=== PATIENT | female | born 1950 | race Caucasian/White ===

== ENCOUNTER → 2016-09-24 | Outpatient (CLI) | payer MEDICARE ==
[~2016-09-24] MED LIST: ASP325TEC PO; ASP81TEC PO; CYCL5TAB11 PO; FURO40TA4 PO; KCL10CCR PO; LTN005OP2 OU; MULT-856 PO; MULT1CAP27 PO; OXYC-109 PO; OXYC-12 PO; PSYL1PAC15 PO; SPIR25TA3 PO; TRAM50TA2 PO
--- NOTE | 2016-09-24 14:15 | Diagnostic Imaging Report ---
Bilateral screening mammogram. The current study was also evaluated with a Computer Aided Detection (CAD) system. INDICATION: Screening. No current complaints stated on the questionnaire. COMPARISON: 09/12/15. FINDINGS: The breasts are composed of scattered fibroglandular densities. There are vascular calcifications seen. Allowing for technique and positional differences, no suspicious change is seen. IMPRESSION: No significant change. ACR BI-RADS Category 2: Benign findings. Result letter will be mailed to the patient. Note: At least 10% of breast cancer is not imaged by mammography. Dictated by: Dictated on workstation # [id number]
== END ==
LOC: RAD 09:36
PROVIDERS: ATTEND Family Medicine
DX: Z12.31 Encounter for screening mammogram for malignant neoplasm of breast (principal)
CPT/HCPCS: 77067

== ENCOUNTER 2017-01-11 10:21 | Emergency (ER) | payer MEDICARE ==
[~2017-01-11] VITALS: Ht 157.5 cm; Wt 108.9 kg
[2017-01-11] MEDS ORDERED: ASPI-586 PO (10:50)
[2017-01-11] MEDS ORDERED: MELO15TA39 (10:50)
[2017-01-11] MEDS ORDERED: LOSA50TA36 (10:50)
[2017-01-11] MEDS ORDERED: TRAM50TA2 (10:50)
--- NOTE | 2017-01-11 10:55 | ED Abdominal Pain ---
General Chief Complaint: Abdominal/GI Problems Stated Complaint: ABD PAIN,NAUSEA Nursing Triage Note: AMBULATED TO ROOM 08 WITHOUT DIFFICULTY. COMPLAINS OF BILAT LOWER ABD PAIN SINCE SATURDAY OFF AND ON WITH NAUSEA. STATES SHE VOMITED TWICE ON SAT. Sepsis Screen: No Definite Risk Source of Information: Patient Exam Limitations: No Limitations History of Present Illness Time Seen By Provider: 10:53 Initial Comments To ER with bilateral lower abdominal pain that has been crampy in nature and intermittent for 4 days. She vomited twice 2 days ago. She denies fevers or chills but states that her bowels have been a bit looser than usual though she would not consider it to be diarrhea. Cramping seems to be a bit better today but is still uncomfortable. She denies any dysuria. She denies any fevers or chills. She does have a history of diverticulitis. Timing/Duration: 4-5 Days, Intermittent Severity/Quality: Cramping Location: Suprapubic Radiation: No Radiation Activities at Onset: None Associated Symptoms: No Fever/Chills, Nausea/Vomiting Allergies and Home Medications Allergies Coded Allergies: codeine (Verified Allergy, Unknown, 05/06/14) hydrocodone (Verified Allergy, Unknown, 05/06/14) Home Medications Aspirin 81 Mg Tablet.dr, 81 MG PO DAILY, (Reported) Ciprofloxacin HCl 500 Mg Tablet, 500 MG PO BID, #14 Prescribed by: JAM RIBERA on 01/11/17 1222 Latanoprost 2.5 Ml Drops, 1 DROP OU HS, (Reported) Losartan Potassium 50 Mg Tablet, #90 (Reported) Meloxicam 15 Mg Tablet, #30 (Reported) Metronidazole 500 Mg Tablet, 500 MG PO TID, #21 Prescribed by: JAM RIBERA on 01/11/17 1222 Multivits W-Fe,Other Min/Lut 1 Each Tablet, 1 TAB PO DAILY, (Reported) Ondansetron 8 Mg Tab.rapdis, 8 MG PO Q6H PRN for NAUSEA/VOMITING-1ST LINE, #14 Prescribed by: JAM RIBERA on 01/11/17 1222 Tramadol HCl 50 Mg Tablet, #40 (Reported) Tramadol HCl 50 Mg Tablet, 50 MG PO Q6H PRN for PAIN-MODERATE TO SEVERE, #20 Prescribed by: JAM RIBERA on 01/11/17 1238 Review of Systems Constitutional: see HPI EENTM: No Symptoms Reported Respiratory: No Symptoms Reported Cardiovascular: No Symptoms Reported Gastrointestinal: See HPI, Abdominal Pain, Denies Blood Streaked Stools, Denies Constipated, Denies Diarrhea, Nausea, Vomiting Genitourinary: No Symptoms Reported Musculoskeletal: no symptoms reported Skin: no symptoms reported Psychiatric/Neurological: No Symptoms Reported Endocrine: No Symptoms Reported Past Aqrpjdw-Jnnhkl-Raycbp Hx Patient Social History Alcohol Use: Denies Use Recreational Drug Use: No Smoking Status: Never a Smoker Recent Foreign Travel: No Contact w/Someone Who Travel: No Recent Infectious Disease Expo: No Immunizations Up To Date Tetanus Booster (TDap): Unknown Surgeries HX Surgeries: Yes (HYSTEROSCOPY, TEETH REMOVAL) Surgeries: Gallbladder, Orthopedic Respiratory Hx Respiratory Disorders: No Cardiovascular Hx Cardiac Disorders: No ( HEART CATH ) Cardiac Disorders: Hypertension Neurological Hx Neurological Disorders: No Reproductive System Hx Reproductive Disorders: No Genitourinary Hx Genitourinary Disorders: No Gastrointestinal Hx Gastrointestinal Disorders: Yes (DIVERTICULITIS) Musculoskeletal Hx Musculoskeletal Disorders: Yes (DJD) Musculoskeletal Disorders: Arthritis Endocrine Hx Endocrine Disorders: No HEENT HX ENT Disorders: Yes (UPPER DENTURES) HEENT Disorders: Glaucoma Cancer Hx Cancer: No Psychosocial Hx Psychiatric Problems: No Integumentary HX Skin/Integumentary Disorder: Yes (RECENT LESIONS FROZE OFF) Skin/Integumentary Disorders: Eczema Blood Transfusions Hx Blood Disorders: No Physical Exam Vital Signs VS - Last 72 Hours, by Label 01/11/17 10:40 Temp 98.1 Pulse 100 Resp 16 B/P (MAP) 176/72 Pulse Ox 93 Capillary Refill : Less Than 3 Seconds General Appearance: WD/WN, no apparent distress HEENT: PERRL/EOMI, normal ENT inspection Neck: non-tender, full range of motion Respiratory: no respiratory distress, no accessory muscle use Cardiovascular: regular rate, rhythm, no murmur Gastrointestinal: normal bowel sounds, soft, tenderness (minimal left lower quadrant tenderness) Extremities: normal range of motion, non-tender Neurologic/Psychiatric: alert, normal mood/affect, oriented x 3 Skin: normal color, warm/dry Exam Comments She denies any current pain or nausea. Progress/Results/Core Measures Results/Orders Lab Results Laboratory Tests Test 01/11/17 10:55 01/11/17 11:05 Range/Units White Blood Count 6.8 4.3-11.0 10^3/uL Red Blood Count 5.21 4.35-5.85 10^6/uL Hemoglobin 14.5 11.5-16.0 G/DL Hematocrit 45 35-52 % Mean Corpuscular Volume 86 80-99 FL Mean Corpuscular Hemoglobin 28 25-34 PG Mean Corpuscular Hemoglobin Concent 32 32-36 G/DL Red Cell Distribution Width 14.2 10.0-14.5 % Platelet Count 258 130-400 10^3/uL Mean Platelet Volume 9.6 7.4-10.4 FL Neutrophils (%) (Auto) 72 42-75 % Lymphocytes (%) (Auto) 17 12-44 % Monocytes (%) (Auto) 10 0-12 % Eosinophils (%) (Auto) 0 0-10 % Basophils (%) (Auto) 0 0-10 % Neutrophils # (Auto) 4.9 1.8-7.8 X 10^3 Lymphocytes # (Auto) 1.2 1.0-4.0 X 10^3 Monocytes # (Auto) 0.7 0.0-1.0 X 10^3 Eosinophils # (Auto) 0.0 0.0-0.3 10^3/uL Basophils # (Auto) 0.0 0.0-0.1 10^3/uL Sodium Level 141 135-145 MMOL/L Potassium Level 3.6 3.6-5.0 MMOL/L Chloride Level 106 98-107 MMOL/L Carbon Dioxide Level 26 21-32 MMOL/L Anion Gap 9 5-14 MMOL/L Blood Urea Nitrogen 13 7-18 MG/DL Creatinine 0.60 0.60-1.30 MG/DL Estimat Glomerular Filtration Rate > 60 BUN/Creatinine Ratio 22 Glucose Level 113 H 70-105 MG/DL Calcium Level 9.4 8.5-10.1 MG/DL Total Bilirubin 0.8 0.1-1.0 MG/DL Aspartate Amino Transf (AST/SGOT) 23 5-34 U/L Alanine Aminotransferase (ALT/SGPT) 23 0-55 U/L Alkaline Phosphatase 92 40-136 U/L Total Protein 7.3 6.4-8.2 GM/DL Albumin 4.0 3.2-4.5 GM/DL Urine Color YELLOW Urine Clarity CLEAR Urine pH 5 5-9 Urine Specific [place] 1.015 L 1.016-1.022 Urine Protein 1+ H NEGATIVE Urine Glucose (UA) NEGATIVE NEGATIVE Urine Ketones 1+ H NEGATIVE Urine Nitrite NEGATIVE NEGATIVE Urine Bilirubin NEGATIVE NEGATIVE Urine Urobilinogen NORMAL NORMAL MG/DL Urine Leukocyte Esterase 3+ H NEGATIVE Urine RBC (Auto) 3+ H NEGATIVE Urine RBC RARE /HPF Urine WBC 5-10 H /HPF Urine Squamous Epithelial Cells 10-25 H /HPF Urine Crystals NONE /LPF Urine Bacteria TRACE /HPF Urine Casts NONE /LPF Urine Mucus NEGATIVE /LPF Urine Culture Indicated YES My Orders Orders - JAM RIBERA APRN Ua Culture If Indicated (01/11/17 10:49) Cbc With Automated Diff (01/11/17 10:49) Comprehensive Metabolic Panel (01/11/17 10:49) Saline Lock/Iv-Start (01/11/17 10:49) Ns Iv 1000 Ml (Sodium Chloride 0.9%) (01/11/17 11:00) Urine Culture (01/11/17 11:05) Ct Abdomen/Pelvis W (01/11/17 11:41) Iohexol Injection (Omnipaque 350 Mg/Ml 1 (01/11/17 12:00) Ns (Ivpb) (Sodium Chloride 0.9% Ivpb Bag (01/11/17 12:00) Ciprofloxacin Tablet (Cipro Tablet) (01/11/17 12:30) Metronidazole Tablet (Flagyl Tablet) (01/11/17 12:30) Medications Given in ED Current Medications Medications Dose Ordered Sig/Hoda Route Start Time Stop Time Status Last Admin Dose Admin Iohexol 100 ml ONCE ONCE IV 01/11/17 12:00 01/11/17 12:01 DC 01/11/17 11:58 100 ML Sodium Chloride 100 ml ONCE ONCE IV 01/11/17 12:00 01/11/17 12:01 DC 01/11/17 11:58 80 ML Vital Signs/I&O Vital Sign - Last 12Hours 01/11/17 10:40 Temp 98.1 Pulse 100 Resp 16 B/P (MAP) 176/72 Pulse Ox 93 Blood Pressure Mean: 106 Diagnostic Imaging Diagonstic Imaging: CT Comments NAME: DEANNA VIDALES [facility] REC#: [id number] PT STATUS: REG ER : 1950 PHYSICIAN: JAM RIBERA APRN ADMIT DATE: 01/11/17/ER Draft Date of Exam:01/11/17 CT ABDOMEN/PELVIS W PROCEDURE: CT abdomen and pelvis with contrast. TECHNIQUE: Multiple contiguous axial images were obtained through the abdomen and pelvis after administration of intravenous contrast. INDICATION: Abdominal pain and nausea. 100 mL of Omnipaque 350 is administered intravenously. FINDINGS: There is minimal left basilar atelectasis. The liver, the spleen, the adrenals, and the pancreas appear unremarkable. Cholecystectomy clips are seen. The biliary tree is slightly dilated, without definite obstructive lesion. This is commonly seen after cholecystectomy. The kidneys have symmetric contrast enhancement and excretion. The renal collecting system has contrast in it even on the arterial phase and this study cannot evaluate for renal stones. There is a 1.4 cm cyst in the anterior aspect of the left kidney. There is thickening and pericolonic inflammation seen around the descending and proximal sigmoid colon with multiple diverticula noted suggestive of diverticulitis. No abscess. No fluid collection or free fluid. The abdominal aorta is normal in caliber. No para-aortic significantly enlarged lymph node is seen. The uterus and adnexa appear grossly unremarkable. The osseous structures demonstrate degenerative changes in the lumbar spine and SI joints more on the right side. IMPRESSION: Mild to moderate diverticulitis changes involving the descending and proximal sigmoid colon. No abscess. The findings were discussed with Mr. Jam Ribera, the ER physician geriatric assistant taking care of the patient at time of dictation. Dictated on workstation # [id number] Dict: 01/11/17 1227 Trans: 01/11/17 1238 [id number] Interpreted by: TARA TAVERAS MD Electronically signed by: Departure Communication Progress Notes I did discuss return precautions with the patient and her family including that she should return for uncontrollable nausea vomiting, fever or worsening pain. Impression Impression: Primary Impression: Diverticulitis large intestine Disposition: 01 HOME, SELF-CARE Condition: Stable Departure-Patient Inst. Decision time for Depature: 12:20 Referrals: ALY BLAND MD (PCP/Family) Primary Care Physician Patient Instructions: Diverticulitis (DC) Add. Discharge Instructions: 1. Return to ER for any concerns such as fevers, worsening pain, nausea that prohibits you from taking your antibiotics 2. Take antibiotics as directed 3. Follow-up with Dr. Bland next week All discharge instructions reviewed with patient and/or family. Voiced understanding. Scripts Tramadol HCl (Ultram) 50 Mg Tablet 50 MG PO Q6H Y for PAIN-MODERATE TO SEVERE, #20 TAB Prov: JAM RIBERA APRN 01/11/17 Ondansetron (Zofran Odt) 8 Mg Tab.rapdis 8 MG PO Q6H Y for NAUSEA/VOMITING-1ST LINE, #14 TAB Prov: JAM RIBERA APRN 01/11/17 Metronidazole (Flagyl) 500 Mg Tablet 500 MG PO TID, #21 TAB Prov: JAM RIBERA APRN 01/11/17 Ciprofloxacin HCl (Cipro) 500 Mg Tablet 500 MG PO BID, #14 TAB Prov: JAM RIBERA APRN 01/11/17 JAM RIBERA APRN Jan 11, 2017 10:55
[2017-01-11] MEDS ORDERED: NS IV 1000 ML 1,000 ML IV SCH (11:00)
[2017-01-11 11:02] LABS: BASOPHILS % (AUTO) 0 % (0-10); EOSINOPHILS % (AUTO) 0 % (0-10); LYMPHOCYTES # (AUTO) 1.2 X 10^3 (1.0-4.0); LYMPHOCYTES % (AUTO) 17 % (12-44); MEAN CORPUSCULAR HEMOGLOBIN 28 PG (25-34); MEAN CORPUSCULAR HGB CONC 32 G/DL (32-36); MEAN CORPUSCULAR VOLUME 86 FL (80-99); MEAN PLATELET VOLUME 9.6 FL (7.4-10.4); MONOCYTES # (AUTO) 0.7 X 10^3 (0.0-1.0); MONOCYTES % (AUTO) 10 % (0-12); NEUTROPHILS # (AUTO) 4.9 X 10^3 (1.8-7.8); NEUTROPHILS % (AUTO) 72 % (42-75); PLATELET COUNT 258 10^3/uL (130-400); RED BLOOD COUNT 5.21 10^6/uL (4.35-5.85); RED CELL DISTRIBUTION WIDTH 14.2 % (10.0-14.5); WHITE BLOOD COUNT 6.8 10^3/uL (4.3-11.0)
[2017-01-11 11:16] LABS: BILIRUBIN,URINE NEGATIVE (NEGATIVE); KETONES,URINE 1+ (NEGATIVE); LEUKOCYTE ESTERASE ,URINE 3+ (NEGATIVE); NITRITE,URINE NEGATIVE (NEGATIVE); PH,URINE 5 (5-9); PROTEIN,URINE 1+ (NEGATIVE); UROBILINOGEN,URINE NORMAL (NORMAL)
[2017-01-11 11:24] LABS: ALANINE AMINOTRANSFERASE 23 U/L (0-55); ANION GAP 9 MMOL/L (5-14); ASPARTATE AMINO TRANSFERASE 23 U/L (5-34); BILIRUBIN,TOTAL 0.8 MG/DL (0.1-1.0); BLOOD UREA NITROGEN 13 MG/DL (7-18); BUN/CREATININE RATIO 22; CALCIUM 9.4 MG/DL (8.5-10.1); CARBON DIOXIDE 26 MMOL/L (21-32); CHLORIDE 106 MMOL/L (98-107); GFR ESTIMATED > 60; GLUCOSE 113 MG/DL (70-105); POTASSIUM 3.6 MMOL/L (3.6-5.0); SODIUM 141 MMOL/L (135-145); TOTAL PROTEIN 7.3 GM/DL (6.4-8.2)
[2017-01-11] MEDS ORDERED: IOHEXOL 350 MG/ML 100 ML (OMNIPAQUE 350) VIAL IV ONE (12:00)
[2017-01-11] MEDS ORDERED: NS 100 ML (IVPB) BAG IV ONE (12:00)
[2017-01-11] MEDS ORDERED: METR500T PO (12:22)
[2017-01-11] MEDS ORDERED: CIPR-225 PO (12:22)
[2017-01-11] MEDS ORDERED: ONDA8TAB9 PO (12:22)
[2017-01-11] MEDS ORDERED: metroNIDAZOLE 500 MG (FLAGYL) TAB PO ONE (12:30)
[2017-01-11] MEDS ORDERED: CIPROFLOXACIN 500 MG (CIPRO) TABLET PO SCH (12:30)
[2017-01-11] MEDS ORDERED: TRAM-42 PO (12:38)
--- NOTE | 2017-01-11 12:39 | Diagnostic Imaging Report ---
PROCEDURE: CT abdomen and pelvis with contrast. TECHNIQUE: Multiple contiguous axial images were obtained through the abdomen and pelvis after administration of intravenous contrast. INDICATION: Abdominal pain and nausea. 100 mL of Omnipaque 350 is administered intravenously. FINDINGS: There is minimal left basilar atelectasis. The liver, the spleen, the adrenals, and the pancreas appear unremarkable. Cholecystectomy clips are seen. The biliary tree is slightly dilated, without definite obstructive lesion. This is commonly seen after cholecystectomy. The kidneys have symmetric contrast enhancement and excretion. The renal collecting system has contrast in it even on the arterial phase and this study cannot evaluate for renal stones. There is a 1.4 cm cyst in the anterior aspect of the left kidney. There is thickening and pericolonic inflammation seen around the descending and proximal sigmoid colon with multiple diverticula noted suggestive of diverticulitis. No abscess. No fluid collection or free fluid. The abdominal aorta is normal in caliber. No para-aortic significantly enlarged lymph node is seen. The uterus and adnexa appear grossly unremarkable. The osseous structures demonstrate degenerative changes in the lumbar spine and SI joints more on the right side. IMPRESSION: Mild to moderate diverticulitis changes involving the descending and proximal sigmoid colon. No abscess. The findings were discussed with Mr. Stevenson Ribera, the ER physician speech language pathology assistant taking care of the patient at time of dictation. Dictated by: Dictated on workstation # [id number]
[2017-01-11 13:07] VITALS: BP 134/63
== END 2017-01-11 13:07 | disposition home or self-care (01) ==
LOC: EDUNIT# 10:21 → ER 10:22
DX: K57.32 Diverticulitis of large intestine without perforation or abscess without bleeding (principal); M19.90 Unspecified osteoarthritis, unspecified site; I10 Essential (primary) hypertension; Z90.49 Acquired absence of other specified parts of digestive tract; Z79.82 Long term (current) use of aspirin
CPT/HCPCS: 36415; 74177; 80053; 81000; 85025; 87088; 87186; 99283

== ENCOUNTER → 2017-06-26 | Outpatient (CLI) | payer MEDICARE ==
[~2017-06-26] MED LIST changes: +ASPI-586 PO; +BARIUM SUSPENSION 2.1% (VANILLA SILQ) 450 ML PO ONE; +CIPR-225 PO; +IOHEXOL 350 MG/ML 100 ML (OMNIPAQUE 350) VIAL IV ONE; +LOSA50TA36; +MELO15TA39; +METR500T PO; +NS 100 ML (IVPB) BAG IV ONE; +ONDA8TAB9 PO; +TRAM-42 PO; +TRAM50TA2
--- NOTE | 2017-06-26 10:49 | Diagnostic Imaging Report ---
PROCEDURE: CT abdomen and pelvis with contrast. TECHNIQUE: Multiple contiguous axial images were obtained through the abdomen and pelvis after administration of intravenous contrast. INDICATION: Pelvic mass. The previous CT at abdomen/pelvis exam of 01/11/2017 noted moderate diverticulitis of the sigmoid and descending colon. There is no diverticular mass or abscess identified. On this exam, there is again evidence of diverticulosis of the sigmoid and descending colon but there is no significant distortion of the pericolonic fat to suggest acute diverticulitis. There is still no pelvic mass or abscess identified. There does appear to be a fair amount of fecal material in the sigmoid colon as it courses close to the anterior abdominal wall. The urinary bladder and uterus are grossly unremarkable. The appendix was visualized and is not abnormally thickened. The liver, spleen, pancreas, adrenals, aorta and inferior vena cava and kidneys show no sign of an acute abnormality. There is a large 1.1 x 1.8 cm nonobstructive calculus in the inferior pole of the right kidney. I suspect that this was present on the prior exam but difficult to identify as a pre-intravenous contrast series was not performed on prior study. The small cyst along the anterior aspect of the left kidney seen previously is again evident and no different. The stomach is not well-distended and consequently difficult to assess. The lung bases are clear. The bone windows show no sign of a fracture or destructive lesion. There is degenerative disc and bony disease throughout the lumbar spine. IMPRESSION: 1. There is diverticulosis of the sigmoid and descending colon but there is no sign of acute diverticulitis. 2. There is no pelvic mass or abscess different. There is a fair amount of fecal material in a portion of the sigmoid colon as it courses near the anterior abdominal wall on the left, however. 3. There is no acute abnormality of the abdomen or pelvis noted, otherwise. 4. There is a large nonobstructive calculus within the inferior pole of the right kidney. Dictated by: Dictated on workstation # [id number]
== END ==
LOC: RAD 09:19
PROVIDERS: ATTEND Obstetrics & Gynecology
DX: K57.30 Diverticulosis of large intestine without perforation or abscess without bleeding (principal); N20.0 Calculus of kidney
CPT/HCPCS: 74177

== ENCOUNTER 2017-11-12 09:44 | Outpatient (RCR) | payer MEDICARE ==
[~2017-11-12 09:44] MED LIST changes: -BARIUM SUSPENSION 2.1% (VANILLA SILQ) 450 ML PO ONE; -IOHEXOL 350 MG/ML 100 ML (OMNIPAQUE 350) VIAL IV ONE; -NS 100 ML (IVPB) BAG IV ONE
== END 2017-11-12 11:35 | disposition home or self-care (01) ==
PROVIDERS: ATTEND Orthopaedic Surgery
DX: S83.412A Sprain of medial collateral ligament of left knee, initial encounter (principal); W00.9XXA Unspecified fall due to ice and snow, initial encounter; Z96.652 Presence of left artificial knee joint; I10 Essential (primary) hypertension

== ENCOUNTER → 2017-12-23 | Outpatient (CLI) | payer MEDICARE ==
--- NOTE | 2017-12-23 15:52 | Diagnostic Imaging Report ---
INDICATION: Routine screening. COMPARISON: 09/24/2016 and 09/12/2015. TECHNIQUE: 2D and 3D bilateral screening mammography was performed with CAD. FINDINGS: Scattered fibroglandular densities are identified bilaterally. Scattered benign-appearing calcifications are noted bilaterally. Intramammary lymph nodes in the outer left breast are stable. No new mass or malignant appearing microcalcifications are seen. The axillae are unremarkable. IMPRESSION: No mammographic features suspicious for malignancy are identified. ACR BI-RADS Category 2: Benign findings. Result letter will be mailed to the patient. Note: At least 10% of breast cancer is not imaged by mammography. Dictated by: Dictated on workstation # [id number]
== END ==
LOC: RAD 08:32
PROVIDERS: ATTEND Family Medicine
DX: Z12.31 Encounter for screening mammogram for malignant neoplasm of breast (principal)
CPT/HCPCS: 77067

== ENCOUNTER 2018-07-24 13:56 | Emergency (ER) | payer MEDICARE ==
[~2018-07-24] VITALS: Ht 157.5 cm; Wt 102.1 kg
[~2018-07-24 13:56] MED LIST changes: -LOSA50TA36; +LOSA50TA63 PO
--- OUTSIDE RECORDS SUMMARY | 2018-07-24 14:02 | XMS REPORT | Continuity of Care Document ---
Author Author [facility] Organization [facility] Address Unknown Phone Unavailable Allergies Active Description Code Type Severity Reaction Onset Reported/Identified Relationship to Patient Clinical Status Yes codeine [id number] Drug Allergy Unknown N/A 05/06/2014 Yes hydrocodone [id number] Drug Allergy Unknown N/A 05/06/2014 Medications There is no data. Problems Date Dx Coded Attending Type Code Diagnosis Diagnosed By 05/16/1131 LATRELL MCCALL Ot M54.5 LOW BACK PAIN 05/16/1134 AMELIA YANG DO Ot I10 ESSENTIAL (PRIMARY) HYPERTENSION 05/16/1134 AMELIA YANG DO Ot S83.412A SPRAIN OF MEDIAL COLLATERAL LIGAMENT OF 05/16/1134 AMELIA YANG DO Ot W00.9XXA UNSPECIFIED FALL DUE TO ICE AND SNOW, IN 05/16/1134 AMELIA YANG DO Ot Z96.652 PRESENCE OF LEFT ARTIFICIAL KNEE JOINT 03/24/2009 Ot 724.2 03/24/2009 Ot V57.1 08/26/2012 Ot 278.00 OBESITY, NOS 08/26/2012 Ot 401.9 HYPERTENSION NOS 08/26/2012 Ot 433.10 CAROTID ARTERY OCCLUSION W O CEREBRAL IN 08/26/2012 Ot 715.90 OSTEOARTHROS NOS-UNSPEC 08/26/2012 Ot 786.09 RESPIRATORY ABNORM NEC 08/26/2012 Ot 794.30 ABN CARDIOVASC STUDY NOS 08/26/2012 Ot V85.41 BODY MASS INDEX 40.0-44.9, ADULT 10/02/2012 Ot 715.36 LOC OSTEOARTH NOS-L/LEG 11/26/2012 AMELIA YANG DO Ot V43.65 KNEE JOINT REPLACEMENT STATUS 11/26/2012 AMELIA YANG DO Ot V54.81 AFTERCARE FOLLOWING JOINT REPLACEMENT 11/26/2012 AMELIA YANG DO Ot V57.1 PHYSICAL THERAPY NEC 03/15/2014 JMA RG APRN Ot 724.2 [place] 06/04/2014 FRANCK HUITRON, ALY R Ot 786.2 06/05/2014 FRANCK HUITRON, ALY R Ot 786.2 06/23/2014 FRANCK HUITRON, ALY R Ot 786.2 07/12/2014 FRANCK HUITRON, ALY R Ot 786.2 09/06/2014 Ot V76.12 09/06/2014 Ot V76.12 09/06/2014 Ot V76.12 09/06/2014 Ot 241.0 09/06/2014 Ot V76.12 09/06/2014 Ot 715.96 09/06/2014 Ot V72.63 09/06/2014 Ot V72.83 09/06/2014 Ot V74.8 09/06/2014 Ot 401.9 09/06/2014 Ot 433.10 09/06/2014 Ot 786.09 09/06/2014 FRANCK HUITRON, ALY R Ot V76.12 09/06/2014 FRANCK HUITRON, ALY R Ot 786.2 11/05/2014 FRANCK HUITRON, ALY R Ot V76.12 09/13/2015 ALY JUÁREZ MD R Ot Z12.31 10/05/2015 ALY JUÁREZ MD R Ot Z12.31 ENCNTR SCREEN MAMMOGRAM FOR MALIGNANT NE 02/08/2016 ALY JUÁREZ MD R Ot M53.3 SACROCOCCYGEAL DISORDERS, NOT ELSEWHERE 02/08/2016 ALY JUÁREZ MD R Ot R82.99 OTHER ABNORMAL FINDINGS IN URINE 02/15/2016 FRANCK HUITRON, ALY R Ot M54.5 LOW BACK PAIN 02/15/2016 LISA JUÁREZ MDYD R Ot M54.5 LOW BACK PAIN 02/20/2016 FRANCK HUITRON, ALY R Ot M54.5 LOW BACK PAIN 03/02/2016 ALY JUÁREZ MD R Ot M53.3 SACROCOCCYGEAL DISORDERS, NOT ELSEWHERE 03/02/2016 ALY JUÁREZ MD R Ot R82.99 OTHER ABNORMAL FINDINGS IN URINE 03/07/2016 ALY JUÁREZ MD R Ot M54.5 LOW BACK PAIN 03/07/2016 ALY JUÁREZ MD R Ot M53.3 SACROCOCCYGEAL DISORDERS, NOT ELSEWHERE 03/07/2016 FRANCK HUITRON, ALY R Ot R82.99 OTHER ABNORMAL FINDINGS IN URINE 03/13/2016 Ot V76.12 OTH SCREEN MAMMO-MALIGN NEOPLASM OF [place] 03/13/2016 Ot 241.0 NONTOX UNINODULAR GOITER 03/13/2016 Ot V76.12 OTH SCREEN MAMMO-MALIGN NEOPLASM OF [place] 03/13/2016 Ot 715.96 OSTEOARTHROS NOS-L/LEG 03/13/2016 Ot V72.63 PRE- PROCEDURAL LABORATORY EXAMINATION 03/13/2016 Ot V72.83 EXAM PRE- OPERATIVE NEC 03/13/2016 Ot V74.8 SCREEN- BACTERIAL DIS NEC 03/13/2016 Ot 401.9 HYPERTENSION NOS 03/13/2016 Ot 433.10 CAROTID ARTERY OCCLUSION W O CEREBRAL IN 03/13/2016 Ot 786.09 RESPIRATORY ABNORM NEC 03/13/2016 ALY JUÁREZ MD Ot V76.12 OTH SCREEN MAMMO-MALIGN NEOPLASM OF [place] 03/13/2016 ALY JUÁREZ MD Ot 786.2 COUGH 03/13/2016 ALY JUÁREZ MD R Ot V76.12 OTH SCREEN MAMMO-MALIGN NEOPLASM OF [place] 03/13/2016 ALY JUÁREZ MD Ot Z12.31 ENCNTR SCREEN MAMMOGRAM FOR MALIGNANT NE 03/13/2016 ALY JUÁREZ MD Ot M53.3 SACROCOCCYGEAL DISORDERS, NOT ELSEWHERE 03/13/2016 ALY JUÁREZ MD Ot R82.99 OTHER ABNORMAL FINDINGS IN URINE 03/13/2016 ALY JUÁREZ MD R Ot M54.5 LOW BACK PAIN 03/14/2016 ALY JUÁREZ MD R Ot M54.5 LOW BACK PAIN 03/16/2016 LATRELL MCCALL L Ot M54.5 LOW BACK PAIN 03/19/2016 VOGT LATRELL BERRIOS L Ot M54.5 LOW BACK PAIN 03/19/2016 VOGT JOSE BERRIOSY L Ot M54.5 LOW BACK PAIN 04/30/2016 VOGT JOSE BERRIOSY L Ot M54.5 LOW BACK PAIN 05/16/2016 LATRELL MCCALL L Ot M54.5 LOW BACK PAIN 05/16/2016 ADWOAGT JOSE BERRIOSY L Ot M54.5 LOW BACK PAIN 05/27/2016 ALESIA HUITRON FACC, ALI FACP CCDS Ot I10 ESSENTIAL (PRIMARY) HYPERTENSION 05/27/2016 ALESIA HUITRON FACC, ALI FACP CCDS Ot I25.10 ATHSCL HEART DISEASE OF [place] CORONARY 06/15/2016 ALESIA HUITRON FACC, ALI FACP CCDS Ot I10 ESSENTIAL (PRIMARY) HYPERTENSION 06/15/2016 ALESIA HUITRON FACC, ALI FACP CCDS Ot I25.10 ATHSCL HEART DISEASE OF [place] CORONARY 06/21/2016 ALESIA HUITRON FAC, ALI FACP CCDS Ot I10 ESSENTIAL (PRIMARY) HYPERTENSION 06/21/2016 ALESIA HUITRON FAC, ALI FACP CCDS Ot I25.10 ATHSCL HEART DISEASE OF [place] CORONARY 09/24/2016 FRANCK HUITRON, ALY R Ot Z12.31 ENCNTR SCREEN MAMMOGRAM FOR MALIGNANT NE 09/24/2016 FRANCK HUITRON ALY R Ot Z12.31 ENCNTR SCREEN MAMMOGRAM FOR MALIGNANT NE 09/24/2016 FRANCK HUITRON ALY R Ot Z12.31 ENCNTR SCREEN MAMMOGRAM FOR MALIGNANT NE 10/16/2016 FRANCK HUITRON ALY R Ot Z12.31 ENCNTR SCREEN MAMMOGRAM FOR MALIGNANT NE 01/11/2017 JAM RG APRN Ot I10 ESSENTIAL (PRIMARY) HYPERTENSION 01/11/2017 JAM RG APRN Ot K57.32 DVTRCLI OF LG INT W/O PERFORATION OR ABS 01/11/2017 JAM RG FIRST COOK Ot M19.90 UNSPECIFIED OSTEOARTHRITIS, UNSPECIFIED 01/11/2017 JAM RG APRN Ot R10.31 RIGHT LOWER QUADRANT PAIN 01/11/2017 JAM RG FIRST COOK Ot Z79.82 CHANNELER OUTSOLE (CURRENT) USE OF ASPIRIN 01/11/2017 JAM RG FIRST COOK Ot Z90.49 ACQUIRED ABSENCE OF OTHER SPECIFIED PART 07/17/2017 NICOLA PETERS MD Ot K57.30 DVRTCLOS OF LG INT W/O PERFORATION OR AB 07/17/2017 NICOLA PETERS MD Ot N20.0 CALCULUS OF KIDNEY 07/25/2017 NICOLA PETERS MD Ot K57.30 DVRTCLOS OF LG INT W/O PERFORATION OR AB 07/25/2017 FRAN HUITRON, NICOLA Cornejo Ot N20.0 CALCULUS OF KIDNEY 11/05/2017 CELIA COBB, AMELIA Marroquin Ot I10 ESSENTIAL (PRIMARY) HYPERTENSION 11/05/2017 AMELIA YANG DO Ot S83.412A SPRAIN OF MEDIAL COLLATERAL LIGAMENT OF 11/05/2017 AMELIA YANG DO Ot W00.9XXA UNSPECIFIED FALL DUE TO ICE AND SNOW, IN 11/05/2017 AMELIA YANG DO Ot Z96.652 PRESENCE OF LEFT ARTIFICIAL KNEE JOINT 11/13/2017 CELIA COBB, AMELIA Marroquin Ot I10 ESSENTIAL (PRIMARY) HYPERTENSION 11/13/2017 CELIA COBB, AMELIA Marroquin Ot S83.412A SPRAIN OF MEDIAL COLLATERAL LIGAMENT OF 11/13/2017 AMELIA YANG DO Ot W00.9XXA UNSPECIFIED FALL DUE TO ICE AND SNOW, IN 11/13/2017 CELIA COBB, AMELIA Marroquin Ot Z96.652 PRESENCE OF LEFT ARTIFICIAL KNEE JOINT 12/24/2017 FRANCK HUITRON, ALY R Ot Z12.31 ENCNTR SCREEN MAMMOGRAM FOR MALIGNANT NE 01/14/2018 ALY JUÁREZ MD Ot Z12.31 ENCNTR SCREEN MAMMOGRAM FOR MALIGNANT NE Procedures Code Description Performed By Performed On 81.54 09/30/2012 Results Test Result Range Complete urinalysis with reflex to culture - 02/06/16 11:35 Urine color determination YELLOW NRG Urine clarity determination CLEAR NRG Urine pH measurement by test strip 6 5-9 Specific gravity of urine by test strip 1.015 1.016- 1.022 Urine protein assay by test strip, semi-quantitative NEGATIVE NEGATIVE Urine glucose detection by automated test strip NEGATIVE NEGATIVE Erythrocytes detection in urine sediment by light microscopy 2+ NEGATIVE Urine ketones detection by automated test strip NEGATIVE NEGATIVE Urine nitrite detection by test strip NEGATIVE NEGATIVE Urine total bilirubin detection by test strip 3+ NEGATIVE Urine urobilinogen measurement by automated test strip (mass/volume) NORMAL NORMAL Urine leukocyte esterase detection by dipstick 2+ NEGATIVE Automated urine sediment erythrocyte count by microscopy (number/high power field) [HPF] NRG Automated urine sediment leukocyte count by microscopy (number/high power field ) [HPF] NRG Bacteria detection in urine sediment by light microscopy TRACE NRG Squamous epithelial cells detection in urine sediment by light microscopy 5-10 NRG Crystals detection in urine sediment by light microscopy NONE NRG Casts detection in urine sediment by light microscopy NONE NRG Mucus detection in urine sediment by light microscopy SMALL NRG Complete urinalysis with reflex to culture YES NRG Bacterial urine culture - 02/06/16 11:35 Bacterial urine culture [id number] NRG COLONY COUNT <10,000 NRG FTX;REPORTABLE PLEASE NOTIFY MICRO AT [phone] IF NRG URINE CULTURE RESULTS <10,000/ML NRG FREE TEXT ENTRY 2 REQUESTS A SENSITIVITY ON THIS NRG FREE TEXT ENTRY 3 ISOLATE NRG Automated blood complete blood count (hemogram) panel - 02/14/16 11:46 Blood leukocytes automated count (number/volume) 6.7 10*3/uL 4.3-11.0 Blood erythrocytes automated count (number/volume) 5.27 10*6/uL 4.35-5.85 Venous blood hemoglobin measurement (mass/volume) 14.6 g/dL 11.5-16.0 Blood hematocrit (volume fraction) 45 % 35-52 Automated erythrocyte mean corpuscular volume 85 [foz_us] 80-99 Automated erythrocyte mean corpuscular hemoglobin (mass per erythrocyte) 28 pg 25-34 Automated erythrocyte mean corpuscular hemoglobin concentration measurement ( mass/volume) 32 g/dL 32-36 Automated erythrocyte distribution width ratio 13.5 % 10.0-14.5 Automated blood platelet count (count/volume) 293 10*3/uL 130-400 Automated blood platelet mean volume measurement 9.5 [foz_us] 7.4-10.4 Comprehensive metabolic panel - 02/14/16 11:46 Serum or plasma sodium measurement (moles/volume) 140 mmol/L 135-145 Serum or plasma potassium measurement (moles/volume) 4.4 mmol/L 3.6-5.0 Serum or plasma chloride measurement (moles/volume) 106 mmol/L 98-107 Carbon dioxide 24 mmol/L 21-32 Serum or plasma anion gap determination (moles/volume) 10 mmol/L 5-14 Serum or plasma urea nitrogen measurement (mass/volume) 14 mg/dL 7-18 Serum or plasma creatinine measurement (mass/volume) 0.62 mg/dL 0.60-1.30 Serum or plasma urea nitrogen/creatinine mass ratio 23 NRG Serum or plasma creatinine measurement with calculation of estimated glomerular filtration rate > NRG Serum or plasma glucose measurement (mass/volume) 105 mg/dL 70-105 Serum or plasma calcium measurement (mass/volume) 9.3 mg/dL 8.5-10.1 Serum or plasma total bilirubin measurement (mass/volume) 0.4 mg/dL 0.1-1.0 Serum or plasma alkaline phosphatase measurement (enzymatic activity/volume) 102 U/L 40-136 Serum or plasma aspartate aminotransferase measurement (enzymatic activity/ volume) 40 U/L 5-34 Serum or plasma alanine aminotransferase measurement (enzymatic activity/volume ) 41 U/L 0-55 Serum or plasma protein measurement (mass/volume) 8.0 g/dL 6.4-8.2 Serum or plasma albumin measurement (mass/volume) 4.3 g/dL 3.2-4.5 Complete blood count (CBC) with automated white blood cell (WBC) differential - 01/11/17 10:55 Blood leukocytes automated count (number/volume) 6.8 10*3/uL 4.3-11.0 Blood erythrocytes automated count (number/volume) 5.21 10*6/uL 4.35-5.85 Venous blood hemoglobin measurement (mass/volume) 14.5 g/dL 11.5-16.0 Blood hematocrit (volume fraction) 45 % 35-52 Automated erythrocyte mean corpuscular volume 86 [foz_us] 80-99 Automated erythrocyte mean corpuscular hemoglobin (mass per erythrocyte) 28 pg 25-34 Automated erythrocyte mean corpuscular hemoglobin concentration measurement ( mass/volume) 32 g/dL 32-36 Automated erythrocyte distribution width ratio 14.2 % 10.0-14.5 Automated blood platelet count (count/volume) 258 10*3/uL 130-400 Automated blood platelet mean volume measurement 9.6 [foz_us] 7.4-10.4 Automated blood neutrophils/100 leukocytes 72 % 42-75 Automated blood lymphocytes/100 leukocytes 17 % 12-44 Blood monocytes/100 leukocytes 10 % 0-12 Automated blood eosinophils/100 leukocytes 0 % 0-10 Automated blood basophils/100 leukocytes 0 % 0-10 Blood neutrophils automated count (number/volume) 4.9 10*3 1.8-7.8 Blood lymphocytes automated count (number/volume) 1.2 10*3 1.0-4.0 Blood monocytes automated count (number/volume) 0.7 10*3 0.0-1.0 Automated eosinophil count 0.0 10*3/uL 0.0-0.3 Automated blood basophil count (count/volume) 0.0 10*3/uL 0.0-0.1 Comprehensive metabolic panel - 01/11/17 10:55 Serum or plasma sodium measurement (moles/volume) 141 mmol/L 135-145 Serum or plasma potassium measurement (moles/volume) 3.6 mmol/L 3.6-5.0 Serum or plasma chloride measurement (moles/volume) 106 mmol/L 98-107 Carbon dioxide 26 mmol/L 21-32 Serum or plasma anion gap determination (moles/volume) 9 mmol/L 5-14 Serum or plasma urea nitrogen measurement (mass/volume) 13 mg/dL 7-18 Serum or plasma creatinine measurement (mass/volume) 0.60 mg/dL 0.60-1.30 Serum or plasma urea nitrogen/creatinine mass ratio 22 NRG Serum or plasma creatinine measurement with calculation of estimated glomerular filtration rate > NRG Serum or plasma glucose measurement (mass/volume) 113 mg/dL 70-105 Serum or plasma calcium measurement (mass/volume) 9.4 mg/dL 8.5-10.1 Serum or plasma total bilirubin measurement (mass/volume) 0.8 mg/dL 0.1-1.0 Serum or plasma alkaline phosphatase measurement (enzymatic activity/volume) 92 U/L 40-136 Serum or plasma aspartate aminotransferase measurement (enzymatic activity/ volume) 23 U/L 5-34 Serum or plasma alanine aminotransferase measurement (enzymatic activity/volume ) 23 U/L 0-55 Serum or plasma protein measurement (mass/volume) 7.3 g/dL 6.4-8.2 Serum or plasma albumin measurement (mass/volume) 4.0 g/dL 3.2-4.5 Complete urinalysis with reflex to culture - 01/11/17 11:05 Urine color determination YELLOW NRG Urine clarity determination CLEAR NRG Urine pH measurement by test strip 5 5-9 Specific gravity of urine by test strip 1.015 1.016- 1.022 Urine protein assay by test strip, semi-quantitative 1+ NEGATIVE Urine glucose detection by automated test strip NEGATIVE NEGATIVE Erythrocytes detection in urine sediment by light microscopy 3+ NEGATIVE Urine ketones detection by automated test strip 1+ NEGATIVE Urine nitrite detection by test strip NEGATIVE NEGATIVE Urine total bilirubin detection by test strip NEGATIVE NEGATIVE Urine urobilinogen measurement by automated test strip (mass/volume) NORMAL NORMAL Urine leukocyte esterase detection by dipstick 3+ NEGATIVE Automated urine sediment erythrocyte count by microscopy (number/high power field) RARE NRG Automated urine sediment leukocyte count by microscopy (number/high power field ) [HPF] NRG Bacteria detection in urine sediment by light microscopy TRACE NRG Squamous epithelial cells detection in urine sediment by light microscopy 10-25 NRG Crystals detection in urine sediment by light microscopy NONE NRG Casts detection in urine sediment by light microscopy NONE NRG Mucus detection in urine sediment by light microscopy NEGATIVE NRG Complete urinalysis with reflex to culture YES NRG Bacterial urine culture - 01/11/17 11:05 Bacterial urine culture [id number] NRG COLONY COUNT 10,000/ML - 100,000/ML NRG FTX;REPORTABLE SENSITIVITY REPORTED 01/13/17 9:0 NRG URINE CULTURE RESULTS 10,000/ML - 100,000/ML NRG Bacterial susceptibility panel - 01/11/17 11:05 Gentamicin susceptibility test by minimum inhibitory concentration < = NRG Trimethoprim/sulfamethoxazole susceptibility test by minimum inhibitoryconcentration <= NRG Ampicillin susceptibility test by minimum inhibitory concentration 4 NRG Tobramycin susceptibility test by minimum inhibitory concentration < = NRG Cefazolin susceptibility test by minimum inhibitory concentration < = NRG Ceftriaxone susceptibility test by minimum inhibitory concentration <= NRG Ampicillin/sulbactam susceptibility test by minimum inhibitory concentration <= NRG Piperacillin/tazobactam susceptibility test by minimum inhibitory concentration <= NRG Ciprofloxacin susceptibility test by minimum inhibitory concentration <= NRG Meropenem susceptibility test by minimum inhibitory concentration < = NRG Nitrofurantoin susceptibility test by minimum inhibitory concentration <= NRG Aztreonam susceptibility test by minimum inhibitory concentration < = NRG Extended spectrum beta lactamase (ESBL) producing bacteria susceptibility test by minimum inhibitory concentration - NRG Encounters ACCT No. Visit Date/Time Discharge Status Pt. Type Provider Facility Loc./Unit Complaint [id number] 12/23/2017 08:32:00 12/23/2017 23:59:59 CLS Outpatient ALY JUÁREZ MD [facility] RAD SCREENING [id number] 11/12/2017 09:44:00 11/12/2017 11:35:00 DIS Outpatient AMELIA YANG DO [facility] REHAB GRADE II MCL SPRAIN L KNEE [id number] 06/26/2017 09:19:00 06/26/2017 23:59:59 CLS Outpatient NICOLA PETERS MD [facility] RAD LT PELVIC MASS 8- 10 CM [id number] 01/11/2017 10:22:00 01/11/2017 13:07:00 DIS Emergency JAM RG FIRST COOK [facility] ER ABD PAIN,NAUSEA [id number] 09/24/2016 09:36:00 09/24/2016 23:59:59 CLS Outpatient ALY JUÁREZ MD [facility] RAD SCREENING [id number] 05/18/2016 10:40:00 05/18/2016 23:59:59 CLS Outpatient ALESIA HUITRON FACC, KAVYA WESTON CCDS [facility] CARD CAD,HTN [id number] 04/26/2016 10:27:00 05/17/2016 11:32:00 DIS Outpatient LATRELL MCCALL [facility] REHAB L[place]AG[place];DDD; RADICULOPATHY [id number] 03/14/2016 09:54:00 03/16/2016 17:00:00 DIS Outpatient LATRELL MCCALL [facility] REHAB LUMGO;DDD; RADICULOPATHY [id number] 02/14/2016 10:16:00 02/14/2016 23:59:59 CLS Outpatient ALY JUÁREZ MD [facility] RAD CHRONIC LOW BACK PAIN W RADICULOPATHY [id number] 02/06/2016 10:35:00 02/06/2016 23:59:59 CLS Outpatient ALY JUÁREZ MD [facility] RAD PAIN SI REGION [id number] 09/12/2015 10:03:00 09/12/2015 23:59:59 CLS Outpatient ALY JUÁREZ MD [facility] RAD SCREENING [id number] 09/06/2014 09:38:00 09/06/2014 23:59:59 CLS Outpatient ALY JUÁREZ MD [facility] RAD SCREENING [id number] 06/02/2014 11:23:00 06/02/2014 23:59:59 CLS Outpatient ALY JUÁREZ MD [facility] RAD COUGH,PRODUCTIVE [id number] 03/15/2014 10:07:00 03/15/2014 12:02:00 DIS Emergency JAM RG APRN [facility] ER BACK PAIN [id number] 08/31/2013 08:28:00 08/31/2013 23:59:59 CLS Outpatient ALY JUÁREZ MD [facility] RAD SCREENING [id number] 11/26/2012 09:00:00 11/26/2012 15:24:00 DIS Outpatient AMELIA YANG DO [facility] REHAB S/P LEFT TKR [id number] 07/24/2018 13:57:00 ACT Emergency MARÍA ELENA HUITRON, SALLY Mulligan [facility] ER ABD PAIN;N/V [id number] 09/30/2012 06:08:00 Document Registration [id number] 09/22/2012 09:17:00 Document Registration [id number] 08/26/2012 10:59:00 Document Registration [id number] 08/25/2012 08:26:00 Document Registration [id number] 08/21/2012 07:45:00 Document Registration [id number] 03/18/2012 11:23:00 Document Registration [id number] 08/23/2011 08:03:00 Document Registration [id number] 08/15/2010 08:13:00 Document Registration [id number] 08/11/2009 08:18:00 Document Registration [id number] 03/24/2009 13:00:00 Document Registration
[2018-07-24 14:36] LABS: BASOPHILS % (AUTO) 1 % (0-10); EOSINOPHILS % (AUTO) 0 % (0-10); HEMATOCRIT 42 % (35-52); HEMOGLOBIN 13.8 G/DL (11.5-16.0); LYMPHOCYTES # (AUTO) 1.3 X 10^3 (1.0-4.0); LYMPHOCYTES % (AUTO) 18 % (12-44); MEAN CORPUSCULAR HEMOGLOBIN 29 PG (25-34); MEAN CORPUSCULAR HGB CONC 33 G/DL (32-36); MEAN CORPUSCULAR VOLUME 87 FL (80-99); MEAN PLATELET VOLUME 9.6 FL (7.4-10.4); MONOCYTES # (AUTO) 0.7 X 10^3 (0.0-1.0); MONOCYTES % (AUTO) 10 % (0-12); NEUTROPHILS % (AUTO) 71 % (42-75); PLATELET COUNT 232 10^3/uL (130-400); RED CELL DISTRIBUTION WIDTH 13.6 % (10.0-14.5); WHITE BLOOD COUNT 7.1 10^3/uL (4.3-11.0)
--- NOTE | 2018-07-24 14:44 | ED Abdominal Pain ---
General Chief Complaint: Abdominal/GI Problems Stated Complaint: ABD PAIN;N/V Nursing Triage Note: pt c/o nausea, upset stomach, constipation, and abdominal pain x 2 weeks. pt denies v/d. pt has hx of diverticulitis but states these sx "somewhat similar but much worse than my usual diverticulitis flare ups" Sepsis Screen: No Definite Risk Source of Information: Patient Exam Limitations: No Limitations History of Present Illness Date Seen by Provider: Jul 24, 2018 Time Seen by Provider: 14:41 Initial Comments To ER with reports of about a 1 month history of intermittent nausea and abdominal pain. She denies fever, denies vomiting. This started about 4 weeks ago, she did a one-week diet of clear liquids, the following week improved. Last week. Return. She denies any bloody stools, she has a history of diverticulitis last year and this reminds her of that. The pain that she reports is primarily left sided, worst in the left lower abdomen and is described as intermittent cramping. Timing/Duration: Getting Worse, Intermittent Severity/Quality: Moderate Location: LLQ Radiation: No Radiation Activities at Onset: None Allergies and Home Medications Allergies Coded Allergies: codeine (Verified Allergy, Unknown, 05/06/14) hydrocodone (Verified Allergy, Unknown, 05/06/14) Home Medications Amoxicillin/Potassium Clav 1 Each Tablet, 1 EACH PO BID Prescribed by: JAM RG on 07/24/18 1635 Aspirin 81 Mg Tablet.dr, 81 MG PO DAILY, (Reported) Ciprofloxacin HCl 500 Mg Tablet, 500 MG PO BID Prescribed by: JAM RG on 01/11/17 1222 Latanoprost 2.5 Ml Drops, 1 DROP OU HS, (Reported) Metronidazole 500 Mg Tablet, 500 MG PO TID Prescribed by: JAM RG on 01/11/17 1222 Multivits W-Fe,Other Min/Lut 1 Each Tablet, 1 TAB PO DAILY, (Reported) Ondansetron 8 Mg Tab.rapdis, 8 MG PO Q6H PRN for NAUSEA/VOMITING-1ST LINE Prescribed by: JAM RG on 01/11/17 1222 Polyethylene Glycol 3350 17 Gm Powd.pack, 17 GM PO BID Prescribed by: JAM RG on 07/24/18 1635 Tramadol HCl 50 Mg Tablet, 50 MG PO Q6H PRN for PAIN-MODERATE TO SEVERE Prescribed by: JAM RG on 01/11/17 1238 Patient Home Medication List Home Medication List Reviewed: Yes Review of Systems Review of Systems Constitutional: see HPI EENTM: No Symptoms Reported Respiratory: No Symptoms Reported Cardiovascular: No Symptoms Reported Gastrointestinal: See HPI, Abdominal Pain, Nausea Genitourinary: No Symptoms Reported Musculoskeletal: no symptoms reported Skin: no symptoms reported Psychiatric/Neurological: No Symptoms Reported Endocrine: No Symptoms Reported Hematologic/Lymphatic: No Symptoms Reported Past Wkujfgv-Jmlfrl-Xfalnn Hx Patient Social History Alcohol Use: Denies Use Recreational Drug Use: No Smoking Status: Never a Smoker Recent Foreign Travel: No Contact w/Someone Who Travel: No Recent Infectious Disease Expo: No Recent Hopitalizations: No Immunizations Up To Date Tetanus Booster (TDap): Unknown Past Medical History Surgeries: Yes (HYSTEROSCOPY, TEETH REMOVAL) Gallbladder, Orthopedic Respiratory: No Cardiac: No Hypertension Neurological: No Reproductive Disorders: No Genitourinary: No Gastrointestinal: Yes Diverticulosis Musculoskeletal: Yes Arthritis Endocrine: No HEENT: Yes Glaucoma Cancer: No Psychosocial: No Integumentary: No Eczema Blood Disorders: No Physical Exam Vital Signs Vital Signs - First Documented 07/24/18 14:03 Temp 96.8 Pulse 106 Resp 20 B/P (MAP) 173/94 (120) Pulse Ox 95 O2 Delivery Room Air Capillary Refill : Less Than 3 Seconds Height/Weight/BMI Height: 5'2.00" Weight: 225lbs. oz. 102.069108cy; BMI Method:Stated General Appearance: WD/WN, no apparent distress HEENT: PERRL/EOMI, normal ENT inspection Neck: non-tender, full range of motion Respiratory: normal breath sounds, no respiratory distress, no accessory muscle use Cardiovascular: regular rate, rhythm, no murmur Gastrointestinal: normal bowel sounds, non tender, soft; No distended, No guarding, No rebound, No tenderness Extremities: normal range of motion, non-tender Neurologic/Psychiatric: alert, normal mood/affect, oriented x 3 Skin: normal color, warm/dry Progress/Results/Core Measures Results/Orders Lab Results Laboratory Tests Test 07/24/18 14:25 07/24/18 15:50 Range/Units White Blood Count 7.1 4.3-11.0 10^3/uL Red Blood Count 4.77 4.35-5.85 10^6/uL Hemoglobin 13.8 11.5-16.0 G/DL Hematocrit 42 35-52 % Mean Corpuscular Volume 87 80-99 FL Mean Corpuscular Hemoglobin 29 25-34 PG Mean Corpuscular Hemoglobin Concent 33 32-36 G/DL Red Cell Distribution Width 13.6 10.0-14.5 % Platelet Count 232 130-400 10^3/uL Mean Platelet Volume 9.6 7.4-10.4 FL Neutrophils (%) (Auto) 71 42-75 % Lymphocytes (%) (Auto) 18 12-44 % Monocytes (%) (Auto) 10 0-12 % Eosinophils (%) (Auto) 0 0-10 % Basophils (%) (Auto) 1 0-10 % Neutrophils # (Auto) 5.0 1.8-7.8 X 10^3 Lymphocytes # (Auto) 1.3 1.0-4.0 X 10^3 Monocytes # (Auto) 0.7 0.0-1.0 X 10^3 Eosinophils # (Auto) 0.0 0.0-0.3 10^3/uL Basophils # (Auto) 0.0 0.0-0.1 10^3/uL Sodium Level 140 135-145 MMOL/L Potassium Level 4.0 3.6-5.0 MMOL/L Chloride Level 103 98-107 MMOL/L Carbon Dioxide Level 24 21-32 MMOL/L Anion Gap 13 5-14 MMOL/L Blood Urea Nitrogen 17 7-18 MG/DL Creatinine 0.66 0.60-1.30 MG/DL Estimat Glomerular Filtration Rate > 60 BUN/Creatinine Ratio 26 Glucose Level 104 70-105 MG/DL Calcium Level 10.1 8.5-10.1 MG/DL Corrected Calcium 9.9 8.5-10.1 MG/DL Total Bilirubin 0.7 0.1-1.0 MG/DL Aspartate Amino Transf (AST/SGOT) 36 H 5-34 U/L Alanine Aminotransferase (ALT/SGPT) 34 0-55 U/L Alkaline Phosphatase 90 40-136 U/L Total Protein 7.4 6.4-8.2 GM/DL Albumin 4.2 3.2-4.5 GM/DL Urine Color YELLOW Urine Clarity CLEAR Urine pH 6 5-9 Urine Specific Hartman 1.020 1.016-1.022 Urine Protein NEGATIVE NEGATIVE Urine Glucose (UA) NEGATIVE NEGATIVE Urine Ketones 3+ H NEGATIVE Urine Nitrite NEGATIVE NEGATIVE Urine Bilirubin NEGATIVE NEGATIVE Urine Urobilinogen 1 NORMAL MG/DL Urine Leukocyte Esterase NEGATIVE NEGATIVE Urine RBC (Auto) 2+ H NEGATIVE Urine RBC NONE /HPF Urine WBC NONE /HPF Urine Crystals NONE /LPF Urine Bacteria MODERATE H /HPF Urine Casts NONE /LPF Urine Mucus NO /LPF Urine Culture Indicated NO My Orders Orders - JAM RG [employer] Cbc With Automated Diff (07/24/18 14:17) Comprehensive Metabolic Panel (07/24/18 14:17) Ua Culture If Indicated (07/24/18 14:17) Iv Heplock-Insert (Order) (07/24/18 14:17) Ns Iv 1000 Ml (Sodium Chloride 0.9%) (07/24/18 14:45) Ondansetron Injection (Zofran Injectio (07/24/18 14:45) Ct Abdomen/Pelvis W (07/24/18 14:41) Iohexol Injection (Omnipaque 350 Mg/Ml 1 (07/24/18 15:30) Contrast Received (Contrast Received) (07/24/18 15:30) Sodium Chloride Flush (Catheter Flush Sy (07/24/18 15:30) Ns (Ivpb) (Sodium Chloride 0.9% Ivpb Bag (07/24/18 15:30) Amoxicillin/Clavulanate Tablet (Augmenti (07/24/18 17:15) Medications Given in ED Current Medications Medications Dose Ordered Sig/Hoda Route Start Time Stop Time Status Last Admin Dose Admin Iohexol 100 ml ONCE ONCE IV 07/24/18 15:30 07/24/18 15:31 DC 07/24/18 16:01 100 ML Ondansetron HCl 4 mg ONCE ONCE IVP 07/24/18 14:45 07/24/18 14:48 DC 07/24/18 14:55 4 MG Sodium Chloride 10 ml NEEDED PRN IV 07/24/18 15:30 07/24/18 16:01 10 ML Sodium Chloride 100 ml ONCE ONCE IV 07/24/18 15:30 07/24/18 15:31 DC 07/24/18 16:01 80 ML Vital Signs/I&O 07/24/18 14:03 Temp 96.8 Pulse 106 Resp 20 B/P (MAP) 173/94 (120) Pulse Ox 95 O2 Delivery Room Air Blood Pressure Mean: 120 Departure Communication (Admissions) NAME: DEANNA VIDALES REC#: [id number] PT STATUS: REG ER : 1950 PHYSICIAN: JAM RG APRN ADMIT DATE: 07/24/18/ER Draft Date of Exam:07/24/18 CT ABDOMEN/PELVIS W PROCEDURE: CT abdomen and pelvis with contrast. TECHNIQUE: Multiple contiguous axial images were obtained through the abdomen and pelvis after administration of intravenous contrast. INDICATION: Cough, nausea, vomiting, pain. COMPARISON: 06/26/2017 FINDINGS: The gallbladder is surgically absent with unchanged mild post cholecystectomy ectasia of the biliary ducts. The liver appeared otherwise unremarkable. The spleen nonacute with some chronic parenchymal calcifications. The adrenals are negative. There is no hydronephrosis. Stones within lower pole calyces of the right kidney nonobstructing, unchanged up to 11 mm. There is a large amount of colonic stool particularly at the descending and sigmoid colon. At the sigmoid colon, the colonic wall is diffusely thickened which may reflect chronic constipation. An element of a colitis or diverticulitis could not be excluded. Air pockets adjacent to the sigmoid colon are believed to be within thin-walled diverticula, no convincing evidence for extraluminal gas or transmural perforation. There is no free air deep to the anterior abdominal wall. No abscess or drainable fluid collection. The rectum beyond the level of constipation is decompressed. At some point, a barium enema or Gastrografin enema versus optical colonoscopy would be recommended to exclude a partially obstructing lesion or stricture. No perisigmoidal adenopathy. There is no ascites. The uterus, adnexa and urinary bladder are unremarkable. IMPRESSION: Elevated colonic fecal load thickening of the of sigmoidal laureano with extensive regional diverticula. Air adjacent to the sigmoid believed to be within thin-walled diverticula, no convincing evidence for perforation. Thickening may reflect chronic constipation or an active inflammatory episode such as diverticulitis or colitis. The transition in the caliber beyond that level with decompression of the rectum raises the question of partial obstruction from an inflammatory process, mass or stricture. Colonoscopy versus fluoroscopic study suggested when clinically appropriate. Chronic post cholecystectomy biliary ectasia, stable, unobstructed urinary tracts with nonobstructing right renal calculi, unchanged. No other significant finding. Dictated on workstation # [id number] Dict: 07/24/18 1612 Trans: 07/24/[address] [facility] [place] [id number] Interpreted by: SPENCER BLANC Electronically signed by: Impression Primary Impression: Diverticulitis of intestine Qualified Codes: K57.32 - Diverticulitis of large intestine without perforation or abscess without bleeding Additional Impression: Constipation Qualified Codes: K59.00 - Constipation, unspecified Disposition: 01 HOME, SELF-CARE Condition: Stable Departure-Patient Inst. Decision time for Depature: 16:34 Referrals: AMELIA YANG DO (PCP) Primary Care Physician FOREIGN ANGELES BRETT D DO KIDO, TAKAAKI MD Patient Instructions: Constipation, Adult (DC), Diverticulitis (DC) Add. Discharge Instructions: 1. You will need to have follow-up with a general surgeon to schedule colonoscopy to further evaluate the area of narrowing within the colon. Take antibiotic as directed take stool softeners as directed. Return to ER for any nausea vomiting fevers chills or intolerable pain. All discharge instructions reviewed with patient and/or family. Voiced understanding. Scripts Polyethylene Glycol 3350 (Miralax) 17 Gm Powd.pack 17 GM PO BID, #10 EACH Prov: JAM RG APRN 07/24/18 Amoxicillin/Potassium Clav (Augmentin 875-125 Tablet) 1 Each Tablet 1 EACH PO BID, #14 TAB Prov: JAM RG APRN 07/24/18 Copy Copies To 1: ALY JUÁREZ MD Copies To 2: JARAD FENG PETER J APRN Jul 24, 2018 14:44
[2018-07-24] MEDS ORDERED: ONDANSETRON 4 MG/2 ML (SDV) Z0FRAN IVP ONE (14:45)
[2018-07-24] MEDS ORDERED: NS IV 1000 ML 1,000 ML IV SCH (14:45)
[2018-07-24 14:53] LABS: ALANINE AMINOTRANSFERASE 34 U/L (0-55); ALBUMIN 4.2 GM/DL (3.2-4.5); ALKALINE PHOSPHATASE 90 U/L (40-136); BILIRUBIN,TOTAL 0.7 MG/DL (0.1-1.0); BUN/CREATININE RATIO 26; CALCIUM 10.1 MG/DL (8.5-10.1); CARBON DIOXIDE 24 MMOL/L (21-32); CHLORIDE 103 MMOL/L (98-107); CREATININE SERUM 0.66 MG/DL (0.60-1.30); GFR ESTIMATED > 60; GLUCOSE 104 MG/DL (70-105); SODIUM 140 MMOL/L (135-145); TOTAL PROTEIN 7.4 GM/DL (6.4-8.2)
[2018-07-24] MEDS ORDERED: CATHETER FLUSH 10 ML SYR IV PRN (15:30)
[2018-07-24] MEDS ORDERED: NS 100 ML (IVPB) BAG IV ONE (15:30)
[2018-07-24] MEDS ORDERED: RECEIVED CONTRAST (Hold Metformin) IV SCH (15:30)
[2018-07-24] MEDS ORDERED: IOHEXOL 350 MG/ML 100 ML (OMNIPAQUE 350) VIAL IV ONE (15:30)
[2018-07-24 15:58] LABS: BILIRUBIN,URINE NEGATIVE (NEGATIVE); CLARITY,URINE CLEAR; COLOR,URINE YELLOW; GLUCOSE, URINE (UA) NEGATIVE (NEGATIVE); KETONES,URINE 3+ (NEGATIVE); LEUKOCYTE ESTERASE ,URINE NEGATIVE (NEGATIVE); NITRITE,URINE NEGATIVE (NEGATIVE); PH,URINE 6 (5-9); PROTEIN,URINE NEGATIVE (NEGATIVE); UROBILINOGEN,URINE 1 MG/DL (NORMAL)
[2018-07-24 16:14] LABS: BACTERIA,URINE MODERATE /HPF
--- NOTE | 2018-07-24 16:26 | Diagnostic Imaging Report ---
PROCEDURE: CT abdomen and pelvis with contrast. TECHNIQUE: Multiple contiguous axial images were obtained through the abdomen and pelvis after administration of intravenous contrast. INDICATION: Cough, nausea, vomiting, pain. COMPARISON: 06/26/2017 FINDINGS: The gallbladder is surgically absent with unchanged mild post cholecystectomy ectasia of the biliary ducts. The liver appeared otherwise unremarkable. The spleen nonacute with some chronic parenchymal calcifications. The adrenals are negative. There is no hydronephrosis. Stones within lower pole calyces of the right kidney nonobstructing, unchanged up to 11 mm. There is a large amount of colonic stool particularly at the descending and sigmoid colon. At the sigmoid colon, the colonic wall is diffusely thickened which may reflect chronic constipation. An element of a colitis or diverticulitis could not be excluded. Air pockets adjacent to the sigmoid colon are believed to be within thin-walled diverticula, no convincing evidence for extraluminal gas or transmural perforation. There is no free air deep to the anterior abdominal wall. No abscess or drainable fluid collection. The rectum beyond the level of constipation is decompressed. At some point, a barium enema or Gastrografin enema versus optical colonoscopy would be recommended to exclude a partially obstructing lesion or stricture. No perisigmoidal adenopathy. There is no ascites. The uterus, adnexa and urinary bladder are unremarkable. IMPRESSION: Elevated colonic fecal load thickening of the of sigmoidal laureano with extensive regional diverticula. Air adjacent to the sigmoid believed to be within thin-walled diverticula, no convincing evidence for perforation. Thickening may reflect chronic constipation or an active inflammatory episode such as diverticulitis or colitis. The transition in the caliber beyond that level with decompression of the rectum raises the question of partial obstruction from an inflammatory process, mass or stricture. Colonoscopy versus fluoroscopic study suggested when clinically appropriate. Chronic post cholecystectomy biliary ectasia, stable, unobstructed urinary tracts with nonobstructing right renal calculi, unchanged. No other significant finding. Dictated by: Dictated on workstation # [id number]
[2018-07-24] MEDS ORDERED: POLY17PO6 PO (16:35)
[2018-07-24] MEDS ORDERED: AMOX-358 PO (16:35)
[2018-07-24 17:14] VITALS: BP 129/70
[2018-07-24] MEDS ORDERED: AUGMENTIN 875 MG TAB (AMOXICILLIN/CLAVULANATE) PO SCH (17:15)
== END 2018-07-24 17:16 | disposition home or self-care (01) ==
LOC: EDUNIT# 13:56 → ER 13:57
DX: K57.32 Diverticulitis of large intestine without perforation or abscess without bleeding (principal); K59.00 Constipation, unspecified; I10 Essential (primary) hypertension; Z87.19 Personal history of other diseases of the digestive system; Z88.5 Allergy status to narcotic agent; Z79.82 Long term (current) use of aspirin; Z98.890 Other specified postprocedural states
CPT/HCPCS: 36415; 74177; 80053; 81000; 85025

== ENCOUNTER 2018-07-28 20:48 | Inpatient (IN) | payer MEDICARE ==
[~2018-07-28] VITALS: Ht 157.5 cm; Wt 114.8 kg
[~2018-07-28 20:48] MED LIST changes: +AMOX-358 PO; +POLY17PO6 PO
--- OUTSIDE RECORDS SUMMARY | 2018-07-28 20:53 | XMS REPORT | Continuity of Care Document ---
Author Author [facility] Organization [facility] Address Unknown Phone Unavailable Allergies Active Description Code Type Severity Reaction Onset Reported/Identified Relationship to Patient Clinical Status Yes codeine [id number] Drug Allergy Unknown N/A 05/06/2014 Yes hydrocodone [id number] Drug Allergy Unknown N/A 05/06/2014 Medications There [...] DO Ot V57.1 PHYSICAL THERAPY NEC 03/15/2014 JAM RG APRN Ot 724.2 LUMBAGO 06/04/2014 FRANCK [...] M54.5 LOW BACK PAIN 03/16/2016 LATRELL MCCALL Ot M54.5 LOW BACK PAIN 03/19/2016 VOGT LATRELL BERRIOS L Ot M54.5 LOW BACK PAIN 03/19/2016 LATRELL MCCALL L Ot M54.5 LOW BACK PAIN 04/30/2016 VOGT LATRELL BERRIOS L Ot M54.5 LOW BACK PAIN 05/16/2016 LATRELL MCCALL Ot M54.5 LOW BACK PAIN 05/16/2016 VOGT LATRELL BERRIOS L Ot M54.5 LOW BACK PAIN 05/17/2016 LATRELL MCCALL Ot M54.5 LOW BACK PAIN 05/27/2016 ALESIA HUITRON FACC, ALI FACP CCDS Ot I10 ESSENTIAL (PRIMARY) HYPERTENSION 05/27/2016 ALESIA HUITRON FACC, ALI FACP CCDS Ot I25.10 ATHSCL HEART DISEASE OF [place] CORONARY 06/15/2016 ALESIA HUITRON FACC, ALI FACP CCDS Ot I10 ESSENTIAL (PRIMARY) HYPERTENSION 06/15/2016 ALESIA HUITRON FACC, ALI FACP CCDS Ot I25.10 ATHSCL HEART DISEASE OF [place] CORONARY 06/21/2016 ALESIA HUITRON FACC, ALI FACP CCDS Ot I10 ESSENTIAL (PRIMARY) HYPERTENSION 06/21/2016 ALESIA HUITRON FACC, ALI FACP CCDS Ot I25.10 ATHSCL HEART DISEASE OF [place] CORONARY 09/24/2016 FRANCK HUITRON ALY R Ot Z12.31 [...] W/O PERFORATION OR ABS 01/11/2017 JAM RG APRN Ot M19.90 UNSPECIFIED OSTEOARTHRITIS, UNSPECIFIED 01/11/2017 JAM RG APRN Ot R10.31 RIGHT LOWER QUADRANT PAIN 01/11/2017 JAM RG APRN Ot Z79.82 SHELTER (CURRENT) USE OF ASPIRIN 01/11/2017 JMA RG APRN Ot Z90.49 ACQUIRED ABSENCE OF OTHER SPECIFIED PART 07/17/2017 NICOLA PETERS MD, Ot K57.30 DVRTCLOS OF LG INT W/O PERFORATION OR AB 07/17/2017 NICOLA PETERS MD Ot N20.0 CALCULUS OF KIDNEY 07/25/2017 FRAN MD, NICOLA G Ot K57.30 DVRTCLOS OF LG INT W/O PERFORATION OR AB 07/25/2017 FRAN HUITRON, NICOLA Cornejo Ot N20.0 CALCULUS OF KIDNEY 11/05/2017 CELIA DO, AMELIA Cara Ot I10 ESSENTIAL (PRIMARY) HYPERTENSION 11/05/2017 CELIA DO, AMELIA Cara Ot S83.412A SPRAIN OF MEDIAL COLLATERAL LIGAMENT OF 11/05/2017 CELIA DO, AMELIA Cara Ot W00.9XXA UNSPECIFIED FALL DUE TO ICE AND SNOW, IN 11/05/2017 CELIA DO, AMELIA F Ot Z96.652 PRESENCE OF LEFT ARTIFICIAL KNEE JOINT 11/12/2017 CELIA DO, AMELIA Cara Ot I10 ESSENTIAL (PRIMARY) HYPERTENSION 11/12/2017 CELIA DO, AMELIA Cara Ot S83.412A SPRAIN OF MEDIAL COLLATERAL LIGAMENT OF 11/12/2017 CELIA DO, AMELIA Cara Ot W00.9XXA UNSPECIFIED FALL DUE TO ICE AND SNOW, IN 11/12/2017 CELIA DO, AMELIA F Ot Z96.652 PRESENCE OF LEFT ARTIFICIAL KNEE JOINT 11/13/2017 CELIA DO, AMELIA Cara Ot I10 ESSENTIAL (PRIMARY) HYPERTENSION 11/13/2017 CELIA DO, AMELIA Cara Ot S83.412A SPRAIN OF MEDIAL COLLATERAL LIGAMENT OF 11/13/2017 CELIA DO, AMELIA Cara Ot W00.9XXA UNSPECIFIED FALL DUE TO ICE AND SNOW, IN 11/13/2017 CELIA DO, AMELIA F Ot Z96.652 PRESENCE OF LEFT ARTIFICIAL KNEE JOINT 12/24/2017 ALY JUÁREZ MD R Ot Z12.31 ENCNTR SCREEN MAMMOGRAM FOR MALIGNANT NE 01/14/2018 ALY JUÁREZ MD Ot Z12.31 ENCNTR SCREEN MAMMOGRAM FOR MALIGNANT NE 07/24/2018 ALY JUÁREZ MD Ot V76.12 OTH SCREEN MAMMO-MALIGN NEOPLASM OF LESTER 07/24/2018 ALY JUÁREZ MD Ot 786.2 COUGH 07/24/2018 ALY JUÁREZ MD Ot V76.12 OTH SCREEN MAMMO-MALIGN NEOPLASM OF LESTER 07/24/2018 ALY JUÁREZ MD R Ot Z12.31 ENCNTR SCREEN MAMMOGRAM FOR MALIGNANT NE 07/24/2018 ALY JUÁREZ MD Ot M53.3 SACROCOCCYGEAL DISORDERS, NOT ELSEWHERE 07/24/2018 FRANCK HUITRON, ALY Bassett Ot R82.99 OTHER ABNORMAL FINDINGS IN URINE 07/24/2018 ALY JUÁREZ MD Ot M54.5 LOW BACK PAIN 07/24/2018 ALESIA HUITRON FAC, ALI ALBERTP CCDS Ot I10 ESSENTIAL (PRIMARY) HYPERTENSION 07/24/2018 ALESIA HUITRON FAC, ALI ALBERTP CCDS Ot I25.10 ATHSCL HEART DISEASE OF [place] CORONARY 07/24/2018 ALY JUÁREZ MD Ot Z12.31 ENCNTR SCREEN MAMMOGRAM FOR MALIGNANT NE 07/24/2018 NICOLA PETERS MD, Ot K57.30 DVRTCLOS OF LG INT W/O PERFORATION OR AB 07/24/2018 NICOLA PETERS MD, Ot N20.0 CALCULUS OF KIDNEY 07/24/2018 ALY JUÁREZ MD, Ot Z12.31 ENCNTR SCREEN MAMMOGRAM FOR MALIGNANT NE 07/28/2018 JAM RG APRN Ot I10 ESSENTIAL (PRIMARY) HYPERTENSION 07/28/2018 JAM RG APRN Ot K57.32 DVTRCLI OF LG INT W/O PERFORATION OR ABS 07/28/2018 JAM RG APRN Ot K59.00 CONSTIPATION, UNSPECIFIED 07/28/2018 JAM RG APRN Ot R10.32 LEFT LOWER QUADRANT PAIN 07/28/2018 JAM RG APRN Ot Z79.82 SHELTER (CURRENT) USE OF ASPIRIN 07/28/2018 JAM RG APRN Ot Z87.19 PERSONAL HISTORY OF OTHER DISEASES OF TH 07/28/2018 JAM RG APRN Ot Z88.5 ALLERGY STATUS TO NARCOTIC AGENT STATUS 07/28/2018 JAM RG APRN Ot Z98.890 OTHER SPECIFIED POSTPROCEDURAL STATES Procedures Code Description Performed By Performed On [...] culture - 02/06/16 11:35 Bacterial urine culture [id number] NRG COLONY COUNT <10,000 NRG FTX;REPORTABLE PLEASE NOTIFY MICRO AT [phone] IF NRG URINE CULTURE RESULTS <10,000/ML NRG [...] culture - 01/11/17 11:05 Bacterial urine culture [id number] NRG COLONY COUNT 10,000/ML - 100,000/ML NRG [...] test by minimum inhibitory concentration - NRG Complete blood count (CBC) with automated white blood cell (WBC) differential - 07/24/18 14:25 Blood leukocytes automated count (number/volume) 7.1 10*3/uL 4.3-11.0 Blood erythrocytes automated count (number/volume) 4.77 10*6/uL 4.35-5.85 Venous blood hemoglobin measurement (mass/volume) 13.8 g/dL 11.5-16.0 Blood hematocrit (volume fraction) 42 % 35-52 Automated erythrocyte mean corpuscular volume 87 [foz_us] 80-99 Automated erythrocyte mean corpuscular hemoglobin (mass per erythrocyte) 29 pg 25-34 Automated erythrocyte mean corpuscular hemoglobin concentration measurement ( mass/volume) 33 g/dL 32-36 Automated erythrocyte distribution width ratio 13.6 % 10.0-14.5 Automated blood platelet count (count/volume) 232 10*3/uL 130-400 Automated blood platelet mean volume measurement 9.6 [foz_us] 7.4-10.4 Automated blood neutrophils/100 leukocytes 71 % 42-75 Automated blood lymphocytes/100 leukocytes 18 % 12-44 Blood monocytes/100 leukocytes 10 % 0-12 Automated blood eosinophils/100 leukocytes 0 % 0-10 Automated blood basophils/100 leukocytes 1 % 0-10 Blood neutrophils automated count (number/volume) 5.0 10*3 1.8-7.8 Blood lymphocytes automated count (number/volume) 1.3 10*3 1.0-4.0 Blood monocytes automated count (number/volume) 0.7 10*3 0.0-1.0 Automated eosinophil count 0.0 10*3/uL 0.0-0.3 Automated blood basophil count (count/volume) 0.0 10*3/uL 0.0-0.1 Comprehensive metabolic panel - 07/24/18 14:25 Serum or plasma sodium measurement (moles/volume) 140 mmol/L 135-145 Serum or plasma potassium measurement (moles/volume) 4.0 mmol/L 3.6-5.0 Serum or plasma chloride measurement (moles/volume) 103 mmol/L 98-107 Carbon dioxide 24 mmol/L 21-32 Serum or plasma anion gap determination (moles/volume) 13 mmol/L 5-14 Serum or plasma urea nitrogen measurement (mass/volume) 17 mg/dL 7-18 Serum or plasma creatinine measurement (mass/volume) 0.66 mg/dL 0.60-1.30 Serum or plasma urea nitrogen/creatinine mass ratio 26 NRG Serum or plasma creatinine measurement with calculation of estimated glomerular filtration rate > NRG Serum or plasma glucose measurement (mass/volume) 104 mg/dL 70-105 Serum or plasma calcium measurement (mass/volume) 10.1 mg/dL 8.5-10.1 Serum or plasma total bilirubin measurement (mass/volume) 0.7 mg/dL 0.1-1.0 Serum or plasma alkaline phosphatase measurement (enzymatic activity/volume) 90 U/L 40-136 Serum or plasma aspartate aminotransferase measurement (enzymatic activity/ volume) 36 U/L 5-34 Serum or plasma alanine aminotransferase measurement (enzymatic activity/volume ) 34 U/L 0-55 Serum or plasma protein measurement (mass/volume) 7.4 g/dL 6.4-8.2 Serum or plasma albumin measurement (mass/volume) 4.2 g/dL 3.2-4.5 CALCIUM CORRECTED 9.9 mg/dL 8.5-10.1 Complete urinalysis with reflex to culture - 07/24/18 15:50 Urine color determination YELLOW NRG Urine clarity determination CLEAR NRG Urine pH measurement by test strip 6 5-9 Specific gravity of urine by test strip 1.020 1.016- 1.022 Urine protein assay by test strip, semi-quantitative NEGATIVE NEGATIVE Urine glucose detection by automated test strip NEGATIVE NEGATIVE Erythrocytes detection in urine sediment by light microscopy 2+ NEGATIVE Urine ketones detection by automated test strip 3+ NEGATIVE Urine nitrite detection by test strip NEGATIVE NEGATIVE Urine total bilirubin detection by test strip NEGATIVE NEGATIVE Urine urobilinogen measurement by automated test strip (mass/volume) 1 mg/dL NORMAL Urine leukocyte esterase detection by dipstick NEGATIVE NEGATIVE Automated urine sediment erythrocyte count by microscopy (number/high power field) NONE NRG Automated urine sediment leukocyte count by microscopy (number/high power field ) NONE NRG Bacteria detection in urine sediment by light microscopy MODERATE NRG Crystals detection in urine sediment by light microscopy NONE NRG Casts detection in urine sediment by light microscopy NONE NRG Mucus detection in urine sediment by light microscopy NO NRG Complete urinalysis with reflex to culture NO NRG Encounters ACCT No. Visit Date/Time Discharge Status Pt. Type Provider Facility Loc./Unit Complaint [id number] 07/24/2018 13:57:00 07/24/2018 17:16:00 DIS Outpatient JAM RG APRN [facility] ER ABD PAIN;N/V [id number] 12/23/2017 08:32:00 12/23/2017 23:59:59 CLS Outpatient ALY JUÁREZ MD [facility] RAD SCREENING [id number] 11/12/2017 09:44:00 11/12/2017 11:35:00 DIS Outpatient AMELIA YANG DO [facility] REHAB GRADE II MCL SPRAIN L KNEE [id number] 06/26/2017 09:19:00 06/26/2017 23:59:59 CLS Outpatient NICOLA PETERS MD [facility] RAD LT PELVIC MASS 8- 10 CM [id number] 01/11/2017 10:22:00 01/11/2017 13:07:00 DIS Emergency JAM RG APRN [facility] ER ABD PAIN,NAUSEA [id number] 09/24/2016 09:36:00 09/24/2016 23:59:59 CLS Outpatient ALY JUÁREZ MD [facility] RAD SCREENING [id number] 05/18/2016 10:40:00 05/18/2016 23:59:59 CLS Outpatient ALESIA HUITRON FACCKAVYA FACP CCDS [facility] CARD CAD,HTN [id number] 04/26/2016 10:27:00 05/17/2016 11:32:00 DIS Outpatient LATRELL MCCALL [facility] REHAB LUMBAGO;DDD; RADICULOPATHY [id number] 03/14/2016 09:54:00 03/16/2016 17:00:00 DIS Outpatient LATRELL MCCALL [facility] REHAB LUMBAGO;DDD; RADICULOPATHY [id number] 02/14/2016 10:16:00 02/14/2016 23:59:59 CLS Outpatient ALY JUÁREZ MD [facility] RAD CHRONIC LOW BACK PAIN W RADICULOPATHY [id number] 02/06/2016 10:35:00 02/06/2016 23:59:59 CLS Outpatient ALY JUÁREZ MD [facility] RAD PAIN SI REGION [id number] 09/12/2015 10:03:00 09/12/2015 23:59:59 CLS Outpatient ALY JUÁREZ MD [facility] RAD SCREENING [id number] 09/06/2014 09:38:00 09/06/2014 23:59:59 CLS Outpatient ALY JUÁREZ MD [facility] RAD SCREENING [id number] 06/02/2014 11:23:00 06/02/2014 23:59:59 CLS Outpatient ALY JUÁREZ MD [facility] RAD COUGH,PRODUCTIVE [id number] 03/15/2014 10:07:00 03/15/2014 12:02:00 DIS Emergency JAM RG APRN [facility] ER BACK PAIN [id number] 08/31/2013 08:28:00 08/31/2013 23:59:59 CLS Outpatient ALY JUÁREZ MD [facility] RAD SCREENING [id number] 11/26/2012 09:00:00 11/26/2012 15:24:00 DIS Outpatient AMELIA YANG DO [facility] REHAB S/P LEFT TKR [id number] 09/30/2012 06:08:00 Document Registration [id number] 09/22/2012 09:17:00 Document Registration [id number] 08/26/2012 10:59:00 Document Registration [id number] 08/25/2012 08:26:00 Document Registration [id number] 08/21/2012 07:45:00 Document Registration [id number] 03/18/2012 11:23:00 Document Registration [id number] 08/23/2011 08:03:00 Document Registration [id number] 08/15/2010 08:13:00 Document Registration [id number] 08/11/2009 08:18:00 Document Registration [id number] 03/24/2009 13:00:00 Document Registration
[2018-07-28] MEDS ORDERED: ONDANSETRON 4 MG/2 ML (SDV) Z0FRAN IVP ONE (21:00)
[2018-07-28] MEDS ORDERED: IOHEXOL 350 MG/ML 100 ML (OMNIPAQUE 350) VIAL IV ONE (21:00)
[2018-07-28] MEDS ORDERED: fentaNYL INJECTION 100 MCG/2 ML AMP IVP ONE (21:00)
[2018-07-28] MEDS ORDERED: LACTATED RINGERS 1,000 ML IV SCH (21:00)
[2018-07-28] MEDS ORDERED: NS 100 ML (IVPB) BAG IV ONE (21:00)
[2018-07-28] MEDS ORDERED: RECEIVED CONTRAST (Hold Metformin) IV SCH (21:00)
--- NOTE | 2018-07-28 21:04 | ED Abdominal Pain ---
General Stated Complaint: NAUSEA/VOMITING/BLOATING Source of Information: Patient Exam Limitations: No Limitations History of Present Illness Date Seen by Provider: Jul 28, 2018 Time Seen by Provider: 21:02 Initial Comments to ER with a recurrence of nausea, bloating and discomfort in the left side of the abdomen. She was seen here on 07/24/18 and diagnosed with acute diverticulitis and also seen to have a high degree of fecal loading in the ascending and sigmoid colon with narrowing to a portion of the sigmoid colon which was thought to represent either stricture or mass lesion. She was discharged home with a prescription for hydrocodone and Augmentin 875 by mouth twice daily. She is scheduled to see Dr. Feng this Saturday07/30/18. She had been doing well, did not fill the pain medication due to concerns of constipation but has been taking the antibiotics. Nausea became worse today. She continues to pass gas and having bowel movements as per her usual. She states that her bowel movements are thin and ribbonlike. Timing/Duration: 1-2 Days Severity/Quality: Moderate Location: LLQ Radiation: No Radiation Activities at Onset: None Allergies and Home Medications Allergies Coded Allergies: codeine (Verified Allergy, Unknown, 05/06/14) hydrocodone (Verified Allergy, Unknown, 05/06/14) Home Medications Amoxicillin/Potassium Clav 1 Each Tablet, 1 EACH PO BID Prescribed by: JAM RG on 07/24/18 1635 Aspirin 81 Mg Tablet.dr, 81 MG PO DAILY, (Reported) Ciprofloxacin HCl 500 Mg Tablet, 500 MG PO BID Prescribed by: JAM RG on 01/11/17 1222 Latanoprost 2.5 Ml Drops, 1 DROP OU HS, (Reported) Metronidazole 500 Mg Tablet, 500 MG PO TID Prescribed by: JAM RG on 01/11/17 1222 Multivits W-Fe,Other Min/Lut 1 Each Tablet, 1 TAB PO DAILY, (Reported) Ondansetron 8 Mg Tab.rapdis, 8 MG PO Q6H PRN for NAUSEA/VOMITING-1ST LINE Prescribed by: JAM RG on 01/11/17 1222 Polyethylene Glycol 3350 17 Gm Powd.pack, 17 GM PO BID Prescribed by: JAM RG on 07/24/18 1635 Tramadol HCl 50 Mg Tablet, 50 MG PO Q6H PRN for PAIN-MODERATE TO SEVERE Prescribed by: JAM RG on 01/11/17 1238 Patient Home Medication List Home Medication List Reviewed: Yes Review of Systems Review of Systems Constitutional: see HPI EENTM: No Symptoms Reported Respiratory: No Symptoms Reported Cardiovascular: No Symptoms Reported Gastrointestinal: See HPI, Abdominal Pain Genitourinary: No Symptoms Reported Musculoskeletal: no symptoms reported Skin: no symptoms reported Psychiatric/Neurological: No Symptoms Reported Endocrine: No Symptoms Reported Past Hqmccqe-Glbalk-Nxmvuy Hx Patient Social History Recent Foreign Travel: No Contact w/Someone Who Travel: No Recent Hopitalizations: No Immunizations Up To Date Tetanus Booster (TDap): Unknown Past Medical History Surgeries: Yes (HYSTEROSCOPY, TEETH REMOVAL) Gallbladder, Orthopedic Respiratory: No Cardiac: No Hypertension Neurological: No Reproductive Disorders: No Genitourinary: No Gastrointestinal: Yes Diverticulosis Musculoskeletal: Yes Arthritis Endocrine: No HEENT: Yes Glaucoma Cancer: No Psychosocial: No Integumentary: No Eczema Blood Disorders: No Physical Exam Vital Signs Vital Signs - First Documented 07/28/18 20:55 Temp 97.7 Pulse 110 Resp 19 B/P (MAP) 171/95 (120) Capillary Refill : Height/Weight/BMI Height: 5'2.00" Weight: 225lbs. oz. 102.630391ue; BMI Method:Stated General Appearance: WD/WN, no apparent distress HEENT: PERRL/EOMI, normal ENT inspection Respiratory: no respiratory distress, no accessory muscle use Cardiovascular: no murmur, tachycardia Gastrointestinal: normal bowel sounds, soft, tenderness (left lower) Extremities: normal range of motion, non-tender Neurologic/Psychiatric: alert, normal mood/affect, oriented x 3 Skin: normal color, warm/dry Progress/Results/Core Measures Results/Orders Lab Results Laboratory Tests Test 07/28/18 21:00 Range/Units White Blood Count 8.9 4.3-11.0 10^3/uL Red Blood Count 5.22 4.35-5.85 10^6/uL Hemoglobin 14.9 11.5-16.0 G/DL Hematocrit 45 35-52 % Mean Corpuscular Volume 86 80-99 FL Mean Corpuscular Hemoglobin 29 25-34 PG Mean Corpuscular Hemoglobin Concent 33 32-36 G/DL Red Cell Distribution Width 13.8 10.0-14.5 % Platelet Count 306 130-400 10^3/uL Mean Platelet Volume 9.8 7.4-10.4 FL Neutrophils (%) (Auto) 83 H 42-75 % Lymphocytes (%) (Auto) 11 L 12-44 % Monocytes (%) (Auto) 6 0-12 % Eosinophils (%) (Auto) 0 0-10 % Basophils (%) (Auto) 0 0-10 % Neutrophils # (Auto) 7.4 1.8-7.8 X 10^3 Lymphocytes # (Auto) 1.0 1.0-4.0 X 10^3 Monocytes # (Auto) 0.5 0.0-1.0 X 10^3 Eosinophils # (Auto) 0.0 0.0-0.3 10^3/uL Basophils # (Auto) 0.0 0.0-0.1 10^3/uL Sodium Level 140 135-145 MMOL/L Potassium Level 3.6 3.6-5.0 MMOL/L Chloride Level 103 98-107 MMOL/L Carbon Dioxide Level 23 21-32 MMOL/L Anion Gap 14 5-14 MMOL/L Blood Urea Nitrogen 14 7-18 MG/DL Creatinine 0.74 0.60-1.30 MG/DL Estimat Glomerular Filtration Rate > 60 BUN/Creatinine Ratio 19 Glucose Level 169 H 70-105 MG/DL Calcium Level 10.3 H 8.5-10.1 MG/DL Corrected Calcium 10.0 8.5-10.1 MG/DL Total Bilirubin 0.5 0.1-1.0 MG/DL Aspartate Amino Transf (AST/SGOT) 31 5-34 U/L Alanine Aminotransferase (ALT/SGPT) 30 0-55 U/L Alkaline Phosphatase 105 40-136 U/L Total Protein 7.8 6.4-8.2 GM/DL Albumin 4.4 3.2-4.5 GM/DL My Orders Orders - JAM RG APRN Cbc With Automated Diff (07/28/18 20:52) Comprehensive Metabolic Panel (07/28/18 20:52) Iv Heplock-Insert (Order) (07/28/18 20:52) Ondansetron Injection (Zofran Injectio (07/28/18 21:00) Iohexol Injection (Omnipaque 350 Mg/Ml 1 (07/28/18 21:00) Contrast Received (Contrast Received) (07/28/18 21:00) Ns (Ivpb) (Sodium Chloride 0.9% Ivpb Bag (07/28/18 21:00) Ct Abdomen/Pelvis Wo (07/28/18 21:00) Fentanyl Injection (Sublimaze Injection (07/28/18 21:00) Lactated Ringers (Lr 1000 Ml Iv Solution (07/28/18 21:00) Promethazine Injection (Phenergan Injec (07/28/18 21:45) Medications Given in ED Current Medications Medications Dose Ordered Sig/Hoda Route Start Time Stop Time Status Last Admin Dose Admin Fentanyl Citrate 50 mcg ONCE ONCE IVP 07/28/18 21:00 07/28/18 21:02 DC 07/28/18 21:08 50 MCG Ondansetron HCl 8 mg ONCE ONCE IVP 07/28/18 21:00 07/28/18 21:01 DC 07/28/18 21:08 8 MG Promethazine HCl 12.5 mg ONCE ONCE IVP 07/28/18 21:45 07/28/18 21:46 DC 07/28/18 21:51 12.5 MG Vital Signs/I&O 07/28/18 20:55 Temp 97.7 Pulse 110 Resp 19 B/P (MAP) 171/95 (120) Diagnostic Imaging Diagonstic Imaging: CT Comments NAME: DEANNA VIDALES [facility] REC#: [id number] PT STATUS: REG ER : 1950 PHYSICIAN: JAM RG APRN ADMIT DATE: 07/28/18/ER Draft Date of Exam:07/28/18 CT ABDOMEN/PELVIS WO PROCEDURE: CT abdomen and pelvis without contrast. TECHNIQUE: Multiple contiguous axial images were obtained through the abdomen and pelvis without the use of intravenous contrast. DATE: July 28, 2018. COMPARISON: CT abdomen and pelvis July 24, 2018. INDICATION: 67-year-old female, mid to lower abdominal pain. Nausea and vomiting for one week. FINDINGS: There are limitations for evaluation of the abdominal organs, neoplastic processes, abscess, and limited evaluation of the vasculature relating to the lack of intravenous contrast. There is minimal dependent atelectasis in the lung bases. The heart is not enlarged. There is no identified pericardial effusion. The liver is unremarkable in size and contour. The patient is status post cholecystectomy. There is mild prominence of the common bile duct without CT apparent common bile duct stone or ampullary mass. There is no dilation of the main pancreatic duct. Common bile duct diameter is unchanged since comparison exam. The pancreatic parenchyma is unremarkable on noncontrast assessment. The spleen is not enlarged. The adrenal glands are unremarkable. There is a nonobstructing right renal stone on axial image 36 measuring approximately 12.5 mm in size. There is an additional 3 mm nonobstructing right renal stone on axial image 28. There is a low-attenuation left renal lesion on axial image 42 measuring 13 mm in size with internal attenuation diagnostic for benign renal cysts. The urinary collecting systems are not distended. There is no identified ureteral stone. The urinary bladder is underdistended and not well evaluated. There is prominent dilation of the sigmoid colon and additional more proximal segments of bowel with a transition in bowel caliber at the level of the distal sigmoid colon seen best on axial image 73. There is very likely abnormal bowel wall thickening at the level of the distal sigmoid colon at this location which is also seen on prior postcontrast CT of July 24, 2018. This is compatible with a distal bowel obstruction. Findings are concerning for malignancy at the site of luminal narrowing. There is diverticulosis. There is abnormal wall thickening of the proximal to mid transverse colon which is a new finding since July 24, 2018 and may relate to a nonspecific colitis. There is no identified pneumatosis. The appendix is unremarkable in appearance. There are no abnormally dilated segments of small bowel. There is no free intraperitoneal air. There is no identified drainable fluid collection. There is no sizable volume free pelvic fluid. There are pericolonic lymph nodes on axial image 66 and adjacent sequential images measuring up to 5 mm in short axis which are concerning for potential metastatic barney disease in the setting of malignancy. There is no additional identified abnormally enlarged lymph node in the abdomen or pelvis which specifically meets CT size criteria for adenopathy. There are multilevel degenerative changes of the spine. There is grade 1 anterolisthesis of L4 on L5 relating to facet degenerative changes. There is no identified aggressive bone lesion. IMPRESSION: CT ABDOMEN AND PELVIS. 1. Focal narrowing of the distal sigmoid colon also seen on comparison exam with dilation of large bowel proximal to this concerning for possible malignancy. Findings are compatible with distal large bowel obstruction. 2. New abnormal wall thickening of proximal to mid transverse colon which may relate to a nonspecific colitis. No pneumatosis or portal venous gas to specifically suggest ischemic colitis. 3. Abnormally enlarged pericolonic lymph nodes likely relating to metastatic barney disease in the setting of malignancy. Dictated on workstation # [id number] Dict: 07/28/186 Trans: 07/28/18 2222 [id number] Interpreted by: STEPHANIE SALOMON MD Electronically signed by: Departure Communication (Admissions) Time/Spoke to Admitting Phy: 22:[address] Katz, we will admit and consult Dr. Feng and morning. Since the patient is scheduled to see Dr. Feng in 48 hours will consult him in the morning. Admit to Dr. Katz [facility]. Impression Primary Impression: Nausea and vomiting Qualified Codes: R11.2 - Nausea with vomiting, unspecified Additional Impressions: Colonic obstruction Diverticulitis Disposition: ADMITTED INPATIENT Condition: Stable Admissions Decision to Admit Reason: Admit from ER (General) Decision to Admit/Date: Jul 28, 2018 Time/Decision to Admit Time: 21:40 Departure-Patient Inst. Referrals: ALY JUÁREZ MD (PCP/Family) Primary Care Physician Copy Copies To 1: JARAD FENG PETER J APRN Jul 28, 2018 21:04
[2018-07-28 21:11] LABS: BASOPHILS % (AUTO) 0 % (0-10); EOSINOPHILS % (AUTO) 0 % (0-10); HEMATOCRIT 45 % (35-52); HEMOGLOBIN 14.9 G/DL (11.5-16.0); LYMPHOCYTES % (AUTO) 11 % (12-44); MEAN CORPUSCULAR HEMOGLOBIN 29 PG (25-34); MEAN CORPUSCULAR HGB CONC 33 G/DL (32-36); MEAN CORPUSCULAR VOLUME 86 FL (80-99); MEAN PLATELET VOLUME 9.8 FL (7.4-10.4); MONOCYTES # (AUTO) 0.5 X 10^3 (0.0-1.0); MONOCYTES % (AUTO) 6 % (0-12); NEUTROPHILS # (AUTO) 7.4 X 10^3 (1.8-7.8); NEUTROPHILS % (AUTO) 83 % (42-75); PLATELET COUNT 306 10^3/uL (130-400); RED CELL DISTRIBUTION WIDTH 13.8 % (10.0-14.5); WHITE BLOOD COUNT 8.9 10^3/uL (4.3-11.0)
[2018-07-28 21:27] LABS: ALANINE AMINOTRANSFERASE 30 U/L (0-55); ALBUMIN 4.4 GM/DL (3.2-4.5); ALKALINE PHOSPHATASE 105 U/L (40-136); BILIRUBIN,TOTAL 0.5 MG/DL (0.1-1.0); BUN/CREATININE RATIO 19; CALCIUM 10.3 MG/DL (8.5-10.1); CARBON DIOXIDE 23 MMOL/L (21-32); CHLORIDE 103 MMOL/L (98-107); CREATININE SERUM 0.74 MG/DL (0.60-1.30); GFR ESTIMATED > 60; GLUCOSE 169 MG/DL (70-105); POTASSIUM 3.6 MMOL/L (3.6-5.0); SODIUM 140 MMOL/L (135-145); TOTAL PROTEIN 7.8 GM/DL (6.4-8.2)
[2018-07-28] MEDS ORDERED: PROMETHAZINE INJ 25 MG/ML (PHENERGAN) AMP IVP ONE (21:45)
--- NOTE | 2018-07-28 22:23 | Diagnostic Imaging Report ---
PROCEDURE: CT abdomen and pelvis without contrast. TECHNIQUE: Multiple contiguous axial images were obtained through the abdomen and pelvis without the use of intravenous contrast. DATE: July 28, 2018. COMPARISON: CT abdomen and pelvis July 24, 2018. INDICATION: 67-year-old female, mid to lower abdominal pain. Nausea and vomiting for one week. FINDINGS: There are limitations for evaluation of the abdominal organs, neoplastic processes, abscess, and limited evaluation of the vasculature relating to the lack of intravenous contrast. There is minimal dependent atelectasis in the lung bases. The heart is not enlarged. There is no identified pericardial effusion. The liver is unremarkable in size and contour. The patient is status post cholecystectomy. There is mild prominence of the common bile duct without CT apparent common bile duct stone or ampullary mass. There is no dilation of the main pancreatic duct. Common bile duct diameter is unchanged since comparison exam. The pancreatic parenchyma is unremarkable on noncontrast assessment. The spleen is not enlarged. The adrenal glands are unremarkable. There is a nonobstructing right renal stone on axial image 36 measuring approximately 12.5 mm in size. There is an additional 3 mm nonobstructing right renal stone on axial image 28. There is a low-attenuation left renal lesion on axial image 42 measuring 13 mm in size with internal attenuation diagnostic for benign renal cysts. The urinary collecting systems are not distended. There is no identified ureteral stone. The urinary bladder is underdistended and not well evaluated. There is prominent dilation of the sigmoid colon and additional more proximal segments of bowel with a transition in bowel caliber at the level of the distal sigmoid colon seen best on axial image 73. There is very likely abnormal bowel wall thickening at the level of the distal sigmoid colon at this location which is also seen on prior postcontrast CT of July 24, 2018. This is compatible with a distal bowel obstruction. Findings are concerning for malignancy at the site of luminal narrowing. There is diverticulosis. There is abnormal wall thickening of the proximal to mid transverse colon which is a new finding since July 24, 2018 and may relate to a nonspecific colitis. There is no identified pneumatosis. The appendix is unremarkable in appearance. There are no abnormally dilated segments of small bowel. There is no free intraperitoneal air. There is no identified drainable fluid collection. There is no sizable volume free pelvic fluid. There are pericolonic lymph nodes on axial image 66 and adjacent sequential images measuring up to 5 mm in short axis which are concerning for potential metastatic barney disease in the setting of malignancy. There is no additional identified abnormally enlarged lymph node in the abdomen or pelvis which specifically meets CT size criteria for adenopathy. There are multilevel degenerative changes of the spine. There is grade 1 anterolisthesis of L4 on L5 relating to facet degenerative changes. There is no identified aggressive bone lesion. IMPRESSION: CT ABDOMEN AND PELVIS. 1. Focal narrowing of the distal sigmoid colon also seen on comparison exam with dilation of large bowel proximal to this concerning for possible malignancy. Findings are compatible with distal large bowel obstruction. 2. New abnormal wall thickening of proximal to mid transverse colon which may relate to a nonspecific colitis. No pneumatosis or portal venous gas to specifically suggest ischemic colitis. 3. Abnormally enlarged pericolonic lymph nodes likely relating to metastatic barney disease in the setting of malignancy. Dictated by: Dictated on workstation # [id number]
[2018-07-28] MEDS ORDERED: KETOROLAC 30 MG/ML VIAL IVP ONE (22:45)
--- OUTSIDE RECORDS SUMMARY | 2018-07-28 22:45 | XMS REPORT | Continuity of Care Document ---
Author Author [facility] Organization [facility] Address Unknown Phone Unavailable Allergies Active Description Code Type Severity Reaction Onset Reported/Identified Relationship to Patient Clinical Status Yes codeine [id number] Drug Allergy Unknown N/A 05/06/2014 Yes hydrocodone [id number] Drug Allergy Unknown N/A 05/06/2014 Medications There [...] CCDS Ot I25.10 ATHSCL HEART DISEASE OF [place] CORONARY 06/15/2016 ALESIA HUITRON FACC, ALI FACP CCDS Ot I10 ESSENTIAL (PRIMARY) HYPERTENSION 06/15/2016 ALESIA HUITRON FACC, ALI FACP CCDS Ot I25.10 ATHSCL HEART DISEASE OF [place] CORONARY 06/21/2016 ALESIA HUITRON FACC, ALI FACP CCDS Ot I10 ESSENTIAL (PRIMARY) HYPERTENSION 06/21/2016 ALESIA HUITRON FACC, ALI FACP CCDS Ot I25.10 ATHSCL HEART DISEASE OF [place] CORONARY 09/24/2016 FRANCK HUITRON ALY R Ot [...] PAIN 01/11/2017 JAM RG APRN Ot Z79.82 DETENTION (CURRENT) USE OF ASPIRIN 01/11/2017 JAM RG APRN Ot Z90.49 ACQUIRED ABSENCE OF [...] CCDS Ot I25.10 ATHSCL HEART DISEASE OF [place] CORONARY 07/24/2018 ALY JUÁREZ MD Ot Z12.31 [...] PAIN 07/28/2018 JAM RG APRN Ot Z79.82 DETENTION (CURRENT) USE OF ASPIRIN 07/28/2018 JAM RG [...] culture - 02/06/16 11:35 Bacterial urine culture [id number] NRG COLONY COUNT <10,000 NRG FTX;REPORTABLE PLEASE NOTIFY MICRO AT [phone] IF NRG URINE CULTURE RESULTS <10,000/ML NRG [...] culture - 01/11/17 11:05 Bacterial urine culture [id number] NRG COLONY COUNT 10,000/ML - 100,000/ML NRG [...] Status Pt. Type Provider Facility Loc./Unit Complaint [id number] 07/24/2018 13:57:00 07/24/2018 17:16:00 DIS Outpatient JAM RG APRN [facility] ER ABD PAIN;N/V [id number] 12/23/2017 08:32:00 12/23/2017 23:59:59 CLS Outpatient ALY JUÁREZ MD [facility] RAD SCREENING [id number] 11/12/2017 09:44:00 11/12/2017 11:35:00 DIS Outpatient AMELIA YANG DO [facility] REHAB GRADE II MCL SPRAIN L KNEE [id number] 06/26/2017 09:19:00 06/26/2017 23:59:59 CLS Outpatient NICOLA PETERS MD [facility] RAD LT PELVIC MASS 8- 10 CM [id number] 01/11/2017 10:22:00 01/11/2017 13:07:00 DIS Emergency JAM RG APRN [facility] ER ABD PAIN,NAUSEA [id number] 09/24/2016 09:36:00 09/24/2016 23:59:59 CLS Outpatient ALY JUÁREZ MD [facility] RAD SCREENING [id number] 05/18/2016 10:40:00 05/18/2016 23:59:59 CLS Outpatient ALESIA HUITRON FACCKAVYA FACP CCDS [facility] CARD CAD,HTN [id number] 04/26/2016 10:27:00 05/17/2016 11:32:00 DIS Outpatient LATRELL MCCALL [facility] REHAB LUMBAGO;DDD; RADICULOPATHY [id number] 03/14/2016 09:54:00 03/16/2016 17:00:00 DIS Outpatient LATRELL MCCALL [facility] REHAB LUMBAGO;DDD; RADICULOPATHY [id number] 02/14/2016 10:16:00 02/14/2016 23:59:59 CLS Outpatient ALY JUÁREZ MD [facility] RAD CHRONIC LOW BACK PAIN W RADICULOPATHY [id number] 02/06/2016 10:35:00 02/06/2016 23:59:59 CLS Outpatient ALY JUÁREZ MD [facility] RAD PAIN SI REGION [id number] 09/12/2015 10:03:00 09/12/2015 23:59:59 CLS Outpatient ALY JUÁREZ MD [facility] RAD SCREENING [id number] 09/06/2014 09:38:00 09/06/2014 23:59:59 CLS Outpatient ALY JUÁREZ MD [facility] RAD SCREENING [id number] 06/02/2014 11:23:00 06/02/2014 23:59:59 CLS Outpatient ALY JUÁREZ MD [facility] RAD COUGH,PRODUCTIVE [id number] 03/15/2014 10:07:00 03/15/2014 12:02:00 DIS Emergency JAM RG MELTER HELPER [facility] ER BACK PAIN [id number] 08/31/2013 08:28:00 08/31/2013 23:59:59 CLS Outpatient ALY JUÁREZ MD [facility] RAD SCREENING [id number] 11/26/2012 09:00:00 11/26/2012 15:24:00 DIS Outpatient AMELIA YANG DO [facility] REHAB S/P LEFT TKR [id number] 07/28/2018 22:20:00 ACT Inpatient SALLY RING MD [facility] ICU N/V COLONIC OBSTRCTION, STRICTURE VS MASS [id number] 09/30/2012 06:08:00 Document Registration [id number] 09/22/2012 09:17:00 Document Registration [id number] 08/26/2012 10:59:00 Document Registration [id number] 08/25/2012 08:26:00 Document Registration [id number] 08/21/2012 07:45:00 Document Registration [id number] 03/18/2012 11:23:00 Document Registration [id number] 08/23/2011 08:03:00 Document Registration [id number] 08/15/2010 08:13:00 Document Registration [id number] 08/11/2009 08:18:00 Document Registration [id number] 03/24/2009 13:00:00 Document Registration
[2018-07-28 23:30] VITALS: BP 141/66
[2018-07-28 23:45] VITALS: BP 148/71
[2018-07-28] MEDS ORDERED: NS IV 1000 ML 1,000 ML ONE (23:57)
[2018-07-29] VITALS (9 sets, daily range): BP systolic 119–183; BP diastolic 57–83
[2018-07-29] MEDS: NS IV 1000 ML 1,000 ML IV SCH ×4 (00:09→20:45)
[2018-07-29] MEDS ORDERED: PIPERACILLIN/TAZO 4.5 GM/NS 100 ML IV ONE ×2 (00:15)
[2018-07-29] MEDS ORDERED: ONDANSETRON 4 MG/2 ML (SDV) Z0FRAN IV PRN (00:15)
[2018-07-29] MEDS ORDERED: PROMETHAZINE INJ 25 MG/ML (PHENERGAN) AMP IV PRN (00:15)
[2018-07-29] MEDS: KETOROLAC 15 MG/ML VIAL IVP PRN ×4 (00:42→22:18)
[2018-07-29] MEDS ORDERED: PIPERACILLIN/TAZO 4.5 GM VIAL (ZOSYN) IV ONE ×3 (00:43→06:14)
[2018-07-29] MEDS ORDERED: NS (IVPB) 100 ML ONE ×2 (00:45→06:14)
[2018-07-29] MEDS: fentaNYL INJECTION 100 MCG/2 ML AMP IV PRN ×4 (01:40→20:45)
[2018-07-29] MEDS: PIPERACILLIN/TAZO 4.5 GM/NS 100 ML IV SCH ×6 (06:29→22:19)
[2018-07-29] MEDS ORDERED: FLU QUADRIvalent (5+ YOA) 2018-2019 (AFLURIA) 0.5 ML IM ONE (06:45)
--- NOTE | 2018-07-29 08:29 | History & Physical-Hospitalist ---
History of Present Illness HPI/Chief Complaint Pt is a 67yoCF with a PMH of HTN and diverticulosis who presented to the ER due to abdominal pain, nausea, and bloating. She states her symptoms have been going on for a few weeks so she placed herself on a clear liquid diet knowing that has helped her previous episodes. She did feel better for about a week but then worsened prompting her to seek evaluation in the ER on 07/24/18. She was diagnosed with diverticulitis and sent home with Augmentin. She took this and thought she was feeling better but also started to have loose ribbonlike stools. Yesterday she became nauseous and vomited prompting her to seek evaluation in the ER again. CT abdomen revealed colitis and large bowel obstruction and she was admitted for further management. She was originally scheduled to see Dr Caballero for outpatient consultation on 07/30. Source: patient Exam Limitations: clinical condition Date Seen 07/29/18 Time Seen by a Provider: 08:28 Attending Physician Alvaro Katz MD PCP Bebo Bland MD Referring Physician Date of Admission Jul 28, 2018 at 22:20 Home Medications & Allergies Home Medications Reviewed patient Home Medication Reconciliation performed by pharmacy medication reconciliations on call pharmacy technician and/or nursing. Patients Allergies have been reviewed. Allergies Allergies Coded Allergies codeine (Verified Allergy, Unknown, 05/06/14) hydrocodone (Verified Allergy, Unknown, 05/06/14) Past Wrrrbsi-Lxacuu-Uciqyk Hx Past Med/Social Hx: Reviewed Nursing Past Med/Soc Hx Patient Social History Alcohol Use: Denies Use Recreational Drug Use: No Smoking Status: Never a Smoker Recent Foreign Travel: No Contact w/other who traveled: No Recent Hopitalizations: No Recent Infectious Disease Expo: No Immunizations Up To Date Tetanus Booster (TDap): Unknown Past Medical History Surgeries: Gallbladder, Orthopedic Cardiac: Hypertension Reproductive: No Gastrointestinal: Diverticulosis Musculoskeletal: Arthritis HEENT: Glaucoma Skin/Integumentary: Eczema History of Blood Disorders: No Family History Reviewed Nursing Family Hx No Pertinent Family Hx Review of Systems Constitutional: No chills Respiratory: cough; No phlegm Cardiovascular: No chest pain Gastrointestinal: see HPI, abdominal pain; No constipation, No diarrhea; nausea , vomiting Physical Exam Physical Exam Vital Signs Vital Signs - First Documented 07/28/18 07/28/18 07/28/18 07/29/18 20:55 23:10 23:15 08:10 Temp 97.7 Pulse 110 Resp 19 B/P (MAP) 171/95 (120) Pulse Ox 98 O2 Delivery Room Air O2 Flow Rate 95.00 Capillary Refill : Less Than 3 SecondsLess Than 3 Seconds Height, Weight, BMI Height: 5'2.00" Weight: 225lbs. 0.0oz. 102.916682di; 39.0 BMI Method:Stated General Appearance: No Apparent Distress, WD/WN HEENT: PERRL/EOMI, Moist Mucous Membranes Neck: Non Tender, Supple Respiratory: Lungs Clear, No Respiratory Distress Cardiovascular: Regular Rate, Rhythm, No Murmur Gastrointestinal: Normal Bowel Sounds, Non Tender, Soft Extremity: Normal Capillary Refill, No Calf Tenderness Neurologic/Psychiatric: Alert, Oriented x3, Normal Mood/Affect Skin: Normal Color, Warm/Dry Results Results/Procedures Labs Laboratory Tests 07/28/18 21:00 Patient resulted labs reviewed. Imaging: Reviewed Imaging Report Imaging Date of Exam:07/28/18 CT ABDOMEN/PELVIS WO PROCEDURE: CT abdomen and pelvis without contrast. TECHNIQUE: Multiple contiguous axial images were obtained through the abdomen and pelvis without the use of intravenous contrast. DATE: July 28, 2018. COMPARISON: CT abdomen and pelvis July 24, 2018. INDICATION: 67-year-old female, mid to lower abdominal pain. Nausea and vomiting for one week. FINDINGS: There are limitations for evaluation of the abdominal organs, neoplastic processes, abscess, and limited evaluation of the vasculature relating to the lack of intravenous contrast. There is minimal dependent atelectasis in the lung bases. The heart is not enlarged. There is no identified pericardial effusion. The liver is unremarkable in size and contour. The patient is status post cholecystectomy. There is mild prominence of the common bile duct without CT apparent common bile duct stone or ampullary mass. There is no dilation of the main pancreatic duct. Common bile duct diameter is unchanged since comparison exam. The pancreatic parenchyma is unremarkable on noncontrast assessment. The spleen is not enlarged. The adrenal glands are unremarkable. There is a nonobstructing right renal stone on axial image 36 measuring approximately 12.5 mm in size. There is an additional 3 mm nonobstructing right renal stone on axial image 28. There is a low-attenuation left renal lesion on axial image 42 measuring 13 mm in size with internal attenuation diagnostic for benign renal cysts. The urinary collecting systems are not distended. There is no identified ureteral stone. The urinary bladder is underdistended and not well evaluated. There is prominent dilation of the sigmoid colon and additional more proximal segments of bowel with a transition in bowel caliber at the level of the distal sigmoid colon seen best on axial image 73. There is very likely abnormal bowel wall thickening at the level of the distal sigmoid colon at this location which is also seen on prior postcontrast CT of July 24, 2018. This is compatible with a distal bowel obstruction. Findings are concerning for malignancy at the site of luminal narrowing. There is diverticulosis. There is abnormal wall thickening of the proximal to mid transverse colon which is a new finding since July 24, 2018 and may relate to a nonspecific colitis. There is no identified pneumatosis. The appendix is unremarkable in appearance. There are no abnormally dilated segments of small bowel. There is no free intraperitoneal air. There is no identified drainable fluid collection. There is no sizable volume free pelvic fluid. There are pericolonic lymph nodes on axial image 66 and adjacent sequential images measuring up to 5 mm in short axis which are concerning for potential metastatic barney disease in the setting of malignancy. There is no additional identified abnormally enlarged lymph node in the abdomen or pelvis which specifically meets CT size criteria for adenopathy. There are multilevel degenerative changes of the spine. There is grade 1 anterolisthesis of L4 on L5 relating to facet degenerative changes. There is no identified aggressive bone lesion. IMPRESSION: CT ABDOMEN AND PELVIS. 1. Focal narrowing of the distal sigmoid colon also seen on comparison exam with dilation of large bowel proximal to this concerning for possible malignancy. Findings are compatible with distal large bowel obstruction. 2. New abnormal wall thickening of proximal to mid transverse colon which may relate to a nonspecific colitis. No pneumatosis or portal venous gas to specifically suggest ischemic colitis. 3. Abnormally enlarged pericolonic lymph nodes likely relating to metastatic barney disease in the setting of malignancy. Assessment/Plan Admission Diagnosis Large Bowel Obstruction Admission Status: Inpatient Order (span 2 midnights) Reason for Inpatient Admission: failed outpatient management, needs IV abx Diagnosis/Problems Diagnosis/Problems (1) Colonic obstruction Status: Acute Assessment & Plan: Surgery consulted, appreciate recs Discussed with Dr Caballero who will talk with Dr Daniel about possible Gastrografin enema Continue fentanyl for pain and Phenergan for nausea (2) Diverticulitis Status: Acute Assessment & Plan: Continue Zosyn Surgery consulted, appreciate recs (3) Essential (primary) hypertension Assessment & Plan: Relatively well controlled, trend Clinical Quality Measures DVT/VTE Risk/Contraindication: Risk Factor Score Per Nursin RFS Level Per Nursing on Admit: 3=High HARI ARGUETA MD Jul 29, 2018 08:29
[2018-07-29] MEDS ORDERED: POLY17PO6 PO (08:34)
[2018-07-29] MEDS ORDERED: MULT-1021 PO (08:34)
[2018-07-29] MEDS ORDERED: AMOX1TAB12 PO (08:34)
[2018-07-29] MEDS ORDERED: LATA2.5D5 OU (08:34)
[2018-07-29] MEDS ORDERED: LACT1CAP74 PO (09:31)
--- NOTE | 2018-07-29 09:31 | NUR ---
WENT OVER THE EXT MED HX WITH THE PATIENT, SHE VERIFIED HOW SHE TAKES EACH MEDICATION. SHE ALSO TAKES THE FOLLOWING OTC: ASPIRIN 81MG DAILY PROBIOTIC DAILY CENTRUM DAILY
[2018-07-29] MEDS: ONDANSETRON 4 MG/2 ML (SDV) Z0FRAN IV PRN ×2 (11:34→20:45)
[2018-07-29] MEDS: PROMETHAZINE INJ 25 MG/ML (PHENERGAN) AMP IV PRN (15:37)
--- NOTE | 2018-07-29 19:24 | Consultation ---
History of Present Illness History of Present Illness Patient Consulted On(aisha/time) 07/29/18 19:18 Date Seen by Provider: Jul 29, 2018 Time Seen by Provider: 10:35 History of Present Illness consult requested by Dr. Ch for nausea vomiting colonic obstruction mass versus stricture Patient is a 67-year-old female who states that she has history of diverticulitis. Patient a few weeks has been having some abdominal discomfort primarily in the left lower quadrant lower pelvis. Patient states that she went to a clear liquid diet which is helped in the past which did seem to help some but then approximately a week ago began having more difficulties. Patient states that she's having cramping pain. No radiation. Moderate discomfort which varies in intensity. Patient had a CT scan which demonstrates findings consistent with a colonic obstruction and some diverticulosis and may be some thickening of the wall. No evidence of pneumatosis. Patient was previously placed on Augmentin and was having some small ribbonlike stools that were soft and more liquid in nature. Patient states that today she did have a small bowel movement as well. She does have some abdominal discomfort as well still. She is on antibiotics currently. Patient has had nausea and vomiting as well the last 48 hours or so. Allergies and Home Medications Allergies Coded Allergies: codeine (Verified Allergy, Unknown, 05/06/14) hydrocodone (Verified Allergy, Unknown, 05/06/14) Home Medications Amoxicillin/Potassium Clav 1 Each Tablet, 1 TAB PO BID, (Reported) 7 DAY SUPPLY FILLED 07-24-18 Aspirin 81 Mg Tablet.dr, 81 MG PO HS, (Reported) Lactobacillus Combination No.4 1 Each Capsule, 1 CAP PO DAILY, (Reported) Latanoprost 2.5 Ml Drops, 1 DROP OU HS, (Reported) Losartan Potassium 50 Mg Tablet, 50 MG PO DAILY, (Reported) Multivits-Min/Iron/FA/Lutein 1 Each Tablet, 1 TAB PO DAILY, (Reported) Polyethylene Glycol 3350 17 Gm Powd.pack, 17 GM PO BID, (Reported) Patient Home Medication List Home Medication List Reviewed: Yes Past Qfpbkst-Dgzloz-Djgapk Hx Patient Social History Alcohol Use: Denies Use Recreational Drug Use: No Smoking Status: Never a Smoker Recent Foreign Travel: No Contact w/Someone Who Travel: No Recent Infectious Disease Expo: No Recent Hopitalizations: No Immunizations Up To Date Tetanus Booster (TDap): Unknown Surgeries History of Surgeries: Yes (HYSTEROSCOPY, TEETH REMOVAL) Surgeries: Gallbladder, Orthopedic Respiratory History of Respiratory Disorde: No Cardiovascular History of Cardiac Disorders: No Cardiac Disorders: Hypertension Neurological History of Neurological Disord: No Reproductive System Hx Reproductive Disorders: No Genitourinary History of Genitourinary Disor: No Gastrointestinal History of Gastrointestinal Di: Yes Gastrointestinal Disorders: Diverticulosis Musculoskeletal History of Musculoskeletal Dis: Yes Musculoskeletal Disorders: Arthritis Endocrine History of Endocrine Disorders: No HEENT History of HEENT Disorders: Yes HEENT Disorders: Glaucoma Cancer History of Cancer: No Psychosocial History of Psychiatric Problem: No Integumentary History of Skin or Integumenta: No Skin/Integumentary Disorders: Eczema Blood Transfusions History of Blood Disorders: No Family Medical History Significant Family History: No Pertinent Family Hx Review of Systems-General Constitutional: no symptoms reported EENTM: no symptoms reported Respiratory: no symptoms reported Cardiovascular: no symptoms reported Gastrointestinal: see HPI Genitourinary: no symptoms reported Musculoskeletal: no symptoms reported Skin: no symptoms reported Psychiatric/Neurological: No Symptoms Reported Physical Exam-General Problems Physical Exam Vital Signs Vital Signs - First Documented 07/28/18 07/28/18 07/28/18 07/29/18 20:55 23:10 23:15 08:10 Temp 97.7 Pulse 110 Resp 19 B/P (MAP) 171/95 (120) Pulse Ox 98 O2 Delivery Room Air O2 Flow Rate 95.00 Capillary Refill : Less Than 3 SecondsLess Than 3 Seconds General Appearance: no apparent distress HEENT: PERRL/EOMI, normal ENT inspection Neck: supple Respiratory: chest non-tender, no respiratory distress, no accessory muscle use Cardiovascular: regular rate, rhythm Gastrointestinal: soft; No guarding; tenderness (left lower quadrant and suprapubic area.) Rectal: deferred Back: no CVA tenderness Extremities: non-tender, normal inspection Neurologic/Psychiatric: oral health therapist II-XII nml as tested, no motor/sensory deficits, alert, normal mood/affect, oriented x 3 Skin: normal color, warm/dry Lymphatic: no adenopathy Data Review Labs Laboratory Tests 07/28/18 21:00: White Blood Count 8.9, Red Blood Count 5.22, Hemoglobin 14.9, Hematocrit 45, Mean Corpuscular Volume 86, Mean Corpuscular Hemoglobin 29, Mean Corpuscular Hemoglobin Concent 33, Red Cell Distribution Width 13.8, Platelet Count 306, Mean Platelet Volume 9.8, Neutrophils (%) (Auto) 83H, Lymphocytes (%) (Auto) 11L , Monocytes (%) (Auto) 6, Eosinophils (%) (Auto) 0, Basophils (%) (Auto) 0, Neutrophils # (Auto) 7.4, Lymphocytes # (Auto) 1.0, Monocytes # (Auto) 0.5, Eosinophils # (Auto) 0.0, Basophils # (Auto) 0.0, Sodium Level 140, Potassium Level 3.6, Chloride Level 103, Carbon Dioxide Level 23, Anion Gap 14, Blood Urea Nitrogen 14, Creatinine 0.74, Estimat Glomerular Filtration Rate > 60, BUN/ Creatinine Ratio 19, Glucose Level 169H, Calcium Level 10.3H, Corrected Calcium 10.0, Total Bilirubin 0.5, Aspartate Amino Transf (AST/SGOT) 31, Alanine Aminotransferase (ALT/SGPT) 30, Alkaline Phosphatase 105, Total Protein 7.8, Albumin 4.4 Assessment/Plan Assessment/Plan Assessment/Plan Nausea vomiting Colonic obstruction Patient is passing flatus and having bowel movement today. Patient does have some distention of the sigmoid proximally. In some areas of slight thickening of the wall. She does have history of diverticulitis social history this is a diverticular stricture or possibly mass. Patient nothing by mouth at this time IV hydration and on Zosyn We'll see if any improvement with conservative measures. If not would consider flexible sigmoidoscopy for further evaluation Clinical Quality Measures DVT/VTE Risk/Contraindication: Risk Factor Score Per Nursin RFS Level Per Nursing on Admit: 3=High JARAD FENG DO Jul 29, 2018 19:24
[2018-07-30] VITALS: BP 119/73
[2018-07-30 04:00] VITALS: BP 147/77
[2018-07-30] MEDS: NS IV 1000 ML 1,000 ML IV SCH (05:01)
[2018-07-30] MEDS: PIPERACILLIN/TAZO 4.5 GM/NS 100 ML IV SCH ×6 (05:01→21:37)
[2018-07-30 05:46] LABS: HEMOGLOBIN 12.1 G/DL (11.5-16.0); MEAN PLATELET VOLUME 9.6 FL (7.4-10.4); RED CELL DISTRIBUTION WIDTH 13.8 % (10.0-14.5); WHITE BLOOD COUNT 5.9 10^3/uL (4.3-11.0)
[2018-07-30 06:10] LABS: BUN/CREATININE RATIO 21; CALCIUM 8.5 MG/DL (8.5-10.1); CARBON DIOXIDE 22 MMOL/L (21-32); CHLORIDE 112 MMOL/L (98-107); CREATININE SERUM 0.62 MG/DL (0.60-1.30); GFR ESTIMATED > 60; GLUCOSE 86 MG/DL (70-105); POTASSIUM 3.1 MMOL/L (3.6-5.0); SODIUM 144 MMOL/L (135-145)
[2018-07-30 07:49] VITALS: BP 149/65
--- NOTE | 2018-07-30 08:48 | Progress Note-Hospitalist ---
Subjective HPI/CC On Admission Date Seen by Provider: Jul 30, 2018 Time Seen by Provider: 08:43 Pt is a 67yoCF with a PMH of HTN and diverticulosis who presented to the ER due to abdominal pain, nausea, and bloating. She states her symptoms have been going on for a few weeks so she placed herself on a clear liquid diet knowing that has helped her previous episodes. She did feel better for about a week but then worsened prompting her to seek evaluation in the ER on 07/24/18. She was diagnosed with diverticulitis and sent home with Augmentin. She took this and thought she was feeling better but also started to have loose ribbonlike stools. Yesterday she became nauseous and vomited prompting her to seek evaluation in the ER again. CT abdomen revealed colitis and large bowel obstruction and she was admitted for further management. She was originally scheduled to see Dr Caballero for outpatient consultation on 07/30. Subjective/Events-last exam Pt reports having diarrhea last night and another ribbonlike BM yesterday afternoon, still not normal BMs. Still cherry episodic low abdominal pain and nausea. Objective Exam Vital Signs Vital Signs Date Time Temp Pulse Resp B/P (MAP) Pulse Ox O2 Delivery O2 Flow Rate FiO2 07/31/18 12:00 97.6 84 20 195/81 (119) 93 Nasal Cannula 07/29/18 08:10 95.00 Capillary Refill : Less Than 3 SecondsLess Than 3 Seconds General Appearance: No Apparent Distress, WD/WN, Anxious Respiratory: Lungs Clear, No Respiratory Distress Cardiovascular: Regular Rate, Rhythm, No Murmur Gastrointestinal: Non Tender, Soft, Abnormal Bowel Sounds (hypoactive) Extremity: Normal Capillary Refill, No Calf Tenderness Neurologic/Psychiatric: Alert, Oriented x3 Skin: Normal Color, Warm/Dry Results/Procedures Lab Laboratory Tests 07/31/18 05:41 Patient resulted labs reviewed. Imaging: Reviewed Imaging Report Assessment/Plan Assessment and Plan Assess & Plan/Chief Complaint Colonic Obstruction Diagnosis/Problems Diagnosis/Problems (1) Colonic obstruction Status: Acute Assessment & Plan: Surgery consulted, appreciate recs Discussed with Dr Caballero who will talk with Dr Daniel about possible Gastrografin enema Continue fentanyl for pain and Phenergan for nausea I reviewed films with Dr Daniel- less concerning for malignancy due to significant changes in imaging 4 days apart Discussed with patient to offer reassurance but clearly stated still a possibility and needs to be followed up with colonoscopy (2) Diverticulitis Status: Acute Assessment & Plan: Continue Zosyn Surgery consulted, appreciate recs (3) Essential (primary) hypertension Assessment & Plan: Relatively well controlled, trend (4) Hypokalemia Assessment & Plan: Replace this AM and then add to fluids Clinical Quality Measures DVT/VTE Risk/Contraindication: Risk Factor Score Per Nursin RFS Level Per Nursing on Admit: 3=High HARI ARGUETA MD Jul 30, 2018 08:48
[2018-07-30] MEDS: D5 1/2 NS W/KCL 20 MEQ/L 1,000 ML IV SCH ×3 (09:35→21:37)
[2018-07-30] MEDS: KETOROLAC 15 MG/ML VIAL IVP PRN ×2 (09:37→16:20)
[2018-07-30] MEDS: ONDANSETRON 4 MG/2 ML (SDV) Z0FRAN IV PRN ×3 (09:37→21:56)
[2018-07-30] MEDS: POTASSIUM CL 10MEQ/50ML IVPB 50 ML IV SCH ×4 (11:17→14:20)
[2018-07-30 11:42] VITALS: BP 151/67
[2018-07-30 15:40] VITALS: BP 150/67
[2018-07-30] MEDS ORDERED: NITROGLYCERIN 2% OINT 1 GM UNIT DOSE PACKET TOP PRN (19:15)
[2018-07-30 20:00] VITALS: BP 156/64
--- NOTE | 2018-07-30 21:00 | Progress Note ---
Subjective Date Seen by a Provider: Jul 30, 2018 Time Seen by a Provider: 09:22 Subjective/Events-last exam patient passed some small stool overnight. Patient states still having some pain may be slightly improved. Not having any significant nausea or vomiting. Denies any fever sweats chills shortness of breath or chest pain. Currently nothing by mouth Objective Exam Vital Signs Date Time Temp Pulse Resp B/P (MAP) Pulse Ox O2 Delivery O2 Flow Rate FiO2 07/30/18 19:00 78 07/30/18 15:40 98.8 75 18 150/67 (94) 97 Room Air 07/30/18 13:00 72 07/30/18 11:42 99.6 81 18 151/67 (95) 96 Room Air 07/30/18 08:25 96 Room Air 07/30/18 07:49 98.7 83 18 149/65 (93) 99 Room Air 07/30/18 07:00 71 07/30/18 04:00 98.5 68 16 147/77 (100) 96 Room Air 07/30/18 01:00 69 07/30/18 00:00 98.2 94 18 119/73 (88) 96 Room Air I & O 07/30/18 07:00 Intake Total 0 ml Output Total 200 ml Balance -200 ml Capillary Refill : Less Than 3 SecondsLess Than 3 Seconds General Appearance: No Apparent Distress, WD/WN, Anxious HEENT: Normal ENT Inspection Neck: Non Tender, Supple Respiratory: Lungs Clear, No Accessory Muscle Use, No Respiratory Distress Cardiovascular: Regular Rate, Rhythm, No Murmur Gastrointestinal: soft; No guarding; tenderness (left lower quadrant and suprapubic area.) Extremity: Normal Capillary Refill, No Calf Tenderness Neurologic/Psychiatric: Alert, Oriented x3, No Motor/Sensory Deficits, Normal Mood/Affect Skin: Normal Color, Warm/Dry Lymphatic: No Adenopathy Results Lab Laboratory Tests 07/30/18 05:30: White Blood Count 5.9, Red Blood Count 4.28L, Hemoglobin 12.1, Hematocrit 38, Mean Corpuscular Volume 88, Mean Corpuscular Hemoglobin 28, Mean Corpuscular Hemoglobin Concent 32, Red Cell Distribution Width 13.8, Platelet Count 209, Mean Platelet Volume 9.6, Sodium Level 144, Potassium Level 3.1L, Chloride Level 112H, Carbon Dioxide Level 22, Anion Gap 10, Blood Urea Nitrogen 13, Creatinine 0.62, Estimat Glomerular Filtration Rate > 60, BUN/Creatinine Ratio 21, Glucose Level 86, Calcium Level 8.5 Assessment/Plan Assessment/Plan Assessment/Plan Nausea vomiting Colonic obstruction Patient is passing flatus and having bowel movement today. Patient does have some distention of the sigmoid proximally. In some areas of slight thickening of the wall. She does have history of diverticulitis social history this is a diverticular stricture or possibly mass. Patient nothing by mouth at this time , we'll start clears IV hydration and on Zosyn We'll see if improvement with conservative measures. If not would consider flexible sigmoidoscopy for further evaluation Will make him. After midnight just in case wish to proceed with any new testing. Clinical Quality Measures DVT/VTE Risk/Contraindication: Risk Factor Score Per Nursin RFS Level Per Nursing on Admit: 3=High JARAD FENG DO Jul 30, 2018 20:59
[2018-07-30] MEDS: fentaNYL INJECTION 100 MCG/2 ML AMP IV PRN (21:57)
[2018-07-31] VITALS (7 sets, daily range): BP systolic 154–195; BP diastolic 67–92
[2018-07-31] MEDS: PIPERACILLIN/TAZO 4.5 GM/NS 100 ML IV SCH ×6 (05:35→22:14)
[2018-07-31 05:50] LABS: BASOPHILS % (AUTO) 0 % (0-10); EOSINOPHILS # (AUTO) 0.1 10^3/uL (0.0-0.3); EOSINOPHILS % (AUTO) 1 % (0-10); HEMATOCRIT 37 % (35-52); HEMOGLOBIN 11.7 G/DL (11.5-16.0); LYMPHOCYTES # (AUTO) 1.1 X 10^3 (1.0-4.0); LYMPHOCYTES % (AUTO) 18 % (12-44); MEAN CORPUSCULAR HEMOGLOBIN 28 PG (25-34); MEAN CORPUSCULAR HGB CONC 32 G/DL (32-36); MEAN CORPUSCULAR VOLUME 88 FL (80-99); MEAN PLATELET VOLUME 9.8 FL (7.4-10.4); MONOCYTES # (AUTO) 0.6 X 10^3 (0.0-1.0); MONOCYTES % (AUTO) 9 % (0-12); NEUTROPHILS # (AUTO) 4.6 X 10^3 (1.8-7.8); NEUTROPHILS % (AUTO) 72 % (42-75); PLATELET COUNT 209 10^3/uL (130-400); RED CELL DISTRIBUTION WIDTH 13.7 % (10.0-14.5); WHITE BLOOD COUNT 6.3 10^3/uL (4.3-11.0)
[2018-07-31 06:08] LABS: BUN/CREATININE RATIO 14; CALCIUM 8.3 MG/DL (8.5-10.1); CARBON DIOXIDE 23 MMOL/L (21-32); CHLORIDE 111 MMOL/L (98-107); CREATININE SERUM 0.58 MG/DL (0.60-1.30); GFR ESTIMATED > 60; GLUCOSE 133 MG/DL (70-105); POTASSIUM 3.4 MMOL/L (3.6-5.0); SODIUM 140 MMOL/L (135-145)
[2018-07-31] MEDS: ONDANSETRON 4 MG/2 ML (SDV) Z0FRAN IV PRN ×4 (07:49→23:19)
[2018-07-31] MEDS: fentaNYL INJECTION 100 MCG/2 ML AMP IV PRN ×4 (07:51→16:59)
[2018-07-31] MEDS: D5 1/2 NS W/KCL 20 MEQ/L 1,000 ML IV SCH ×2 (07:54→20:07)
[2018-07-31] MEDS: KETOROLAC 15 MG/ML VIAL IVP PRN ×2 (09:41→17:55)
--- NOTE | 2018-07-31 09:52 | Progress Note ---
Subjective Date Seen by a Provider: Jul 31, 2018 Time Seen by a Provider: 09:50 Subjective/Events-last exam patient more nausea. abdominal pain same maybe worse. Some small hard stools yesterday. Denies fever sweats chills shortness of breath or chest pain. Objective Exam Vital Signs Date Time Temp Pulse Resp B/P (MAP) Pulse Ox O2 Delivery O2 Flow Rate FiO2 07/31/18 08:00 97.3 91 20 174/81 (112) 97 Nasal Cannula 07/31/18 07:00 75 07/31/18 04:51 99.1 79 18 154/67 (96) 97 Nasal Cannula 07/31/18 01:00 77 07/31/18 00:05 97.7 85 20 156/78 (104) 97 Nasal Cannula 07/30/18 20:30 Room Air 07/30/18 20:00 98.6 79 18 156/64 (94) 98 Room Air 07/30/18 19:00 78 07/30/18 15:40 98.8 75 18 150/67 (94) 97 Room Air 07/30/18 13:00 72 07/30/18 11:42 99.6 81 18 151/67 (95) 96 Room Air I & O 07/31/18 07:00 Intake Total 720 ml Balance 720 ml Capillary Refill : Less Than 3 SecondsLess Than 3 Seconds General Appearance: No Apparent Distress, WD/WN, Anxious HEENT: Normal ENT Inspection Neck: Non Tender, Supple Respiratory: Lungs Clear, No Accessory Muscle Use, No Respiratory Distress Cardiovascular: Regular Rate, Rhythm, No Murmur Gastrointestinal: soft; No guarding; tenderness (left lower quadrant and suprapubic area.) Extremity: Normal Capillary Refill, No Calf Tenderness Neurologic/Psychiatric: Alert, Oriented x3, No Motor/Sensory Deficits, Normal Mood/Affect Skin: Normal Color, Warm/Dry Lymphatic: No Adenopathy Results Lab Laboratory Tests 07/31/18 05:41: White Blood Count 6.3, Red Blood Count 4.14L, Hemoglobin 11.7, Hematocrit 37, Mean Corpuscular Volume 88, Mean Corpuscular Hemoglobin 28, Mean Corpuscular Hemoglobin Concent 32, Red Cell Distribution Width 13.7, Platelet Count 209, Mean Platelet Volume 9.8, Neutrophils (%) (Auto) 72, Lymphocytes (%) (Auto) 18, Monocytes (%) (Auto) 9, Eosinophils (%) (Auto) 1, Basophils (%) (Auto) 0, Neutrophils # (Auto) 4.6, Lymphocytes # (Auto) 1.1, Monocytes # (Auto) 0.6, Eosinophils # (Auto) 0.1, Basophils # (Auto) 0.0, Sodium Level 140, Potassium Level 3.4L, Chloride Level 111H, Carbon Dioxide Level 23, Anion Gap 6, Blood Urea Nitrogen 8, Creatinine 0.58L, Estimat Glomerular Filtration Rate > 60, BUN/ Creatinine Ratio 14, Glucose Level 133H, Calcium Level 8.3L Assessment/Plan Assessment/Plan Assessment/Plan Nausea vomiting Colonic obstruction Patient does have some distention of the sigmoid proximally. In some areas of slight thickening of the wall. She does have history of diverticulitis social history this is a diverticular stricture or possibly mass. Patient nothing by mouth at this time, IV hydration and on Zosyn Fexible sigmoidoscopy for further evaluation today, fleets enema prior. She understands risks and benefits and wishes to proceed. We also discussed if surgical intervention needed, details and options which she understands. Clinical Quality Measures DVT/VTE Risk/Contraindication: Risk Factor Score Per Nursin RFS Level Per Nursing on Admit: 3=High JARAD FENG DO Jul 31, 2018 09:52
[2018-07-31] MEDS ORDERED: FLEET ENEMA ADULT 1 EA BTL PR NR (10:00)
--- NOTE | 2018-07-31 10:08 | Progress Note-Hospitalist ---
Subjective HPI/CC On Admission Date Seen by Provider: Jul 31, 2018 Time Seen by Provider: 09:10 Pt is a 67yoCF with a PMH of HTN and diverticulosis who presented to the ER due to abdominal pain, nausea, and bloating. She states her symptoms have been going on for a few weeks so she placed herself on a clear liquid diet knowing that has helped her previous episodes. She did feel better for about a week but then worsened prompting her to seek evaluation in the ER on 07/24/18. She was diagnosed with diverticulitis and sent home with Augmentin. She took this and thought she was feeling better but also started to have loose ribbonlike stools. Yesterday she became nauseous and vomited prompting her to seek evaluation in the ER again. CT abdomen revealed colitis and large bowel obstruction and she was admitted for further management. She was originally scheduled to see Dr Caballero for outpatient consultation on 07/30. Subjective/Events-last exam Pt reports worsening pain and nausea. Plan for flex sig today. Objective Exam Vital Signs Vital Signs Date Time Temp Pulse Resp B/P (MAP) Pulse Ox O2 Delivery O2 Flow Rate FiO2 07/31/18 12:00 97.6 84 20 195/81 (119) 93 Nasal Cannula 07/29/18 08:10 95.00 Capillary Refill : Less Than 3 SecondsLess Than 3 Seconds General Appearance: No Apparent Distress, WD/WN, Anxious Neck: Supple Respiratory: Lungs Clear, No Accessory Muscle Use, No Respiratory Distress Cardiovascular: Regular Rate, Rhythm, No Murmur Gastrointestinal: Non Tender, Soft, Abnormal Bowel Sounds (hypoactive) Neurologic/Psychiatric: Alert, Oriented x3 Skin: Normal Color, Warm/Dry Lymphatic: No Adenopathy Results/Procedures Lab Laboratory Tests 07/31/18 05:41 Patient resulted labs reviewed. Imaging: Reviewed Imaging Report Assessment/Plan Assessment and Plan Assess & Plan/Chief Complaint Colonic Obstruction Diagnosis/Problems Diagnosis/Problems (1) Colonic obstruction Status: Acute Assessment & Plan: Surgery consulted, appreciate recs Plan for flex sig today with possible surgical intervention pending results Continue fentanyl for pain and Phenergan for nausea (2) Diverticulitis Status: Acute Assessment & Plan: Continue Zosyn Surgery consulted, appreciate recs (3) Essential (primary) hypertension Assessment & Plan: Relatively well controlled, trend (4) Hypokalemia Assessment & Plan: Continuing in fluids Clinical Quality Measures DVT/VTE Risk/Contraindication: Risk Factor Score Per Nursin RFS Level Per Nursing on Admit: 3=High HARI ARGUETA MD Jul 31, 2018 10:08
[2018-07-31] MEDS ORDERED: FLU QUADRIvalent (5+ YOA) 2018-2019 (AFLURIA) 0.5 ML IM ONE (10:10)
[2018-07-31] MEDS ORDERED: LACTATED RINGERS 1,000 ML IV ONE (11:19)
[2018-07-31] MEDS ORDERED: proPOfol 200 MG/20 ML (DIPRIVAN) VIAL IV ONE ×2 (11:20→11:46)
[2018-07-31] MEDS ORDERED: MIDAZOLAM 2 MG/2 ML (VERSED) VIAL ONE (11:23)
[2018-07-31] MEDS ORDERED: LACTATED RINGERS 1,000 ML IV PRN (11:30)
[2018-07-31] MEDS ORDERED: fentaNYL INJECTION 100 MCG/2 ML AMP ONE (14:49)
--- NOTE | 2018-07-31 14:55 | Anesthesia-General Post-Op ---
MAC Patient Condition Mental Status/LOC: Same as Preop Cardiovascular: Satisfactory Nausea/Vomiting: Absent Respiratory: Satisfactory Pain: Controlled Complications: Absent Post Op Complications Complications None Follow Up Care/Instructions Patient Instructions None needed. Anesthesiology Discharge Order Discharge Order Patient is doing well, no complaints, stable vital signs, no apparent adverse anesthesia problems. No complications reported per nursing. TRAVIS EPREZ CRNA Jul 31, 2018 14:55
--- NOTE | 2018-07-31 14:59 | NUR ---
Pt is Sikhism and recently anointed.
[2018-07-31] MEDS: PROMETHAZINE INJ 25 MG/ML (PHENERGAN) AMP IV PRN ×2 (15:03→20:17)
--- NOTE | 2018-07-31 15:39 | OPERATIVE REPORT ---
DATE OF SERVICE: 07/31/2018 PREOPERATIVE DIAGNOSIS: Colonic stricture. POSTOPERATIVE DIAGNOSES: Diverticulosis, colonic stricture and colonic polyp. PROCEDURE: Flexible sigmoidoscopy with Neha inking. SURGEON: Jarad Caballero DO. ANESTHESIA: Per CHEMICAL OPERATOR. ESTIMATED BLOOD LOSS: None. COMPLICATIONS: None. INDICATIONS: The patient is a 67-year-old female, who presented with abdominal pain and the appearance of a possible colonic stricture. She understands the risks and benefits of the procedure and wished to proceed with the procedure. Consent was signed in the chart. PROCEDURE: The patient was taken to the endoscopy suite and placed in a left lateral recumbent position. A timeout was performed. Digital rectal exam was performed. There were no palpable polyps, masses or ulcerations. The scope was inserted in the rectum and advanced through the sigmoid colon that demonstrated some diverticulosis beginning. A really tight turn narrowing present; there is a polyp at this present and also a significant amount of diverticulosis. Scope was then unable to be advanced past this point. Scope was slowly withdrawn until completely removed. The gastroscope was then used to try to get more of a better visualization to this area and possibly past it. Scope was inserted into the rectum and advanced up through the rectum into the sigmoid where the strictured area was encountered again, noting again significant diverticulosis. There was a larger polyp in this area as well, but the scope was unable to be advanced. The patient was repositioned with no further success. The scope was begun to be slowly retracted back just distal to the stricture. A total of 3 mL of Neha ink were injected in three spots just distal to this area. Scope was then slowly retracted back until completely removed noting no other pathology. The patient tolerated the procedure well without any complications. RECOMMENDATIONS: The patient appears to have a small opening where the stricture was present. I am unsure what is proximal to this area. We will try to slowly prep the colon and we recommend doing a sigmoid resection. Job ID: [id number] DocumentID: [id number] Dictated Date: 07/31/2018 13:40:05 Information Technology Audit Manager Date: 07/31/2018 15:38:41 Dictated By: JARAD CABALLERO DO [facility]
[2018-07-31] MEDS ORDERED: ONDANSETRON 4 MG/2 ML (SDV) Z0FRAN IVP NR (17:45)
--- NOTE | 2018-07-31 18:05 | NUR ---
This RN called Dr. Caballero to increased N/V and pain. Received new orders, see MAR. Will continue to monitor pt condition. Will watch for increased sedation.
[2018-07-31] MEDS: morphine INJ 10 MG/ML 1ML (SYR OR VIAL) IVP PRN ×2 (20:08→23:22)
[2018-08-01] MEDS: morphine INJ 10 MG/ML 1ML (SYR OR VIAL) IVP PRN ×2 (03:10→21:11)
[2018-08-01] MEDS: PROMETHAZINE INJ 25 MG/ML (PHENERGAN) AMP IV PRN ×2 (03:10→10:18)
[2018-08-01 03:14] VITALS: BP 175/90
[2018-08-01] MEDS: PIPERACILLIN/TAZO 4.5 GM/NS 100 ML IV SCH ×6 (05:08→21:57)
[2018-08-01 06:08] LABS: BASOPHILS % (AUTO) 0 % (0-10); EOSINOPHILS % (AUTO) 0 % (0-10); HEMATOCRIT 39 % (35-52); HEMOGLOBIN 12.6 G/DL (11.5-16.0); LYMPHOCYTES # (AUTO) 0.8 X 10^3 (1.0-4.0); LYMPHOCYTES % (AUTO) 8 % (12-44); MEAN CORPUSCULAR HEMOGLOBIN 29 PG (25-34); MEAN CORPUSCULAR HGB CONC 32 G/DL (32-36); MEAN CORPUSCULAR VOLUME 88 FL (80-99); MONOCYTES # (AUTO) 0.7 X 10^3 (0.0-1.0); MONOCYTES % (AUTO) 7 % (0-12); NEUTROPHILS # (AUTO) 8.4 X 10^3 (1.8-7.8); NEUTROPHILS % (AUTO) 85 % (42-75); PLATELET COUNT 220 10^3/uL (130-400); RED CELL DISTRIBUTION WIDTH 13.7 % (10.0-14.5); WHITE BLOOD COUNT 9.9 10^3/uL (4.3-11.0)
[2018-08-01 06:21] LABS: BUN/CREATININE RATIO 11; CALCIUM 7.7 MG/DL (8.5-10.1); CARBON DIOXIDE 22 MMOL/L (21-32); CHLORIDE 111 MMOL/L (98-107); CREATININE SERUM 0.55 MG/DL (0.60-1.30); GFR ESTIMATED > 60; GLUCOSE 137 MG/DL (70-105); POTASSIUM 3.4 MMOL/L (3.6-5.0); SODIUM 140 MMOL/L (135-145)
[2018-08-01] MEDS: D5 1/2 NS W/KCL 20 MEQ/L 1,000 ML IV SCH ×2 (06:40→22:11)
[2018-08-01] MEDS: ONDANSETRON 4 MG/2 ML (SDV) Z0FRAN IV PRN ×2 (07:28→21:10)
[2018-08-01 08:00] VITALS: BP 175/107
[2018-08-01] MEDS: KETOROLAC 15 MG/ML VIAL IVP PRN (08:09)
[2018-08-01] MEDS ORDERED: POLYETHYLENE GLYCOL 17 GM (MIRALAX) PACK PO SCH (09:00)
[2018-08-01] MEDS ORDERED: SCOPOLAMINE 1.5 MG (TRANSDERM-SCOP) PATCH TD NR (10:00)
--- NOTE | 2018-08-01 10:01 | Progress Note-Hospitalist ---
Subjective HPI/CC On Admission Date Seen by Provider: Aug 01, 2018 Time Seen by Provider: 09:57 Pt is a 67yoCF with a PMH of HTN and diverticulosis who presented to the ER due to abdominal pain, nausea, and bloating. She states her symptoms have been going on for a few weeks so she placed herself on a clear liquid diet knowing that has helped her previous episodes. She did feel better for about a week but then worsened prompting her to seek evaluation in the ER on 07/24/18. She was diagnosed with diverticulitis and sent home with Augmentin. She took this and thought she was feeling better but also started to have loose ribbonlike stools. Yesterday she became nauseous and vomited prompting her to seek evaluation in the ER again. CT abdomen revealed colitis and large bowel obstruction and she was admitted for further management. She was originally scheduled to see Dr Caballero for outpatient consultation on 07/30. Subjective/Events-last exam Pt reports worsening abdominal pain overnight. Improved with morphine. Rounded with Dr Caballero. Plan for NGT for decompression due to nausea. Objective Exam Vital Signs Vital Signs Date Time Temp Pulse Resp B/P (MAP) Pulse Ox O2 Delivery O2 Flow Rate FiO2 08/01/18 12:41 92 08/01/18 12:00 97.7 16 135/83 (100) 93 Nasal Cannula 07/29/18 08:10 95.00 Capillary Refill : Less Than 3 SecondsLess Than 3 Seconds General Appearance: No Apparent Distress, Anxious, Obese Neck: Supple Respiratory: Lungs Clear, No Accessory Muscle Use, No Respiratory Distress Cardiovascular: Regular Rate, Rhythm, No Murmur Gastrointestinal: Abnormal Bowel Sounds (hypoactive), Distended Extremity: Normal Capillary Refill, No Calf Tenderness Neurologic/Psychiatric: Alert, Oriented x3 Skin: Normal Color, Warm/Dry Lymphatic: No Adenopathy Results/Procedures Lab Laboratory Tests 08/01/18 05:49 Patient resulted labs reviewed. Imaging: Reviewed Imaging Report Assessment/Plan Assessment and Plan Assess & Plan/Chief Complaint Colonic Obstruction Diagnosis/Problems Diagnosis/Problems (1) Colonic obstruction Status: Acute Assessment & Plan: Surgery consulted, appreciate recs Flex sig reveals possible diverticular stricture vs large polyp Continue morphine for pain and Zofran/Phenergan for nausea Consider COAL WASHER TENDER if pain worsening Add scopolamine for nausea NGT ordered Plan for resection on 08/04 (2) Diverticulitis Status: Acute Assessment & Plan: Continue Zosyn Surgery consulted, appreciate recs (3) Essential (primary) hypertension Assessment & Plan: Elevated, likely due to pain and anxiety Nitro paste prn (4) Hypokalemia Assessment & Plan: Continuing in fluids Clinical Quality Measures DVT/VTE Risk/Contraindication: Risk Factor Score Per Nursin RFS Level Per Nursing on Admit: 3=High HARI ARGUETA MD Aug 01, 2018 10:01
--- NOTE | 2018-08-01 10:07 | NUR ---
No Communion but paper folding machine operator offered prayer and blessing.
[2018-08-01] MEDS: LORazepam INJ 2 MG/ML (ATIVAN) VIAL IVP PRN (10:21)
[2018-08-01 12:00] VITALS: BP 135/83
[2018-08-01 16:50] VITALS: BP 144/75
--- NOTE | 2018-08-01 19:02 | Progress Note ---
Subjective Date Seen by a Provider: Aug 01, 2018 Time Seen by a Provider: 10:02 Subjective/Events-last exam Patient not feeling any better. Pain better controlled. Had some slight liquid stool. Having nausea and emesis. More abdominal distention after scope. Denies fever sweats chills shortness of breath or chest pain. Objective Exam Vital Signs Date Time Temp Pulse Resp B/P (MAP) Pulse Ox O2 Delivery O2 Flow Rate FiO2 08/01/18 16:50 99.9 89 18 144/75 (98) 92 Room Air 08/01/18 12:41 92 08/01/18 12:00 97.7 98 16 135/83 (100) 93 Nasal Cannula 08/01/18 08:00 Room Air 08/01/18 08:00 97.4 96 20 175/107 (129) 94 Nasal Cannula 08/01/18 07:00 73 08/01/18 03:14 96.6 98 20 175/90 (118) 96 Room Air 08/01/18 01:15 76 07/31/18 23:04 97.5 86 20 173/79 (110) 95 Room Air 07/31/18 20:00 Room Air 07/31/18 19:56 98.4 87 20 180/86 (117) 98 Room Air 07/31/18 19:00 82 I & O 08/01/18 07:00 Intake Total 1660 ml Balance 1660 ml Capillary Refill : Less Than 3 SecondsLess Than 3 Seconds General Appearance: No Apparent Distress, Anxious, Obese Neck: Supple Respiratory: Lungs Clear, No Accessory Muscle Use, No Respiratory Distress Cardiovascular: Regular Rate, Rhythm, No Murmur Gastrointestinal: soft, distended; No guarding; tenderness (left side) Extremity: Normal Capillary Refill, No Calf Tenderness Neurologic/Psychiatric: Alert, Oriented x3 Skin: Normal Color, Warm/Dry Lymphatic: No Adenopathy Results Lab Laboratory Tests 08/01/18 05:49: White Blood Count 9.9, Red Blood Count 4.42, Hemoglobin 12.6, Hematocrit 39, Mean Corpuscular Volume 88, Mean Corpuscular Hemoglobin 29, Mean Corpuscular Hemoglobin Concent 32, Red Cell Distribution Width 13.7, Platelet Count 220, Mean Platelet Volume 10.0, Neutrophils (%) (Auto) 85H, Lymphocytes (%) (Auto) 8L , Monocytes (%) (Auto) 7, Eosinophils (%) (Auto) 0, Basophils (%) (Auto) 0, Neutrophils # (Auto) 8.4H, Lymphocytes # (Auto) 0.8L, Monocytes # (Auto) 0.7, Eosinophils # (Auto) 0.0, Basophils # (Auto) 0.0, Sodium Level 140, Potassium Level 3.4L, Chloride Level 111H, Carbon Dioxide Level 22, Anion Gap 7, Blood Urea Nitrogen 6L, Creatinine 0.55L, Estimat Glomerular Filtration Rate > 60, BUN /Creatinine Ratio 11, Glucose Level 137H, Calcium Level 7.7L Assessment/Plan Assessment/Plan Assessment/Plan Nausea vomiting Colonic obstruction Patient does have some distention of the sigmoid proximally. In some areas of slight thickening of the wall. She does have history of diverticulitis social history this is a diverticular stricture or possibly mass. IV hydration and on Zosyn patient with more nausea and emesis after scope will place ng tube to decompress and then do go lytely through ng tube on saturday for prep. patient was discussed risks and benefits of lap hand assist colon resection and all other indicated procedures and wishes to proceed on SATURDAY Clinical Quality Measures DVT/VTE Risk/Contraindication: Risk Factor Score Per Nursin RFS Level Per Nursing on Admit: 3=High JARAD FENG DO Aug 01, 2018 19:02
[2018-08-01 20:45] VITALS: BP 145/75
[2018-08-01 23:48] VITALS: BP 145/86
[2018-08-02] MEDS: D5 1/2 NS W/KCL 20 MEQ/L 1,000 ML IV SCH ×3 (03:25→22:54)
[2018-08-02] MEDS: ONDANSETRON 4 MG/2 ML (SDV) Z0FRAN IV PRN ×2 (03:40→08:44)
[2018-08-02] MEDS: morphine INJ 10 MG/ML 1ML (SYR OR VIAL) IVP PRN ×2 (03:50→11:16)
[2018-08-02 04:00] VITALS: BP 148/75
[2018-08-02] MEDS: PIPERACILLIN/TAZO 4.5 GM/NS 100 ML IV SCH ×6 (05:45→22:52)
[2018-08-02 08:00] VITALS: BP 186/77
[2018-08-02 09:00] VITALS: BP 144/67
[2018-08-02] MEDS: PROMETHAZINE INJ 25 MG/ML (PHENERGAN) AMP IV PRN ×2 (11:23→19:22)
--- NOTE | 2018-08-02 11:26 | Progress Note-Hospitalist ---
Subjective HPI/CC On Admission Date Seen by Provider: Aug 02, 2018 Time Seen by Provider: 11:24 Pt is a 67yoCF with a PMH of HTN and diverticulosis who presented to the ER due to abdominal pain, nausea, and bloating. She states her symptoms have been going on for a few weeks so she placed herself on a clear liquid diet knowing that has helped her previous episodes. She did feel better for about a week but then worsened prompting her to seek evaluation in the ER on 07/24/18. She was diagnosed with diverticulitis and sent home with Augmentin. She took this and thought she was feeling better but also started to have loose ribbonlike stools. Yesterday she became nauseous and vomited prompting her to seek evaluation in the ER again. CT abdomen revealed colitis and large bowel obstruction and she was admitted for further management. She was originally scheduled to see Dr Caballero for outpatient consultation on 07/30. Subjective/Events-last exam Pt reports persistant pain and nausea. No much improvement with scopolamine patch or NGT. Feels very weak. Objective Exam Vital Signs Vital Signs Date Time Temp Pulse Resp B/P (MAP) Pulse Ox O2 Delivery O2 Flow Rate FiO2 08/02/18 08:00 98.8 87 18 186/77 (113) 93 Room Air 07/29/18 08:10 95.00 Capillary Refill : Less Than 3 SecondsLess Than 3 Seconds General Appearance: No Apparent Distress, Anxious, Obese Respiratory: Lungs Clear, No Accessory Muscle Use, No Respiratory Distress Cardiovascular: Regular Rate, Rhythm, No Murmur Gastrointestinal: Abnormal Bowel Sounds (hypoactive), Distended, Tenderness ( mild, diffuse) Neurologic/Psychiatric: Alert, Oriented x3 Results/Procedures Lab Patient resulted labs reviewed. Imaging: Reviewed Imaging Report Assessment/Plan Assessment and Plan Assess & Plan/Chief Complaint Colonic Obstruction Diagnosis/Problems Diagnosis/Problems (1) Colonic obstruction Status: Acute Assessment & Plan: Surgery consulted, appreciate recs Flex sig revealed possible diverticular stricture vs large polyp Continue morphine for pain and Zofran/Phenergan/scopolamine for nausea NGT in place Bowel prep for tomorrow Plan for resection on 08/04 (2) Diverticulitis Status: Acute Assessment & Plan: Continue Zosyn Surgery consulted, appreciate recs (3) Essential (primary) hypertension Assessment & Plan: Elevated this AM but was improved yesterday after anxiety treated Nitro paste prn (4) Hypokalemia Assessment & Plan: Continuing in fluids Clinical Quality Measures DVT/VTE Risk/Contraindication: Risk Factor Score Per Nursin RFS Level Per Nursing on Admit: 3=High HARI ARGUETA MD Aug 02, 2018 11:26
--- NOTE | 2018-08-02 11:37 | Progress Note (SOAP) ---
Subjective Date Seen by a Provider: Aug 02, 2018 Time Seen by a Provider: 11:15 Subjective/Events-last exam Patient seen with Dr. Foster. Patient reports feeling weak. Not ambulating. Reports can't sleep. Reports nausea and did have some vomiting last night. Continued abdominal pain. Had bowel movement yesterday evening. No sweats/ chills. Reports drinking minimal liquids. Objective Exam Vital Signs Date Time Temp Pulse Resp B/P (MAP) Pulse Ox O2 Delivery O2 Flow Rate FiO2 08/02/18 08:00 98.8 87 18 186/77 (113) 93 Room Air 08/02/18 07:55 88 08/02/18 04:00 98.5 93 18 148/75 (99) 93 Room Air 08/02/18 01:00 85 08/01/18 23:48 99.2 78 16 145/86 (105) 93 Room Air 08/01/18 20:45 99.6 97 18 145/75 (98) 90 Room Air 08/01/18 20:00 Room Air 08/01/18 19:00 90 08/01/18 16:50 99.9 89 18 144/75 (98) 92 Room Air 08/01/18 12:41 92 08/01/18 12:00 97.7 98 16 135/83 (100) 93 Nasal Cannula I & O 08/02/18 07:00 Intake Total 240 ml Output Total 1900 ml Balance -1660 ml Capillary Refill : Less Than 3 SecondsLess Than 3 Seconds General Appearance: WD/WN, Anxious Neck: Full Range of Motion, Normal Inspection, Non Tender, Supple Respiratory: Lungs Clear, Normal Breath Sounds, No Accessory Muscle Use, No Respiratory Distress Cardiovascular: Regular Rate, Rhythm, No Edema Gastrointestinal: normal bowel sounds, distended (mild), tenderness (left side) Extremity: Normal Capillary Refill, Normal Range of Motion, Non Tender, No Pedal Edema Neurologic/Psychiatric: Alert, Oriented x3 Skin: Normal Color, Warm/Dry Results Lab Laboratory Tests 08/02/18 11:04: Glucometer 114H Assessment/Plan Assessment/Plan Assess & Plan/Chief Complaint A 68 year old female with nausea, vomiting, abdominal pain. Colonic stricture noted on colonoscopy She does have history of diverticulitis social history this is a diverticular stricture or possibly mass. IV hydration and on Zosyn Continue with pain and nausea medications. Ativan prn for anxiety. Continue NG tube to decompress and then do go lytely through ng tube on saturday for prep. Patient scheduled for lap hand assist colon resection and all other indicated procedures and wishes to proceed on SATURDAY Clinical Quality Measures DVT/VTE Risk/Contraindication: Risk Factor Score Per Nursin RFS Level Per Nursing on Admit: 3=High TU HUNG APRN Aug 02, 2018 11:37
[2018-08-02 16:28] VITALS: BP 150/68
[2018-08-02] MEDS ORDERED: CHLORASEPTIC SPRAY 177 ML LIQUID MC PRN (18:00)
[2018-08-02 19:54] VITALS: BP 147/80
[2018-08-03] VITALS: BP 139/83
[2018-08-03] MEDS: ONDANSETRON 4 MG/2 ML (SDV) Z0FRAN IV PRN ×3 (02:28→17:27)
[2018-08-03 03:55] VITALS: BP 145/62
[2018-08-03] MEDS: PIPERACILLIN/TAZO 4.5 GM/NS 100 ML IV SCH ×6 (05:33→21:18)
[2018-08-03 08:00] VITALS: BP 143/67
[2018-08-03] MEDS ORDERED: GOLYTELY POWDER 4000 ML BTL PO NR (09:00)
[2018-08-03] MEDS ORDERED: GOLYTELY POWDER 4000 ML BTL PO ONE (09:00)
[2018-08-03] MEDS: D5 1/2 NS W/KCL 20 MEQ/L 1,000 ML IV SCH ×2 (09:21→20:01)
--- NOTE | 2018-08-03 10:57 | Consultation-Cardiology ---
HPI-Cardiology Cardiology Consultation: Date of Consultation 08/03/18 Time Seen by a Provider: 10:20 Date of Admission Attending Physician Alvaro Katz MD Admitting Physician Bebo Bland MD Consulting Physician KAVYA DUMAS MD, MA, FACP, FACC, FSCAI, CCDS HPI: Chief Complaint: Reason for consultation: Pre-op cardiac eval HPI: 68 yo woman with several weeks of lower abd discomfort, including intermittent cramping and diarrhea, poor appetite and fear of eating, and essentially no oral intake for a week, who has been diagnosed with a sigmoid colon stricture and/or polyp and who is awaiting partial colon resection. She denies cp. Has chronic exertional shortness of breath. No palp or syncope. Chronic leg swelling, worsening as the day wears on and improving overnight. Notes gen malaise and weakness Review of Systems-Cardiology Review of Systems Constitutional: As described under HPI Eyes: No vision change Ears/Nose/Throat: No ear discharge, No nasal drainage, No recent hearing loss Respiratory: As described under HPI Cardiovascular: As described under HPI Gastrointestinal: As described under HPI Genitourinary: No dysuria, No hematuria, No urine frequency changes Musculoskeletal: back pain (chronic) Skin: No rash, No ulcerations Psychiatric/Neurological: No focal weakness, No syncope Hematologic: No bleeding abnormalities [id number] Hx Patient Social History Alcohol Use: Denies Use Recreational Drug Use: No Smoking Status: Never a Smoker Recent Foreign Travel: No Recent Infectious Disease Expo: No Hospitalization with Isolation: Denies Immunizations Up To Date Tetanus Booster (TDap): Unknown Past Medical History PMH As described under Assessment. Family Medical History Family Medical History: Does not report fam h/o early CAD or SCD Allergies and Home Medications Allergies Coded Allergies: codeine (Verified Allergy, Unknown, 05/06/14) hydrocodone (Verified Allergy, Unknown, 05/06/14) Home Medications Amoxicillin/Potassium Clav 1 Each Tablet, 1 TAB PO BID, (Reported) 7 DAY SUPPLY FILLED 07-24-18 Aspirin 81 Mg Tablet.dr, 81 MG PO HS, (Reported) Lactobacillus Combination No.4 1 Each Capsule, 1 CAP PO DAILY, (Reported) Latanoprost 2.5 Ml Drops, 1 DROP OU HS, (Reported) Losartan Potassium 50 Mg Tablet, 50 MG PO DAILY, (Reported) Multivits-Min/Iron/FA/Lutein 1 Each Tablet, 1 TAB PO DAILY, (Reported) Polyethylene Glycol 3350 17 Gm Powd.pack, 17 GM PO BID, (Reported) Patient Home Medication List Home Medication List Reviewed: Yes Physical Exam-Cardiology Physical Exam Vital Signs/I&O 08/03/18 08/03/18 08/03/18 08/03/18 00:00 01:00 03:55 07:00 Temp 99.0 98.7 Pulse 102 95 97 84 Resp 6 20 B/P (MAP) 139/83 (101) 145/62 (89) Pulse Ox 94 92 O2 Delivery Room Air Room Air 08/03/18 08:00 Temp 98.6 Pulse 90 Resp 18 B/P (MAP) 143/67 (92) Pulse Ox 92 O2 Delivery Room Air 08/02/18 23:59 Intake Total 0 ml Output Total 1680 ml Balance -1680 ml Capillary Refill : Less Than 3 SecondsLess Than 3 Seconds Constitutional: AAO x 3, well-developed, well-nourished, other (obese) HEENT: EOMI, hearing is well preserved; No xanthelasmas are seen Neck: No carotid bruit; carotid pulses are 2 + bilaterally, with good upstrokes Respiratory: No accessory muscle use; other (fair to good air entry, somewhat diminished at the bases) Cardiovascular: regular rate-rhythm, S1 and S2, systolic murmur (2-3/6 MSM) Gastrointestinal: No tender; soft; No guarding, No rebound; audible bowel sounds Extremities: No clubbing, No cyanosis, No significant edema Neurologic/Psychiatric: oriented x 3, grossly intact, power is 5/5 both on sides Skin: warm/dry; No cyanosis, No cool, No diaphoresis, No rash, No rash on exposed areas, No ulcerations on exposed areas Data Review Labs Laboratory Tests 08/02/18 11:04: Glucometer 114H 08/02/18 16:45: Glucometer 102 08/02/18 19:57: Glucometer 80 A/P-Cardiology Assessment/Admission Diagnosis Sigmoid colon obstruction (stricture vs polyp) for which she is awaiting partial colectomy Minimal coronary artery disease on cardiac catheterization of August 2012. Left ventricular ejection fraction was 60 to 70%. There was mild elevation of left ventricular end-diastolic pressure. Cardiac systolic murmur likely due to AoV sclerosis (w/o stenosis). Echo of showed LVEF 65%, mild diastolic dysfunction of LV and PASP approx 35 mmHg Chronic bilateral leg swelling, likely related to venous insufficiency, currently controlled Elevated body mass index of approximately 41 Hypertension Mild bilat carotid arterial disease without evidence of hemodynamically significant disease on carotid ultrasonography of May 2016 Thyroid multi-nodular goiter for which she follows with Dr. Bland Degenerative joint disease. S/p left knee replacement in September 2012 S/p L knee replacement (TKR) in 2012 Discussion and Recomendations * Cardiac risk for non-cardiac surgery is estimated to be intermediate (Revised Cardiac Risk Index score = 2) * I have reviewed her cardiac risk with her and her and they understand and wish to proceed * Please resume aspirin as soon as possible after surgery * Please monitor (and correct) labs perioperatively * We recommend periop DVT prophylaxis Clinical Quality Measures DVT/VTE Risk/Contraindication: Risk Factor Score Per Nursin RFS Level Per Nursing on Admit: 3=High KAVYA DUMAS MD FACP FAC CCDS Aug 03, 2018 10:57
--- NOTE | 2018-08-03 11:25 | Progress Note-Hospitalist ---
Subjective HPI/CC On Admission Date Seen by Provider: Aug 03, 2018 Time Seen by Provider: 11:20 Pt is a 67yoCF with a PMH of HTN and diverticulosis who presented to the ER due to abdominal pain, nausea, and bloating. She states her symptoms have been going on for a few weeks so she placed herself on a clear liquid diet knowing that has helped her previous episodes. She did feel better for about a week but then worsened prompting her to seek evaluation in the ER on 07/24/18. She was diagnosed with diverticulitis and sent home with Augmentin. She took this and thought she was feeling better but also started to have loose ribbonlike stools. Yesterday she became nauseous and vomited prompting her to seek evaluation in the ER again. CT abdomen revealed colitis and large bowel obstruction and she was admitted for further management. She was originally scheduled to see Dr Caabllero for outpatient consultation on 07/30. Subjective/Events-last exam Pt reports persistent nausea. Bowel prep started, having BM already. Objective Exam Vital Signs Vital Signs Date Time Temp Pulse Resp B/P (MAP) Pulse Ox O2 Delivery O2 Flow Rate FiO2 08/03/18 08:00 98.6 90 18 143/67 (92) 92 Room Air 07/29/18 08:10 95.00 Capillary Refill : Less Than 3 SecondsLess Than 3 Seconds General Appearance: WD/WN, Anxious HEENT: Other (NGT in place) Respiratory: Lungs Clear, No Accessory Muscle Use, No Respiratory Distress Cardiovascular: Regular Rate, Rhythm, No Edema Gastrointestinal: Abnormal Bowel Sounds (hypoactive), Distended, Tenderness ( mild, diffuse) Neurologic/Psychiatric: Alert, Oriented x3, Other (depressed affect) Skin: Normal Color, Warm/Dry Results/Procedures Lab Patient resulted labs reviewed. Imaging: Reviewed Imaging Report Assessment/Plan Assessment and Plan Assess & Plan/Chief Complaint Colonic Obstruction Diagnosis/Problems Diagnosis/Problems (1) Colonic obstruction Status: Acute Assessment & Plan: Surgery consulted, appreciate recs Flex sig revealed possible diverticular stricture vs large polyp Continue morphine for pain and Zofran/Phenergan/scopolamine for nausea Discussed with RN last phenergan dose given at 1922 yesterday and Zofran around [address] Foster to change bowel prep to mag citrate for hopefully better tolerance, discussed with RN to prompt for prn nausea medication as she doesn't appear to be asking for it NGT in place Plan for resection on 08/04 Cardiology consulted for preop risk assessment (2) Diverticulitis Status: Acute Assessment & Plan: Continue Zosyn Surgery consulted, appreciate recs (3) Essential (primary) hypertension Assessment & Plan: Much improved Nitro paste prn (4) Hypokalemia Assessment & Plan: Continuing in fluids Clinical Quality Measures DVT/VTE Risk/Contraindication: Risk Factor Score Per Nursin RFS Level Per Nursing on Admit: 3=High HARI ARGUETA MD Aug 03, 2018 11:25
[2018-08-03] MEDS: PROMETHAZINE INJ 25 MG/ML (PHENERGAN) AMP IV PRN ×2 (11:27→17:27)
[2018-08-03] MEDS ORDERED: METOCLOPRAMIDE INJ 10 MG/2 ML (REGLAN) IVP PRN (11:30)
[2018-08-03] MEDS ORDERED: ALPRAZolam 0.5 MG (XANAX) TAB PO PRN (11:30)
[2018-08-03] MEDS: fentaNYL INJECTION 100 MCG/2 ML AMP IV PRN (11:30)
[2018-08-03] MEDS ORDERED: MAGNESIUM CITRATE 300 ML BTL PO SCH (12:00)
--- NOTE | 2018-08-03 12:00 | Progress Note (SOAP) ---
Subjective Date Seen by a Provider: Aug 03, 2018 Time Seen by a Provider: 11:30 Subjective/Events-last exam Patient seen with Dr. Foster. Patient reports doing ok. Still having nausea and abdominal pain more on the right side. No fever/chills. Started bowel prep and patient having BMs. Objective Exam Vital Signs Date Time Temp Pulse Resp B/P (MAP) Pulse Ox O2 Delivery O2 Flow Rate FiO2 08/03/18 11:05 Room Air 08/03/18 08:00 98.6 90 18 143/67 (92) 92 Room Air 08/03/18 07:00 84 08/03/18 03:55 98.7 97 20 145/62 (89) 92 Room Air 08/03/18 01:00 95 08/03/18 00:00 99.0 102 6 139/83 (101) 94 Room Air 08/02/18 20:02 100 08/02/18 20:00 Room Air 08/02/18 19:54 100.9 91 20 147/80 (102) 93 Room Air 08/02/18 16:28 99.3 82 20 150/68 (95) 94 Room Air 08/02/18 12:39 94 I & O 08/03/18 07:00 Intake Total 0 ml Output Total 1680 ml Balance -1680 ml Capillary Refill : Less Than 3 SecondsLess Than 3 Seconds General Appearance: WD/WN, Anxious Neck: Full Range of Motion, Normal Inspection, Non Tender, Supple Respiratory: Lungs Clear, Normal Breath Sounds, No Accessory Muscle Use, No Respiratory Distress Cardiovascular: Regular Rate, Rhythm, No Murmur Gastrointestinal: normal bowel sounds, tenderness (Right side) Extremity: Normal Inspection, Normal Range of Motion Neurologic/Psychiatric: Alert, Oriented x3 Skin: Normal Color, Warm/Dry Results Lab Laboratory Tests 08/02/18 16:45: Glucometer 102 08/02/18 19:57: Glucometer 80 Assessment/Plan Assessment/Plan Assess & Plan/Chief Complaint A 68 year old female with nausea, vomiting, abdominal pain. Colonic stricture noted on colonoscopy She does have history of diverticulitis social history this is a diverticular stricture or possibly mass. IV hydration and on Zosyn Continue with pain and nausea medications. Ativan prn for anxiety. Continue NG tube to decompress. Started bowel prep for tomorrow. Patient scheduled for lap hand assist colon resection and all other indicated procedures and wishes to proceed on SATURDAY Clinical Quality Measures DVT/VTE Risk/Contraindication: Risk Factor Score Per Nursin RFS Level Per Nursing on Admit: 3=High TU HUNG APRN Aug 03, 2018 12:00
[2018-08-03 16:03] VITALS: BP 126/59
[2018-08-03] MEDS: morphine INJ 10 MG/ML 1ML (SYR OR VIAL) IVP PRN (18:43)
[2018-08-03 19:40] VITALS: BP 141/63
--- NOTE | 2018-08-03 21:00 | NUR ---
This RN at bedside. Pt requesting medication to achieve rest. This RN provided education regarding medications ordered on eMAR. Pt et requesting Ativan at a later time, but reporting that it "zonked" pt out when NG tube was placed. This RN informed family that a partial dose could be administered to assist in sleep but that it would not over sedate pt. Pt et stated that they would turn on the call light when pt was ready to receive dose.
[2018-08-04] VITALS: BP 134/63
--- NOTE | 2018-08-04 00:15 | NUR ---
Pt turned telephone order clerk room service light et requested Ativan dose. This RN to administer 0.25 mg IV Ativan for rest. Pt et agree with partial dose recommendation.
[2018-08-04] MEDS: LORazepam INJ 2 MG/ML (ATIVAN) VIAL IVP PRN (00:20)
[2018-08-04 04:00] VITALS: BP 135/63
[2018-08-04] MEDS: PIPERACILLIN/TAZO 4.5 GM/NS 100 ML IV SCH ×4 (05:45→17:04)
[2018-08-04] MEDS: D5 1/2 NS W/KCL 20 MEQ/L 1,000 ML IV SCH ×2 (06:09→19:33)
[2018-08-04] MEDS ORDERED: LIDOCAINE 1% INJ 20 ML 20 ML VIAL ONE (07:36)
[2018-08-04] MEDS ORDERED: BUP/EPI 0.5% 1:200,000 (SENSORCAINE) 30 ML VIAL ONE (07:36)
[2018-08-04 08:00] VITALS: BP 154/65
--- NOTE | 2018-08-04 09:30 | Progress Note-Cardiology ---
Cardiology SOAP Progress Note Subjective: Continuing abd discomfort No cp or palp or syncope or shortness of breath Objective: I&O/Vital Signs 08/04/18 08/04/18 08/04/18 08/04/18 00:00 01:00 04:00 07:00 Temp 98.0 98.1 Pulse 98 92 95 96 Resp 16 18 B/P (MAP) 134/63 (86) 135/63 (87) Pulse Ox 95 95 O2 Delivery Room Air Room Air 08/04/18 00:00 Intake Total 0 ml Output Total 1750 ml Balance -1750 ml Weight (Pounds): 225 Weight (Ounces): 0.0 Weight (Calculated Kilograms): 102.035077 Constitutional: AAO x 3, well-developed, well-nourished, other (obese) Respiratory: No accessory muscle use; other (fair to good air entry, somewhat diminished at the bases) Cardiovascular: regular rate-rhythm, S1 and S2, systolic murmur (2-3/6 MSM) Gastrointestional: No tender; soft; No guarding, No rebound; audible bowel sounds Extremities: No clubbing, No cyanosis, No significant edema Neurologic/Psychiatric: oriented x 3, grossly intact, power is 5/5 both on sides Skin: warm/dry; No cyanosis, No cool, No diaphoresis, No rash, No rash on exposed areas, No ulcerations on exposed areas Results/Procedures: Labs Laboratory Tests 08/03/18 11:51: Glucometer 109 08/03/18 16:02: Glucometer 99 08/03/18 20:26: Glucometer 99 08/04/18 06:32: Glucometer 89 Microbiology 08/02/18 MRSA Screen - Final, Complete MRSA not isolated A/P: Assessment: Sigmoid colon obstruction (stricture vs polyp) for which she is awaiting partial colectomy Minimal coronary artery disease on cardiac catheterization of August 2012. Left ventricular ejection fraction was 60 to 70%. There was mild elevation of left ventricular end-diastolic pressure. Echo of 08/04/15 showed LVEF 65-70%, mild MAC, mild enlargement of LA, AoV sclerosis w/o stenosis, PASP 30 mmHg Chronic bilateral leg swelling, likely related to venous insufficiency, currently controlled Elevated body mass index of approximately 41 Hypertension Mild bilat carotid arterial disease without evidence of hemodynamically significant disease on carotid ultrasonography of May 2016 Thyroid multi-nodular goiter for which she follows with Dr. Bland Degenerative joint disease. S/p left knee replacement in September 2012 S/p L knee replacement (TKR) in 2012 Plan: * Cardiac risk for non-cardiac surgery is estimated to be intermediate (Revised Cardiac Risk Index score = 2) * Please resume aspirin as soon as possible after surgery * Please monitor (and correct) labs perioperatively * We recommend periop DVT prophylaxis * I spoke with her and her family and answered CV-related questions KAVYA DUMAS MD FACP FACC CCDS Aug 04, 2018 09:30
--- NOTE | 2018-08-04 09:45 | Progress Note ---
Subjective Date Seen by a Provider: Aug 04, 2018 Time Seen by a Provider: 09:37 Subjective/Events-last exam Not much sleep last night. Having some bowel movements. Ng tube. No new complaints. Denies fever sweats chills shortness of breath or chest pain. Objective Exam Vital Signs Date Time Temp Pulse Resp B/P (MAP) Pulse Ox O2 Delivery O2 Flow Rate FiO2 08/04/18 07:00 96 08/04/18 04:00 98.1 95 18 135/63 (87) 95 Room Air 08/04/18 01:00 92 08/04/18 00:00 98.0 98 16 134/63 (86) 95 Room Air 08/03/18 20:00 Room Air 08/03/18 19:40 98.8 96 16 141/63 (89) 93 Room Air 08/03/18 19:00 102 08/03/18 16:03 98.0 98 14 126/59 (81) 92 Room Air 08/03/18 13:01 97 08/03/18 11:05 Room Air I & O 08/04/18 07:00 Intake Total 0 ml Output Total 1850 ml Balance -1850 ml Capillary Refill : Less Than 3 SecondsLess Than 3 Seconds General Appearance: WD/WN, Anxious HEENT: Other (NGT in place) Neck: Full Range of Motion, Normal Inspection, Non Tender, Supple Respiratory: Chest Non Tender, No Accessory Muscle Use, No Respiratory Distress Cardiovascular: Regular Rate, Rhythm, No Murmur Gastrointestinal: normal bowel sounds, tenderness (lower abdomen) Extremity: Normal Inspection, Normal Range of Motion Neurologic/Psychiatric: Alert, Oriented x3 Skin: Normal Color, Warm/Dry Results Lab Laboratory Tests 08/03/18 11:51: Glucometer 109 08/03/18 16:02: Glucometer 99 08/03/18 20:26: Glucometer 99 08/04/18 06:32: Glucometer 89 Microbiology 08/02/18 MRSA Screen - Final, Complete MRSA not isolated Assessment/Plan Assessment/Plan Assessment/Plan Colon obstruction- partial She does have history of diverticulitis social history this is a diverticular stricture or possibly mass. IV hydration and on Zosyn Continue with pain and nausea medications. Ativan prn for anxiety. Continue NG tube to decompress. lap hand assist colon resection and all other indicated procedures and wishes to proceed Clinical Quality Measures DVT/VTE Risk/Contraindication: Risk Factor Score Per Nursin RFS Level Per Nursing on Admit: 3=High JARAD FENG DO Aug 04, 2018 09:45
[2018-08-04] MEDS ORDERED: PATCH REMOVAL TP SCH (10:00)
--- NOTE | 2018-08-04 10:00 | NUR ---
C/O OF LEFT MIDLINE HURTING. LEFT MIDLINE SITE SWOLLEN AND REDDENED. DR. FENG NOTIFIED. DC'D LEFT UPPER ARM MIDLINE AND CATH END SENT TO LAB FOR CULTURE. WARM COMPRESS TO LEFT UPPER ARM MIDLINE SITE.
[2018-08-04] MEDS ORDERED: fentaNYL INJECTION 250 MCG/5 ML AMP ONE (10:32)
--- NOTE | 2018-08-04 11:00 | NUR ---
TO OR PER BED.
[2018-08-04] MEDS: LACTATED RINGERS 1,000 ML IV PRN ×3 (11:10→14:08)
[2018-08-04] MEDS ORDERED: MIDAZOLAM 2 MG/2 ML (VERSED) VIAL ONE (11:18)
[2018-08-04] MEDS ORDERED: ceFAZolin INJECTION 2,000 MG ONE (12:06)
[2018-08-04] MEDS ORDERED: proPOfol 200 MG/20 ML (DIPRIVAN) VIAL IV ONE (14:33)
[2018-08-04] MEDS ORDERED: ONDANSETRON 4 MG/2 ML (SDV) Z0FRAN ONE (14:33)
[2018-08-04] MEDS ORDERED: ROCURONIUM 10 MG/ML 5 ML SYRINGE IV ONE ×2 (14:33→14:34)
[2018-08-04] MEDS ORDERED: LIDOCAINE PF 2% 5 ML (XYLOCAINE) VIAL ONE (14:33)
[2018-08-04] MEDS ORDERED: DEXAMETHASONE 10 MG/ML (DECADRON) 1 ML VIAL ONE (14:34)
[2018-08-04] MEDS ORDERED: BUPIVACAINE 0.5% 30 ML (SENSORCAINE) VIAL ONE (14:34)
[2018-08-04] MEDS ORDERED: SEVOFLURANE (ULTANE) 15 ML INHAL SOLN ONE (14:34)
[2018-08-04] MEDS ORDERED: GLYCOPYRROLATE 0.2 MG/ML (ROBINUL) 2 ML VIAL ONE (14:34)
[2018-08-04] MEDS ORDERED: NEOSTIGMINE 1 MG/ML 5 ML SYRINGE ONE (14:34)
[2018-08-04] MEDS ORDERED: PHENYLEPHRINE 100 MCG/ML 10 ML (ANESTHESIA) SYR ONE (14:34)
[2018-08-04] MEDS ORDERED: SUGAMMADEX 500 MG/5 ML VIAL (BRIDION) IV ONE (15:20)
[2018-08-04] MEDS ORDERED: PROMETHAZINE INJ 25 MG/ML (PHENERGAN) AMP IVP ONE (15:30)
[2018-08-04] MEDS ORDERED: morphine INJ 10 MG/ML 1ML (SYR OR VIAL) IVP ONE (15:30)
[2018-08-04] MEDS ORDERED: MEPERIDINE (DEMEROL) INJ 50 MG/ML IVP ONE (15:30)
[2018-08-04] MEDS ORDERED: HYDROmorphone 2 MG/ML VIAL (DILAUDID) IV ONE (15:30)
[2018-08-04] MEDS ORDERED: ONDANSETRON 4 MG/2 ML (SDV) Z0FRAN IVP PRN (15:30)
[2018-08-04 16:00] VITALS: BP 148/70
[2018-08-04] MEDS ORDERED: fentaNYL INJECTION 100 MCG/2 ML AMP IVP ONE (16:00)
--- NOTE | 2018-08-04 16:30 | NUR ---
TRANSFERRED FROM [facility] PER BED. ALERT AND COOPERATIVE. SKIN W/D. RESP. REGULAR. DEEP BREATHING ENCOURAGED. NICHOLS CATH TO DEPENDENT DRAINAGE WITH CLEAR YELLOW URINE. MIDLINE ABD. INC. AREA WITH ISLAND DRESSING WITH SMALL AMT. REDDISH DRAINAGE NOTED. X 2 LARGE BAND AIDES TO EACH SIDE OF ABD. D/I. COLOR SL. PALE. AT BEDSIDE. TELEMETRY ON. SCD'S TO LOWER LEGS.
[2018-08-04] MEDS: ONDANSETRON 4 MG/2 ML (SDV) Z0FRAN IV PRN (16:51)
[2018-08-04] MEDS: morphine INJ 10 MG/ML 1ML (SYR OR VIAL) IVP PRN ×2 (16:52→19:03)
--- NOTE | 2018-08-04 19:00 | Progress Note-Post Operative ---
Post-Operative Progess Note Surgeon (s)/Headliner Installer (s) Surgeon JARAD FENG DO Headliner Installer: Dr. Dominguez Pre-Operative Diagnosis Colon obstruction/stricture- partial Post-Operative Diagnosis colonic stricture Procedure & Operative Findings Date of Procedure 08/04/18 Procedure Performed/Findings lap hand assisted sigmoid colon resection Anesthesia Type gen Estimated Blood Loss Estimated blood loss (mL): 100mL Specimens/Packing Specimens Removed sigmoid colon JARAD FENG DO Aug 04, 2018 19:00
[2018-08-04 19:11] VITALS: BP 140/65
[2018-08-04 23:25] VITALS: BP 147/74
[2018-08-05] MEDS: LORazepam INJ 2 MG/ML (ATIVAN) VIAL IVP PRN (00:29)
[2018-08-05] MEDS: PIPERACILLIN/TAZO 4.5 GM/NS 100 ML IV SCH ×6 (00:30→18:17)
[2018-08-05 03:54] VITALS: BP 144/68
--- NOTE | 2018-08-05 04:03 | OPERATIVE REPORT ---
DATE OF SERVICE: 08/04/2018 PREOPERATIVE DIAGNOSIS: Colon obstruction/stricture, partial. POSTOPERATIVE DIAGNOSIS: Colonic stricture. PROCEDURE: Laparoscopic hand-assisted sigmoid colon resection. SURGEON: Carlos Caballero DO DEVELOPMENT AND HOUSING DIRECTOR: Dr. Dominguez, assisted in retraction, dissection and closure. ANESTHESIA: General. ESTIMATED BLOOD LOSS: 100 mL. COMPLICATIONS: None. INDICATIONS: The patient is a 68-year-old female who presented with colonic obstruction. Difficult to tell this is a stricture or mass. The patient was found to have polyp as well as significant diverticulosis at time of flexible sigmoidoscopy. The area was unable to be passed to visualize well, though. The patient was discussed risks and benefits of procedure and wished to proceed with procedure. Consent was signed in the chart. PROCEDURE: The patient was taken to the operating suite. She was prepped and draped in sterile fashion. Timeout was performed. A midline incision was made for hand port. Cautery was used to dissect down to the subcutaneous tissues and the fascia was then opened. A 12 mm port was then placed in the right side of the abdomen and a second trocar was placed on the left side of the abdomen. The abdomen was then insufflated. The sigmoid colon was then visualized with a significantly adhered to the left side of the pelvis. Lots of adhesions present as well down into the pelvis as well. A LigaSure and blunt dissection and hook cautery dissection was used to take down all these adhesions. Attention was then placed on the left side where the colon was fixed. Some finger fracturing was used to continue with dissection as well. Once the sigmoid colon was mobilized the tattoo was visualized distally to where the palpable mass is. The rectum was then dissected around with both cautery and blunt dissection. I did place an Endo-RADHA stapler, which was then fired distally. The sigmoid colon was then mobilized along the white line of Toldt. Proximally, the colon was dissected around and an Endo-RADHA stapler was fired across. The LigaSure was then used to divide the mesentery and the specimen was removed with the distal portion having tattooed. The proximal staple line was then brought up and a pursestring suture was then fired and the EEA 29 stapler anvil was inserted and the pursestring was then tied. The colon and adequate length reached the distal staple line. The dilators were then advanced up to the anus and through the rectum dilating the rectum. Once dilated up and an anastomotic stapler was then inserted through the anus up into the rectum where it was then opened and the EEA anastomosis was created. The pelvis was then irrigated with copious amounts of irrigation and the proximal bowel was clamped with fingers and air was inserted in through the anus where there did not demonstrate to be any air leak. The abdomen was irrigated with copious amounts of irrigation. The fascia was then closed using 1-0 looped PDS. The skin was then closed with any after the wound was irrigated. The patient tolerated the procedure well without complication. She was taken to recovery room in stable condition. Job ID: [id number] DocumentID: [id number] Dictated Date: 08/04/2018 19:06:32 Tie Binder Date: 08/05/2018 04:02:39 Dictated By: DO JENNA SORTO
[2018-08-05] MEDS: morphine INJ 10 MG/ML 1ML (SYR OR VIAL) IVP PRN (05:35)
[2018-08-05] MEDS: D5 1/2 NS W/KCL 20 MEQ/L 1,000 ML IV SCH ×3 (05:38→23:13)
[2018-08-05 06:17] LABS: MEAN PLATELET VOLUME 9.9 FL (7.4-10.4); RED CELL DISTRIBUTION WIDTH 13.9 % (10.0-14.5); WHITE BLOOD COUNT 8.3 10^3/uL (4.3-11.0)
[2018-08-05 06:31] LABS: BUN/CREATININE RATIO 13; CALCIUM 8.6 MG/DL (8.5-10.1); CARBON DIOXIDE 27 MMOL/L (21-32); CHLORIDE 103 MMOL/L (98-107); CREATININE SERUM 0.63 MG/DL (0.60-1.30); GFR ESTIMATED > 60; GLUCOSE 124 MG/DL (70-105); MAGNESIUM 1.6 MG/DL (1.8-2.4); POTASSIUM 4.3 MMOL/L (3.6-5.0); SODIUM 138 MMOL/L (135-145)
--- NOTE | 2018-08-05 07:50 | Anesthesia-General Post-Op ---
General Patient Condition Mental Status/LOC: Same as Preop Cardiovascular: Satisfactory Nausea/Vomiting: Absent Respiratory: Satisfactory Pain: Controlled Complications: Absent Post Op Complications Complications None Follow Up Care/Instructions Patient Instructions None needed. Anesthesia/Patient Condition Patient Condition Patient is doing well, no complaints, stable vital signs, no apparent adverse anesthesia problems. No complications reported per nursing. MAGGY STEELE CRNA Aug 05, 2018 07:50
[2018-08-05 08:00] VITALS: BP 168/84
--- NOTE | 2018-08-05 10:40 | Progress Note-Cardiology ---
Cardiology SOAP Progress Note Subjective: Sitting up in bed. C/O abdominal discomfort. Reports gen weakness. No c/o CP or palpitations. Objective: I&O/Vital Signs 08/05/18 08/05/18 08/05/18 08/05/18 07:00 08:00 08:00 12:00 Temp 99.5 99.4 Pulse 108 107 105 Resp 18 20 B/P (MAP) 168/84 (112) 117/78 (91) Pulse Ox 96 94 O2 Delivery Nasal Cannula Nasal Cannula Room Air O2 Flow Rate 2.00 2.00 08/05/18 08/05/18 08/05/18 12:20 13:00 16:42 Temp 99.4 98.9 Pulse 112 104 Resp 16 B/P (MAP) 139/65 (89) Pulse Ox 96 O2 Delivery Room Air 08/05/18 00:00 Intake Total 2120 ml Output Total 1750 ml Balance 370 ml Weight (Pounds): 253 Weight (Ounces): 0.0 Weight (Calculated Kilograms): 114.786966 Constitutional: AAO x 3, well-developed, well-nourished, other (obese) Respiratory: No accessory muscle use; other (fair to good air entry, somewhat diminished at the bases) Cardiovascular: regular rate-rhythm, S1 and S2, systolic murmur (2-3/6 MSM) Gastrointestional: distended (POD #1); No guarding; audible bowel sounds ( hypoactive) Extremities: No clubbing, No cyanosis, No significant edema Neurologic/Psychiatric: oriented x 3, grossly intact, power is 5/5 both on sides Skin: warm/dry; No cyanosis, No cool, No diaphoresis, No rash, No rash on exposed areas, No ulcerations on exposed areas Results/Procedures: Labs Laboratory Tests 08/04/18 21:27: Glucometer 124H 08/05/18 05:31: Glucometer 111H 08/05/18 06:05: White Blood Count 8.3, Red Blood Count 4.57, Hemoglobin 13.0, Hematocrit 40, Mean Corpuscular Volume 88, Mean Corpuscular Hemoglobin 28, Mean Corpuscular Hemoglobin Concent 32, Red Cell Distribution Width 13.9, Platelet Count 258, Mean Platelet Volume 9.9, Sodium Level 138, Potassium Level 4.3, Chloride Level 103, Carbon Dioxide Level 27, Anion Gap 8, Blood Urea Nitrogen 8, Creatinine 0.63, Estimat Glomerular Filtration Rate > 60, BUN/Creatinine Ratio 13, Glucose Level 124H, Calcium Level 8.6, Magnesium Level 1.6L 08/05/18 11:02: Glucometer 84 08/05/18 16:10: Glucometer 102 Microbiology 08/04/18 Catheter Tip Culture - Preliminary, Resulted No growth 08/02/18 MRSA Screen - Final, Complete MRSA not isolated Laboratory Tests 08/05/18 06:05 A/P: Assessment: Sigmoid colon obstruction (stricture vs polyp) - Post laparoscopic hand- assisted sigmoid colon resection on 08-04-[address] Caballero Minimal coronary artery disease on cardiac catheterization of August 2012. Left ventricular ejection fraction was 60 to 70%. There was mild elevation of left ventricular end-diastolic pressure. Echo of 08/04/15 showed LVEF 65-70%, mild MAC, mild enlargement of LA, AoV sclerosis w/o stenosis, PASP 30 mmHg Chronic bilateral leg swelling, likely related to venous insufficiency, currently controlled Elevated body mass index of approximately 41 Hypertension Mild bilat carotid arterial disease without evidence of hemodynamically significant disease on carotid ultrasonography of May 2016 Thyroid multi-nodular goiter for which she follows with Dr. Bland Degenerative joint disease. S/p left knee replacement in September 2012 S/p L knee replacement (TKR) in 2012 Plan: * Please resume aspirin as soon as possible after surgery * Please monitor (and correct) labs perioperatively * Replace Mag * Currently NPO * We recommend periop DVT prophylaxis * We spoken with her and her family and answered CV-related questions Physician Assessment Physician Assessment No cp or palp or syncope or shortness of breath Lungs: good air entry Cor: reg Ext: no c/c/e A&R * As documented in our note above that I updated (italics) and as noted below * Monitor labs * I answered her and her family's CV-related questions PAT OLIVO [employer] Aug 05, 2018 10:40 KAVYA DUMAS MD FACP [facility] Aug 05, 2018 17:33
[2018-08-05] MEDS: MAGNESIUM 1 GM/100 ML IVPB 100 ML IV SCH ×2 (11:26→11:28)
[2018-08-05] MEDS: fentaNYL INJECTION 100 MCG/2 ML AMP IV PRN ×2 (11:49→22:29)
[2018-08-05 12:00] VITALS: BP 117/78
--- NOTE | 2018-08-05 12:43 | Progress Note-Hospitalist ---
Progress Note Progress Notes/Assess & Plan Date Seen 08/05/18 Time Seen by Provider: 12:40 Assessment & Plan The patient is a 68-year-old white female known to me for many years. She had a distal colonic obstruction and underwent surgery yesterday. Dr. Caballero tells me that the opinion on the gross resection was that this was a benign stricture secondary to diverticulitis. We await final pathology report. She is taking sips of water. She has been out of her bed and taken a walk in the hallway. Physical exam shows a well-developed female who appears her stated age. Lungs are clear to auscultation. CV is regular without murmur. Impression: Distal colonic obstruction post resection. Plan: Advance diet and activities as tolerated. SALLY RING MD Aug 05, 2018 12:43
[2018-08-05] MEDS ORDERED: MAGNESIUM 1 GM/100 ML IVPB 100 ML IV ONE (16:15)
--- NOTE | 2018-08-05 16:17 | Progress Note ---
Subjective Date Seen by a Provider: Aug 05, 2018 Time Seen by a Provider: 07:50 Subjective/Events-last exam Pain controlled. Ambulating and using incentive spirometer. Denies n/v fever sweats chills shortness of breath or chest pain. Objective Exam Vital Signs Date Time Temp Pulse Resp B/P (MAP) Pulse Ox O2 Delivery O2 Flow Rate FiO2 08/05/18 13:00 112 08/05/18 12:20 99.4 08/05/18 12:00 99.4 105 20 117/78 (91) 94 Room Air 08/05/18 08:00 99.5 107 18 168/84 (112) 96 Nasal Cannula 2.00 08/05/18 08:00 Nasal Cannula 2.00 08/05/18 07:00 108 08/05/18 03:54 99.4 104 20 144/68 (93) 94 Nasal Cannula 2.00 08/05/18 01:00 100 08/04/18 23:25 98.2 101 18 147/74 (98) 94 Nasal Cannula 2.00 08/04/18 20:08 Nasal Cannula 2.00 08/04/18 19:11 97.3 98 20 140/65 (90) 98 Nasal Cannula 2.00 08/04/18 19:00 95 I & O 08/05/18 07:00 Intake Total 3140 ml Output Total 2050 ml Balance 1090 ml Capillary Refill : Less Than 3 SecondsLess Than 3 Seconds General Appearance: No Apparent Distress, WD/WN HEENT: PERRL/EOMI, Normal ENT Inspection Neck: Full Range of Motion, Normal Inspection, Non Tender, Supple Respiratory: Chest Non Tender, No Accessory Muscle Use, No Respiratory Distress Cardiovascular: Regular Rate, Rhythm, No Murmur Gastrointestinal: normal bowel sounds, tenderness (lower abdomen incisional c/d /i) Extremity: Normal Inspection, Normal Range of Motion Neurologic/Psychiatric: Alert, Oriented x3 Skin: Normal Color, Warm/Dry Results Lab Laboratory Tests 08/04/18 16:41: Glucometer 132H 08/04/18 21:27: Glucometer 124H 08/05/18 05:31: Glucometer 111H 08/05/18 06:05: White Blood Count 8.3, Red Blood Count 4.57, Hemoglobin 13.0, Hematocrit 40, Mean Corpuscular Volume 88, Mean Corpuscular Hemoglobin 28, Mean Corpuscular Hemoglobin Concent 32, Red Cell Distribution Width 13.9, Platelet Count 258, Mean Platelet Volume 9.9, Sodium Level 138, Potassium Level 4.3, Chloride Level 103, Carbon Dioxide Level 27, Anion Gap 8, Blood Urea Nitrogen 8, Creatinine 0.63, Estimat Glomerular Filtration Rate > 60, BUN/Creatinine Ratio 13, Glucose Level 124H, Calcium Level 8.6, Magnesium Level 1.6L 08/05/18 11:02: Glucometer 84 Microbiology 08/04/18 Catheter Tip Culture - Preliminary, Resulted No growth 08/02/18 MRSA Screen - Final, Complete MRSA not isolated Assessment/Plan Assessment/Plan Assessment/Plan Colon obstruction- partial She does have history of diverticulitis social history this is a diverticular stricture or possibly mass. IV hydration and on Zosynn s/p lap hand assisted sigmoid colon resectio Continue with pain and nausea medications. Ativan prn for anxiety. Continue NG tube to decompress. dc ng and tabares hypomagnesemia-replace start sips of clears await bowel function Clinical Quality Measures DVT/VTE Risk/Contraindication: Risk Factor Score Per Nursin RFS Level Per Nursing on Admit: 3=High JARAD FENG DO Aug 05, 2018 16:17
[2018-08-05 16:42] VITALS: BP 139/65
[2018-08-05 20:00] VITALS: BP 133/63
--- NOTE | 2018-08-05 21:00 | NUR ---
Dr. Caballero notified of pt having temp at 100.6 at start of shift with hr at 111. Temp rechecked at 2020 & temp at 99.5. New order rec for tylenol 650 mg po q 6 hr prn temp.
[2018-08-05] MEDS ORDERED: ACETAMINOPHEN 325 MG TABLET PO PRN (21:15)
[2018-08-05 23:20] VITALS: BP 148/67
[2018-08-06] MEDS: PIPERACILLIN/TAZO 4.5 GM/NS 100 ML IV SCH ×2 (00:44)
[2018-08-06 03:48] VITALS: BP 129/69
[2018-08-06 04:34] LABS: BASOPHILS % (AUTO) 0 % (0-10); EOSINOPHILS # (AUTO) 0.2 10^3/uL (0.0-0.3); EOSINOPHILS % (AUTO) 2 % (0-10); HEMATOCRIT 39 % (35-52); HEMOGLOBIN 12.2 G/DL (11.5-16.0); LYMPHOCYTES # (AUTO) 1.1 X 10^3 (1.0-4.0); LYMPHOCYTES % (AUTO) 13 % (12-44); MEAN CORPUSCULAR HEMOGLOBIN 28 PG (25-34); MEAN CORPUSCULAR HGB CONC 32 G/DL (32-36); MEAN CORPUSCULAR VOLUME 90 FL (80-99); MEAN PLATELET VOLUME 9.7 FL (7.4-10.4); MONOCYTES # (AUTO) 1.2 X 10^3 (0.0-1.0); MONOCYTES % (AUTO) 15 % (0-12); NEUTROPHILS # (AUTO) 5.8 X 10^3 (1.8-7.8); NEUTROPHILS % (AUTO) 70 % (42-75); PLATELET COUNT 242 10^3/uL (130-400); RED CELL DISTRIBUTION WIDTH 13.8 % (10.0-14.5); WHITE BLOOD COUNT 8.3 10^3/uL (4.3-11.0)
[2018-08-06 04:48] LABS: ALANINE AMINOTRANSFERASE 15 U/L (0-55); ALBUMIN 2.7 GM/DL (3.2-4.5); ALKALINE PHOSPHATASE 63 U/L (40-136); BILIRUBIN,TOTAL 0.9 MG/DL (0.1-1.0); BUN/CREATININE RATIO 14; CALCIUM 8.5 MG/DL (8.5-10.1); CARBON DIOXIDE 27 MMOL/L (21-32); CHLORIDE 102 MMOL/L (98-107); CREATININE SERUM 0.64 MG/DL (0.60-1.30); GFR ESTIMATED > 60; GLUCOSE 100 MG/DL (70-105); MAGNESIUM 1.9 MG/DL (1.8-2.4); POTASSIUM 3.9 MMOL/L (3.6-5.0); SODIUM 136 MMOL/L (135-145)
[2018-08-06 08:00] VITALS: BP 131/81
--- NOTE | 2018-08-06 08:54 | Progress Note ---
Subjective Date Seen by a Provider: Aug 06, 2018 Time Seen by a Provider: 08:52 Subjective/Events-last exam pain controlled. tolerating sips of clears. no nausea or emesis. no flatus or bm. ambulating and using IS. Denies fever sweats chills shortness of breath or chest pain. Objective Exam Vital Signs Date Time Temp Pulse Resp B/P (MAP) Pulse Ox O2 Delivery O2 Flow Rate FiO2 08/06/18 07:00 96 08/06/18 03:48 99.7 92 18 129/69 (89) 90 Room Air 08/06/18 01:00 97 08/05/18 23:20 99.1 96 18 148/67 (94) 93 Nasal Cannula 1.00 08/05/18 20:20 99.5 08/05/18 20:10 Room Air 08/05/18 20:00 100.6 111 18 133/63 (86) 93 Room Air 08/05/18 19:04 132 08/05/18 19:00 128 08/05/18 16:42 98.9 104 16 139/65 (89) 96 Room Air 08/05/18 13:00 112 08/05/18 12:20 99.4 08/05/18 12:00 99.4 105 20 117/78 (91) 94 Room Air I & O 08/06/18 07:00 Intake Total 710 ml Output Total 700 ml Balance 10 ml Capillary Refill : Less Than 3 SecondsLess Than 3 Seconds General Appearance: No Apparent Distress, WD/WN HEENT: PERRL/EOMI, Normal ENT Inspection Neck: Full Range of Motion, Normal Inspection, Non Tender, Supple Respiratory: Chest Non Tender, No Accessory Muscle Use, No Respiratory Distress Cardiovascular: Regular Rate, Rhythm, No Murmur Gastrointestinal: normal bowel sounds, tenderness ( incisional c/d/i) Extremity: Normal Inspection, Normal Range of Motion Neurologic/Psychiatric: Alert, Oriented x3 Skin: Normal Color, Warm/Dry Results Lab Laboratory Tests 08/05/18 11:02: Glucometer 84 08/05/18 16:10: Glucometer 102 08/05/18 19:36: Glucometer 100 08/05/18 21:17: Glucometer 90 08/06/18 04:10: White Blood Count 8.3, Red Blood Count 4.32L, Hemoglobin 12.2, Hematocrit 39, Mean Corpuscular Volume 90, Mean Corpuscular Hemoglobin 28, Mean Corpuscular Hemoglobin Concent 32, Red Cell Distribution Width 13.8, Platelet Count 242, Mean Platelet Volume 9.7, Neutrophils (%) (Auto) 70, Lymphocytes (%) (Auto) 13, Monocytes (%) (Auto) 15H, Eosinophils (%) (Auto) 2, Basophils (%) (Auto) 0, Neutrophils # (Auto) 5.8, Lymphocytes # (Auto) 1.1, Monocytes # (Auto) 1.2H, Eosinophils # (Auto) 0.2, Basophils # (Auto) 0.0, Sodium Level 136, Potassium Level 3.9, Chloride Level 102, Carbon Dioxide Level 27, Anion Gap 7, Blood Urea Nitrogen 9, Creatinine 0.64, Estimat Glomerular Filtration Rate > 60, BUN/ Creatinine Ratio 14, Glucose Level 100, Calcium Level 8.5, Corrected Calcium 9.5 , Magnesium Level 1.9, Total Bilirubin 0.9, Aspartate Amino Transf (AST/SGOT) 24 , Alanine Aminotransferase (ALT/SGPT) 15, Alkaline Phosphatase 63, Total Protein 5.0L, Albumin 2.7L Microbiology 08/04/18 Catheter Tip Culture - Preliminary, Resulted No growth 08/02/18 MRSA Screen - Final, Complete MRSA not isolated Assessment/Plan Assessment/Plan Assessment/Plan Colon obstruction- partial She does have history of diverticulitis social history this is a diverticular stricture or possibly mass. IV hydration and on Zosynn s/p lap hand assisted sigmoid colon resection Continue with pain and nausea medications. Ativan prn for anxiety. hypomagnesemia-- montez castellanos await bowel function using scd's and start lovenox today for dvt prophylaxis Clinical Quality Measures DVT/VTE Risk/Contraindication: Risk Factor Score Per Nursin RFS Level Per Nursing on Admit: 3=High JARAD FENG DO Aug 06, 2018 08:54
--- NOTE | 2018-08-06 09:13 | Progress Note-Hospitalist ---
Subjective HPI/CC On Admission Date Seen by Provider: Aug 06, 2018 Time Seen by Provider: 09:30 Pt is a 67yoCF with a PMH of HTN and diverticulosis who presented to the ER due to abdominal pain, nausea, and bloating. She states her symptoms have been going on for a few weeks so she placed herself on a clear liquid diet knowing that has helped her previous episodes. She did feel better for about a week but then worsened prompting her to seek evaluation in the ER on 07/24/18. She was diagnosed with diverticulitis and sent home with Augmentin. She took this and thought she was feeling better but also started to have loose ribbonlike stools. Yesterday she became nauseous and vomited prompting her to seek evaluation in the ER again. CT abdomen revealed colitis and large bowel obstruction and she was admitted for further management. She was originally scheduled to see Dr Caballero for outpatient consultation on 07/30. Subjective/Events-last exam Pt doing very well Will discontinue telemetry Appreciate cardiology management Overall feeling much better and tolerating jello Afraid she is going to throw up Overall participating in therapy Checked meds and labs Review of Systems General: Fatigue Gastrointestinal: Nausea, Abdominal Pain Objective Exam Vital Signs Vital Signs Date Time Temp Pulse Resp B/P (MAP) Pulse Ox O2 Delivery O2 Flow Rate FiO2 08/06/18 16:00 99.5 100 28 161/68 (99) 97 Room Air 08/05/18 23:20 1.00 Capillary Refill : Less Than 3 SecondsLess Than 3 Seconds General Appearance: No Apparent Distress, WD/WN HEENT: PERRL/EOMI, Normal ENT Inspection Neck: Full Range of Motion, Normal Inspection, Non Tender, Supple Respiratory: Chest Non Tender, No Accessory Muscle Use, No Respiratory Distress Cardiovascular: Regular Rate, Rhythm, No Murmur Gastrointestinal: Soft, Tenderness (mild, diffuse) Extremity: Normal Inspection, Normal Range of Motion Neurologic/Psychiatric: Alert, Oriented x3 Skin: Normal Color, Warm/Dry Results/Procedures Lab Laboratory Tests 08/06/18 04:10 Patient resulted labs reviewed. Imaging: Reviewed Imaging Report Assessment/Plan Assessment and Plan Assess & Plan/Chief Complaint Assessment: s/p obstructive colonic mass appears benign Post op ileus Plan: Increase po intake PT/OT Diagnosis/Problems Diagnosis/Problems (1) Colonic obstruction Status: Resolved Resolution Date/Time: 08/06/18 @ 12:40 (2) Diverticulitis Status: Resolved Resolution Date/Time: 08/06/18 @ 12:40 (3) Nausea and vomiting Status: Resolved Qualifiers: Vomiting type: unspecified Vomiting Intractability: non-intractable Qualified Codes: R11.2 - Nausea with vomiting, unspecified Resolution Date/Time: 08/06/18 @ 12:40 (4) Essential (primary) hypertension Status: Chronic (5) Hypokalemia Status: Acute Clinical Quality Measures DVT/VTE Risk/Contraindication: Risk Factor Score Per Nursin RFS Level Per Nursing on Admit: 3=High JAILENE HUERTA DO Aug 06, 2018 09:13
--- NOTE | 2018-08-06 09:54 | Progress Note-Cardiology ---
Cardiology SOAP Progress Note Subjective: No cp or palp or syncope Gen malaise and weakness Objective: I&O/Vital Signs 08/05/18 08/06/18 08/06/18 08/06/18 23:20 01:00 03:48 07:00 Temp 99.1 99.7 Pulse 96 97 92 96 Resp 18 18 B/P (MAP) 148/67 (94) 129/69 (89) Pulse Ox 93 90 O2 Delivery Nasal Cannula Room Air O2 Flow Rate 1.00 08/06/18 00:00 Intake Total 590 ml Output Total 450 ml Balance 140 ml Weight (Pounds): 253 Weight (Ounces): 0.0 Weight (Calculated Kilograms): 114.742592 Constitutional: AAO x 3, well-developed, well-nourished, other (obese) Respiratory: No accessory muscle use; other (fair to good air entry, somewhat diminished at the bases) Cardiovascular: regular rate-rhythm, S1 and S2, systolic murmur (2-3/6 MSM) Gastrointestional: soft, audible bowel sounds (hypoactive), other (post-op status) Extremities: No clubbing, No cyanosis, No significant edema Neurologic/Psychiatric: oriented x 3, grossly intact, power is 5/5 both on sides Skin: warm/dry; No cyanosis, No cool, No diaphoresis, No rash, No rash on exposed areas, No ulcerations on exposed areas Results/Procedures: Labs Laboratory Tests 08/05/18 11:02: Glucometer 84 08/05/18 16:10: Glucometer 102 08/05/18 19:36: Glucometer 100 08/05/18 21:17: Glucometer 90 08/06/18 04:10: White Blood Count 8.3, Red Blood Count 4.32L, Hemoglobin 12.2, Hematocrit 39, Mean Corpuscular Volume 90, Mean Corpuscular Hemoglobin 28, Mean Corpuscular Hemoglobin Concent 32, Red Cell Distribution Width 13.8, Platelet Count 242, Mean Platelet Volume 9.7, Neutrophils (%) (Auto) 70, Lymphocytes (%) (Auto) 13, Monocytes (%) (Auto) 15H, Eosinophils (%) (Auto) 2, Basophils (%) (Auto) 0, Neutrophils # (Auto) 5.8, Lymphocytes # (Auto) 1.1, Monocytes # (Auto) 1.2H, Eosinophils # (Auto) 0.2, Basophils # (Auto) 0.0, Sodium Level 136, Potassium Level 3.9, Chloride Level 102, Carbon Dioxide Level 27, Anion Gap 7, Blood Urea Nitrogen 9, Creatinine 0.64, Estimat Glomerular Filtration Rate > 60, BUN/ Creatinine Ratio 14, Glucose Level 100, Calcium Level 8.5, Corrected Calcium 9.5 , Magnesium Level 1.9, Total Bilirubin 0.9, Aspartate Amino Transf (AST/SGOT) 24 , Alanine Aminotransferase (ALT/SGPT) 15, Alkaline Phosphatase 63, Total Protein 5.0L, Albumin 2.7L Microbiology 08/04/18 Catheter Tip Culture - Preliminary, Resulted No growth 08/02/18 MRSA Screen - Final, Complete MRSA not isolated Laboratory Tests 08/05/18 06:05 08/06/18 04:10 A/P: Assessment: Sigmoid colon obstruction (stricture vs polyp) - Post laparoscopic hand- assisted sigmoid colon resection on 08-04-[address] Caballero Minimal coronary artery disease on cardiac catheterization of August 2012. Left ventricular ejection fraction was 60 to 70%. There was mild elevation of left ventricular end-diastolic pressure. Echo of 08/04/15 showed LVEF 65-70%, mild MAC, mild enlargement of LA, AoV sclerosis w/o stenosis, PASP 30 mmHg Chronic bilateral leg swelling, likely related to venous insufficiency, currently controlled Elevated body mass index of approximately 41 Hypertension Mild bilat carotid arterial disease without evidence of hemodynamically significant disease on carotid ultrasonography of May 2016 Thyroid multi-nodular goiter for which she follows with Dr. Bland Degenerative joint disease. S/p left knee replacement in September 2012 S/p L knee replacement (TKR) in 2012 Plan: * Resume ASA, if ok with the surg svce * Monitor labs KAVYA DUMAS MD FACP [facility]S Aug 06, 2018 09:54
[2018-08-06] MEDS: ENOXAPARIN 40 MG/0.4 ML (LOVENOX) SYR SC SCH ×2 (10:03→21:01)
[2018-08-06] MEDS ORDERED: ASPIRIN 81 MG CHEW (CHILDREN'S ASA) PO NR (10:56)
[2018-08-06] MEDS: D5 1/2 NS W/KCL 20 MEQ/L 1,000 ML IV SCH ×2 (11:15→20:59)
[2018-08-06] MEDS: fentaNYL INJECTION 100 MCG/2 ML AMP IV PRN ×3 (11:27→21:01)
[2018-08-06 12:00] VITALS: BP 110/71
--- NOTE | 2018-08-06 12:00 | Physical Therapy Evaluation ---
PT Evaluation-General Medical Diagnosis Admission Date Jul 28, 2018 at 22:20 Medical Diagnosis: Colon Resection Onset Date: Jul 28, 2018 Therapy Diagnosis Therapy Diagnosis: decreased mobility Height/Weight Height (Feet): 5 Height (Inches): 2.00 Weight (Pounds): 253 Weight (Ounces): 0.0 Precautions Precautions/Isolations: Fall Prevention, Standard Precautions, Pressure Ulcer Weight Bear Status Right Lower Extremity: Right Full Weight Bearing Left Lower Extremity: Left Full Weight Bearing Referral Physician: Dr. Caballero Reason for Referral: Evaluation/Treatment Medical History Pertinent Medical History: Arthritis, HTN Additional Medical History Surgeries: Gallbladder, Orthopedic Cardiac: Hypertension Reproductive: No Gastrointestinal: Diverticulosis Musculoskeletal: Arthritis HEENT: Glaucoma Skin/Integumentary: Eczema History of Blood Disorders: No Current History to ER with a recurrence of nausea, bloating and discomfort in the left side of the abdomen. Reviewed History: Yes Social History Home: Single Level Current Living Status: Spouse Entry Into Home: Stairs With Railing PT Steps Into Home: 1 Prior/Core FIM Prior Level of Function Therapy Code Descriptions/Definitions Functional [place] Measure: 0=Not Assessed/NA 4=Minimal Assistance 1=Total Assistance 5=Supervision or Setup 2=Maximal Assistance 6=Modified [place] 3=Moderate Assistance 7=Complete [place] Therapy Quality Codes: 6 Independent with activity with or without an assistive device 5 Patient requires set up or clean up by helper. Patient completes activity by themselves 4 Supervision or touching assist (CGA). [place] provide cues , steadying assist 3 The helper provides less than half the effort to complete the activity 2 The helper provides more than half the effort to complete the activity 1 Dependent. The helper does all the effort to complete an activity 7 Patient refused to complete or attempt activity 9 The patient did not perform the activity before the current illness or injury 88 Not attempted due to Medical conditions or safety concerns Functional Abilities and Goals: Independent: Patient completed the activities by him/herself, with or without an assistive device, with no assistance from a helper. Needed Some Help: Patient needed partial assistance from another person to complete activities. Dependent: A helper completed the activities for the patient. Unknown: Not Applicable: Bed Mobility: 7 Transfers (B,C,W/C) (FIM): 7 Gait: 7 Stairs: 7 Indoor Mobility (Ambulation): Independent Stairs: Independent Prior Devices Use: None Prior Device Use: walker She has a walker from her TKA PT Evaluation-Current Subjective Pt in bed and agrees to PT. Nurse in room to give pt pain medication. Pt reports that she has already been up and walking around twice this morning. Pain Numeric Pain Scale: 7 Location Body Site: Abdomen Pt/Family Goals Pt to return home. Objective Patient Orientation: Person, Place, Situation, Normal For Age Attachments: IV ROM/Strength ROM Lower Extremities NT Strength Lower Extremities NT Integumentary/Posture Bowel Incontinence: No Bladder Incontinence: No Neuromuscular (Tone, Coordination, Reflexes) NT Sensory Vision: Functional Hearing: Functional Transfers Therapy Code Descriptions/Definitions Functional [place] Measure: 0=Not Assessed/NA 4=Minimal Assistance 1=Total Assistance 5=Supervision or Setup 2=Maximal Assistance 6=Modified [place] 3=Moderate Assistance 7=Complete [place] Transfers (B, C, W/C) (FIM): 4 Scootin Supine to/from Sit: 5 Sit to/from Stand: 4 Gait Mode of Locomotion: Walk Anticipated Mode of Locomotion: Walk Distance (FIM): 3=150 ft Distance: 1200' Gait Level of Assist: 6 Gait Persons Needed: 1 Gait Assistive Device: FWW Balance Sitting Static: Good Sitting Dynamic: Good Standing Static: Good Standing Dynamic: Good Assessment/Needs Pt was able to perform bed mobility with min A due to pain. PT VC pt on ways to improve bed mobility. Pt sit<>stand transfer to FWW SBA. Pt requested to amb with no AD and amb 50' with no AD and SBA. Pt reports she feels more safe with walker. Pt amb 1150' with FWW and PT assisted with IV. Pt returned to room and is up in recliner. PT instructed pt through LE ex to perform throughout the day. Supine AP and glute sets. Seated LAQ and Hip flexion. PT wrote ex on board. Pt has all needs met in recliner. Pt does not think she needs PT to assist her since she is able to amb with no problems and is only limited by her pain. Rehab Potential: Good Post Rehab Potential-Barriers: co-morbidities PT Plan Problem List Problem List: Activity Tolerance, Transfer, Bed Mobility Treatment/Plan Treatment Plan: Discontinue PT Treatment Plan: Other Treatment Duration: Aug 06, 2018 Frequency: Estimated Hrs Per Day: Other Patient and/or Family Agrees t: Yes Safety Risks/Education Patient Education: Gait Training, Transfer Techniques, Correct Positioning, Safety Issues Teaching Recipient: Patient Teaching Methods: Demonstration, Discussion Response to Teaching: Verbalize Understanding, Return Demonstration Discharge Recommendations Plan DC Therapy D/C Recommendations: Home w/ Family Support, Home Independently Time/GCodes Time In: 1120 Time Out: 1150 Total Billed Treatment Time: 30 Total Billed Treatment 1 visit EVL 10 min FA 20 min LIZBETH LUDWIG PT Aug 06, 2018 12:00
[2018-08-06 16:00] VITALS: BP 161/68
[2018-08-06 20:00] VITALS: BP 137/66
[2018-08-06] MEDS: ONDANSETRON 4 MG/2 ML (SDV) Z0FRAN IV PRN (20:59)
[2018-08-06 23:45] VITALS: BP 139/63
--- NOTE | 2018-08-07 05:19 | Progress Note-Hospitalist ---
Subjective HPI/CC On Admission Date Seen by Provider: Aug 07, 2018 Time Seen by Provider: 09:00 Pt is a 67yoCF with a PMH of HTN and diverticulosis who presented to the ER due to abdominal pain, nausea, and bloating. She states her symptoms have been going on for a few weeks so she placed herself on a clear liquid diet knowing that has helped her previous episodes. She did feel better for about a week but then worsened prompting her to seek evaluation in the ER on 07/24/18. She was diagnosed with diverticulitis and sent home with Augmentin. She took this and thought she was feeling better but also started to have loose ribbonlike stools. Yesterday she became nauseous and vomited prompting her to seek evaluation in the ER again. CT abdomen revealed colitis and large bowel obstruction and she was admitted for further management. She was originally scheduled to see Dr Caballero for outpatient consultation on 07/30. Subjective/Events-last exam Pt doing well Tolerated clear liquids without nausea and vomiting Daughter wants home health at NH and that is planned for tomorrow Pain is fairly controlled unless she is walking or sitting up Overall flat affect noted Will continue supportive care Review of Systems Gastrointestinal: Abdominal Pain Objective Exam Vital Signs Vital Signs Date Time Temp Pulse Resp B/P (MAP) Pulse Ox O2 Delivery O2 Flow Rate FiO2 08/07/18 08:00 Room Air 08/07/18 08:00 97.2 88 20 140/61 (87) 97 08/05/18 23:20 1.00 Capillary Refill : Less Than 3 SecondsLess Than 3 Seconds General Appearance: No Apparent Distress, WD/WN, Other (improved) HEENT: PERRL/EOMI, Normal ENT Inspection Neck: Full Range of Motion, Normal Inspection, Non Tender, Supple Respiratory: Chest Non Tender, No Accessory Muscle Use, No Respiratory Distress Cardiovascular: Regular Rate, Rhythm, No Murmur Gastrointestinal: Soft, Tenderness (mild, diffuse) Extremity: Normal Inspection, Normal Range of Motion Neurologic/Psychiatric: Alert, Oriented x3 Skin: Normal Color, Warm/Dry Results/Procedures Lab Patient resulted labs reviewed. Imaging: Reviewed Imaging Report Assessment/Plan Assessment and Plan Assess & Plan/Chief Complaint Assessment: s/p obstructive colonic mass appears benign Post op ileus Plan: Increase po intake PT/OT DC Saturday on HH Diagnosis/Problems Diagnosis/Problems (1) Colonic obstruction Status: Resolved Resolution Date/Time: 08/06/18 @ 12:40 (2) Diverticulitis Status: Resolved Resolution Date/Time: 08/06/18 @ 12:40 (3) Nausea and vomiting Status: Resolved Qualifiers: Vomiting type: unspecified Vomiting Intractability: non-intractable Qualified Codes: R11.2 - Nausea with vomiting, unspecified Resolution Date/Time: 08/06/18 @ 12:40 (4) Essential (primary) hypertension Status: Chronic (5) Hypokalemia Status: Acute Clinical Quality Measures DVT/VTE Risk/Contraindication: Risk Factor Score Per Nursin RFS Level Per Nursing on Admit: 3=High JAILENE HUERTA DO Aug 07, 2018 05:19
[2018-08-07] MEDS: D5 1/2 NS W/KCL 20 MEQ/L 1,000 ML IV SCH ×2 (05:31→15:34)
[2018-08-07 08:00] VITALS: BP 140/61
[2018-08-07] MEDS: ASPIRIN 81 MG CHEW (CHILDREN'S ASA) PO SCH (08:26)
[2018-08-07] MEDS: ENOXAPARIN 40 MG/0.4 ML (LOVENOX) SYR SC SCH ×2 (08:26→20:16)
--- NOTE | 2018-08-07 09:24 | Progress Note-Cardiology ---
Cardiology SOAP Progress Note Subjective: Sitting up in a recliner at the bedside. States she continues to have abd pain. C/O gen weakness. No c/o CP, palpitations or dyspnea. Objective: I&O/Vital Signs 08/07/18 08/07/18 08/07/18 04:41 08:00 08:00 Temp 97.9 97.2 Pulse 88 Resp 20 B/P (MAP) 140/61 (87) Pulse Ox 97 O2 Delivery Room Air Room Air 08/07/18 00:00 Intake Total 1760 ml Output Total 250 ml Balance 1510 ml Weight (Pounds): 253 Weight (Ounces): 0.0 Weight (Calculated Kilograms): 114.762095 Constitutional: AAO x 3, well-developed, well-nourished, other (obese) Respiratory: No accessory muscle use; other (fair to good air entry, somewhat diminished at the bases) Cardiovascular: regular rate-rhythm, S1 and S2, systolic murmur (2-3/6 MSM) Gastrointestional: soft, audible bowel sounds (hypoactive), other (post-op status) Extremities: No clubbing, No cyanosis, No significant edema Neurologic/Psychiatric: oriented x 3, grossly intact, power is 5/5 both on sides Skin: warm/dry; No cyanosis, No cool, No diaphoresis, No rash, No rash on exposed areas, No ulcerations on exposed areas Results/Procedures: Labs Laboratory Tests 08/06/18 17:07: Glucometer 94 08/06/18 21:11: Glucometer 98 08/07/18 05:13: Glucometer 96 08/07/18 11:45: Glucometer 96 08/07/18 16:08: Glucometer 98 Microbiology 08/04/18 Catheter Tip Culture - Final, Complete No growth 08/02/18 MRSA Screen - Final, Complete MRSA not isolated A/P: Assessment: Sigmoid colon obstruction - Post laparoscopic hand-assisted sigmoid colon resection on 08-04-[address] Caballero Minimal coronary artery disease on cardiac catheterization of August 2012. Left ventricular ejection fraction was 60 to 70%. There was mild elevation of left ventricular end-diastolic pressure. Echo of 08/04/15 showed LVEF 65-70%, mild MAC, mild enlargement of LA, AoV sclerosis w/o stenosis, PASP 30 mmHg Chronic bilateral leg swelling, likely related to venous insufficiency, currently controlled Elevated body mass index of approximately 41 Hypertension Mild bilat carotid arterial disease without evidence of hemodynamically significant disease on carotid ultrasonography of May 2016 Thyroid multi-nodular goiter for which she follows with Dr. Bland Degenerative joint disease. S/p left knee replacement in September 2012 S/p L knee replacement (TKR) in 2012 Plan: * ASA has been resumed * Anti-hypertensive (Losartan 50mg) has been on hold - resume at lower dose * Monitor labs Physician Assessment Physician Assessment Gen malaise. No cp. No shortness of breath. No palp or syncope Lungs: good bilat air entry, diminished at the bases Cor: reg Ext: no c/c/e A&R * As documented in our note above that I updated (italics) and as noted below * Resume ASA * Monitor labs * I spoke with her and her and answered CV-related questions PAT OLIVO REFRIGERATION SERVICE TECHNICIAN Aug 07, 2018 09:24 KAVYA DUMAS MD FACP FAC CCDS Aug 07, 2018 16:33
[2018-08-07] MEDS ORDERED: LOSARTAN 25 MG (COZAAR) TAB PO NR (09:30)
--- NOTE | 2018-08-07 13:25 | NUR ---
CM/SS, interviewed patient and her spouse Hudson Blakely. Patient closer to discharge and exploring care needs and home supports. HHC: If physician believed patient needed RN, patient/spouse prefer agency [facility]. Patient is performing well per PT and would not appear to qualify for home therapies. DME: Patient has FWW at home from a previous knee replacement, has shower chair. SUMMARY: Visited with patient and her spouse in preparation for returning home. Spouse will be there with her and can assist with personal care and prepare meals. Patient also has a daughter, Marissa Murrell, who can assist. Discussed home health at length, answered all their questions to their satisfaction. Patient will not be pursuing HHC at this time since it would be RN only and likely 1-2 times per week just for brief assessment and update on progress. Patient/spouse understand they can contact PCP/Dr. Bland if they have concerns once home and if they would like to try to access Medicare HHC services. No post hospital arrangements coordinated at this time. Patient/spouse understand typewriter operator automatic will be absent tomorrow but that other staff will intervene as needed.
--- NOTE | 2018-08-07 14:41 | Progress Note ---
Subjective Date Seen by a Provider: Aug 07, 2018 Time Seen by a Provider: 07:45 Subjective/Events-last exam Passing flatus and small stool. Tolerating diet. Using IS and ambulating. No new complaints denies n/v fever sweats chills shortness of breath or chest pain. Objective Exam Vital Signs Date Time Temp Pulse Resp B/P (MAP) Pulse Ox O2 Delivery O2 Flow Rate FiO2 08/07/18 08:00 Room Air 08/07/18 08:00 97.2 88 20 140/61 (87) 97 Room Air 08/07/18 04:41 97.9 08/06/18 23:45 98.7 88 18 139/63 (88) 93 Room Air 08/06/18 20:15 Room Air 08/06/18 20:00 99.5 97 24 137/66 (89) 95 Room Air 08/06/18 16:00 99.5 100 28 161/68 (99) 97 Room Air I & O 08/07/18 07:00 Intake Total 3860 ml Output Total 650 ml Balance 3210 ml Capillary Refill : Less Than 3 SecondsLess Than 3 Seconds General Appearance: No Apparent Distress, WD/WN HEENT: PERRL/EOMI, Normal ENT Inspection Neck: Full Range of Motion, Normal Inspection, Non Tender, Supple Respiratory: Chest Non Tender, No Accessory Muscle Use, No Respiratory Distress Cardiovascular: Regular Rate, Rhythm, No Murmur Gastrointestinal: normal bowel sounds, tenderness ( incisional c/d/i no signs of infection) Extremity: Normal Inspection, Normal Range of Motion Neurologic/Psychiatric: Alert, Oriented x3 Skin: Normal Color, Warm/Dry Lymphatic: No Adenopathy Results Lab Laboratory Tests 08/06/18 17:07: Glucometer 94 08/06/18 21:11: Glucometer 98 08/07/18 05:13: Glucometer 96 08/07/18 11:45: Glucometer 96 Microbiology 08/04/18 Catheter Tip Culture - Final, Complete No growth 08/02/18 MRSA Screen - Final, Complete MRSA not isolated Assessment/Plan Assessment/Plan Assessment/Plan Colon obstruction- partial diverticular stricture with diverticulosis, acute and chronic diverticulitis and peridiverticular abscess with perforation, no malignancy IV hydration and on Zosynn s/p lap hand assisted sigmoid colon resection Continue with pain and nausea medications. Ativan prn for anxiety. clears advance to dysphagia 2 using scd's and start lovenox for dvt prophylaxis Add tramadol for pain control to convert to oral home soon Clinical Quality Measures DVT/VTE Risk/Contraindication: Risk Factor Score Per Nursin RFS Level Per Nursing on Admit: 3=High JARAD FENG DO Aug 07, 2018 14:41
[2018-08-07 16:08] VITALS: BP 153/67
[2018-08-08 00:59] VITALS: BP 131/75
[2018-08-08] MEDS: D5 1/2 NS W/KCL 20 MEQ/L 1,000 ML IV SCH (01:04)
[2018-08-08 08:00] VITALS: BP 169/72
[2018-08-08] MEDS: ASPIRIN 81 MG CHEW (CHILDREN'S ASA) PO SCH (08:04)
[2018-08-08] MEDS: ENOXAPARIN 40 MG/0.4 ML (LOVENOX) SYR SC SCH (08:05)
[2018-08-08 08:09] LABS: BASOPHILS % (AUTO) 1 % (0-10); EOSINOPHILS # (AUTO) 0.1 10^3/uL (0.0-0.3); EOSINOPHILS % (AUTO) 3 % (0-10); HEMATOCRIT 35 % (35-52); HEMOGLOBIN 11.2 G/DL (11.5-16.0); LYMPHOCYTES % (AUTO) 24 % (12-44); MEAN CORPUSCULAR HEMOGLOBIN 29 PG (25-34); MEAN CORPUSCULAR HGB CONC 32 G/DL (32-36); MEAN CORPUSCULAR VOLUME 89 FL (80-99); MEAN PLATELET VOLUME 9.2 FL (7.4-10.4); MONOCYTES # (AUTO) 0.6 X 10^3 (0.0-1.0); MONOCYTES % (AUTO) 13 % (0-12); NEUTROPHILS # (AUTO) 2.6 X 10^3 (1.8-7.8); NEUTROPHILS % (AUTO) 60 % (42-75); PLATELET COUNT 243 10^3/uL (130-400); RED CELL DISTRIBUTION WIDTH 13.6 % (10.0-14.5); WHITE BLOOD COUNT 4.4 10^3/uL (4.3-11.0)
[2018-08-08 08:35] LABS: ALANINE AMINOTRANSFERASE 16 U/L (0-55); ALBUMIN 2.7 GM/DL (3.2-4.5); ALKALINE PHOSPHATASE 53 U/L (40-136); BILIRUBIN,TOTAL 0.4 MG/DL (0.1-1.0); BUN/CREATININE RATIO 4; CALCIUM 8.4 MG/DL (8.5-10.1); CARBON DIOXIDE 23 MMOL/L (21-32); CHLORIDE 110 MMOL/L (98-107); GFR ESTIMATED > 60; GLUCOSE 98 MG/DL (70-105); POTASSIUM 3.9 MMOL/L (3.6-5.0); SODIUM 140 MMOL/L (135-145); TOTAL PROTEIN 4.9 GM/DL (6.4-8.2)
[2018-08-08] MEDS ORDERED: LOSARTAN 25 MG (COZAAR) TAB PO SCH (09:00)
[2018-08-08] MEDS ORDERED: ALPR0.5T7 PO (10:32)
[2018-08-08] MEDS ORDERED: TRAM50TA2 PO (10:32)
--- NOTE | 2018-08-08 10:34 | D/C HH Face to Face Order ---
D/C Face to Face Orders Instructions for Patient Via [facility] [address] [place], Patient Instructions/FollowUp: Dr Bland in [address] Caballero in 1 week Physician to follow Patient: Dr Bland Discharge Diet for Home: Soft Diet Patient Problems: Partial colon obstruction Weakness HTN Patient Data-Allergies,Ht & Wt Patient Allergies: Coded Allergies: codeine (Verified Allergy, Unknown, Pt has had morphine & hydromorphone in the past, 08/07/18) hydrocodone (Verified Allergy, Unknown, 05/06/14) Height (Feet): 5 Height (Inches): 2.00 Weight (Pounds): 253 Weight (Ounces): 0.0 Home Health Need/Face to Face Date of Face to Face: Aug 08, 2018 Clinical Findings: Generalized weakness and fatigue, Muscle weakness I have seen Pt [id number]: Yes Discharged To: Home Diagnosis/Conditions: Partial colon obstruction Weakness HTN Patient is Homebound due to: Muscle weakness Homebound Status Due to the above stated illness, injury or surgical procedure (medical condition or diagnosis) and associated clinical findings, the patient is homebound because of his/her inability to leave home except with aid of a supportive device and/or person AND leaving the home requires a considerable and taxing effort or is medically contraindicated. Pt req the following assistanc: Walker [facility] Therapy Line Start Date: Aug 04, 2018 Line Start Time: 1130 Line Type: Saline Lock Site Location: Forearm Certify Stmt I certify that this patient is under my care and that I, a nurse practitioner or a physician; a fiscal assistant working with me, had a face to face encounter that - meets the physician face to face encounter requirements with this patient as dated. JAILENE HUERTA DO Aug 08, 2018 10:34
--- NOTE | 2018-08-08 10:35 | Discharge Summary-Hospitalist ---
Diagnosis/Chief Complaint Date of Admission Jul 28, 2018 at 22:20 Date of Discharge Discharge Date: Aug 08, 2018 Admission Diagnosis Large Bowel Obstruction Discharge Diagnosis (1) Colonic obstruction Status: Resolved (2) Diverticulitis Status: Resolved (3) Nausea and vomiting Status: Resolved (4) Essential (primary) hypertension Status: Chronic (5) Hypokalemia Status: Acute Discharge Summary Discharge Physical Exam Allergies: Coded Allergies: codeine (Verified Allergy, Unknown, Pt has had morphine & hydromorphone in the past, 08/07/18) hydrocodone (Verified Allergy, Unknown, 05/06/14) Vitals & I&Os Vital Signs Date Time Temp Pulse Resp B/P (MAP) Pulse Ox O2 Delivery O2 Flow Rate FiO2 08/08/18 08:04 Room Air 08/08/18 08:00 98.1 79 20 169/72 (104) 94 08/05/18 23:20 1.00 General Appearance: No Apparent Distress, WD/WN, Other (improved) HEENT: PERRL/EOMI, Normal ENT Inspection Respiratory: Chest Non Tender, No Accessory Muscle Use, No Respiratory Distress Cardiovascular: Regular Rate, Rhythm, No Murmur Gastrointestinal: Soft, Tenderness (mild, diffuse) Extremity: Normal Inspection, Normal Range of Motion Skin: Normal Color, Warm/Dry Neurologic/Psychiatric: Alert, Oriented x3 Hospital Course Was the Problem List Reviewed?: Yes Hospital course: Patient had a lengthy hospital course after she was admitted for bowel obstruction. Dr. Caballero consulted. Supportive care maintained. Patient required surgery that revealed benign mass causing the colon obstruction that was partial. Patient remained stable through the entire hospital course. Patient will have close follow-up with primary care provider and Dr. Caballero and home health was ordered but it appears that she did not really require that at discharge. She has her own walker at home. Tramadol and Ativan were both prescribed at discharge. Bowel function returned to normal normalcy and she was able to eat a soft diet. Labs (last 24 hrs) Laboratory Tests 08/07/18 11:45: Glucometer 96 08/07/18 16:08: Glucometer 98 08/07/18 21:11: Glucometer 107 08/08/18 08:02: White Blood Count 4.4, Red Blood Count 3.91L, Hemoglobin 11.2L, Hematocrit 35, Mean Corpuscular Volume 89, Mean Corpuscular Hemoglobin 29, Mean Corpuscular Hemoglobin Concent 32, Red Cell Distribution Width 13.6, Platelet Count 243, Mean Platelet Volume 9.2, Neutrophils (%) (Auto) 60, Lymphocytes (%) (Auto) 24, Monocytes (%) (Auto) 13H, Eosinophils (%) (Auto) 3, Basophils (%) (Auto) 1, Neutrophils # (Auto) 2.6, Lymphocytes # (Auto) 1.0, Monocytes # (Auto) 0.6, Eosinophils # (Auto) 0.1, Basophils # (Auto) 0.0, Sodium Level 140, Potassium Level 3.9, Chloride Level 110H, Carbon Dioxide Level 23, Anion Gap 7, Blood Urea Nitrogen 2L, Creatinine 0.50L, Estimat Glomerular Filtration Rate > 60, BUN /Creatinine Ratio 4, Glucose Level 98, Calcium Level 8.4L, Corrected Calcium 9.4 , Total Bilirubin 0.4, Aspartate Amino Transf (AST/SGOT) 28, Alanine Aminotransferase (ALT/SGPT) 16, Alkaline Phosphatase 53, Total Protein 4.9L, Albumin 2.7L Microbiology 08/04/18 Catheter Tip Culture - Final, Complete No growth 08/02/18 MRSA Screen - Final, Complete MRSA not isolated Patient resulted labs reviewed. Pending Labs Laboratory Tests 08/08/18 08:02: White Blood Count 4.4, Red Blood Count 3.91, Hemoglobin 11.2, Hematocrit 35, Mean Corpuscular Volume 89, Mean Corpuscular Hemoglobin 29, Mean Corpuscular Hemoglobin Concent 32, Red Cell Distribution Width 13.6, Platelet Count 243, Mean Platelet Volume 9.2, Neutrophils (%) (Auto) 60, Lymphocytes (%) (Auto) 24, Monocytes (%) (Auto) 13, Eosinophils (%) (Auto) 3, Basophils (%) (Auto) 1, Neutrophils # (Auto) 2.6, Lymphocytes # (Auto) 1.0, Monocytes # (Auto) 0.6, Eosinophils # (Auto) 0.1, Basophils # (Auto) 0.0, Sodium Level 140, Potassium Level 3.9, Chloride Level 110, Carbon Dioxide Level 23, Anion Gap 7, Blood Urea Nitrogen 2, Creatinine 0.50, Estimat Glomerular Filtration Rate > 60, BUN/ Creatinine Ratio 4, Glucose Level 98, Calcium Level 8.4, Corrected Calcium 9.4, Total Bilirubin 0.4, Aspartate Amino Transf (AST/SGOT) 28, Alanine Aminotransferase (ALT/SGPT) 16, Alkaline Phosphatase 53, Total Protein 4.9, Albumin 2.7 Imaging: Reviewed Imaging Report Discussion & Recommendations Discharge Planning: <30 minutes discharge planning Discharge Home Medications: Active Scripts Active Alprazolam 0.5 Mg Tablet 0.5 Mg PO Q8H PRN Tramadol HCl 50 Mg Tablet 50 Mg PO TID PRN Reported Probiotic (Lactobacillus Combination No.4) 1 Each Capsule 1 Cap PO DAILY Miralax (Polyethylene Glycol 3350) 17 Gm Powd.pack 17 Gm PO BID Latanoprost 2.5 Ml Drops 1 Drop OU HS Amox Tr-K Clv 875-125 mg Tab (Amoxicillin/Potassium Clav) 1 Each Tablet 1 Tab PO BID 7 Days 7 DAY SUPPLY FILLED 07-24-19 Centrum Silver Women Tablet (Multivits-Min/Iron/FA/Lutein) 1 Each Tablet 1 Tab PO DAILY Aspir 81 (Aspirin) 81 Mg Tablet.dr 81 Mg PO HS Losartan Potassium 50 Mg Tablet 50 Mg PO DAILY Instructions to patient/family Please see electronic discharge instructions given to patient. Clinical Quality Measures DVT/VTE Risk/Contraindication: Risk Factor Score Per Nursin RFS Level Per Nursing on Admit: 3=High Problem Qualifiers (1) Nausea and vomiting: Vomiting type: unspecified Vomiting Intractability: non-intractable Qualified Codes: R11.2 - Nausea with vomiting, unspecified JAILENE HUERTA DO Aug 08, 2018 10:35
--- NOTE | 2018-08-08 11:05 | NUR ---
FINAL DISCHARGE PLANNING: Patient will discharge today to home. Spoke to her and her regrading needs at home and they indicate that that are not wanting HHC at discharge, they report that they have a f/u appointment with Ada Moya next Saturday and if they find that they need it will call the doctor prior to that time or wait until the f/u appointment. I will not contact [facility] at this time. Patient confirms that she does have a walker and she has no other needs.
[2018-08-08 13:15] VITALS: BP 143/69
--- NOTE | 2018-08-08 13:54 | Progress Note ---
Subjective Date Seen by a Provider: Aug 08, 2018 Time Seen by a Provider: 11:50 Subjective/Events-last exam doing well. pain controlled. passing flatus and bm. tolerating diet. denies n/v fever sweats chills shortness of breath or chest pain. Objective Exam Vital Signs Date Time Temp Pulse Resp B/P (MAP) Pulse Ox O2 Delivery O2 Flow Rate FiO2 08/08/18 08:04 Room Air 08/08/18 08:00 98.1 79 20 169/72 (104) 94 Room Air 08/08/18 01:03 100.7 08/08/18 00:59 100.7 89 20 131/75 (93) 97 Room Air 08/07/18 20:38 Room Air 08/07/18 16:08 99.2 94 20 153/67 (95) 97 Room Air I & O 08/08/18 07:00 Intake Total 2030 ml Output Total 700 ml Balance 1330 ml Capillary Refill : Less Than 3 SecondsLess Than 3 Seconds General Appearance: No Apparent Distress, WD/WN, Other (improved) HEENT: PERRL/EOMI, Normal ENT Inspection Neck: Full Range of Motion, Normal Inspection, Non Tender, Supple Respiratory: Chest Non Tender, No Accessory Muscle Use, No Respiratory Distress Cardiovascular: Regular Rate, Rhythm, No Murmur Gastrointestinal: normal bowel sounds, tenderness ( incisional c/d/i no signs of infection) Extremity: Normal Inspection, Normal Range of Motion Neurologic/Psychiatric: Alert, Oriented x3 Skin: Normal Color, Warm/Dry Lymphatic: No Adenopathy Results Lab Laboratory Tests 08/07/18 16:08: Glucometer 98 08/07/18 21:11: Glucometer 107 08/08/18 08:02: White Blood Count 4.4, Red Blood Count 3.91L, Hemoglobin 11.2L, Hematocrit 35, Mean Corpuscular Volume 89, Mean Corpuscular Hemoglobin 29, Mean Corpuscular Hemoglobin Concent 32, Red Cell Distribution Width 13.6, Platelet Count 243, Mean Platelet Volume 9.2, Neutrophils (%) (Auto) 60, Lymphocytes (%) (Auto) 24, Monocytes (%) (Auto) 13H, Eosinophils (%) (Auto) 3, Basophils (%) (Auto) 1, Neutrophils # (Auto) 2.6, Lymphocytes # (Auto) 1.0, Monocytes # (Auto) 0.6, Eosinophils # (Auto) 0.1, Basophils # (Auto) 0.0, Sodium Level 140, Potassium Level 3.9, Chloride Level 110H, Carbon Dioxide Level 23, Anion Gap 7, Blood Urea Nitrogen 2L, Creatinine 0.50L, Estimat Glomerular Filtration Rate > 60, BUN /Creatinine Ratio 4, Glucose Level 98, Calcium Level 8.4L, Corrected Calcium 9.4 , Total Bilirubin 0.4, Aspartate Amino Transf (AST/SGOT) 28, Alanine Aminotransferase (ALT/SGPT) 16, Alkaline Phosphatase 53, Total Protein 4.9L, Albumin 2.7L 08/08/18 11:32: Glucometer 77 Microbiology 08/04/18 Catheter Tip Culture - Final, Complete No growth 08/02/18 MRSA Screen - Final, Complete MRSA not isolated Assessment/Plan Assessment/Plan Assessment/Plan Colon obstruction- partial diverticular stricture with diverticulosis, acute and chronic diverticulitis and peridiverticular abscess with perforation, no malignancy s/p lap hand assisted sigmoid colon resection Continue with pain and nausea medications. diet as tolerates home today Clinical Quality Measures DVT/VTE Risk/Contraindication: Risk Factor Score Per Nursin RFS Level Per Nursing on Admit: 3=High JARAD FENG DO Aug 08, 2018 13:54
== END 2018-08-08 13:59 | disposition home or self-care (01) | DRG 331 ==
LOC: EDUNIT# 20:48 → ER 20:49 → ICU 22:20 → 4TH 07-29 09:48
PROVIDERS: ADMIT Internal Medicine; ATTEND Internal Medicine
PROC: 0DJD8ZZ Inspection of Lower Intestinal Tract, Via Natural or Artificial Opening Endoscopic (ICD-10-PCS; 2018-07-31)
PROC: 0DBN0ZZ Excision of Sigmoid Colon, Open Approach (ICD-10-PCS; principal; 2018-08-04 11:15)
DX: K57.20 Diverticulitis of large intestine with perforation and abscess without bleeding (principal); D12.5 Benign neoplasm of sigmoid colon; K52.9 Noninfective gastroenteritis and colitis, unspecified; I10 Essential (primary) hypertension; M19.91 Primary osteoarthritis, unspecified site; H40.9 Unspecified glaucoma; E87.6 Hypokalemia; E83.42 Hypomagnesemia; I25.10 Atherosclerotic heart disease of native coronary artery without angina pectoris; I35.8 Other nonrheumatic aortic valve disorders; I87.2 Venous insufficiency (chronic) (peripheral); I65.23 Occlusion and stenosis of bilateral carotid arteries; E04.2 Nontoxic multinodular goiter; F41.9 Anxiety disorder, unspecified
CPT/HCPCS: 36415; 74176; 76937; 80048; 80053; 82962; 83735; 85025; 85027; 87070; 87081; 88307; 90471; 90686; 93005; 93306; 94664; 96361; 96374; 96375

== ENCOUNTER → 2019-01-05 | Outpatient (CLI) | payer MEDICARE ==
[~2019-01-05] MED LIST changes: +ALPR0.5T7 PO; +AMOX1TAB12 PO; +LACT1CAP74 PO; +LATA2.5D5 OU; +MULT-1021 PO
--- NOTE | 2019-01-05 21:33 | Diagnostic Imaging Report ---
EXAMINATION: Digital mammogram bilateral screening. The current study was also evaluated with a Computer Aided Detection (CAD) system. 3-D tomosynthesis was also performed and reviewed. INDICATION: Screening. This study was compared to the prior exams of 12/23/2017, 09/24/2016, and 09/12/2015. At this time, there are no current complaints. FINDINGS: There are scattered fibroglandular densities in both breasts which could obscure a lesion. Overall, there does not appear to have been any significant change since the prior study. As seen on the previous exam, there are numerous benign-appearing calcifications scattered throughout both breasts. A few small benign-appearing nodular densities are also seen overlying each axilla. These may represent intramammary lymph nodes. There is no primary or secondary sign of malignancy noted. IMPRESSION: There is no evidence for malignancy. ACR BI-RADS Category 1: Negative. Result letter will be mailed to the patient. Note: At least 10% of breast cancer is not imaged by mammography. Dictated by: Dictated on workstation # [id number]
== END ==
LOC: RAD 08:46
PROVIDERS: ATTEND Family Medicine
DX: Z12.31 Encounter for screening mammogram for malignant neoplasm of breast (principal)
CPT/HCPCS: 77067

== ENCOUNTER 2019-02-04 12:15 | Outpatient (CLI) | payer MEDICARE ==
[~2019-02-04] VITALS: Ht 154.9 cm; Wt 94.3 kg
[~2019-02-04 12:15] MED LIST changes: +NFBIOT1000 PO
== END 2019-02-04 12:43 | disposition home or self-care (01) ==
LOC: PREOP 12:15
PROVIDERS: ATTEND Surgery
DX: Z01.818 Encounter for other preprocedural examination (principal)

== ENCOUNTER 2019-02-10 07:29 | Day surgery (SDC) | payer MEDICARE ==
[~2019-02-10] VITALS: Ht 154.9 cm; Wt 94.3 kg
[2019-02-10 07:40] VITALS: BP 149/73
[2019-02-10] MEDS ORDERED: LACTATED RINGERS 1,000 ML IV PRN (07:45)
--- NOTE | 2019-02-10 07:47 | Progress Note-Pre Operative ---
Pre-Operative Progress Note H&P Reviewed The H&P was reviewed, patient examined and no changes noted. Date Seen by Provider: Feb 10, 2019 Time Seen by Provider: 07:46 Date H&P Reviewed: Feb 10, 2019 Time H&P Reviewed: 07:47 Pre-Operative Diagnosis: hx colon stricture/diverticulitis JARAD FENG DO Feb 10, 2019 07:47
[2019-02-10] MEDS ORDERED: LACTATED RINGERS 1,000 ML IV ONE (07:57)
[2019-02-10] MEDS ORDERED: PROPOFOL INJECTION 50 ML IV ONE (08:19)
[2019-02-10] MEDS ORDERED: ceFAZolin INJECTION 2,000 MG ONE (08:33)
[2019-02-10 08:55] VITALS: BP 77/42
[2019-02-10 09:00] VITALS: BP 119/57
--- NOTE | 2019-02-10 09:09 | Progress Note-Post Operative ---
Post-Operative Progess Note Surgeon (s)/Pot Annealer (s) Surgeon JARAD FENG DO Pot Annealer: na Pre-Operative Diagnosis hx colon stricture/diverticulitis Post-Operative Diagnosis diverticulosis Procedure & Operative Findings Date of Procedure 02/10/19 Procedure Performed/Findings colonoscopy Anesthesia Type per plate glass polisher Estimated Blood Loss Estimated blood loss (mL): none Specimens/Packing Specimens Removed na JARAD FENG DO Feb 10, 2019 09:09
--- NOTE | 2019-02-10 09:11 | Discharge Inst-Simple/Standard ---
Discharge Inst-Standard Discharge Medications New, Converted or Re-Newed RX: RX on Chart Patient Instructions/Follow Up Plan of Care/Instructions/FU: Repeat colonoscopy in 5 years. High fiber diet. Any issue before that be seen at that time. Activity as Tolerated: Yes Discharge Diet: Regular Diet (high fiber) JARAD FENG DO Feb 10, 2019 09:11
[2019-02-10 09:27] VITALS: BP 102/58
[2019-02-10 09:30] VITALS: BP 139/64
[2019-02-10] MEDS ORDERED: ceFAZolin 2 GM/50 ML NS 50 ML IV ONE (09:30)
[2019-02-10 09:40] VITALS: BP 139/64
--- NOTE | 2019-02-10 12:57 | OPERATIVE REPORT ---
DATE OF SERVICE: 02/10/2019 PREOPERATIVE DIAGNOSES: History of diverticulitis and colonic stricture, status post resection. POSTOPERATIVE DIAGNOSIS: Diverticulosis. PROCEDURE: Colonoscopy. SURGEON: Jarad Caballero DO ANESTHESIA: Per PRESCHOOL ASSOCIATE TEACHER. ESTIMATED BLOOD LOSS: None. COMPLICATIONS: None. INDICATIONS: The patient is a 76-year-old female with history of diverticulitis with stricture requiring colon resection. The patient needs colonoscopy to evaluate the remainder of the colon. She understands risks and benefits of the procedure and wished to proceed with the procedure. Consent was signed in the chart. DESCRIPTION OF PROCEDURE: The patient was taken to the endoscopy suite, placed in left lateral recumbent position. Timeout was performed. Digital rectal exam was performed. There were no palpable polyps, masses or ulcerations. Scope was inserted in the rectum, advanced all the way to the cecum with minimal difficulty. Prep was adequate. Scope was then slowly retracted back. There were no polyps, masses or ulcerations within the cecum, ascending, transverse, descending and sigmoid colon. There was a moderate amount of diverticulosis throughout colon. The anastomosis was visualized and normal. Scope was continuously retracted back into the rectum, where it was also retroflexed noting no other pathology. The patient tolerated procedure well. The scope was then returned to its normal position, slowly withdrawn until completely removed. The patient tolerated procedure well without any complications. She was taken to the recovery room in stable condition. RECOMMENDATIONS: The patient will need repeat colonoscopy in 5 years due to history of polyps. She was recommended high fiber diet. If any issues before that, will be seen at that time. Job ID: [id number] DocumentID: [id number] Dictated Date: 02/10/2019 09:13:32 Bottled Beverage Inspector Date: 02/10/2019 12:56:35 Dictated By: JARAD CABALLERO DO
--- NOTE | 2019-02-10 15:28 | Anesthesia-General Post-Op ---
MAC Patient Condition Mental Status/LOC: Same as Preop Cardiovascular: Satisfactory Nausea/Vomiting: Absent Respiratory: Satisfactory Pain: Controlled Complications: Absent Post Op Complications Complications None Follow Up Care/Instructions Patient Instructions None needed. Anesthesiology Discharge Order Discharge Order Patient was seen after the procedure and she was doing well, no complaints, stable vital signs, no apparent adverse anesthesia problems. ISAI LANE DO Feb 10, 2019 15:28
== END 2019-02-10 09:50 | disposition home or self-care (01) ==
LOC: ENDO 07:29
PROVIDERS: ATTEND Surgery
DX: K57.30 Diverticulosis of large intestine without perforation or abscess without bleeding (principal); I10 Essential (primary) hypertension; I25.10 Atherosclerotic heart disease of native coronary artery without angina pectoris; E04.1 Nontoxic single thyroid nodule; M19.90 Unspecified osteoarthritis, unspecified site; M79.89 Other specified soft tissue disorders; E66.01 Morbid (severe) obesity due to excess calories; Z68.39 Body mass index [BMI] 39.0-39.9, adult; Z87.19 Personal history of other diseases of the digestive system; Z90.49 Acquired absence of other specified parts of digestive tract; Z98.0 Intestinal bypass and anastomosis status; Z86.010 Personal history of colon polyps; Z88.5 Allergy status to narcotic agent; Z79.891 Long term (current) use of opiate analgesic; Z79.899 Other long term (current) drug therapy; Z82.49 Family history of ischemic heart disease and other diseases of the circulatory system; Z96.651 Presence of right artificial knee joint; Z95.5 Presence of coronary angioplasty implant and graft

== ENCOUNTER → 2019-06-30 | Outpatient (CLI) | payer MEDICARE ==
[~2019-06-30] MED LIST changes: -TRAM50TA2; +TRM50T; +TRM50T PO
--- NOTE | 2019-06-30 13:10 | Diagnostic Imaging Report ---
INDICATION: Lower abdominal and pelvic mass. FINDINGS: The liver is normal in size at 15 cm. No discrete liver mass is detected. The portal vein is patent and shows normal direction of flow. Gallbladder is surgically absent. Extrahepatic bile duct is prominent at 10 mm, however this is likely owing to post cholecystectomy. The visualized pancreas is unremarkable. The spleen is normal in size at 10.4 cm. Aorta and IVC are unremarkable. Kidneys are without evidence of calculi or hydronephrosis. There is no ascites. IMPRESSION: Unremarkable abdominal ultrasound. Dictated by: Dictated on workstation # [id number]
--- NOTE | 2019-06-30 13:11 | Diagnostic Imaging Report ---
PROCEDURE: US Non-ob pelvis comp/trans. TECHNIQUE: Multiple Real-time grayscale images were obtained of the pelvis in various projections endovaginally. Transabdominal imaging was also performed. INDICATION: Pelvic mass. FINDINGS: The uterus is retroverted measuring 6.1 x 3.5 x 3.8 cm. The endometrium is 4 mm in thickness. No myometrial mass is detected. The ovaries were not visualized. No adnexal mass or free fluid is seen. IMPRESSION: Nonvisualized ovaries. The study is otherwise unremarkable. Dictated by: Dictated on workstation # [id number]
== END ==
LOC: RAD 09:52
PROVIDERS: ATTEND Family Medicine
DX: R19.00 Intra-abdominal and pelvic swelling, mass and lump, unspecified site (principal)
CPT/HCPCS: 76700; 76830; 76856

== ENCOUNTER → 2019-07-07 | Outpatient (CLI) | payer MEDICARE ==
[~2019-07-07] MED LIST changes: +HOLD METFORMIN - RECEIVED CONTRAST 20 ML VIAL IV SCH; +IOHEXOL 350 MG/ML 100 ML (OMNIPAQUE 350) VIAL IV ONE; +NS 100 ML (IVPB) BAG IV ONE
[2019-07-07 12:04] LABS: BUN/CREATININE RATIO 28; CREATININE SERUM 0.61 MG/DL (0.60-1.30); GFR ESTIMATED > 60
--- NOTE | 2019-07-07 13:58 | Diagnostic Imaging Report ---
PROCEDURE: CT abdomen and pelvis with contrast. TECHNIQUE: Multiple contiguous axial images were obtained through the abdomen and pelvis after administration of intravenous contrast. Auto Exposure Controls were utilized during the CT exam to meet ALARA standards for radiation dose reduction. INDICATION: Pelvic mass. COMPARISON: Correlation is made with prior CT from 07/28/2018 and prior pelvic ultrasound from 06/30/2019. FINDINGS: The lung bases are clear. No focal liver mass is detected. The gallbladder is surgically absent. No biliary ductal dilatation is seen. The pancreas and spleen are unremarkable. No adrenal mass is identified. There is an 11 mm nonobstructing calculus in the lower pole of the right kidney. Cyst in the lower pole of the left kidney is seen. Aorta is normal in caliber. There is no central retroperitoneal or mesenteric lymphadenopathy. There appears to be partial sigmoid resection in the midline of the pelvis with anastomosis at the rectosigmoid junction. Colon is normal in caliber without evidence of obstruction. There is some diverticulosis of the portions of the transverse, descending, and sigmoid colon but no evidence of acute diverticulitis. No free fluid or fluid collection is identified. Appendix is unremarkable. Uterus is unremarkable. Bladder is unremarkable. No pelvic mass or lymphadenopathy is seen. IMPRESSION: 1. Postsurgical changes of partial sigmoid colon resection and primary anastomosis. No bowel obstruction is seen. There is uncomplicated diverticulosis. 2. No evidence of pelvic mass or lymphadenopathy. Dictated by: Dictated on workstation # [id number]
== END ==
LOC: RAD 11:35
PROVIDERS: ATTEND Family Medicine
DX: R59.0 Localized enlarged lymph nodes (principal); R19.00 Intra-abdominal and pelvic swelling, mass and lump, unspecified site; Z90.49 Acquired absence of other specified parts of digestive tract; Z98.890 Other specified postprocedural states
CPT/HCPCS: 36415; 74177; 82565; 84520

== ENCOUNTER → 2019-07-13 | Outpatient (CLI) | payer MEDICARE ==
[~2019-07-13] MED LIST changes: -HOLD METFORMIN - RECEIVED CONTRAST 20 ML VIAL IV SCH; -IOHEXOL 350 MG/ML 100 ML (OMNIPAQUE 350) VIAL IV ONE; -NS 100 ML (IVPB) BAG IV ONE
== END ==
LOC: CARD 11:28
PROVIDERS: ATTEND Internal Medicine Cardiovascular Disease
DX: I25.10 Atherosclerotic heart disease of native coronary artery without angina pectoris (principal); I10 Essential (primary) hypertension; E66.9 Obesity, unspecified; I65.29 Occlusion and stenosis of unspecified carotid artery
CPT/HCPCS: 93306

== ENCOUNTER → 2020-01-19 | Outpatient (CLI) | payer MEDICARE ==
--- NOTE | 2020-01-19 12:31 | Diagnostic Imaging Report ---
INDICATION: Routine screening. Comparison is made with prior mammogram from 01/05/2019 and 12/23/2017. 2-D and 3-D bilateral screening mammography was performed with CAD. Scattered fibroglandular densities are identified bilaterally. There are scattered benign parenchymal and vascular calcifications bilaterally. Benign circumscribed nodules in the upper left breast are stable. Benign nodules in the outer right breast appear stable. No spiculated mass or malignant appearing microcalcifications are seen. IMPRESSION: BI-RADS Category 2 No mammographic features suspicious for malignancy are identified. ACR BI-RADS Category 2: Benign findings. Result letter will be mailed to the patient. Note: At least 10% of breast cancer is not imaged by mammography. Dictated by: Dictated on workstation # [id number]
== END ==
LOC: RAD 07:05
PROVIDERS: ATTEND Family Medicine
DX: Z12.31 Encounter for screening mammogram for malignant neoplasm of breast (principal)
CPT/HCPCS: 77063; 77067

== ENCOUNTER → 2021-01-31 | Outpatient (CLI) | payer MEDICARE ==
--- NOTE | 2021-01-31 13:48 | Diagnostic Imaging Report ---
INDICATION: Routine screening. Comparison is made prior mammogram of 01/19/2020 and 01/05/2019. 2-D and 3-D bilateral screening mammography was performed with CAD. There are scattered benign parenchymal and vascular calcifications bilaterally. Benign nodules in the upper and outer aspects of both breasts appears stable. No spiculated mass or malignant-appearing microcalcifications are seen. Axillae are unremarkable. IMPRESSION: BI-RADS Category 2 No mammographic features suspicious for malignancy are identified. ACR BI-RADS Category 2: Benign findings. Result letter will be mailed to the patient. Note: At least 10% of breast cancer is not imaged by mammography. Dictated by: Dictated on workstation # [id number]
== END ==
LOC: RAD 07:45
PROVIDERS: ATTEND Family Medicine
DX: Z12.31 Encounter for screening mammogram for malignant neoplasm of breast (principal)
CPT/HCPCS: 77063; 77067

== ENCOUNTER → 2022-02-05 | Outpatient (CLI) | payer MEDICARE | LOC: CARD 08:24 | PROVIDERS: ATTEND Nurse Practitioner Family | DX: I35.8 Other nonrheumatic aortic valve disorders (principal) | CPT/HCPCS: 93306 ==

== ENCOUNTER → 2022-02-12 | Outpatient (CLI) | payer MEDICARE ==
--- NOTE | 2022-02-12 10:48 | Diagnostic Imaging Report ---
Indication: Routine screening. Comparison is made with prior mammogram from 01/31/2021 and 01/19/2020. 2-D and 3-D bilateral screening mammography was performed with CAD. CAD is utilized. The current study was also evaluated with a Computer Aided Detection (CAD) system. Scattered fibroglandular densities are identified bilaterally. A benign nodule upper outer left breast are stable. There are scattered benign parenchymal and vascular calcifications bilaterally. No spiculated mass or malignant-appearing microcalcifications are seen. Axillae are unremarkable. IMPRESSION: BI-RADS Category 2 No mammographic features suspicious for malignancy are identified. ACR BI-RADS Category 2: Benign findings. Result letter will be mailed to the patient. Note: At least 10% of breast cancer is not imaged by mammography. Dictated by: Dictated on workstation # [id number]
== END ==
LOC: RAD 07:30
PROVIDERS: ATTEND Family Medicine
DX: Z12.31 Encounter for screening mammogram for malignant neoplasm of breast (principal)
CPT/HCPCS: 77063; 77067

== ENCOUNTER 2022-06-15 09:21 | Emergency (ER) | payer MEDICARE ==
[~2022-06-15] VITALS: Ht 152 cm; Wt 95.0 kg
[2022-06-15 09:35] VITALS: BP 195/81
--- NOTE | 2022-06-15 10:34 | ED Lower Extremity ---
General Chief Complaint: Lower Extremity Stated Complaint: RIGHT LEG WEAKNESS Nursing Triage Note: ARRIVED VIA AMB USING A WALKER SHE NORMALLY DOES NOT USE. STATES X1 WEEK AGO SHE FELT A STRAIN IN HER RIGHT INNER LEG. STATES OVER THE PAST WEEK SHE HAS HAD MORE PAIN AND IS HAVING TROUBLE WALKING. Source: patient, family Exam Limitations: no limitations History of Present Illness Date Seen by Provider: Jun 15, 2022 Time Seen by Provider: 10:19 Initial Comments Here with report of pain to the right thigh area medial, anterior and lateral that goes from the knee to the groin. Was seen by her primary care provider and started on meloxicam which has not helped. She has tried icy hot with lidocaine topically and that has not helped. All of this started right before Dasha but has worsened day-to-day. She had to start using a cane and now is using a walker because it hurts so bad. Denies any recent injury. Denies fever or chills. She has never had anything like this before. She is worried about possible blood clots. She is not on a blood thinner. Onset: last week Severity: moderate, severe Pain/Injury Location: right leg Method of Injury: unknown Modifying Factors: Improves With Immobilization; Worse With Movement Allergies and Home Medications Allergies Coded Allergies: codeine (Verified Allergy, Unknown, Pt has had morphine & hydromorphone in the past, 08/07/18) hydrocodone (Verified Allergy, Unknown, 05/06/14) Patient Home Medication List Home Medication List Reviewed: Yes Aspirin (Aspir 81) 81 Mg Tablet.dr, 81 MG PO HS, (Reported) Entered as Reported by: PJ MENJIVAR on 01/11/17 1050 Biotin (Biotin) 1,000 Mcg Tablet, 1,000 MCG PO DAILY, (Reported) Entered as Reported by: MESERET MEJIA on 02/04/19 1214 Lactobacillus Combination No.4 (Probiotic) 1 Each Capsule, 1 CAP PO DAILY, (Reported) Entered as Reported by: MARY BEARD on 07/29/18 0931 Latanoprost (Latanoprost) 2.5 Ml Drops, 1 DROP OU HS, (Reported) Entered as Reported by: MARY BEARD on 07/29/18 0834 Losartan Potassium (Losartan Potassium) 50 Mg Tablet, 50 MG PO DAILY, (Reported) Entered as Reported by: PJ MENJIVAR on 01/11/17 1050 Multivits-Min/Iron/FA/Lutein (Centrum Silver Women Tablet) 1 Each Tablet, 1 TAB PO DAILY, (Reported) Entered as Reported by: MARY BEARD on 07/29/18 0834 Review of Systems Constitutional: No chills, No fever Respiratory: no symptoms reported Cardiovascular: no symptoms reported; No edema Musculoskeletal: No back pain; joint pain, muscle pain, muscle stiffness; No neck pain Skin: No change in color, No lesions Past Dpdlhra-Acotcl-Awvvqh Hx Patient Social History Tobacco Use?: No Pt feels they are or have been: No Immunizations Up To Date Tetanus Booster (TDap): Unknown Seasonal Allergies Seasonal Allergies: Yes Past Medical History Surgeries: Yes (HYSTEROSCOPY, TEETH REMOVAL, colon resection, L TKR) Gallbladder, Orthopedic Respiratory: No Cardiac: Yes Coronary Artery Disease, Hypertension Neurological: No Reproductive Disorders: No Genitourinary: No Gastrointestinal: Yes (hx colon resection) Diverticulosis Musculoskeletal: Yes Arthritis Endocrine: No HEENT: Yes Glaucoma Cancer: No Psychosocial: No Integumentary: Yes Eczema Blood Disorders: No Family Medical History Reviewed Nursing Family Hx No Pertinent Family Hx Physical Exam Vital Signs Vital Signs - First Documented 06/15/22 09:35 Temp 36.3 Pulse 98 Resp 16 B/P (MAP) 195/81 (119) Pulse Ox 97 O2 Delivery Room Air Capillary Refill : Less Than 3 Seconds Height, Weight, BMI Height: 5'1.00" Weight: 208lbs. 0.0oz. [id number]; 41.00 BMI Method:Stated General Appearance: WD/WN, no apparent distress Cardiovascular: regular rate, rhythm, no murmur Respiratory: lungs clear, normal breath sounds Legs: left leg non-tender, left leg normal inspection, left leg normal range of motion; right leg limited range of motion, right leg pain, right leg soft tissue tenderness, right leg other (Pain in the area of the right thigh from the knee t o the groin along the anterior aspect mostly within the musculature. Pain with movement and walking. Does have pain to the right hip as well. Pain with range of motion. No obvious deformity.) Neurologic/Psychiatric: alert, oriented x 3 Skin: normal color, warm/dry Progress/Results/Core Measures Results/Orders My Orders Orders - ABIDA THOMPSON MD Femur, Right, 2 Views (06/15/22 10:28) Pelvis With Right Hip 2-3views (06/15/22 10:28) Us Venous Lower Ext Rt (06/15/22 10:28) Vital Signs/I&O 06/15/22 09:35 Temp 36.3 Pulse 98 Resp 16 B/P (MAP) 195/81 (119) Pulse Ox 97 O2 Delivery Room Air Blood Pressure Mean: 119 Progress Progress Note : Progress Note Seen and evaluated. X-ray right hip and pelvis as well as right femur. We will also get ultrasound right lower extremity. I did offer her and she has declined pain medicine. Monitor patient. 1135: Ultrasound shows no obvious DVT. Right femur shows degenerative changes without acute fracture. See radiology report for full details. Pending radiology report on right hip and pelvis. I do find degeneration but no obvious fracture on right hip and pelvis films on my interpretation. Pending radiology review. Monitor patient. 1216: I did discuss at length the current findings. No acute findings are noted. We did discuss at length outpatient therapy and I will add prescription for tramadol. We did discuss risk of increased drowsiness with tramadol especially in association with baclofen. She states she never really has problems with baclofen. We also discussed topical agents such as Aspercreme with lidocaine. She will try these therapies. I will send a copy of the chart to Dr. Flores. Discharged home with return precaution. Patient verbalized understanding instructions and agreement with plan. Diagnostic Imaging Diagonstic Imaging: Ultrasound Plain Films/CT/US/NM/MRI: leg Comments [facility] [place], [place] NAME: DEANNA VIDALES [facility] REC#: [id number] PT STATUS: REG ER : 1950 PHYSICIAN: ABIDA THOMPSON MD ADMIT DATE: 06/15/22/ER Draft Date of Exam:06/15/22 US VENOUS LOWER EXT RT PROCEDURE: US right lower extremity venous. TECHNIQUE: Multiple real-time grayscale images were obtained over the right lower extremity in various projections. Additional spectral analysis and color Doppler duplex images were also obtained. INDICATION: Pain. FINDINGS: Right lower extremity venous structure showed normal compressibility and normal waveforms and normal color Doppler blood flow. No deep or superficial thrombus. No fluid collection identified. IMPRESSION: Normal negative unilateral right lower extremity venous Doppler and ultrasound exam. Dictated on workstation # [id number] Dict: 06/15/22 1116 Trans: 06/15/22 1118 [id number] Interpreted by: SPENCER BLANC Electronically signed by: Diagonstic Imaging: Xray Plain Films/CT/US/NM/MRI: femur Comments [facility] [place] [place] [facility] REC#: [id number] PT STATUS: REG ER : 1950 PHYSICIAN: ABIDA THOMPSON MD ADMIT DATE: 06/15/22/ER Draft Date of Exam:06/15/22 FEMUR, RIGHT, 2 VIEWS INDICATION: Pain. Two-view right femur performed. There are arthritic changes involving the knee and hip. No fracture or dislocation. No gas or opaque foreign body. IMPRESSION: Degenerative changes, but no acute bony pathology identified. Dictated on workstation # [id number] Dict: 06/15/22 1111 Trans: 06/15/22 1114 [id number] Interpreted by: SPENCER BLANC Electronically signed by: Phillipnstic Imaging: Xray Plain Films/CT/US/NM/MRI: pelvis, hip Comments [facility] [place] [place] [facility] REC#: [id number] PT STATUS: REG ER : 1950 PHYSICIAN: ABIDA THOMPSON MD ADMIT DATE: 06/15/22/ER Draft Date of Exam:06/15/22 PELVIS WITH RIGHT HIP 2-3VIEWS CLINICAL HISTORY: Pelvic pain. Right hip pain. COMPARISON: 02/06/2016. TECHNIQUE: Three views of the pelvis and right hip. FINDINGS: There is no acute fracture or dislocation of the pelvis and right hip. Alignment is anatomic. The imaged joint spaces are preserved. No suspicious focal osseous lesions. IMPRESSION: 1. No acute fracture or dislocation in the pelvis and right hip. Dictated on workstation # [id number] Dict: 06/15/22 1156 Trans: 06/15/22 1159 [id number] Interpreted by: GUSTABO HERNANDEZ DO Electronically signed by: Reviewed: Reviewed by Me Departure Impression Primary Impression: Acute pain of right thigh Additional Impression: Muscle strain Disposition: 01 HOME, SELF-CARE Condition: Stable Departure-Patient Inst. Decision time for Depature: 12:18 Referrals: USHA FLORES DO (PCP/Family) Primary Care Physician Patient Instructions: Muscle Strain ED Add. Discharge Instructions: All discharge instructions reviewed with patient and/or family. Voiced understanding. You may use topical agents such as Aspercreme with lidocaine to area of concern per package direction. You may use supportive device such as Chaz wrap to right thigh as needed. You may use heat pad as needed and/or ice packs to reduce pain. You may take Tylenol/acetaminophen 1000 mg every 6-8 hours as needed for pain. Take other medications as prescribed. Follow-up with your doctor early next week for recheck and further evaluation. Return for worse pain, weakness, numbness or other concerns as needed. Scripts Tramadol HCl (Tramadol HCl) 50 Mg Tablet 50 MG PO Q6H PRN for PAIN for 7 Days, #15 TAB 0 Refills Prov: ABIDA THOMPSON MD 06/15/22 Copy Copies To 1: USHA FLORES TIMOTHY D MD Jun 15, 2022 10:34
--- NOTE | 2022-06-15 11:14 | Diagnostic Imaging Report ---
INDICATION: Pain. Two-view right femur performed. There are arthritic changes involving the knee and hip. No fracture or dislocation. No gas or opaque foreign body. IMPRESSION: Degenerative changes, but no acute bony pathology identified. Dictated by: Dictated on workstation # [id number]
--- NOTE | 2022-06-15 11:19 | Diagnostic Imaging Report ---
PROCEDURE: US right lower extremity venous. TECHNIQUE: Multiple real-time grayscale images were obtained over the right lower extremity in various projections. Additional spectral analysis and color Doppler duplex images were also obtained. INDICATION: Pain. FINDINGS: Right lower extremity venous structure showed normal compressibility and normal waveforms and normal color Doppler blood flow. No deep or superficial thrombus. No fluid collection identified. IMPRESSION: Normal negative unilateral right lower extremity venous Doppler and ultrasound exam. Dictated by: Dictated on workstation # [id number]
--- NOTE | 2022-06-15 12:00 | Diagnostic Imaging Report ---
CLINICAL HISTORY: Pelvic pain. Right hip pain. COMPARISON: 02/06/2016. TECHNIQUE: Three views of the pelvis and right hip. FINDINGS: There is no acute fracture or dislocation of the pelvis and right hip. Alignment is anatomic. The imaged joint spaces are preserved. No suspicious focal osseous lesions. IMPRESSION: 1. No acute fracture or dislocation in the pelvis and right hip. Dictated by: Dictated on workstation # [id number]
[2022-06-15] MEDS ORDERED: TRM50T PO (12:21)
== END 2022-06-15 12:39 | disposition home or self-care (01) ==
LOC: ER 09:21 → EDUNIT# 09:21 → ER 12:39
DX: S76.911A Strain of unspecified muscles, fascia and tendons at thigh level, right thigh, initial encounter (principal); Z88.5 Allergy status to narcotic agent; X58.XXXA Exposure to other specified factors, initial encounter
CPT/HCPCS: 73552

== ENCOUNTER 2022-06-19 17:02 | Inpatient (IN) | payer MEDICARE ==
[~2022-06-19] VITALS: Ht 157.5 cm; Wt 100.5 kg
--- NOTE | 2022-06-19 18:26 | ED Lower Extremity ---
General Chief Complaint: Lower Extremity Stated Complaint: RIGHT LEG PAIN Nursing Triage Note: PT TO TRIAGE BY WC WITH COMPLAINT OF RIGHT UPPER LEG PAIN. STATES SHE WAS SEEN IN ER ON SATURDAY FOR SAME COMPLAINT. STATES PAIN HAS NOT IMPROVED AND SHE IS UNABLE TO WALK NOW WITHOUT EXTREME PAIN. DENIES INJURY. Source: patient Exam Limitations: no limitations History of Present Illness Date Seen by Provider: Jun 19, 2022 Time Seen by Provider: 18:26 Initial Comments Patient is a 71-year-old female who presents to the emergency department today with a chief complaint of right hip, proximal femur pain. She has had this for 1 week. She was seen in the emergency room on 06-15-2022, she had x-rays as well as DVT study of the right lower extremity both of these were unremarkable for any acute injury or clot. She was given tramadol. She states she has continued to have worsening pain to the point that she is now unable to bear weight at all on her right leg. She recalls 1 evening last week she was turning over onto her left side and felt some discomfort this was prior to [place]. She states the pain has progressed since that time. She denies midline back pain. No loss of function of bowel or bladder, she is able to void when needed. No numbness or weakness to the leg. She progressed from limping on the leg due to having to use a cane now walker and now inability to ambulate. No abdominal pain, nausea vomiting diarrhea. No trauma. Has never had anything like this before. Onset: last week Severity: severe Pain/Injury Location: right hip Method of Injury: unknown Modifying Factors: Improves With Immobilization; Worse With Movement Allergies and Home Medications Allergies Coded Allergies: codeine (Verified Allergy, Unknown, Pt has had morphine & hydromorphone in the past, 08/07/18) hydrocodone (Verified Allergy, Unknown, 05/06/14) Patient Home Medication List Home Medication List Reviewed: Yes Aspirin (Aspir 81) 81 Mg Tablet.dr, 81 MG PO HS, (Reported) Entered as Reported by: PJ MENJIVAR on 01/11/17 1050 Biotin (Biotin) 1,000 Mcg Tablet, 1,000 MCG PO DAILY, (Reported) Entered as Reported by: MESERET MEJIA on 02/04/19 1214 Lactobacillus Combination No.4 (Probiotic) 1 Each Capsule, 1 CAP PO DAILY, (Reported) Entered as Reported by: MARY BEARD on 07/29/18 0931 Latanoprost (Latanoprost) 2.5 Ml Drops, 1 DROP OU HS, (Reported) Entered as Reported by: MARY BEARD on 07/29/18 0834 Losartan Potassium (Losartan Potassium) 50 Mg Tablet, 50 MG PO DAILY, (Reported) Entered as Reported by: PJ MENJIVAR on 01/11/17 1050 Multivits-Min/Iron/FA/Lutein (Centrum Silver Women Tablet) 1 Each Tablet, 1 TAB PO DAILY, (Reported) Entered as Reported by: MARY BEARD on 07/29/18 0834 Tramadol HCl (Tramadol HCl) 50 Mg Tablet, 50 MG PO Q6H PRN for PAIN Prescribed by: ABIDA THOMPSON on 06/15/22 1222 Review of Systems Constitutional: see HPI EENTM: no symptoms reported Respiratory: no symptoms reported Cardiovascular: no symptoms reported Gastrointestinal: no symptoms reported Genitourinary: no symptoms reported Musculoskeletal: joint pain (right hip) Skin: no symptoms reported Psychiatric/Neurological: Denies Numbness, Denies Paresthesia, Denies Weakness All Other Systems Reviewed Negative Unless Noted: Yes Past Nuovhtv-Wiwtiy-Xgeokc Hx Immunizations Up To Date Tetanus Booster (TDap): Unknown Seasonal Allergies Seasonal Allergies: Yes Past Medical History Surgeries: Yes (HYSTEROSCOPY, TEETH REMOVAL, colon resection, L TKR) Gallbladder, Orthopedic Respiratory: No Cardiac: Yes Coronary Artery Disease, Hypertension Neurological: No Reproductive Disorders: No Genitourinary: No Gastrointestinal: Yes (hx colon resection) Diverticulosis Musculoskeletal: Yes Arthritis Endocrine: No HEENT: Yes Glaucoma Cancer: No Psychosocial: No Integumentary: Yes Eczema Blood Disorders: No Family Medical History No Pertinent Family Hx Physical Exam Vital Signs Vital Signs - First Documented 06/19/22 17:10 Pulse 83 Resp 16 B/P (MAP) 176/70 (105) Pulse Ox 98 O2 Delivery Room Air Capillary Refill : Less Than 3 Seconds Height, Weight, BMI Height: 5'1.00" Weight: 208lbs. 0.0oz. [id number]; 38.00 BMI Method:Stated General Appearance: WD/WN, no apparent distress HEENT: PERRL/EOMI Neck: full range of motion Cardiovascular: regular rate, rhythm Respiratory: lungs clear, normal breath sounds, no respiratory distress, no accessory muscle use Gastrointestinal: non tender, soft Hips: right hip limited range of motion (with internal rotation and SLR - pain at the right hip and buttock), right hip pain Legs: bilateral leg non-tender, bilateral leg normal inspection, bilateral leg normal range of motion, bilateral leg no evidence of injury Knees: bilateral knee non-tender, bilateral knee normal inspection, bilateral knee normal range of motion, bilateral knee no evidence of injury Ankles: bilateral ankle non-tender, bilateral ankle normal inspection, bilateral ankle normal range of motion, bilateral ankle no evidence of injury Feet: bilateral foot non-tender, bilateral foot normal inspection, bilateral foot normal range of motion, bilateral foot no evidence of injury; right foot other (pulling on the right foot (removing the sock) causes pain in the right hip and thigh) Neurologic/Tendon: normal motor functions 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, no motor/sensory deficits, alert, normal mood/affect, oriented x 3 Skin: normal color, warm/dry Progress/Results/Core Measures Results/Orders My Orders Orders - BJORN SHEARER MD Ed Iv/Invasive Line Start (06/19/22 18:34) Fentanyl Inj (Sublimaze Injection) (06/19/22 18:45) Ondansetron Injection (Zofran Injectio (06/19/22 18:45) Ct Lumbar Spine Wo (06/19/22 18:38) Ct Pelvis Wo (06/19/22 18:38) Medications Given in ED Current Medications Medications Dose Ordered Sig/Hoda Route Start Time Stop Time Status Last Admin Dose Admin Fentanyl Citrate 50 mcg ONCE ONCE IVP 06/19/22 18:45 06/19/22 18:46 DC 06/19/22 19:18 50 MCG Ondansetron HCl 4 mg ONCE ONCE IVP 06/19/22 18:45 06/19/22 18:46 DC 06/19/22 19:18 4 MG Vital Signs/I&O 06/19/22 17:10 Pulse 83 Resp 16 B/P (MAP) 176/70 (105) Pulse Ox 98 O2 Delivery Room Air Blood Pressure Mean: 105 Progress Progress Note : Time: 20:06 Progress Note Patient had a little relief with fentanyl. But still significant pain. Discussed options for admission for pain control and PT. SHe could not tolerate (at this point) many hours of activity at a time, so therefore would not be a candidate for ARU. Will admit to her PCP with pain meds and steroids. PT consult to hopefull get her up and moving - then maybe transition to ARUU later. Diagnostic Imaging Diagonstic Imaging: CT Comments [facility] [place], [place] NAME: DEANNA VIDALES [facility] REC#: [id number] PT STATUS: REG ER : 1950 PHYSICIAN: BJORN SHEARER MD ADMIT DATE: 06/19/22/ER Signed Date of Exam:06/19/22 CT PELVIS WO PROCEDURE: CT pelvis without contrast. TECHNIQUE: Multiple contiguous axial images were obtained through the pelvis without the use of intravenous contrast. Sagittal and coronal reformations were performed. Auto Exposure Controls were utilized during the CT exam to meet ALARA standards for radiation dose reduction. INDICATION: Pain COMPARISON: Imaging from same date and CT dated 07/07/2019. FINDINGS: Advanced degenerative changes in the partially visualized lower lumbar spine. Right greater than left degenerative changes in the sacroiliac joints. Significant degenerative changes involving the pubic symphysis. No acute fracture or dislocation. No abnormal collapse of the femoral heads. Mild degenerative changes the bilateral hips. Post surgical changes involving the sigmoid colon. No significant free fluid within the pelvis. Moderate sized fat-containing midline anterior abdominal wall hernia. The appendix is unremarkable. No suspicious focal fluid collection. No significant asymmetric intramuscular hematoma. IMPRESSION: No acute osseous abnormality with scattered degenerative changes, including advanced degenerative changes in the partially visualized lower lumbar spine and pubic symphysis. Additional findings as above. Dictated by: Dictated on workstation # [id number] Dict: 06/19/221914 Trans: 06/19/221958 [facility] [id number] Interpreted by: MICHELLE HUGGINS MD Electronically signed by: MICHELLE HUGGINS MD 06/19/221958 Diagonstic Imaging: CT Comments [facility]. [place], [place] [facility] [id number] PT STATUS: REG ER : 1950 PHYSICIAN: BJORN SHEARER MD ADMIT DATE: 06/19/22/ER Signed Date of Exam:06/19/22 CT LUMBAR SPINE WO PROCEDURE: CT lumbar spine without contrast. TECHNIQUE: Multiple contiguous axial images were obtained through the lumbar spine without the use of intravenous contrast. Sagittal and coronal reformations were then performed. Auto Exposure Controls were utilized during the CT exam to meet ALARA standards for radiation dose reduction. INDICATION: Right-sided pain, inability to bear weight. COMPARISON: Imaging from the same date and radiographs dated 02/06/2016. FINDINGS: Grade 1 4 mm anterolisthesis of L4 on L5, stable from the prior examination. No new significant anterolisthesis or retrolisthesis. Significant scattered endplate degenerative changes are present, greatest at T12/L1. No evidence of a new vertebral body compression deformity. Degenerative changes associated with the right greater than the left sacroiliac joints. No acute fracture or dislocation. No destructive osseous process. Advanced scattered facet joint degenerative changes are present. Prominent disc osteophyte complexes and peripheral calcified disc bulges are present at T12/L1 and L2/L3. These are resulting in at least moderate to severe central canal stenosis. Additional lower levels of central canal stenosis are present though additional severe central canal stenosis is present at the L3/L4 level as well with moderate to severe central canal stenosis at L4/L5. Multilevel high-grade bilateral neural foraminal stenosis is also present, particularly on the left at nearly every level within the lumbar spine. Multilevel mild right neural foraminal stenosis is also present within the lumbar spine. Cholecystectomy. Multiple right-sided renal calculi are present. No hydronephrosis. Moderate background vascular calcifications. Colonic diverticulosis. Postsurgical changes within the sigmoid colon are partially visualized. IMPRESSION: No acute osseous abnormality with advanced multilevel degenerative changes, as described above. There is resulting multilevel high-grade central canal stenosis throughout the majority of the lumbar spine with additional relatively high-grade left greater than right multilevel neural foraminal stenosis. Multiple nonobstructing right renal calculi. Additional findings, as above. Dictated by: Dictated on workstation # [id number] Dict: 06/19/221909 Trans: 06/19/221958 [facility] [id number] Interpreted by: MICHELLE HUGGINS MD Electronically signed by: MICHELLE HUGGINS MD 06/19/221958 Departure Communication (Admissions) Time/Spoke to Admitting Phy: 20:[address] Flores, accepts fpr admission Impression Primary Impression: Sacroiliitis Additional Impression: severe right hip pain Disposition: ADMITTED INPATIENT Condition: Stable Admissions Decision to Admit Reason: Admit from ER (General) Decision to Admit/Date: Jun 19, 2022 Time/Decision to Admit Time: 20:05 Departure-Patient Inst. Referrals: USHA FLORES DO (PCP/Family) Primary Care Physician BJORN SHEARER MD Jun 19, 2022 18:26
[2022-06-19] MEDS ORDERED: fentaNYL INJ 100 MCG/2 ML AMP IVP ONE (18:45)
[2022-06-19] MEDS ORDERED: ONDANSETRON 4 MG/2 ML (SDV) Z0FRAN IVP ONE (18:45)
--- NOTE | 2022-06-19 19:23 | Diagnostic Imaging Report ---
PROCEDURE: CT lumbar spine without contrast. TECHNIQUE: Multiple contiguous axial images were obtained through the lumbar spine without the use of intravenous contrast. Sagittal and coronal reformations were then performed. Auto Exposure Controls were utilized during the CT exam to meet ALARA standards for radiation dose reduction. INDICATION: Right-sided pain, inability to bear weight. COMPARISON: Imaging from the same date and radiographs dated 02/06/2016. FINDINGS: Grade 1 4 mm anterolisthesis of L4 on L5, stable from the prior examination. No new significant anterolisthesis or retrolisthesis. Significant scattered endplate degenerative changes are present, greatest at T12/L1. No evidence of a new vertebral body compression deformity. Degenerative changes associated with the right greater than the left sacroiliac joints. No acute fracture or dislocation. No destructive osseous process. Advanced scattered facet joint degenerative changes are present. Prominent disc osteophyte complexes and peripheral calcified disc bulges are present at T12/L1 and L2/L3. These are resulting in at least moderate to severe central canal stenosis. Additional lower levels of central canal stenosis are present though additional severe central canal stenosis is present at the L3/L4 level as well with moderate to severe central canal stenosis at L4/L5. Multilevel high-grade bilateral neural foraminal stenosis is also present, particularly on the left at nearly every level within the lumbar spine. Multilevel mild right neural foraminal stenosis is also present within the lumbar spine. Cholecystectomy. Multiple right-sided renal calculi are present. No hydronephrosis. Moderate background vascular calcifications. Colonic diverticulosis. Postsurgical changes within the sigmoid colon are partially visualized. IMPRESSION: No acute osseous abnormality with advanced multilevel degenerative changes, as described above. There is resulting multilevel high-grade central canal stenosis throughout the majority of the lumbar spine with additional relatively high-grade left greater than right multilevel neural foraminal stenosis. Multiple nonobstructing right renal calculi. Additional findings, as above. Dictated by: Dictated on workstation # [id number]
--- NOTE | 2022-06-19 19:25 | Diagnostic Imaging Report ---
PROCEDURE: CT pelvis without contrast. TECHNIQUE: Multiple contiguous axial images were obtained through the pelvis without the use of intravenous contrast. Sagittal and coronal reformations were performed. Auto Exposure Controls were utilized during the CT exam to meet ALARA standards for radiation dose reduction. INDICATION: Pain COMPARISON: Imaging from same date and CT dated 07/07/2019. FINDINGS: Advanced degenerative changes in the partially visualized lower lumbar spine. Right greater than left degenerative changes in the sacroiliac joints. Significant degenerative changes involving the pubic symphysis. No acute fracture or dislocation. No abnormal collapse of the femoral heads. Mild degenerative changes the bilateral hips. Post surgical changes involving the sigmoid colon. No significant free fluid within the pelvis. Moderate sized fat-containing midline anterior abdominal wall hernia. The appendix is unremarkable. No suspicious focal fluid collection. No significant asymmetric intramuscular hematoma. IMPRESSION: No acute osseous abnormality with scattered degenerative changes, including advanced degenerative changes in the partially visualized lower lumbar spine and pubic symphysis. Additional findings as above. Dictated by: Dictated on workstation # [id number]
[2022-06-19] MEDS ORDERED: predniSONE 20 MG TAB PO ONE (20:15)
[2022-06-19 21:21] VITALS: BP 152/75
[2022-06-19] MEDS: CATHETER FLUSH 10 ML SYR IVP SCH (22:02)
[2022-06-20] VITALS (7 sets, daily range): BP systolic 121–159; BP diastolic 60–81
[2022-06-20] MEDS: predniSONE 20 MG TAB PO SCH (05:32)
[2022-06-20] MEDS: PANTOPRAZOLE 40 MG (PROTONIX) TAB PO SCH (05:32)
[2022-06-20] MEDS: CATHETER FLUSH 10 ML SYR IVP SCH ×3 (05:33→19:28)
[2022-06-20] MEDS: ASPIRIN E.C. 81 MG (ECOTRIN) TAB PO SCH (09:22)
[2022-06-20] MEDS: LOSARTAN 50 MG (COZAAR) TAB PO SCH (09:22)
[2022-06-20] MEDS: METHOCARBAMOL 750 MG (ROBAXIN) TAB PO SCH ×4 (09:22→21:48)
--- NOTE | 2022-06-20 11:10 | Physical Therapy Evaluation ---
PT Evaluation-General Medical Diagnosis Admission Date Jun 19, 2022 at 20:03 Medical Diagnosis: right hip pain Onset Date: Jun 19, 2022 Therapy Diagnosis Therapy Diagnosis: impaired mobility Height/Weight Height (Feet): 5 Height (Inches): 1.00 Weight (Pounds): 208 Weight (Ounces): 0.0 Precautions Precautions/Isolations: Fall Prevention, Standard Precautions Weight Bear Status Right Lower Extremity: Right Weight Bearing/Tolerated Referral Physician: Sandra Reason for Referral: Evaluation/Treatment Medical History Pertinent Medical History: Arthritis, HTN Additional Medical History Past Medical History Surgeries: Yes (HYSTEROSCOPY, TEETH REMOVAL, colon resection, L TKR) Gallbladder, Orthopedic Respiratory: No Cardiac: Yes Coronary Artery Disease, Hypertension Neurological: No Reproductive Disorders: No Genitourinary: No Gastrointestinal: Yes (hx colon resection) Diverticulosis Musculoskeletal: Yes Arthritis Endocrine: No HEENT: Yes Glaucoma Cancer: No Psychosocial: No Integumentary: Yes Eczema Blood Disorders: No Reviewed History: Yes Social History Home: Single Level Current Living Status: Alone Entry Into Home: Ramp Prior Prior Level of Function SCALE: Activities may be completed with or without assistive devices. 2-Dvvjtmhidz-vzhkppx completes the activity by him/herself with no assistance from a helper. 5-Set-up or Clean-up Assistance-helper sets up or cleans up; patient completes activity. [place] assists only prior to or following the activity. 4-Supervision or Touching Assistance-helper provides verbal cues and/or touching/steadying and/or contact guard assistance as patient completes activity. Assistance may be provided throughout the activity or intermittently. 3-Partial/Moderate Assistance-helper does LESS THAN HALF the effort. [place] lifts, holds or supports trunk or limbs, but provides less than half the effort. 2-Substantial/Maximal Assistance-helper does MORE THAN HALF the effort. [place] lifts or holds trunk or limbs and provides more than half the effort. 2-Vzkegkxbk-nsvybu does ALL the effort. Patient does none of the effort to complete the activity. Or, the assistance of 2 or more helpers is required for the patient to complete the activity. If activity was not attempted, code reason: 7-Patient Refused. 9-Not Applicable-not attempted and the patient did not perform the activity before the current illness, exacerbation or injury. 10-Not Attempted due to Environmental Limitations-(lack of equipment, weather restraints, etc.). 88-Not Attempted due to Medical Conditions or Safety Concerns. Bed Mobility: 6 Transfers (B,C,W/C): 6 Gait: 6 Indoor Mobility (Ambulation): Independent PT Evaluation-Current Subjective Patient in recliner pre tx, agrees to PT, has 10/10 pain in right hip with any movement or weight bearing per patient. Pt/Family Goals to be independent at home Objective Patient Orientation: Person, Place, Situation Sensory Vision: Functional Hearing: Functional Sensation Right Lower Extremit: Intact Sensation Left Lower Extremity: Intact Transfers Sit to Stand (QC): 4 Chair/Ztz-jy-Gllwu Xfer(QC): 4 CGA for sit to stand, has a lot of pain but no assist needed. Gait Walk 10 feet (QC): 4 Distance: 10' Gait Assistive Device: FWW Comments/Gait Description CGA, slow, antalgic ambulation Balance Sitting Static: Normal Sitting Dynamic: Normal Standing Static: Fair Standing Dynamic: Fair Treatment seated BLE exercise with legs elevated x20 (AP, QS, GS) Assessment/Needs Patient in recliner post tx with nurse call, phone, tray, all needs met. Patient has severe right hip pain with movement and weight bearing, she can ambulate a little using a rolling walker Rehab Potential: Fair PT Piece Hand Goals Piece Hand Goals PT Custodial Goals Time Frame: Jun 27, 2022 Roll Left & Right (QC): 4 (SBA) Sit to Lying (QC): 4 (SBA) Lying-Sitting on Side/Bed(QC): 4 (SBA) Sit to Stand (QC): 4 (SBA) Chair/Rrd-wp-Nktje Xfer(QC): 4 (SBA) Walk 10 feet (QC): 4 (SBA) Walk 50ft with 2 Turns (QC): 4 (SBA) PT Plan Problem List Problem List: Activity Tolerance, Functional Strength, Safety, Balance, Gait, Transfer, Bed Mobility, ROM Treatment/Plan Treatment Plan: Continue Plan of Care Treatment Plan: Bed Mobility, Education, Functional Activity Que, Functional Strength, Gait, Safety, Therapeutic Exercise, Transfers Treatment Duration: Jun 27, 2022 Frequency: 6 times per week Estimated Hrs Per Day: .25 hour per day Patient and/or Family Agrees t: Yes Safety Risks/Education Patient Education: Gait Training, Transfer Techniques, Correct Positioning, Safety Issues Teaching Recipient: Patient Teaching Methods: Demonstration, Discussion Response to Teaching: Reinforcement Needed Discharge Recommendations Plan Patient will perform bed mobility and transfer training, balance and endurance training, functional strengthening, gait training, and education, to improve functional mobility and independence at home. Therapy Discharge Recommendati: Home & Family, Post Acute PT Time Time In: 1026 Time Out: 1040 DATE: Jun 20, 2022 Total Billed Treatment Time: 14 Total Billed Treatment 1 visit GERMÁN Ontiveros' LIZBETH LUDWIG PT Jun 20, 2022 11:10
--- NOTE | 2022-06-20 11:54 | Occupational Therapy Eval ---
OT Evaluation-General/PLF Medical Diagnosis Admission Date Jun 19, 2022 at 20:03 Medical Diagnosis: right hip pain Onset Date: Jun 19, 2022 Therapy Diagnosis Therapy Diagnosis: reduced adl status Height/Weight Height (Feet): 5 Height (Inches): 1.00 Weight (Pounds): 208 Weight (Ounces): 0.0 Precautions Precautions/Isolations: Fall Prevention, Standard Precautions Weight Bear Status Weight Bearing Restriction: Weight Bearing/Tolerated Location Restriction: LE Bilateral Referral Physician: Sandra Referral Reason: Evaluation/Treatment Medical History Pertinent Medical History: Arthritis, HTN Current History Pt presented to hospital with R upper leg pain. Pelvis imaging reveals no acute changes. Per patient, the pain started around D[place] and has continued to get worse. She states that she usually can walk without any assistive device but has continued to decline from needing a cane and then a walker. Prior to pain, she was indep with all adls and iadls. She states she now has significant trouble with complete all LB activities. Social History Home: Single Level Current Living Status: Alone Entry Into Home: Ramp ADL-Prior Level of Function SCALE: Activities may be completed with or without assistive devices. 7-Dkhavuknel-qkxlbvn completes the activity by him/herself with no assistance from a helper. 5-Set-up or Clean-up Assistance-helper sets up or cleans up; patient completes activity. [place] assists only prior to or following the activity. 4-Supervision or Touching Assistance-helper provides verbal cues and/or touching/steadying and/or contact guard assistance as patient completes activity. Assistance may be provided throughout the activity or intermittently. 3-Partial/Moderate Assistance-helper does LESS THAN HALF the effort. [place] lifts, holds or supports trunk or limbs, but provides less than half the effort. 2-Substantial/Maximal Assistance-helper does MORE THAN HALF the effort. [place] lifts or holds trunk or limbs and provides more than half the effort. 8-Hqkrcbwvx-azboes does ALL the effort. Patient does none of the effort to complete the activity. Or, the assistance of 2 or more helpers is required for the patient to complete the activity. If activity was not attempted, code reason: 7-Patient Refused. 9-Not Applicable-not attempted and the patient did not perform the activity before the current illness, exacerbation or injury. 10-Not Attempted due to Environmental Limitations-(lack of equipment, weather restraints, etc.). 88-Not Attempted due to Medical Conditions or Safety Concerns. Self Care: Independent Functional Cognition: Independent DME/Equipment: Bath Chair, Grab Bars, Shower Drive Self: Yes OT Current Status Subjective Pt reports pain in R upper leg, no numerical value given. She states pain is at rest but gets worse with any small movements. Appearance Pt returned to sitting in recliner, all needs within reach at therapy departure. Mental Status/Objective Patient Orientation: Person, Place, Time, Situation Attachments: IV Current Hearing Aids: No Hand Dominance: Right Upper Extremity ROM WFL Upper Extremity Strength WFL ADL-Treatment Eating (QC): 6 Oral Hygiene (QC): 5 Lower Body Dressing (QC): 2 On/Off Footwear (QC): 1 Pt sitting in recliner at therapy arrival. She reports that normally she is able to bring her knee up onto the side of the bed in order to don footwear and pants, however due to pain, she is unable to perform either. At this time, pt is dependent to reach feet secondary to pain. She may benefit from instruction on AE if pain does not resolve. She was able to stand with CGA and extra time. She is steady on her feet but will often jump when experiencing sharp pain. She was able to remove BUE support and maintain balance. Pt likely not needing any assist for clothing management at this time. She ambulated short distance within room with walker and CGA. Limited by pain. Education OT Patient Education: Modified ADL techniques, Purpose of tx/functional activities, Use of adapted equipment Teaching Recipient: Patient Teaching Methods: Discussion Response to Teaching: Verbalize Understanding, Return Demonstration, Reinforcement Needed OT Long-Term Goals Long-Term Goals Time Frame: Jul 04, 2022 Oral Hygiene (QC): 6 Toileting Hygiene (QC): 6 Shower/Bathe Self (QC): 4 Upper Body Dressing (QC): 5 Lower Body Dressing (QC): 4 On/Off Footwear (QC): 4 Additional Goals: 1-Demonstrate ADL Tasks, 2-Verbalize Understanding, 3- ImproveStrength/Que 1=Demonstrate adherence to instructed precautions during ADL tasks. 2=Patient will verbalize/demonstrate understanding of assistive devices/modifications for ADL. 3=Patient will improve strength/tolerance for activity to enable patient to perform ADL's. OT Education/Plan Problem List/Assessment Assessment: Impaired Funct Balance, Impaired I ADL's, Impaired Self-Care Skills Discharge Recommendations Plan/Recommendations: Continue POC Therapy Discharge Recommendati: Post Acute OT Treatment Plan/Plan of Care Treatment,Training & Education: Yes Patient would benefit from OT for education, treatment and training to promote independence in ADL's, mobility, safety and/or upper extremity function for ADL's. Plan of Care: ADL Retraining, Functional Mobility, UE Funct Exercise/Act Treatment Duration: Jul 04, 2022 Frequency: 3 times per week (3-5x/week ) Estimated Hrs Per Day: .25 hour per day Rehab Potential: Fair Time Start Time: 10:27 Stop Time: 10:41 DATE: Jun 20, 2022 Total Time Billed (hr/min): 14 Billed Treatment Time 1 visit Shea Kim OT Jun 20, 2022 11:54
[2022-06-20] MEDS ORDERED: CHOL20003 PO (12:33)
[2022-06-20] MEDS ORDERED: ASPI-1238 PO (12:33)
[2022-06-20] MEDS ORDERED: [UNRECOGNIZED DRUG - OTHER] PO (12:33)
[2022-06-20] MEDS ORDERED: BUSP5TAB59 PO (12:33)
[2022-06-20] MEDS ORDERED: LATA7.5D OU (12:33)
[2022-06-20] MEDS ORDERED: TRAM50TA3 PO (12:33)
[2022-06-20] MEDS ORDERED: CRAN250C2 PO (12:33)
[2022-06-20] MEDS ORDERED: MELO15TA39 PO (12:33)
[2022-06-20] MEDS ORDERED: BACL10TA PO (12:33)
[2022-06-20] MEDS ORDERED: PATIENT MAY USE OWN MEDS, ALL MC SCH (13:15)
[2022-06-20] MEDS ORDERED: SENNA W/DOCUSATE (SENOKOT S) TABLET PO NR (13:45)
[2022-06-20] MEDS: ACETAMINOPHEN 500 MG TAB (TYLENOL) PO PRN (15:04)
--- NOTE | 2022-06-20 18:29 | History & Physical ---
History of Present Illness History of Present Illness Reason for visit/HPI This is a 71 year old female who presented to the emergency room for the second time in 1 week due to right hip/thigh and leg pain. She initially was seen on 06/15/22 and had x-rays of the right hip and right thigh as well as a venous doppler of the right leg to rule out DVT. She was sent home on tramadol and meloxicam but states these did nothing for her pain. She presented back to the emergency room with pain so severe that she could not move her right leg or bear weight on her right leg. She underwent a CT scan of her right hip/pelvis and lumbar spine. This showed arthritis of her hip as well as severe degenerative changes in her lumbar spine. She was unable to go home due to ongoing pain and inability to get around at home as she is unable to bear any weight on her right leg due to pain. Date of Admission Jun 19, 2022 at 20:03 Date Seen by a Provider: Jun 20, 2022 Time Seen by a Provider: 12:50 I consulted on this patient on 06/20/22 18:24 Attending Physician Usha Florse DO Admitting Physician Admitting Physician: Usha Flores DO Attending Physician: Usha Flores DO Consult Allergies and Home Medications Allergies Coded Allergies: codeine (Verified Allergy, Unknown, Pt has had morphine & hydromorphone in the past, 08/07/18) hydrocodone (Verified Allergy, Unknown, 05/06/14) Patient Home Medication List Home Medication List Reviewed: Yes Aspirin (Aspirin EC) 81 Mg Tablet.dr, 81 MG PO HS, (Reported) Entered as Reported by: DEYSI MURPHY on 06/20/22 123 Last Action: Continued Baclofen (Baclofen) 10 Mg Tablet, 10 MG PO BID, (Reported) Entered as Reported by: DEYSI MURPHY on 06/20/22 123 Last Action: Reviewed Buspirone HCl (Buspirone HCl) 5 Mg Tablet, 5-10 MG PO TID PRN for ANXIETY, (Reported) Entered as Reported by: DEYSI MURPHY on 06/20/22 123 Last Action: Reviewed Cholecalciferol (Vitamin D3) (Vitamin D3) 50 Mcg (2000 Unit) Capsule, 50 MCG PO DAILY, (Reported) Entered as Reported by: DEYSI MURPHY on 06/20/221232 Last Action: Converted Cranberry Extract (Cranberry) 250 Mg Capsule, 500 MG PO BID, (Reported) Entered as Reported by: DEYSI MURPHY on 06/20/221232 Last Action: Reviewed L. Acidoph/L. Plantar/L. Rhamn (Probiotic Pearls Women's Sfgl) 1 Billion Cell Capsule.dr, 2 EACH PO DAILY, (Reported) Entered as Reported by: DEYSI MURPHY on 06/20/221232 Last Action: Reviewed Latanoprost/Pf (Latanoprost 0.005% Eye Drop) 0.005 % Drops, 1 DROP OU HS, (Reported) Entered as Reported by: DEYSI MURPHY on 06/20/221232 Last Action: Converted Losartan Potassium (Losartan Potassium) 50 Mg Tablet, 50 MG PO DAILY, (Reported) Entered as Reported by: PJ MENJIVAR on 01/11/17 1050 Last Action: Continued Meloxicam (Meloxicam) 15 Mg Tablet, 15 MG PO DAILY, (Reported) Entered as Reported by: DEYSI MURPHY on 06/20/221232 Last Action: Reviewed Multivits-Min/Iron/FA/Lutein (Centrum Silver Women Tablet) 1 Each Tablet, 1 TAB PO DAILY, (Reported) Entered as Reported by: MARY BEARD on 07/29/18 9514 Last Action: Reviewed Tramadol HCl (Tramadol HCl) 50 Mg Tablet, 50 MG PO Q6H PRN for PAIN-MODERATE (5- 7), (Reported) Entered as Reported by: DEYSI MURPHY on 06/20/221232 Last Action: Reviewed Discontinued Medications Aspirin (Aspir 81) 81 Mg Tablet.dr, 81 MG PO HS, (Reported) Discontinued Reason: Duplicate Order Entered as Reported by: PJ MENJIVAR on 01/11/17 1050 Last Action: Discontinued Biotin (Biotin) 1,000 Mcg Tablet, 1,000 MCG PO DAILY, (Reported) Discontinued Reason: Duplicate Order Entered as Reported by: MESERET MEJIA on 02/04/19 1214 Last Action: Discontinued Lactobacillus Combination No.4 (Probiotic) 1 Each Capsule, 1 CAP PO DAILY, (Reported) Discontinued Reason: Duplicate Order Entered as Reported by: MARY BEARD on 07/29/18 0931 Last Action: Discontinued Latanoprost (Latanoprost) 2.5 Ml Drops, 1 DROP OU HS, (Reported) Discontinued Reason: Duplicate Order Entered as Reported by: MARY BEARD on 07/29/18 0834 Last Action: Discontinued Tramadol HCl (Tramadol HCl) 50 Mg Tablet, 50 MG PO Q6H PRN for PAIN Discontinued Reason: Duplicate Order Prescribed by: ABIDA THOMPSON on 06/15/22 1222 Last Action: Discontinued Past Ahjrddn-Lfjgkv-Nbzdjc Hx Patient Social History Marrital Status: Tobacco Use?: No Smoking Status: Never a Smoker Smokeless Tobacco Frequency: Never a User Use of E-Cig and/or Vaping dev: No Substance use?: No Alcohol Use?: No Pt feels they are or have been: No Seasonal Allergies Seasonal Allergies: Yes Current Status Advance Directives: Yes Advance Directive Location: Home Communicates: Verbally Primary Language: [place] Preferred Spoken Language: [place] Is interpretation needed?: No Past Medical History Surgeries: Gallbladder, Orthopedic Coronary Artery Disease, Hypertension Diverticulosis Arthritis Glaucoma Eczema Blood Disorders: No Family Medical History No Pertinent Family Hx Review of Systems Constitutional: weakness EENTM: No see HPI, No no symptoms reported, No ear discharge, No hearing loss, No ear pain, No blurred vision, No double vision, No eye pain, No tearing, No v ision loss, No dental problems, No hoarseness, No mouth pain, No mouth swelling, No epistaxis, No nose congestion, No nose pain, No throat pain, No throat swelling, No other Respiratory: No no symptoms reported, No see HPI, No cough, No dyspnea on exertion, No hemoptysis, No orthopnea, No phlegm, No short of breath, No stridor, No wheezing, No other Cardiovascular: No no symptoms reported, No see HPI, No chest pain, No edema, No Hx of Intervention, No palpitations, No syncope, No vascular heart diseas, No other Gastrointestinal: No RUQ, No LUQ, No RLQ, No LLQ, No no symptoms reported, No see HPI, No abdominal pain, No constipation, No diarrhea, No dysphagia, No hematemesis, No heartburn, No jaundice, No loss of appetite, No melena, No nausea, No vomiting, No other Genitourinary: No no symptoms reported, No see HPI, No decreased output, No discharge, No dysuria, No frequency, No hematuria, No hesitancy, No incontinence, No nocturia, No pain, No other Musculoskeletal: joint pain (right hip and right knee), muscle pain (right thi ght) Psychiatric/Neurological: Anxiety Physical Exam Vital Signs Vital Signs - First Documented 06/19/22 06/19/22 17:10 21:21 Temp 36.0 Pulse 83 Resp 16 B/P (MAP) 176/70 (105) Pulse Ox 98 O2 Delivery Room Air Capillary Refill : Less Than 3 Seconds Height, Weight, BMI Height: 5'1.00" Weight: 208lbs. 0.0oz. 94.820832wq; 40.51 BMI Method:Stated General Appearance: Moderate Distress (due to pain and tearful) Neck: Supple Respiratory: Lungs Clear Cardiovascular: Regular Rate, Rhythm Gastrointestinal: Normal Bowel Sounds, Non Tender, Soft Rectal: Deferred Back: No CVA Tenderness Extremity: Non Tender, No Calf Tenderness, No Pedal Edema Neurologic/Psychiatric: Alert, Oriented x3 Skin: Warm/Dry Lymphatic: No Adenopathy Assessment/Plan Assessment and Plan 1. Acute Right Leg Pain--right hip and thigh--admit and start oral prednisone, oxycodone for pain, start PT/OT, discussed injections--hip vs need for BRANDON--patient states she will not be able to do an MRI as she is extremely claustrophobic 2. Severe Lumbar Degenerative Disc Disease--discussed that some of the pain may be coming from her back radiating to her right leg 3. Hypertension--resume home losartan 4. Anxiety--resume buspar prn, will also start low dose cymbalta for pain and anxiety Admission Diagnosis Admission Status: Observation USHA FLORES DO Jun 20, 2022 18:29
[2022-06-20] MEDS: SENNA W/DOCUSATE (SENOKOT S) TABLET PO SCH (19:28)
[2022-06-20] MEDS ORDERED: ASPIRIN E.C. 81 MG (ECOTRIN) TAB PO SCH (21:00)
[2022-06-20] MEDS ORDERED: NON-FORMULARY MEDICATION 1 EA EA (Latanoprost/Pf (Latanoprost 0.005% Eye Drop) 1 DROP) OU SCH (21:00)
[2022-06-20] MEDS ORDERED: BACLOFEN 10 MG (LIORESAL) TAB PO SCH (21:00)
[2022-06-20] MEDS: LIDOCAINE PATCH REMOVAL TP SCH (21:48)
[2022-06-21 03:48] VITALS: BP 99/77
[2022-06-21] MEDS: ACETAMINOPHEN 500 MG TAB (TYLENOL) PO PRN ×2 (04:09→22:34)
[2022-06-21] MEDS: PANTOPRAZOLE 40 MG (PROTONIX) TAB PO SCH (06:41)
[2022-06-21] MEDS: predniSONE 20 MG TAB PO SCH (06:41)
[2022-06-21] MEDS: CATHETER FLUSH 10 ML SYR IVP SCH ×3 (06:42→21:00)
[2022-06-21] MEDS: VITAMIN D3 25 MCG (1,000 UNITS) TABLET PO SCH (08:25)
[2022-06-21] MEDS: LOSARTAN 50 MG (COZAAR) TAB PO SCH ×2 (08:25→20:53)
[2022-06-21] MEDS: ASPIRIN E.C. 81 MG (ECOTRIN) TAB PO SCH (08:25)
[2022-06-21] MEDS: DULoxetine 20 MG (CYMBALTA) CAP PO SCH (08:26)
[2022-06-21] MEDS: LIDOCAINE 4% (SALONPAS) PATCH TOP SCH (08:26)
[2022-06-21] MEDS: SENNA W/DOCUSATE (SENOKOT S) TABLET PO SCH ×2 (08:26→20:53)
[2022-06-21 08:56] VITALS: BP 170/85
[2022-06-21] MEDS ORDERED: NON-FORMULARY MEDICATION 1 EA EA (Cholecalciferol (Vitamin D3) (Vitamin D3) 50 MCG) PO SCH (09:00)
[2022-06-21] MEDS ORDERED: LOSARTAN 50 MG (COZAAR) TAB PO SCH (09:00)
--- NOTE | 2022-06-21 09:51 | Physical Therapy Daily Note ---
PT Daily Note-Current Subjective Patient continues to c/o 03/26 right ITB region pain Pain Numeric Pain Scale: 10-Worst Possible Pain Location: Right Location Body Site: Thigh Pain Description: Acute, Sharp Section J - Health Conditions 1. Rarely or not at all 2. Occasionally 3. Frequently 4. Almost constantly 8. Unable to answer Pain Effect on Sleep: 4 Pain Interference with Therapy: 4 Pain Interference w/Day-to-Day: 4 Mental Status Patient Orientation: Normal For Age Transfers SCALE: Activities may be completed with or without assistive devices. 8-Ophibvmgnm-hbtvram completes the activity by him/herself with no assistance from a helper. 5-Set-up or Clean-up Assistance-helper sets up or cleans up; patient completes activity. [place] assists only prior to or following the activity. 4-Supervision or Touching Assistance-helper provides verbal cues and/or touching/steadying and/or contact guard assistance as patient completes activity. Assistance may be provided throughout the activity or intermittently. 3-Partial/Moderate Assistance-helper does LESS THAN HALF the effort. [place] lifts, holds or supports trunk or limbs, but provides less than half the effort. 2-Substantial/Maximal Assistance-helper does MORE THAN HALF the effort. [place] lifts or holds trunk or limbs and provides more than half the effort. 6-Ewkdsqtfd-betjiw does ALL the effort. Patient does none of the effort to complete the activity. Or, the assistance of 2 or more helpers is required for the patient to complete the activity. If activity was not attempted, code reason: 7-Patient Refused. 9-Not Applicable-not attempted and the patient did not perform the activity before the current illness, exacerbation or injury. 10-Not Attempted due to Environmental Limitations-(lack of equipment, weather restraints, etc.). 88-Not Attempted due to Medical Conditions or Safety Concerns. Lying to Sitting/Side of Bed(Q: 4 Sit to Stand (QC): 4 Chair/Spv-zv-Xhhnm Xfer(QC): 4 Toilet Transfer (QC): 4 SBA with all mobility Weight Bearing Right Lower Extremity: Right Weight Bearing/Tolerated Gait Training Distance: 15' x 2 Walk 10 feet (QC): 4 Gait Assistive Device: FWW slow, antalgic Exercises Supine Ex: Ankle pumps, Quad Set, Heel Slides (with noted ER for comfort) Supine Reps: 15 Seated Therapy Exercises: Long arc quads Seated Reps: 15 Assessment Patient is up in recliner with needs met. Patient able to ambulate short distance with FWW with noted c/o right thigh pain. Patient reports increase in anxiety with the unknown. PT educated patient on importance of exercise and mobility to help with pain and decrease anxiety level with demonstrating ability to perform activities. PT Sash Repairer Goals Sash Repairer Goals PT Sash Repairer Goals Time Frame: Jun 27, 2022 Roll Left & Right (QC): 4 (SBA) Sit to Lying (QC): 4 (SBA) Lying-Sitting on Side/Bed(QC): 4 (SBA) Sit to Stand (QC): 4 (SBA) Chair/Jgy-ec-Cvwsd Xfer(QC): 4 (SBA) Walk 10 feet (QC): 4 (SBA) Walk 50ft with 2 Turns (QC): 4 (SBA) PT Plan Treatment/Plan Treatment Plan: Continue Plan of Care Treatment Plan: Bed Mobility, Education, Functional Activity Que, Functional Strength, Gait, Safety, Therapeutic Exercise, Transfers Treatment Duration: Jun 27, 2022 Frequency: 6 times per week Estimated Hrs Per Day: .25 hour per day Patient and/or Family Agrees t: Yes Time Time In: 830 Time Out: 855 DATE: Jun 21, 2022 Total Billed Treatment Time: 25 Total Billed Treatment 1 visit EX 15 min GT 10 min FIOR BAILEY PT Jun 21, 2022 09:51
--- NOTE | 2022-06-21 11:14 | Occupational Ther Daily Note ---
OT Current Status-Daily Note Subjective Pt alert, sitting in recliner. Pt has 10/10 pain and states that she has received pain meds. Pt agrees to work with OT. Mental Status/Objective Patient Orientation: Person, Place, Time, Situation ADL-Treatment Education of AE for lower body dressing. Pt demonstrated understanding though takes increased time to complete due to L knee pain,2x's. Pt then requested to use toilet. Slow sit <--> stands due to pain, min A from higher surface. BSC placed over toilet to raise height. Pt able to offload hands from FWW to manipulate clothing, requires assistance with hygiene. CGA to ambulate using FWW. After therapy, pt sitting in recliner with call light/phone in reach. All needs met in room. Therapy Code Descriptions/Definitions Functional [place] Measure: 0=Not Assessed/NA 4=Minimal Assistance 1=Total Assistance 5=Supervision or Setup 2=Maximal Assistance 6=Modified [place] 3=Moderate Assistance 7=Complete IndependenceSCALE: Activities may be completed with or without assistive devices. 8-Mrmuxyutza-vxnnkom completes the activity by him/herself with no assistance from a helper. 5-Set-up or Clean-up Assistance-helper sets up or cleans up; patient completes activity. [place] assists only prior to or following the activity. 4-Supervision or Touching Assistance-helper provides verbal cues and/or touching/steadying and/or contact guard assistance as patient completes activity. Assistance may be provided throughout the activity or intermittently. 3-Partial/Moderate Assistance-helper does LESS THAN HALF the effort. [place] lifts, holds or supports trunk or limbs, but provides less than half the effort. 2-Substantial/Maximal Assistance-helper does MORE THAN HALF the effort. [place] lifts or holds trunk or limbs and provides more than half the effort. 7-Tmetpchak-reqrqc does ALL the effort. Patient does none of the effort to complete the activity. Or, the assistance of 2 or more helpers is required for the patient to complete the activity. If activity was not attempted, code reason: 7-Patient Refused. 9-Not Applicable-not attempted and the patient did not perform the activity before the current illness, exacerbation or injury. 10-Not Attempted due to Environmental Limitations-(lack of equipment, weather restraints, etc.). 88-Not Attempted due to Medical Conditions or Safety Concerns. On/Off Footwear: 4 Toileting Hygiene (QC): 3 (mod A) Toilet Transfer (QC): 3 (mod A) OT Residential Goals Manager Of Organizational Development Goals Time Frame: Jul 04, 2022 Oral Hygiene (QC): 6 Toileting Hygiene (QC): 6 Shower/Bathe Self (QC): 4 Upper Body Dressing (QC): 5 Lower Body Dressing (QC): 4 On/Off Footwear (QC): 4 Additional Goals: 1-Demonstrate ADL Tasks, 2-Verbalize Understanding, 3- ImproveStrength/Que 1=Demonstrate adherence to instructed precautions during ADL tasks. 2=Patient will verbalize/demonstrate understanding of assistive devices/modifications for ADL. 3=Patient will improve strength/tolerance for activity to enable patient to perform ADL's. OT Education/Plan Problem List/Assessment Assessment: Decreased Activ Tolerance, Decreased UE Strength, Impaired Bed Mobility, Impaired Self-Care Skills Discharge Recommendations Plan/Recommendations: Continue POC Treatment Plan/Plan of Care Patient would benefit from OT for education, treatment and training to promote independence in ADL's, mobility, safety and/or upper extremity function for ADL's. Plan of Care: ADL Retraining, Functional Mobility, UE Funct Exercise/Act Treatment Duration: Jul 04, 2022 Frequency: 3 times per week (3-5x/week ) Estimated Hrs Per Day: .25 hour per day Rehab Potential: Fair Time Start Time: 10:30 Stop Time: 10:58 DATE: Jun 21, 2022 Total Time Billed (hr/min): 28 Billed Treatment Time 1 visit-ADL 2 (28 min) BRO GRAY Jun 21, 2022 11:14
[2022-06-21 12:25] VITALS: BP 152/68
[2022-06-21 13:35] LABS: HEMATOCRIT 43 % (35-52); HEMOGLOBIN 13.8 g/dL (11.5-16.0); MEAN CORPUSCULAR HEMOGLOBIN 29 pg (25-34); MEAN CORPUSCULAR HGB CONC 32 g/dL (32-36); MEAN CORPUSCULAR VOLUME 89 fL (80-99); MEAN PLATELET VOLUME 9.2 fL (9.0-12.2); PLATELET COUNT 221 10^3/uL (130-400); WHITE BLOOD COUNT 5.6 10^3/uL (4.3-11.0)
[2022-06-21] MEDS: METHOCARBAMOL 750 MG (ROBAXIN) TAB PO SCH ×2 (13:48→20:53)
[2022-06-21 13:52] LABS: ERYTHROCYTE SEDIMENTATION RATE 20 MM/HR (0-30)
[2022-06-21 16:04] VITALS: BP 152/64
--- NOTE | 2022-06-21 16:49 | Diagnostic Imaging Report ---
PROCEDURE: MRI lumbar spine. TECHNIQUE: Multiplanar, multisequence MRI of the lumbar spine was performed without contrast. INDICATION: Back pain, right lower extremity radiculopathy. COMPARISON: Exam is correlated with CT lumbar 06/19/2022. FINDINGS: Cervical statures are within normal limits. No acute marrow signal abnormalities. There are mild edematous Modic type I changes at the L1-L2 level, eccentric to the right and on to the left at the L2-L3 and L3-L4 levels. The lower thoracic cord and conus appeared normal. No paravertebral mass, hemorrhage, or fluid collection. Stable grade 1 degenerative anterolisthesis of L4 on L5, unchanged. T12-L1: Osteophyte disc material posteriorly effaces and flattens the ventral thecal sac and in conjunction with facet arthrosis results in a moderate magnitude of spinal canal stenosis. There is moderate right and mild left foraminal narrowing. L1-L2: Ligamenta flava thickening, facet arthrosis, disc bulge, and endplate osteophytes result in quzr-xh-swqnydlp canal stenosis with mild biforaminal narrowing. L2-L3: Disc bulge, endplate osteophytes, facet arthrosis, and thickened ligamentum flava result in severe canal stenosis at this disc space level. There is mild right and dmpujflt-ya-huvjyx left foraminal narrowing. L3-L4: Thickened ligamentum flava and facet arthrosis with disc bulge result in a moderate degree of canal stenosis. Osteophyte disc material asymmetric to the left with severe left foraminal stenosis. The right foramen is only mildly narrowed. There does appear to be a broad-based left posterolateral protrusion of disc at this level. L4-L5: There is thickened ligamentum flava, facet arthrosis, disc bulge, and endplate osteophytes. There is moderate canal stenosis. There is mild biforaminal narrowing, greater left. L5-S1: There is bulky facet arthrosis with no significant canal stenosis. Disc material and facet hypertrophy result in tzqq-dk-brourffr biforaminal narrowing. IMPRESSION: 1. Degenerative changes result in multilevel stenoses of spinal canal, neural foramina, and lateral recesses. Stenosis is most severe at L3-L4 neural foramina owing to diffuse degenerative changes as well as left posterolateral disc protrusion. 2. Stable alignment. No acute bony pathology. Dictated by: Dictated on workstation # [id number]
[2022-06-21 19:03] VITALS: BP 135/64
--- NOTE | 2022-06-21 19:11 | Progress Note ---
Subjective Date Seen by a Provider: Jun 21, 2022 Time Seen by a Provider: 12:45 Subjective/Events-last exam Fwup Right thigh pain, lumbar radiculopathy, HTN, Anxiety. Patient still having severe pain with any movement of right leg and still with difficulty ambulating due to pain. Objective Exam Vital Signs Date Time Temp Pulse Resp B/P (MAP) Pulse Ox O2 Delivery O2 Flow Rate FiO2 06/21/22 16:04 36.4 87 20 152/64 (93) 93 Room Air 06/21/22 12:25 36.6 82 18 152/68 (96) 93 Room Air 06/21/22 08:56 36.6 83 20 170/85 (113) 97 Room Air 06/21/22 08:00 Room Air 06/21/22 04:09 36.6 06/21/22 03:48 36.6 78 18 99/77 (84) 99 Room Air 06/20/22 23:35 36.6 67 18 121/76 (91) 95 Room Air 06/20/22 20:00 Room Air 06/20/22 19:39 36.6 77 22 150/72 (98) 96 Room Air I & O 06/21/22 07:00 Intake Total 1740 ml Output Total 825 ml Balance 915 ml Capillary Refill : Less Than 3 Seconds General Appearance: Moderate Distress Neck: Supple Respiratory: Lungs Clear Cardiovascular: Regular Rate, Rhythm Gastrointestinal: normal bowel sounds, non tender, soft Extremity: Non Tender, No Calf Tenderness, No Pedal Edema Neurologic/Psychiatric: Alert, Oriented x3, Abnormal Gait Skin: Warm/Dry Results Lab Laboratory Tests 06/21/22 01:24: White Blood Count 5.6, Red Blood Count 4.85, Hemoglobin 13.8, Hematocrit 43, Mean Corpuscular Volume 89, Mean Corpuscular Hemoglobin 29, Mean Corpuscular Hemoglobin Concent 32, Red Cell Distribution Width 13.6, Platelet Count 221, Mean Platelet Volume 9.2, Erythrocyte Sedimentation Rate 20, C-Reactive Protein High Sensitivity 0.20 Assessment/Plan Assessment/Plan Assess & Plan/Chief Complaint 1. Right Thigh Pain/Lumbar Radiculopathy--agrees to MRI of L/S spine with oral Valium--discussed with both patient and daughter that can try hip injection but pain is more likely coming from her low back and will likely need BRANDON, will continue with robaxin, oxycodone, prednisone, lidoderm patch, cymbalta started, discussed shortterm NH placement for discharge as patient is not able to go home and care for herself 2. Hypertension--increase losartan to 100mg po daily 3. Anxiety--cymbalta started, uses buspar prn 4. Constipation due to oxycodone--started senokot-S Clinical Quality Measures Admission Status Admission Dx 1. Acute Right Leg Pain--right hip and thigh--admit and start oral prednisone, oxycodone for pain, start PT/OT, discussed injections--hip vs need for BRANDON--patient states she will not be able to do an MRI as she is extremely claustrophobic 2. Severe Lumbar Degenerative Disc Disease--discussed that some of the pain may be coming from her back radiating to her right leg 3. Hypertension--resume home losartan 4. Anxiety--resume buspar prn, will also start low dose cymbalta for pain and anxiety USHA STAPLES DO Jun 21, 2022 19:11
[2022-06-21] MEDS: LATANOPROST 0.005% (XALATAN) OPHTH SOLN 2.5 ML OU SCH (20:52)
[2022-06-21] MEDS: LIDOCAINE PATCH REMOVAL TP SCH (20:59)
[2022-06-22] VITALS (7 sets, daily range): BP systolic 122–155; BP diastolic 60–86
[2022-06-22] MEDS: PANTOPRAZOLE 40 MG (PROTONIX) TAB PO SCH (06:29)
[2022-06-22] MEDS: predniSONE 20 MG TAB PO SCH (06:29)
[2022-06-22] MEDS: CATHETER FLUSH 10 ML SYR IVP SCH ×3 (06:33→22:21)
[2022-06-22] MEDS: METHOCARBAMOL 750 MG (ROBAXIN) TAB PO SCH ×3 (08:38→20:04)
[2022-06-22] MEDS: VITAMIN D3 25 MCG (1,000 UNITS) TABLET PO SCH (08:38)
[2022-06-22] MEDS: SENNA W/DOCUSATE (SENOKOT S) TABLET PO SCH ×2 (08:38→22:21)
[2022-06-22] MEDS: LIDOCAINE 4% (SALONPAS) PATCH TOP SCH (08:38)
[2022-06-22] MEDS: LOSARTAN 50 MG (COZAAR) TAB PO SCH ×2 (08:38→20:04)
[2022-06-22] MEDS: ASPIRIN E.C. 81 MG (ECOTRIN) TAB PO SCH (08:39)
[2022-06-22] MEDS: DULoxetine 20 MG (CYMBALTA) CAP PO SCH (08:39)
--- NOTE | 2022-06-22 10:57 | Physical Therapy Daily Note ---
PT Daily Note-Current Subjective Patient agrees to PT. Continues to c/o 01/24 right thigh pain with pain patches in place and meds issued. Pain Numeric Pain Scale: 8 Location: Right Location Body Site: Thigh Pain Description: Acute Section J - Health Conditions 1. Rarely or not at all 2. Occasionally 3. Frequently 4. Almost constantly 8. Unable to answer Pain Effect on Sleep: 4 Pain Interference with Therapy: 4 Pain Interference w/Day-to-Day: 4 Mental Status Patient Orientation: Normal For Age Transfers SCALE: Activities may be completed with or without assistive devices. 5-Zgumvyqrtp-foazggt completes the activity by him/herself with no assistance from a helper. 5-Set-up or Clean-up Assistance-helper sets up or cleans up; patient completes activity. [place] assists only prior to or following the activity. 4-Supervision or Touching Assistance-helper provides verbal cues and/or touching/steadying and/or contact guard assistance as patient completes activity. Assistance may be provided throughout the activity or intermittently. 3-Partial/Moderate Assistance-helper does LESS THAN HALF the effort. [place] lifts, holds or supports trunk or limbs, but provides less than half the effort. 2-Substantial/Maximal Assistance-helper does MORE THAN HALF the effort. [place] lifts or holds trunk or limbs and provides more than half the effort. 6-Dkmntvjly-wyqlzw does ALL the effort. Patient does none of the effort to complete the activity. Or, the assistance of 2 or more helpers is required for the patient to complete the activity. If activity was not attempted, code reason: 7-Patient Refused. 9-Not Applicable-not attempted and the patient did not perform the activity before the current illness, exacerbation or injury. 10-Not Attempted due to Environmental Limitations-(lack of equipment, weather restraints, etc.). 88-Not Attempted due to Medical Conditions or Safety Concerns. Lying to Sitting/Side of Bed(Q: 3 Sit to Stand (QC): 3 Chair/Ujv-ie-Sgegj Xfer(QC): 3 Toilet Transfer (QC): 3 Weight Bearing Right Lower Extremity: Right Weight Bearing/Tolerated Gait Training Distance: 20' x 2 Walk 10 feet (QC): 4 Walk 50 ft with 2 Turns(QC): 88 Gait Assistive Device: FWW unable to tolerate distance due to right LE pain Exercises Supine Ex: Ankle pumps, Quad Set, Heel Slides Supine Reps: 12 Seated Therapy Exercises: Ankle pumps, Long arc quads Seated Reps: 12 Assessment Patient requires time to complete all functional tasks due to uncontrolled right thigh pain. Consult with physician on POC. PT to increase activity as tolerated by patient. PT Half-Way Goals Venetian Blind Machine Operator Goals PT Venetian Blind Machine Operator Goals Time Frame: Jun 27, 2022 Roll Left & Right (QC): 4 (SBA) Sit to Lying (QC): 4 (SBA) Lying-Sitting on Side/Bed(QC): 4 (SBA) Sit to Stand (QC): 4 (SBA) Chair/Ybc-oj-Mbdwn Xfer(QC): 4 (SBA) Walk 10 feet (QC): 4 (SBA) Walk 50ft with 2 Turns (QC): 4 (SBA) PT Plan Treatment/Plan Treatment Plan: Continue Plan of Care Treatment Plan: Bed Mobility, Education, Functional Activity Que, Functional Strength, Gait, Safety, Therapeutic Exercise, Transfers Treatment Duration: Jun 27, 2022 Frequency: 6 times per week Estimated Hrs Per Day: .25 hour per day Patient and/or Family Agrees t: Yes Time Time In: 855 Time Out: 918 DATE: Jun 22, 2022 Total Billed Treatment Time: 23 Total Billed Treatment 1 visit FA x 2 23 min FIOR BAILEY PT Jun 22, 2022 10:57
[2022-06-22] MEDS ORDERED: fentaNYL INJ 100 MCG/2 ML AMP IVP ONE (11:00)
--- NOTE | 2022-06-22 11:03 | Progress Note ---
Subjective Date Seen by a Provider: Jun 22, 2022 Time Seen by a Provider: 10:57 Subjective/Events-last exam Fwup Right thigh pain, lumbar radiculopathy, HTN, Anxiety. Patient still having severe pain with any movement of right leg and still with difficulty ambulating due to pain. Discussed with patient and daughter that she has multilevel degenerative disc disease with spinal stenosis and bilateral foraminal stenosis so will switch to IV solumedrol from prednisone and add IV fentanyl for pain--give dose now. Current plan will be to [facility] for Half-Way and get scheduled for an outpatient epidural injection. Objective Exam Vital Signs Date Time Temp Pulse Resp B/P (MAP) Pulse Ox O2 Delivery O2 Flow Rate FiO2 06/22/22 08:00 Room Air 06/22/22 07:57 35.2 71 19 122/86 (98) 99 Room Air 06/22/22 03:54 36.0 79 16 126/74 (91) 97 Room Air 06/22/22 00:18 36.4 67 16 122/71 (88) 98 Room Air 06/21/22 20:30 98 Room Air 06/21/22 19:03 36.3 76 18 135/64 (87) 98 Room Air 06/21/22 16:04 36.4 87 20 152/64 (93) 93 Room Air 06/21/22 12:25 36.6 82 18 152/68 (96) 93 Room Air I & O 06/22/22 07:00 Intake Total 1590 ml Balance 1590 ml Capillary Refill : Less Than 3 Seconds General Appearance: Moderate Distress (due to pain) Extremity: Non Tender, No Calf Tenderness, No Pedal Edema Neurologic/Psychiatric: Alert, Oriented x3, Depressed Affect (tearful) Assessment/Plan Assessment/Plan Assess & Plan/Chief Complaint 1. Right Thigh Pain/Lumbar Radiculopathy/Lumbar Spinal Stenosis/Multilevel Degenerative Disc Disease of Lumbar Spine/Bilateral Lumbar Foraminal Stenosis-- MRI of L/S spine results reviewed, will change prednisone to IV solumedrol and add fentanyl IV for severe pain, continue with robaxin, oxycodone, lidoderm p atch, increase cymbalta dose and start gabapentin tonight, plan on DC to SNF and then outpatient pain management with BRANDON 2. Hypertension--increased losartan to 100mg po daily yesterday 3. Anxiety--cymbalta started, uses buspar prn 4. Constipation due to oxycodone--started senokot-S Clinical Quality Measures Admission Status Admission Dx 1. Acute Right Leg Pain--right hip and thigh--admit and start oral prednisone, oxycodone for pain, start PT/OT, discussed injections--hip vs need for BRANDON--patient states she will not be able to do an MRI as she is extremely claustrophobic 2. Severe Lumbar Degenerative Disc Disease--discussed that some of the pain may be coming from her back radiating to her right leg 3. Hypertension--resume home losartan 4. Anxiety--resume buspar prn, will also start low dose cymbalta for pain and anxiety USHA STAPLES DO Jun 22, 2022 11:02
[2022-06-22] MEDS: methylPREDNISolone 40 MG/ML (Solu-MEDROL) VIAL IV SCH ×2 (13:27→22:35)
--- NOTE | 2022-06-22 13:57 | Occupational Ther Daily Note ---
OT Current Status-Daily Note Subjective Pt alert, sitting in bathroom. Pt agrees to therapy. Pt states that she is in more pain than yesterday. Mental Status/Objective Patient Orientation: Person, Place, Time, Situation ADL-Treatment Min A for toilet transfer due to R knee buckling when standing. Pt then ambulated to sink to complete hand hygiene with SBA for safety. Assist x2 for EOB to supine due to increase pain. After session, pt lying in bed with call light/phone in reach. All needs met in room. Therapy Code Descriptions/Definitions Functional [place] Measure: 0=Not Assessed/NA 4=Minimal Assistance 1=Total Assistance 5=Supervision or Setup 2=Maximal Assistance 6=Modified [place] 3=Moderate Assistance 7=Complete IndependenceSCALE: Activities may be completed with or without assistive devices. 8-Yeklrctzjj-cqqfmgi completes the activity by him/herself with no assistance from a helper. 5-Set-up or Clean-up Assistance-helper sets up or cleans up; patient completes activity. [place] assists only prior to or following the activity. 4-Supervision or Touching Assistance-helper provides verbal cues and/or touching/steadying and/or contact guard assistance as patient completes activit y. Assistance may be provided throughout the activity or intermittently. 3-Partial/Moderate Assistance-helper does LESS THAN HALF the effort. [place] lifts, holds or supports trunk or limbs, but provides less than half the effort. 2-Substantial/Maximal Assistance-helper does MORE THAN HALF the effort. [place] lifts or holds trunk or limbs and provides more than half the effort. 0-Mjxpgtlko-bxdvgr does ALL the effort. Patient does none of the effort to complete the activity. Or, the assistance of 2 or more helpers is required for the patient to complete the activity. If activity was not attempted, code reason: 7-Patient Refused. 9-Not Applicable-not attempted and the patient did not perform the activity before the current illness, exacerbation or injury. 10-Not Attempted due to Environmental Limitations-(lack of equipment, weather restraints, etc.). 88-Not Attempted due to Medical Conditions or Safety Concerns. OT Trench Shovel Operator Goals Half-Way Goals Time Frame: Jul 04, 2022 Oral Hygiene (QC): 6 Toileting Hygiene (QC): 6 Shower/Bathe Self (QC): 4 Upper Body Dressing (QC): 5 Lower Body Dressing (QC): 4 On/Off Footwear (QC): 4 Additional Goals: 1-Demonstrate ADL Tasks, 2-Verbalize Understanding, 3- ImproveStrength/Que 1=Demonstrate adherence to instructed precautions during ADL tasks. 2=Patient will verbalize/demonstrate understanding of assistive devices/modifications for ADL. 3=Patient will improve strength/tolerance for activity to enable patient to perform ADL's. OT Education/Plan Problem List/Assessment Assessment: Decreased Activ Tolerance, Impaired Self-Care Skills Discharge Recommendations Plan/Recommendations: Continue POC Treatment Plan/Plan of Care Patient would benefit from OT for education, treatment and training to promote independence in ADL's, mobility, safety and/or upper extremity function for ADL's. Plan of Care: ADL Retraining, Functional Mobility, UE Funct Exercise/Act Treatment Duration: Jul 04, 2022 Frequency: 3 times per week (3-5x/week ) Estimated Hrs Per Day: .25 hour per day Rehab Potential: Fair Time Start Time: 11:01 Stop Time: 11:14 DATE: Jun 22, 2022 Total Time Billed (hr/min): 13 Billed Treatment Time 1 visit-ADL 1 (13 min) BRO GRAY Jun 22, 2022 13:57
[2022-06-22] MEDS: GABAPENTIN 100 MG (NEURONTIN) CAP PO SCH (20:04)
[2022-06-22] MEDS: LATANOPROST 0.005% (XALATAN) OPHTH SOLN 2.5 ML OU SCH (20:05)
[2022-06-22] MEDS: fentaNYL INJ 100 MCG/2 ML AMP IVP PRN (20:05)
[2022-06-22] MEDS: LIDOCAINE PATCH REMOVAL TP SCH (22:20)
[2022-06-23 03:33] VITALS: BP 179/80
[2022-06-23] MEDS: methylPREDNISolone 40 MG/ML (Solu-MEDROL) VIAL IV SCH ×3 (05:17→21:16)
[2022-06-23] MEDS: PANTOPRAZOLE 40 MG (PROTONIX) TAB PO SCH (05:17)
[2022-06-23] MEDS: fentaNYL INJ 100 MCG/2 ML AMP IVP PRN ×3 (05:18→15:44)
[2022-06-23] MEDS: CATHETER FLUSH 10 ML SYR IVP SCH ×3 (05:18→21:17)
[2022-06-23 07:13] VITALS: BP 155/78
[2022-06-23] MEDS: LOSARTAN 50 MG (COZAAR) TAB PO SCH ×2 (08:42→21:16)
[2022-06-23] MEDS: VITAMIN D3 25 MCG (1,000 UNITS) TABLET PO SCH (08:43)
[2022-06-23] MEDS: ASPIRIN E.C. 81 MG (ECOTRIN) TAB PO SCH (08:43)
[2022-06-23] MEDS: METHOCARBAMOL 750 MG (ROBAXIN) TAB PO SCH ×3 (08:43→21:16)
[2022-06-23] MEDS: DULoxetine 30 MG (CYMBALTA) CAP PO SCH (08:43)
[2022-06-23] MEDS: SENNA W/DOCUSATE (SENOKOT S) TABLET PO SCH ×2 (08:44→21:16)
--- NOTE | 2022-06-23 08:45 | Progress Note ---
Subjective Subjective Date Seen by Provider: Jun 23, 2022 Time Seen by Provider: 08:44 Pt is a 71 y/o female who is a clinic patient of Dr. Flores for whom I am superintendent plant protection. The patient has uncontrolled pain in her SI joint with radiation of pain from spinal stenosis to her leg and thigh. Pt is unable to stand for a meaningful period of time to participate fully in therapy in the hospital. Review of Systems General: No Chills, No Fatigue, No Malaise HEENT: No Head Aches Pulmonary: No Dyspnea, No Cough Cardiovascular: No: Chest Pain, Palpitations Gastrointestinal: No: Nausea, Abdominal Pain, Constipation Genitourinary: No Dysuria; Frequency Musculoskeletal: back pain, leg pain Neurological: Weakness; No: Confusion All Other Systems Reviewed All Other Systems Reviewed: Yes Objective Exam Vital Signs Vital Signs Date Time Temp Pulse Resp B/P (MAP) Pulse Ox O2 Delivery O2 Flow Rate FiO2 06/23/22 07:13 36.6 82 18 155/78 (103) 98 Room Air 06/23/22 03:33 36.7 68 20 179/80 (113) 96 Room Air 06/22/22 23:42 36.5 75 16 136/60 (85) 95 Room Air 06/22/22 20:00 Room Air 06/22/22 19:32 36.7 79 18 145/77 (99) 94 Room Air 06/22/22 15:41 36.8 81 18 155/75 (101) 96 Room Air 06/22/22 12:30 37.0 77 18 128/77 (94) 97 Room Air I & O 06/23/22 07:00 Intake Total 1710 ml Balance 1710 ml General Appearance: No Apparent Distress, Mild Distress (due to pain) HEENT: PERRL/EOMI, Pharynx Normal Neck: Full Range of Motion, Supple Respiratory: Chest Non Tender, Lungs Clear, Normal Breath Sounds, No Accessory Muscle Use Cardiovascular: Regular Rate, Rhythm, Systolic Murmur Gastrointestinal: Normal Bowel Sounds, Non Tender, Soft Rectal: Deferred Back: No CVA Tenderness Extremity: No Calf Tenderness, No Pedal Edema, Other (ttp in right groin, along ilitibial band) Neurologic/Psychiatric: Alert, Oriented x3, Depressed Affect (tearful) Skin: Warm/Dry Lymphatic: No Adenopathy Assessment/Plan Assessment/Plan Assessment and Plan Spinal stenosis due to severe Lumbar DDD Right leg pain Hypertension Anxiety depression Spinal stenosis due to severe Lumbar DDD with Right leg pain - pt on steroids, oral and iv pain medications - will see how much pain medication pt is using over the next 24 hours to determine how much fentanyl to initiate in a patch form for more consistent pain control - the pt is receiving physical therapy for strengthening, stretching and aide with ambulation. Hypertension - home medication regimen restarted, bp stable. Anxiety/Depression - monitor symptoms, pt on antidepressants from home. Pt anticipated to move to [facility] saturday or saturday. DEJON OLIVARES MD Jun 23, 2022 08:45
[2022-06-23] MEDS: LIDOCAINE 4% (SALONPAS) PATCH TOP SCH (10:40)
[2022-06-23 11:31] VITALS: BP 123/72
--- NOTE | 2022-06-23 13:29 | Physical Therapy Daily Note ---
PT Daily Note-Current Subjective Pt reported minimal pain while at rest. Pain increases to 10/10 with sit to stand. Pain Section J - Health Conditions 1. Rarely or not at all 2. Occasionally 3. Frequently 4. Almost constantly 8. Unable to answer Pain Effect on Sleep: 4 Pain Interference with Therapy: 4 Pain Interference w/Day-to-Day: 4 Mental Status Patient Orientation: Person, Place, Time, Situation Transfers SCALE: Activities may be completed with or without assistive devices. 7-Whibjkzhjy-ltylkmy completes the activity by him/herself with no assistance from a helper. 5-Set-up or Clean-up Assistance-helper sets up or cleans up; patient completes activity. [place] assists only prior to or following the activity. 4-Supervision or Touching Assistance-helper provides verbal cues and/or touching/steadying and/or contact guard assistance as patient completes activity. Assistance may be provided throughout the activity or intermittently. 3-Partial/Moderate Assistance-helper does LESS THAN HALF the effort. [place] lifts, holds or supports trunk or limbs, but provides less than half the effort. 2-Substantial/Maximal Assistance-helper does MORE THAN HALF the effort. [place] lifts or holds trunk or limbs and provides more than half the effort. 1-Emsylpqow-mpekha does ALL the effort. Patient does none of the effort to complete the activity. Or, the assistance of 2 or more helpers is required for the patient to complete the activity. If activity was not attempted, code reason: 7-Patient Refused. 9-Not Applicable-not attempted and the patient did not perform the activity before the current illness, exacerbation or injury. 10-Not Attempted due to Environmental Limitations-(lack of equipment, weather restraints, etc.). 88-Not Attempted due to Medical Conditions or Safety Concerns. Sit to Stand (QC): 3 Chair/Pog-yw-[place] Xfer(QC): 3 Weight Bearing Right Lower Extremity: Right Weight Bearing/Tolerated Gait Training Does the Patient Walk?: Yes Distance: 140ft Walk 10 feet (QC): 5 Walk 50 ft with 2 Turns(QC): 5 Gait Persons Needed: 1 Gait Assistive Device: FWW Wheelchair Training Does the Pt Use a Wheelchair?: No Exercises Seated Therapy Exercises: Ankle pumps, Long arc quads, Glut set Seated Reps: 20 Assessment Current Status: Good Progress Pt notes that when her pain medication is working well, she is able to walk more and do more. She noted her pain decreased from 10/10 upon standing to 3/10 within 30ft. PT Longterm Goals Signs And Displays Salesperson Goals PT Signs And Displays Salesperson Goals Time Frame: Jun 27, 2022 Roll Left & Right (QC): 4 (SBA) Sit to Lying (QC): 4 (SBA) Lying-Sitting on Side/Bed(QC): 4 (SBA) Sit to Stand (QC): 4 (SBA) Chair/Cik-yk-Inopa Xfer(QC): 4 (SBA) Walk 10 feet (QC): 4 (SBA) Walk 50ft with 2 Turns (QC): 4 (SBA) PT Plan Treatment/Plan Treatment Plan: Continue Plan of Care Treatment Plan: Bed Mobility, Education, Functional Activity Que, Functional Strength, Gait, Safety, Therapeutic Exercise, Transfers Treatment Duration: Jun 27, 2022 Frequency: 6 times per week Estimated Hrs Per Day: .25 hour per day Patient and/or Family Agrees t: Yes Time Time In: 1100 Time Out: 1115 DATE: Jun 23, 2022 Total Billed Treatment Time: 15 Total Billed Treatment 1, gt 15 YUN PAUL PT Jun 23, 2022 13:29
[2022-06-23 15:40] VITALS: BP 156/67
[2022-06-23 20:09] VITALS: BP 148/69
[2022-06-23] MEDS: GABAPENTIN 100 MG (NEURONTIN) CAP PO SCH (21:16)
[2022-06-23] MEDS: LATANOPROST 0.005% (XALATAN) OPHTH SOLN 2.5 ML OU SCH (21:17)
[2022-06-23] MEDS: LIDOCAINE PATCH REMOVAL TP SCH (21:17)
[2022-06-23 23:37] VITALS: BP 137/60
[2022-06-24 03:20] VITALS: BP 140/65
[2022-06-24] MEDS: CATHETER FLUSH 10 ML SYR IVP SCH ×3 (05:06→21:48)
[2022-06-24] MEDS: PANTOPRAZOLE 40 MG (PROTONIX) TAB PO SCH (05:06)
[2022-06-24] MEDS: methylPREDNISolone 40 MG/ML (Solu-MEDROL) VIAL IV SCH ×3 (05:06→21:48)
[2022-06-24 07:10] VITALS: BP 157/87
[2022-06-24] MEDS: VITAMIN D3 25 MCG (1,000 UNITS) TABLET PO SCH (09:09)
[2022-06-24] MEDS: LOSARTAN 50 MG (COZAAR) TAB PO SCH ×2 (09:09→20:12)
[2022-06-24] MEDS: METHOCARBAMOL 750 MG (ROBAXIN) TAB PO SCH ×3 (09:09→20:12)
[2022-06-24] MEDS: SENNA W/DOCUSATE (SENOKOT S) TABLET PO SCH ×2 (09:09→20:12)
[2022-06-24] MEDS: ASPIRIN E.C. 81 MG (ECOTRIN) TAB PO SCH (09:09)
[2022-06-24] MEDS: DULoxetine 30 MG (CYMBALTA) CAP PO SCH (09:09)
[2022-06-24] MEDS: LIDOCAINE 4% (SALONPAS) PATCH TOP SCH (09:12)
[2022-06-24] MEDS: fentaNYL INJ 100 MCG/2 ML AMP IVP PRN (09:25)
--- NOTE | 2022-06-24 09:25 | Progress Note ---
Subjective Subjective Date Seen by Provider: Jun 24, 2022 Time Seen by Provider: 09:20 Pt is a 71 y/o female who is a clinic patient of Dr. Flores for whom I am manager acquisition. The patient has uncontrolled pain in her SI joint with radiation of pain from spinal stenosis to her leg and thigh. Pt is unable to stand for a meaningful period of time to participate fully in therapy in the hospital. She reports that she had a bowel movement yesterday, she complains of pain in her lateral right leg down to knee, pain in groin on right Review of Systems General: No Chills, No Fatigue, No Malaise, No Appetite HEENT: No Head Aches, No Dysphasia Pulmonary: No Dyspnea, No Cough Cardiovascular: No: Chest Pain, Palpitations Gastrointestinal: No: Nausea, Abdominal Pain, Constipation Genitourinary: No Dysuria; Frequency Musculoskeletal: back pain, leg pain Neurological: No: Weakness, Numbness, Confusion All Other Systems Reviewed All Other Systems Reviewed: Yes Objective Exam Vital Signs Vital Signs Date Time Temp Pulse Resp B/P (MAP) Pulse Ox O2 Delivery O2 Flow Rate FiO2 06/24/22 07:10 36.2 65 16 157/87 (110) 96 Room Air 06/24/22 03:20 35.8 67 18 140/65 (90) 97 Room Air 06/23/22 23:37 36.4 69 18 137/60 (85) 95 Room Air 06/23/22 20:09 36.7 85 18 148/69 (95) 95 Room Air 06/23/22 19:30 Room Air 06/23/22 15:40 36.6 69 16 156/67 (96) 95 Room Air 06/23/22 11:31 36.6 80 18 123/72 (89) 95 Room Air I & O 06/24/22 07:00 Intake Total 1930 ml Output Total 750 ml Balance 1180 ml General Appearance: WD/WN, Mild Distress (due to pain) HEENT: PERRL/EOMI Neck: Full Range of Motion, Non Tender, Supple Respiratory: Chest Non Tender, Lungs Clear, Normal Breath Sounds, No Accessory Muscle Use Cardiovascular: Regular Rate, Rhythm, Systolic Murmur (ii/vi) Gastrointestinal: Normal Bowel Sounds, Non Tender, Soft Rectal: Deferred Back: No CVA Tenderness Extremity: No Calf Tenderness, No Pedal Edema, Other (ttp in groin on right as well as laterally over ilitibial band) Neurologic/Psychiatric: Alert, Oriented x3, Depressed Affect (tearful) Skin: Warm/Dry Lymphatic: No Adenopathy Assessment/Plan Assessment/Plan Assessment and Plan Spinal stenosis due to severe Lumbar DDD Right leg pain Hypertension Anxiety depression Heart murmur Spinal stenosis due to severe Lumbar DDD with Right leg pain - pt on steroids, oral and iv pain medications - will see how much pain medication pt is using over the next 24 hours to determine how much fentanyl to initiate in a patch form for more consistent pain control - the pt is receiving physical therapy for strengthening, stretching and aide with ambulation. Hypertension - home medication regimen restarted, bp stable. Anxiety/Depression - monitor symptoms, pt on antidepressants from home. Heart murmur - ECHO from 02/05/22 showed: Aortic Valve sclerosis with EF of 55 - 60%, grade 1 diastolic dysfunction , mild tricuspid regurg, trivial mitral regurg Pt anticipated to move to [facility] saturday or saturday. DEJON OLIVARES MD Jun 24, 2022 09:25
[2022-06-24] MEDS ORDERED: fentaNYL PATCH 12 MCG (DURAGESIC) TD SCH (11:00)
[2022-06-24 11:07] VITALS: BP 175/78
[2022-06-24] MEDS: DICLOFENAC 1% GEL 100 GM (VOLTAREN) TUBE TOP SCH ×3 (13:18→20:11)
[2022-06-24 15:19] VITALS: BP 150/67
[2022-06-24 19:35] VITALS: BP 135/60
[2022-06-24] MEDS: LATANOPROST 0.005% (XALATAN) OPHTH SOLN 2.5 ML OU SCH (20:11)
[2022-06-24] MEDS: GABAPENTIN 100 MG (NEURONTIN) CAP PO SCH (20:12)
[2022-06-24] MEDS: LIDOCAINE PATCH REMOVAL TP SCH (20:14)
[2022-06-24] MEDS ORDERED: busPIRone 5 MG (BUSPAR) TAB PO PRN (21:00)
[2022-06-24 23:12] VITALS: BP 136/78
[2022-06-25 03:15] VITALS: BP 146/77
[2022-06-25] MEDS: PANTOPRAZOLE 40 MG (PROTONIX) TAB PO SCH (05:24)
[2022-06-25] MEDS: methylPREDNISolone 40 MG/ML (Solu-MEDROL) VIAL IV SCH ×2 (05:25→13:21)
[2022-06-25] MEDS: CATHETER FLUSH 10 ML SYR IVP SCH ×2 (05:25→13:22)
[2022-06-25 07:35] VITALS: BP 165/69
[2022-06-25] MEDS: ASPIRIN E.C. 81 MG (ECOTRIN) TAB PO SCH (07:52)
[2022-06-25] MEDS: DICLOFENAC 1% GEL 100 GM (VOLTAREN) TUBE TOP SCH ×2 (07:52→13:22)
[2022-06-25] MEDS: LOSARTAN 50 MG (COZAAR) TAB PO SCH (07:52)
[2022-06-25] MEDS: VITAMIN D3 25 MCG (1,000 UNITS) TABLET PO SCH (07:52)
[2022-06-25] MEDS: DULoxetine 30 MG (CYMBALTA) CAP PO SCH (07:52)
[2022-06-25] MEDS: LIDOCAINE 4% (SALONPAS) PATCH TOP SCH (07:53)
[2022-06-25] MEDS: SENNA W/DOCUSATE (SENOKOT S) TABLET PO SCH (07:58)
[2022-06-25] MEDS: METHOCARBAMOL 750 MG (ROBAXIN) TAB PO SCH ×2 (07:58→13:21)
--- NOTE | 2022-06-25 10:23 | Physical Therapy Daily Note ---
PT Daily Note-Current Subjective Patient reports she is going to [place] on this date. Agrees to PT. Pain Numeric Pain Scale: 8 Location: Right Location Body Site: Hip Pain Description: Sharp Section J - Health Conditions 1. Rarely or not at all 2. Occasionally 3. Frequently 4. Almost constantly 8. Unable to answer Pain Effect on Sleep: 4 Pain Interference with Therapy: 4 Pain Interference w/Day-to-Day: 4 Mental Status Patient Orientation: Normal For Age Transfers SCALE: Activities may be completed with or without assistive devices. 7-Htwwhxcoye-epmygrn completes the activity by him/herself with no assistance from a helper. 5-Set-up or Clean-up Assistance-helper sets up or cleans up; patient completes activity. [place] assists only prior to or following the activity. 4-Supervision or Touching Assistance-helper provides verbal cues and/or touching/steadying and/or contact guard assistance as patient completes activity. Assistance may be provided throughout the activity or intermittently. 3-Partial/Moderate Assistance-helper does LESS THAN HALF the effort. [place] lifts, holds or supports trunk or limbs, but provides less than half the effort. 2-Substantial/Maximal Assistance-helper does MORE THAN HALF the effort. [place] lifts or holds trunk or limbs and provides more than half the effort. 0-Rehkzoyrg-vhqrek does ALL the effort. Patient does none of the effort to complete the activity. Or, the assistance of 2 or more helpers is required for the patient to complete the activity. If activity was not attempted, code reason: 7-Patient Refused. 9-Not Applicable-not attempted and the patient did not perform the activity before the current illness, exacerbation or injury. 10-Not Attempted due to Environmental Limitations-(lack of equipment, weather restraints, etc.). 88-Not Attempted due to Medical Conditions or Safety Concerns. Sit to Stand (QC): 4 Chair/Fjz-cc-Dcsks Xfer(QC): 4 Toilet Transfer (QC): 4 Weight Bearing Right Lower Extremity: Right Weight Bearing/Tolerated Gait Training Distance: 150' Walk 10 feet (QC): 4 Walk 50 ft with 2 Turns(QC): 4 Walk 150 ft (QC): 4 Gait Assistive Device: FWW very slow, functional gait sequence Assessment Patient tolerated treatment well and is in restroom with nursing for shower. Patient to dismiss to [place] on this date per report. PT Regional Account Executive Goals Regional Account Executive Goals PT Residential Goals Time Frame: Jun 27, 2022 Roll Left & Right (QC): 4 (SBA) Sit to Lying (QC): 4 (SBA) Lying-Sitting on Side/Bed(QC): 4 (SBA) Sit to Stand (QC): 4 (SBA) Chair/Xup-ux-Uxhow Xfer(QC): 4 (SBA) Walk 10 feet (QC): 4 (SBA) Walk 50ft with 2 Turns (QC): 4 (SBA) PT Plan Treatment/Plan Treatment Plan: Continue Plan of Care Treatment Plan: Bed Mobility, Education, Functional Activity Que, Functional Strength, Gait, Safety, Therapeutic Exercise, Transfers Treatment Duration: Jun 27, 2022 Frequency: 6 times per week Estimated Hrs Per Day: .25 hour per day Patient and/or Family Agrees t: Yes Time Time In: 836 Time Out: 848 DATE: Jun 25, 2022 Total Billed Treatment Time: 12 Total Billed Treatment 1 visit FA 12 min FIOR BAILEY PT Jun 25, 2022 10:23
[2022-06-25 11:45] VITALS: BP 132/61
--- NOTE | 2022-06-25 12:20 | Occupational Ther Daily Note ---
OT Current Status-Daily Note Subjective Pt alert, sitting in recliner. Pt agrees to therapy. Pt states that there is minimal pain with sitting. Pt also states that she is discharging to [facility] today. ADL-Treatment Pt completes eating independently. SBA for toilet transfer and toileting. Nrsg assisted pt with shower today. After session, pt sitting in recliner with call light/phone in reach. All needs met in room. Therapy Code Descriptions/Definitions Functional [place] Measure: 0=Not Assessed/NA 4=Minimal Assistance 1=Total Assistance 5=Supervision or Setup 2=Maximal Assistance 6=Modified [place] 3=Moderate Assistance 7=Complete IndependenceSCALE: Activities may be completed with or without assistive devices. 3-Vvkyhlupyw-rbmtocl completes the activity by him/herself with no assistance from a helper. 5-Set-up or Clean-up Assistance-helper sets up or cleans up; patient completes activity. [place] assists only prior to or following the activity. 4-Supervision or Touching Assistance-helper provides verbal cues and/or touching/steadying and/or contact guard assistance as patient completes acti vity. Assistance may be provided throughout the activity or intermittently. 3-Partial/Moderate Assistance-helper does LESS THAN HALF the effort. [place] lifts, holds or supports trunk or limbs, but provides less than half the effort. 2-Substantial/Maximal Assistance-helper does MORE THAN HALF the effort. [place] lifts or holds trunk or limbs and provides more than half the effort. 6-Rnpzqvfav-aosaqg does ALL the effort. Patient does none of the effort to complete the activity. Or, the assistance of 2 or more helpers is required for the patient to complete the activity. If activity was not attempted, code reason: 7-Patient Refused. 9-Not Applicable-not attempted and the patient did not perform the activity before the current illness, exacerbation or injury. 10-Not Attempted due to Environmental Limitations-(lack of equipment, weather restraints, etc.). 88-Not Attempted due to Medical Conditions or Safety Concerns. Toileting Hygiene (QC): 4 Toilet Transfer (QC): 4 OT Alf Goals Alf Goals Time Frame: Jul 04, 2022 Oral Hygiene (QC): 6 Toileting Hygiene (QC): 6 Shower/Bathe Self (QC): 4 Upper Body Dressing (QC): 5 Lower Body Dressing (QC): 4 On/Off Footwear (QC): 4 Additional Goals: 1-Demonstrate ADL Tasks, 2-Verbalize Understanding, 3-ImproveStrength/Que 1=Demonstrate adherence to instructed precautions during ADL tasks. 2=Patient will verbalize/demonstrate understanding of assistive devices/modifications for ADL. 3=Patient will improve strength/tolerance for activity to enable patient to perform ADL's. OT Education/Plan Problem List/Assessment Assessment: Decreased Activ Tolerance, Impaired Self-Care Skills Discharge Recommendations Plan/Recommendations: Continue POC Treatment Plan/Plan of Care Patient would benefit from OT for education, treatment and training to promote independence in ADL's, mobility, safety and/or upper extremity function for ADL's. Plan of Care: ADL Retraining, Functional Mobility, UE Funct Exercise/Act Treatment Duration: Jul 04, 2022 Frequency: 3 times per week (3-5x/week ) Estimated Hrs Per Day: .25 hour per day Rehab Potential: Fair Time Start Time: 12:05 Stop Time: 12:20 DATE: Jun 25, 2022 Total Time Billed (hr/min): 15 Billed Treatment Time 1 visit-ADL 1 (15 min) BRO GRAY Jun 25, 2022 12:20
[2022-06-25] MEDS ORDERED: LOSA50TA63 PO (12:52)
[2022-06-25] MEDS ORDERED: GABA-486 PO (12:52)
[2022-06-25] MEDS ORDERED: DULO30CA3 PO (12:52)
[2022-06-25] MEDS ORDERED: OXC5T PO (12:52)
[2022-06-25] MEDS ORDERED: METH-732 PO (12:52)
[2022-06-25] MEDS ORDERED: SENN1TAB76 PO (12:52)
[2022-06-25] MEDS ORDERED: FEN12TD TD (12:52)
[2022-06-25] MEDS ORDERED: PRD20T PO (12:52)
[2022-06-25] MEDS ORDERED: busPIRone 10 MG (BUSPAR) TAB PO NR (13:00)
--- NOTE | 2022-06-25 15:10 | Discharge Inst-Skilled Nursing ---
Discharge Inst-Skilled NF Reconcile Patient Problems Problems Reviewed?: Yes Patient Instructions Patient Problems: Lumbar Radiculopathy Goal: Improved pain and return to home Consult/Follow Up/Orders Follow Up Appt.: 2 weeks Skilled NF Admit to: [facility] Certification ([facility]) I certify that [facility] services are required to be given on an inpatient basis because of the above named patient's need for usp care on a continuing basis for the conditions(s) for which he/she was receiving inpatient hospital services prior to his/her transfer to the SNF. Fdc Facility Order: Correspondence Section Supervisor-Evaluate & Treat, Physical Therapy-Evaluate & Treat Oxygen Delivery Method: Room Air Discharge Diet: No Restrictions Daily Activity as Tolerated: Yes Resuscitation Status: Full Code New & Resume Previous Orders Jessie Flores Jun 25, 2022 15:09 JESSIE FLORES DO Jun 25, 2022 15:10
[2022-06-27] MEDS ORDERED: PATCH REMOVAL TP SCH (10:59)
== END 2022-06-25 14:10 | DRG 552 ==
LOC: EDUNIT# 17:02 → ER 17:03 → 4TH 20:03 → OBSVTOIN 06-22 10:53
PROVIDERS: ADMIT Family Medicine; ATTEND Family Medicine
DX: M46.1 Sacroiliitis, not elsewhere classified (principal); Z79.82 Long term (current) use of aspirin; Z79.899 Other long term (current) drug therapy; I25.10 Atherosclerotic heart disease of native coronary artery without angina pectoris; I10 Essential (primary) hypertension; K57.90 Diverticulosis of intestine, part unspecified, without perforation or abscess without bleeding; M19.90 Unspecified osteoarthritis, unspecified site; H40.9 Unspecified glaucoma; F41.9 Anxiety disorder, unspecified; M51.36 Other intervertebral disc degeneration, lumbar region; Z90.49 Acquired absence of other specified parts of digestive tract; K59.03 Drug induced constipation; T40.2X5A Adverse effect of other opioids, initial encounter; M48.061 Spinal stenosis, lumbar region without neurogenic claudication; R01.1 Cardiac murmur, unspecified
CPT/HCPCS: 36415; 72131; 72148; 72192; 85027; 85652; 86141; G0378

== ENCOUNTER 2022-08-21 13:20 | Inpatient (IN) | payer MEDICARE ==
[~2022-08-21] VITALS: Ht 157 cm; Wt 99.6 kg
[~2022-08-21 13:20] MED LIST changes: +ASPI-1238 PO; +BACL10TA PO; +BUSP5TAB59 PO; +CHOL20003 PO; +CRAN250C2 PO; +DULO30CA3 PO; +FEN12TD TD; +GABA-486 PO; +LATA7.5D OU; +MELO15TA39 PO; +METH-732 PO; +OXC5T PO; +PRD20T PO; +SENN1TAB76 PO; +TRAM50TA3 PO; +[UNRECOGNIZED DRUG - OTHER] PO
[2022-08-21] MEDS ORDERED: ENOXAPARIN 40 MG/0.4 ML (LOVENOX) SYR SC SCH (14:45)
[2022-08-21] MEDS ORDERED: PATIENT MAY USE OWN MEDS, ALL PO SCH (14:45)
[2022-08-21] MEDS ORDERED: ONDANSETRON 4 MG/2 ML (SDV) Z0FRAN IV PRN (14:45)
[2022-08-21] MEDS ORDERED: fentaNYL INJ 100 MCG/2 ML AMP IVP ONE (14:45)
[2022-08-21] MEDS ORDERED: CELECOXIB 100 MG (CeleBREX) CAP PO NR (16:30)
[2022-08-21 16:41] VITALS: BP 132/63
[2022-08-21] MEDS ORDERED: oxyCODONE/APAP 5/325MG (PERCOCET 5) TABLET PO PRN (17:15)
--- NOTE | 2022-08-21 18:45 | History & Physical ---
History of Present Illness History of Present Illness Reason for visit/HPI This is a 72 year old female with known multilevel degenerative disc disease who is directly admitted due to intractable right leg pain. Her pain has worsened to the point that she is unable to walk and has been bed bound for the past few days. She has taken oxycodone with no relief of her pain. She will be admitted for pain control and further treatment. Date of Admission Aug 21, 2022 at 16:15 Date Seen by a Provider: Aug 21, 2022 Time Seen by a Provider: 18:39 I consulted on this patient on 08/21/22 18:36 Attending Physician Jessie Flores DO Admitting Physician Admitting Physician: Jessie Flores DO Attending Physician: Jessie Flores DO Consult Allergies and Home Medications Allergies Coded Allergies: codeine (Verified Allergy, Unknown, Pt has had morphine & hydromorphone in the past, 08/07/18) hydrocodone (Verified Allergy, Unknown, 05/06/14) Patient Home Medication List Home Medication List Reviewed: Yes Aspirin (Aspirin EC) 81 Mg Tablet.dr, 81 MG PO HS, (Reported) Entered as Reported by: DEYSI MURPHY on 06/20/22 1233 Buspirone HCl (Buspirone HCl) 5 Mg Tablet, 5-10 MG PO TID PRN for ANXIETY, (Reported) Entered as Reported by: DEYSI MURPHY on 06/20/22 1233 Cholecalciferol (Vitamin D3) (Vitamin D3) 50 Mcg (2000 Unit) Capsule, 50 MCG PO DAILY, (Reported) Entered as Reported by: DEYSI MURPHY on 06/20/22 1233 Cranberry Extract (Cranberry) 250 Mg Capsule, 500 MG PO BID, (Reported) Entered as Reported by: DEYSI MURPHY on 06/20/22 1233 Duloxetine HCl (Cymbalta) 30 Mg Capsule.dr, 30 MG PO DAILY@0900 Prescribed by: JESSIE FLORES on 06/25/22 1252 Fentanyl (Fentanyl Patch 12 MCG) 12 Mcg/Hour Patch.td72, 12 MCG TD Q72H Prescribed by: JESSIE FLORES on 06/25/22 1252 Gabapentin (Gabapentin) 100 Mg Capsule, 100 MG PO HS Prescribed by: JESSIE FLORES on 06/25/22 1252 Latanoprost/Pf (Latanoprost 0.005% Eye Drop) 0.005 % Drops, 1 DROP OU HS, (Reported) Entered as Reported by: DEYSI MURPHY on 06/20/22 1233 Losartan Potassium (Losartan Potassium) 50 Mg Tablet, 50 MG PO BID Prescribed by: JESSIE FLORES on 06/25/22 1252 Methocarbamol (Methocarbamol) 750 Mg Tablet, 750 MG PO TID Prescribed by: JESSIE FLORES on 06/25/22 1252 Multivits-Min/Iron/FA/Lutein (Centrum Silver Women Tablet) 1 Each Tablet, 1 TAB PO DAILY, (Reported) Entered as Reported by: MARY BEARD on 07/29/18 0834 Oxycodone Hcl (Oxyir Tablet) 5 Mg Tab, 5 MG PO Q4H PRN for PAIN-SEVERE (8-10) Prescribed by: JESSIE FLORES on 06/25/22 1252 Prednisone (Prednisone) 20 Mg Tab, 0 PO Prescribed by: JESSIE FLORES on 06/25/22 1252 Sennosides/Docusate Sodium (Stool Softener-Laxative Tablet) 8.6 Mg-50 Mg Tablet, 1 EA PO BID Prescribed by: JESSIE FLORES on 06/25/22 1252 Past Jximfxk-Avxrkl-Lbdkzm Hx Patient Social History Marrital Status: Tobacco Use?: No Use of E-Cig and/or Vaping dev: No Substance use?: No Alcohol Use?: No Pt feels they are or have been: No Immunizations Up To Date Date of Influenza Vaccine: Mar 23, 2022 Tetanus Booster (TDap): Unknown Seasonal Allergies Seasonal Allergies: Yes Current Status Advance Directives: Yes Advance Directive Location: Home Communicates: Verbally Primary Language: Italian Is interpretation needed?: No Sensory deficits: Speech impairment Implanted or Applied Medical D: Orthopedic hardware Past Medical History Surgeries: Gallbladder, Orthopedic Coronary Artery Disease, Hypertension Diverticulosis Arthritis Glaucoma Eczema Blood Disorders: No Family Medical History No Pertinent Family Hx Review of Systems Constitutional: weakness EENTM: No see HPI, No no symptoms reported, No ear discharge, No hearing loss, No ear pain, No blurred vision, No double vision, No eye pain, No tearing, No vision loss, No dental problems, No hoarseness, No mouth pain, No mouth swelling, No epistaxis, No nose congestion, No nose pain, No throat pain, No throat swelling, No other Respiratory: No no symptoms reported, No see HPI, No cough, No dyspnea on exertion, No hemoptysis, No orthopnea, No phlegm, No short of breath, No stridor, No wheezing, No other Cardiovascular: No no symptoms reported, No see HPI, No chest pain, No edema, No Hx of Intervention, No palpitations, No syncope, No vascular heart diseas, No other Gastrointestinal: constipation Genitourinary: No no symptoms reported, No see HPI, No decreased output, No discharge, No dysuria, No frequency, No hematuria, No hesitancy, No incontinence , No nocturia, No pain, No other Musculoskeletal: muscle weakness, other (severe right leg pain) Psychiatric/Neurological: Anxiety, Weakness Physical Exam Vital Signs Vital Signs - First Documented 08/21/22 16:41 Temp 36.6 Pulse 96 Resp 18 B/P (MAP) 132/63 (86) Pulse Ox 95 O2 Delivery Room Air Capillary Refill : Height, Weight, BMI Height: 5'1.00" Weight: 208lbs. 0.0oz. [id number]; 40.77 BMI Method:Stated General Appearance: Mild Distress HEENT: Normal ENT Inspection Neck: Supple Respiratory: Lungs Clear Cardiovascular: Regular Rate, Rhythm, Systolic Murmur Gastrointestinal: Normal Bowel Sounds, Non Tender, Soft Rectal: Deferred Back: No CVA Tenderness Extremity: Non Tender, No Calf Tenderness, No Pedal Edema Neurologic/Psychiatric: Alert, Oriented x3, Abnormal Gait (unable to ambulate due to severe pain) Skin: Warm/Dry Assessment/Plan Assessment and Plan 1. Multilevel Lumbar Degenerative Disc Disease with Right Leg Radiculopathy/Intractable pain--admit and give IV fentanyl for pain control, start PT/OT, will likely need SNF again as patient is unable to bear weight at this time so is unable to perform her ADLs, start gabapentin as well as celebrex and cymbalta 2. Hypertension--start home dose of losartan 3. Anxiety--resume buspirone Admission Diagnosis Admission Status: Inpatient Order (span 2 midnights) Reason for Inpatient Admission: Will need IV pain meds for pain control and to start PT/OT as is unable to do her ADLs JESSIE FLORES DO Aug 21, 2022 18:45
[2022-08-21 19:51] VITALS: BP 125/58
[2022-08-21] MEDS: LATANOPROST 0.005% (XALATAN) OPHTH SOLN 2.5 ML OU SCH (20:00)
[2022-08-21] MEDS: CELECOXIB 100 MG (CeleBREX) CAP PO SCH (20:00)
[2022-08-21] MEDS: busPIRone 10 MG (BUSPAR) TAB PO SCH (20:01)
[2022-08-21] MEDS: GABAPENTIN 300 MG (NEURONTIN) CAP PO SCH (20:01)
[2022-08-21] MEDS: DOCUSATE SODIUM 100 MG (COLACE) CAP PO SCH (20:01)
[2022-08-21] MEDS: LOSARTAN 50 MG (COZAAR) TAB PO SCH (20:01)
[2022-08-21] MEDS: fentaNYL INJ 100 MCG/2 ML AMP IVP PRN (20:37)
[2022-08-22] VITALS: BP 123/55
[2022-08-22] MEDS: fentaNYL INJ 100 MCG/2 ML AMP IVP PRN ×6 (00:23→21:49)
[2022-08-22 04:00] VITALS: BP 126/62
[2022-08-22] MEDS: PANTOPRAZOLE 40 MG (PROTONIX) TAB PO SCH (05:40)
[2022-08-22] MEDS: VITAMIN D3 10 MCG (400 UNITS) TABLET PO SCH (05:40)
[2022-08-22 07:15] VITALS: BP 126/60
--- NOTE | 2022-08-22 07:35 | Progress Note ---
ZOË LEAVITT 08/22/22 0735: Subjective Date Seen by a Provider: Aug 22, 2022 Time Seen by a Provider: 07:20 Subjective/Events-last exam Patient is doing well. She claims her pain is currently under control while she is at rest and rates her pain at a 3. However, any movement that involves trying to stand up or walking causes her pain to go to 10/10. She worked with PT yesterday and said it was very painful but she appreciates their help. She requires assistance to use her camode but she did have a BM last night. Review of Systems General: No Chills, No Night Sweats HEENT: No Head Aches, No Visual Changes Pulmonary: No Dyspnea, No Cough Cardiovascular: No: Chest Pain, Palpitations Gastrointestinal: No: Abdominal Pain, Diarrhea, Constipation Genitourinary: No Dysuria, No Incontinence Musculoskeletal: back pain, leg pain Neurological: Weakness (right lower extremity is diffusely weak due to pain) Objective Exam Last Set of Vital Signs Vital Signs Date Time Temp Pulse Resp B/P (MAP) Pulse Ox O2 Delivery O2 Flow Rate FiO2 08/22/22 04:00 36.6 77 20 126/62 (83) 97 Room Air Capillary Refill : I&O Intake and Output 08/22/22 00:00 Intake Total 600 ml Balance 600 ml Intake Oral 600 ml # Voids 2 # Bowel Movements 1 Daily Weight Change No General: Alert, Oriented X3 HEENT: PERRLA, EOMI Neck: Supple, No JVD Lungs: Clear to Auscultation, Normal Air Movement Heart: Regular Rate, Other (systolic murmur at 2nd LSB) Abdomen: Soft, No Tenderness Extremities: No Clubbing, No Cyanosis, Normal Pulses Skin: No Rashes, No Breakdown Neuro: Sensation Intact (b/l LE and UE) Assessment/Plan Assessment/Plan Assess & Plan/Chief Complaint Severe radicular lumbar back pain Pain control Fentanyl 50mcg Celebrex 100mg PO BID Percocet 1 tab q4h PO PRN Gabapentin 300mg HS PO Continue working with PT as tolerated Patient cannot ambulate independently, needs evaluation for admission to senior living DVT prophylaxis with lovenox Colace 100mg BID PO Continue home losartan for HTN Anxiety Continue home buspar Add duloxetine JESSIE STAPLES DO 08/22/22 1245: Supervisory-Addendum Brief Verification & Attestation Participated in pt care: history, physical Personally performed: exam, history, supervision of care Care discussed with: Medical Student Procedures: n/a Results interpretation: Verified all documentation Verification and Attestation of Medical Student E/M Service A medical student performed and documented this service in my presence. I reviewed and verified all information documented by the medical student and made modifications to such information, when appropriate. I personally performed the physical exam and medical decision making. Jessie Staples, Aug 22, 2022,12:43 Dye Lab Technician to look at SNF placement--prefers to go back to [facility]. Had EMG done yesterday and does show acute L2-L4 right sided nerve impingement so will follow up with Dr. Arevalo to discuss surgery. ZOË LEAVITT Aug 22, 2022 07:35 JESSIE STAPLES DO Aug 22, 2022 12:45
[2022-08-22] MEDS: CELECOXIB 100 MG (CeleBREX) CAP PO SCH ×2 (08:09→19:54)
[2022-08-22] MEDS: busPIRone 10 MG (BUSPAR) TAB PO SCH ×3 (08:09→19:54)
[2022-08-22] MEDS: ENOXAPARIN 40 MG/0.4 ML (LOVENOX) SYR SC SCH ×2 (08:09→19:53)
[2022-08-22] MEDS: DULoxetine 30 MG (CYMBALTA) CAP PO SCH (08:09)
[2022-08-22] MEDS: LOSARTAN 50 MG (COZAAR) TAB PO SCH ×2 (08:10→19:54)
[2022-08-22] MEDS: DOCUSATE SODIUM 100 MG (COLACE) CAP PO SCH ×2 (08:10→19:54)
--- NOTE | 2022-08-22 09:58 | Physical Therapy Evaluation ---
PT Evaluation-General Medical Diagnosis Admission Date Aug 21, 2022 at 16:15 Medical Diagnosis: Retractable pain Onset Date: Aug 21, 2022 Therapy Diagnosis Therapy Diagnosis: Gait deficit, strength deficit Height/Weight Height (Feet): 5 Height (Inches): 1.00 Weight (Pounds): 208 Weight (Ounces): 0.0 Precautions Precautions/Isolations: Fall Prevention, Standard Precautions Weight Bear Status Right Lower Extremity: Right Full Weight Bearing Left Lower Extremity: Left Full Weight Bearing Referral Physician: Dr. Flores Reason for Referral: Evaluation/Treatment Medical History Pertinent Medical History: Arthritis, HTN Social History Home: Single Level Current Living Status: Alone Entry Into Home: Ramp, Stairs With Railing Prior Prior Level of Function SCALE: Activities may be completed with or without assistive devices. 4-Ssucjqjuax-tfheanl completes the activity by him/herself with no assistance from a helper. 5-Set-up or Clean-up Assistance-helper sets up or cleans up; patient completes activity. [place] assists only prior to or following the activity. 4-Supervision or Touching Assistance-helper provides verbal cues and/or touching/steadying and/or contact guard assistance as patient completes activity. Assistance may be provided throughout the activity or intermittently. 3-Partial/Moderate Assistance-helper does LESS THAN HALF the effort. [place] lifts, holds or supports trunk or limbs, but provides less than half the effort. 2-Substantial/Maximal Assistance-helper does MORE THAN HALF the effort. [place] lifts or holds trunk or limbs and provides more than half the effort. 9-Iptyauloq-riiufv does ALL the effort. Patient does none of the effort to complete the activity. Or, the assistance of 2 or more helpers is required for the patient to complete the activity. If activity was not attempted, code reason: 7-Patient Refused. 9-Not Applicable-not attempted and the patient did not perform the activity before the current illness, exacerbation or injury. 10-Not Attempted due to Environmental Limitations-(lack of equipment, weather restraints, etc.). 88-Not Attempted due to Medical Conditions or Safety Concerns. 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 Patient rates pain at 0/10 currently and 10/10 in her right LE with movement. Objective Patient Orientation: Person, Place, Time, Situation ROM/Strength ROM Lower Extremities Right LE limited all planes due to pain. Left LE WFLs all planes Strength Lower Extremities Right LE 3-/5 all planes due to pain; Left LE 4/5 all planes Sensory Vision: Functional Hearing: Functional Sensation Right Lower Extremit: Intact Sensation Left Lower Extremity: Intact Transfers Roll Left to Right (QC): 2 Sit to Lying (QC): 2 Lying to Sitting/Side of Bed(Q: 2 Sit to Stand (QC): 2 Chair/Ico-ra-Diosp Xfer(QC): 3 Gait Does the Patient Walk?: Yes Mode of Locomotion: Walk Walk 10 feet (QC): 3 Distance: 15 feet Gait Assistive Device: FWW Balance Sitting Static: Fair Sitting Dynamic: Fair Standing Static: Poor Standing Dynamic: Poor Assessment/Needs Patient tolerates treatment fair, however reports significant increase in right LE pain with gait and right LE weight bearing. Patient educated on log rolling in bed to decrease stress on vertebral column and limit pain. Patient performs all observed bed mobility with max A (min x 2) and for transfers. Patient ambulates 15 feet to the chair with the FWW, with mod A and verbal cues for use of FWW, proper gait and use of UEs to aid in left LE movement. Patient keeps her left LE on the ground throughout the gait cycle and rotates her left LE in and out to advance the left LE. Patient in chair post treatment with all needs met, nursing notified, call light in hand, and OT in the room. Rehab Potential: Fair PT Tank Worker Goals Tank Worker Goals PT Tank Worker Goals Time Frame: Sep 14, 2022 Roll Left & Right (QC): 6 Sit to Lying (QC): 6 Lying-Sitting on Side/Bed(QC): 6 Sit to Stand (QC): 6 Chair/Cfl-mz-Rvldk Xfer(QC): 6 Does the Patient Walk: Yes Walk 10 feet (QC): 6 Walk 50ft with 2 Turns (QC): 6 Walk 150 ft (QC): 6 PT Plan Problem List Problem List: Activity Tolerance, Functional Strength, Safety, Balance, Gait, Transfer, Bed Mobility, ROM Treatment/Plan Treatment Plan: Continue Plan of Care Treatment Plan: Bed Mobility, Education, Functional Activity Que, Functional Strength, Group Therapy, Gait, Safety, Therapeutic Exercise, Transfers Treatment Duration: Sep 14, 2022 Frequency: 6 times per week Estimated Hrs Per Day: .25 hour per day Patient and/or Family Agrees t: Yes Safety Risks/Education Patient Education: Gait Training, Transfer Techniques Teaching Recipient: Patient, Family Teaching Methods: Demonstration, Discussion Response to Teaching: Reinforcement Needed Time Time In: 918 Time Out: 934 DATE: Aug 22, 2022 Total Billed Treatment Time: 16 Total Billed Treatment Visit, GABRIELA CHANDLER PT Aug 22, 2022 09:58
[2022-08-22 11:10] VITALS: BP 129/63
--- NOTE | 2022-08-22 11:53 | Occupational Therapy Eval ---
OT Evaluation-General/PLF Medical Diagnosis Admission Date Aug 21, 2022 at 16:15 Medical Diagnosis: Retractable pain Onset Date: Aug 21, 2022 Therapy Diagnosis Therapy Diagnosis: pain and weakenss Height/Weight Height (Feet): 5 Height (Inches): 1.00 Weight (Pounds): 208 Weight (Ounces): 0.0 Precautions Precautions/Isolations: Fall Prevention, Standard Precautions Weight Bear Status Weight Bearing Restriction: Full Weight Bearing Referral Physician: Dr. Flores Referral Reason: Self Care, Evaluation/Treatment Medical History Pertinent Medical History: Arthritis, HTN Current History Increased pain , unable to perform functional needs at home Social History Home: Single Level Current Living Status: Alone Entry Into Home: Ramp, Stairs With Railing ADL-Prior Level of Function SCALE: Activities may be completed with or without assistive devices. 4-Yxtzcetbst-keovgxe completes the activity by him/herself with no assistance from a helper. 5-Set-up or Clean-up Assistance-helper sets up or cleans up; patient completes a ctivity. [place] assists only prior to or following the activity. 4-Supervision or Touching Assistance-helper provides verbal cues and/or touching/steadying and/or contact guard assistance as patient completes activity. Assistance may be provided throughout the activity or intermittently. 3-Partial/Moderate Assistance-helper does LESS THAN HALF the effort. [place] lifts, holds or supports trunk or limbs, but provides less than half the effort. 2-Substantial/Maximal Assistance-helper does MORE THAN HALF the effort. [place] lifts or holds trunk or limbs and provides more than half the effort. 5-Nzwbamdhu-pycmjo does ALL the effort. Patient does none of the effort to complete the activity. Or, the assistance of 2 or more helpers is required for the patient to complete the activity. If activity was not attempted, code reason: 7-Patient Refused. 9-Not Applicable-not attempted and the patient did not perform the activity before the current illness, exacerbation or injury. 10-Not Attempted due to Environmental Limitations-(lack of equipment, weather restraints, etc.). 88-Not Attempted due to Medical Conditions or Safety Concerns. Self Care: Independent Functional Cognition: Independent DME/Equipment: Bath Chair, Grab Bars, Reachers, Shower, Sock Aid Drive Self: Yes OT Current Status Subjective Patient scheduled therapy eval w/ RN for pain medication prior to therapy Pain Location: Posterior, Right, Proximal Location Body Site: Thigh Pain Description: Stabbing, Radiating, Sharp Comment: pain varies with activty and at rest 0-8/10 Mental Status/Objective Patient Orientation: Person, Place, Time, Situation Current Glasses/Contacts: Yes Hearing Aids: Yes Upper Extremity ROM BUE ROM Upper Extremity Coordination INTACT Upper Extremity Sensation INTACT Upper Extremity Strength +3/5 D/T PAIN ADL-Treatment Eating (QC): 6 Oral Hygiene (QC): 5 Shower/Bathe Self (QC): 7 (scheduled w/ OT for tommorrow at 9 am) Upper Body Dressing (QC): 4 Lower Body Dressing (QC): 3 (uses dressing tools at home) On/Off Footwear (QC): 3 Toileting Hygiene (QC): 3 (uses hygiene tool at home) Other Treatments Safe functional mobility, dressing sequences, pain reduction movement and patterns Education OT Patient Education: Correct positioning, Modified ADL techniques, Progress toward Goal/Update tx plan, Purpose of tx/functional activities, Reviewed precautions, Rehab process, Safety issues, Transfer techniques Teaching Recipient: Patient Teaching Methods: Demonstration, Discussion Response to Teaching: Verbalize Understanding, Reinforcement Needed OT Residential Goals Bus Assistant Goals Eating (QC): 6 Oral Hygiene (QC): 6 Toileting Hygiene (QC): 6 Shower/Bathe Self (QC): 6 Upper Body Dressing (QC): 6 Lower Body Dressing (QC): 6 On/Off Footwear (QC): 6 1=Demonstrate adherence to instructed precautions during ADL tasks. 2=Patient will verbalize/demonstrate understanding of assistive devices/modifications for ADL. 3=Patient will improve strength/tolerance for activity to enable patient to perform ADL's. OT Education/Plan Problem List/Assessment Assessment: Decreased Activ Tolerance, Impaired Funct Balance, Impaired Self- Care Skills Discharge Recommendations Plan/Recommendations: Continue POC Treatment Plan/Plan of Care Treatment,Training & Education: Yes Patient would benefit from OT for education, treatment and training to promote independence in ADL's, mobility, safety and/or upper extremity function for ADL's. Plan of Care: ADL Retraining, Functional Mobility, Group Exercise/Act as Ind, UE Funct Exercise/Act Treatment Duration: Sep 01, 2022 Frequency: 3 times per week (3-5 times per week) Estimated Hrs Per Day: .25 hour per day Agreement: Yes Rehab Potential: Good Time Start Time: 09:16 Stop Time: 10:05 DATE: Aug 22, 2022 Total Time Billed (hr/min): 49 Billed Treatment Time EVM 1, ADL 2 49 min JORDAN SAM OT Aug 22, 2022 11:53
[2022-08-22] MEDS ORDERED: CYCL10TA25 PO (15:12)
[2022-08-22] MEDS ORDERED: DULO30CA49 PO (15:12)
[2022-08-22] MEDS ORDERED: MELO15TA39 PO (15:12)
[2022-08-22] MEDS ORDERED: METH850P3 PO (15:12)
[2022-08-22] MEDS ORDERED: BUSP10TA95 PO (15:12)
[2022-08-22] MEDS ORDERED: LATA2.5D19 OU (15:12)
[2022-08-22] MEDS ORDERED: LOSA50TA63 PO (15:12)
[2022-08-22] MEDS ORDERED: ACET-2650 PO (15:12)
[2022-08-22] MEDS ORDERED: SENN-272 PO (15:12)
[2022-08-22] MEDS ORDERED: GABA-486 PO (15:12)
[2022-08-22 15:42] VITALS: BP 121/69
[2022-08-22 19:21] VITALS: BP 109/61
[2022-08-22] MEDS: LATANOPROST 0.005% (XALATAN) OPHTH SOLN 2.5 ML OU SCH (19:49)
[2022-08-22] MEDS: GABAPENTIN 300 MG (NEURONTIN) CAP PO SCH (19:54)
[2022-08-23] VITALS (7 sets, daily range): BP systolic 103–148; BP diastolic 50–71
[2022-08-23] MEDS: fentaNYL INJ 100 MCG/2 ML AMP IVP PRN ×2 (00:37→08:45)
[2022-08-23] MEDS: PANTOPRAZOLE 40 MG (PROTONIX) TAB PO SCH (05:26)
[2022-08-23] MEDS: VITAMIN D3 10 MCG (400 UNITS) TABLET PO SCH (05:26)
--- NOTE | 2022-08-23 07:37 | Progress Note ---
ZOË LEAVITT 08/23/22 0737: Subjective Date Seen by a Provider: Aug 23, 2022 Time Seen by a Provider: 07:00 Subjective/Events-last exam Patient reports no changes from yesterday. Pain at rest is still 3/10 and with any movement of the right leg the pain immediately goes to 10/10. Her last BM wa s yesterday morning. She did not tolerate PT well yesterday due to pain. Review of Systems General: No Chills, No Night Sweats HEENT: No Head Aches, No Dysphasia Pulmonary: No Dyspnea, No Cough Cardiovascular: No: Chest Pain, Palpitations Gastrointestinal: No: Nausea, Vomiting, Abdominal Pain Genitourinary: No Frequency, No Hematuria Musculoskeletal: back pain, leg pain Neurological: Weakness (RLE diffusely weak due to pain) Objective Exam Last Set of Vital Signs Vital Signs Date Time Temp Pulse Resp B/P (MAP) Pulse Ox O2 Delivery O2 Flow Rate FiO2 08/23/22 04:00 36.2 78 20 111/67 (82) 97 Room Air Capillary Refill : I&O Intake and Output 08/23/22 00:00 Intake Total 2000 ml Output Total 1370 ml Balance 630 ml Intake Oral 2000 ml Output Urine Total 1370 ml # Voids 5 # Bowel Movements 2 General: Alert, Oriented X3 HEENT: PERRLA, EOMI Neck: Supple, No JVD Lungs: Clear to Auscultation, Normal Air Movement Heart: Regular Rate, Other (systolic murmur at left 2nd ICS) Abdomen: Soft, No Tenderness Extremities: No Cyanosis, Normal Pulses Skin: No Breakdown, No Significant Lesion Neuro: Sensation Intact Assessment/Plan Assessment/Plan Assess & Plan/Chief Complaint Severe radicular lumbar back pain Pain control Fentanyl 50mcg Celebrex 100mg PO BID Percocet 1 tab q4h PO PRN Gabapentin 300mg HS PO Continue working with PT as tolerated Patient cannot ambulate independently According to note from social media marketing specialist, the plan is to move pt. back to her previous room in snf facility Pt. said she has a phone call scheduled with Dr. Arevalo today and plans to follow up with him following discharge from the hospital DVT prophylaxis with lovenox Colace 100mg BID PO Continue home losartan for HTN Anxiety Continue home buspar Add duloxetine JESSIE FLORES DO 3/03/09 1742: Supervisory-Addendum Brief Verification & Attestation Participated in pt care: history, physical Personally performed: exam, history, supervision of care Care discussed with: Medical Student Procedures: n/a Results interpretation: Verified all documentation Verification and Attestation of Medical Student E/M Service A medical student performed and documented this service in my presence. I reviewed and verified all information documented by the medical student and made modifications to such information, when appropriate. I personally performed the physical exam and medical decision making. Jessie Flores Aug 23, 2022,17:33 Will start fentanyl patch. Plan is for DC to SNF tomorrow LYNZOË FLOWERS Aug 23, 2022 07:37 JESSIE FLORES DO Aug 23, 2022 17:42
[2022-08-23] MEDS: ENOXAPARIN 40 MG/0.4 ML (LOVENOX) SYR SC SCH ×2 (08:47→20:26)
[2022-08-23] MEDS: DULoxetine 30 MG (CYMBALTA) CAP PO SCH (08:47)
[2022-08-23] MEDS: busPIRone 10 MG (BUSPAR) TAB PO SCH ×3 (08:47→20:26)
[2022-08-23] MEDS: CELECOXIB 100 MG (CeleBREX) CAP PO SCH ×2 (08:47→20:26)
[2022-08-23] MEDS: DOCUSATE SODIUM 100 MG (COLACE) CAP PO SCH ×2 (08:47→20:26)
[2022-08-23] MEDS: LOSARTAN 50 MG (COZAAR) TAB PO SCH ×2 (08:47→20:26)
[2022-08-23] MEDS ORDERED: fentaNYL PATCH 25 MCG (DURAGESIC) TD SCH (09:00)
[2022-08-23] MEDS: GABAPENTIN 300 MG (NEURONTIN) CAP PO SCH ×2 (09:02→20:26)
--- NOTE | 2022-08-23 09:51 | Physical Therapy Daily Note ---
PT Daily Note-Current Subjective Patient agrees to PT. Rates her right LE pain 10/10 with meds issued. Patient is tearful and voices frustration with right LE pain. Pain Numeric Pain Scale: 10-Worst Possible Pain Location: Right Location Body Site: Hip Pain Description: Burning, Chronic, Sharp Section J - Health Conditions 1. Rarely or not at all 2. Occasionally 3. Frequently 4. Almost constantly 8. Unable to answer Pain Effect on Sleep: 3 Pain Interference with Therapy: 3 Pain Interference w/Day-to-Day: 3 Mental Status Patient Orientation: Normal For Age Transfers SCALE: Activities may be completed with or without assistive devices. 3-Csteiwzkpd-ysszboi completes the activity by him/herself with no assistance from a helper. 5-Set-up or Clean-up Assistance-helper sets up or cleans up; patient completes activity. [place] assists only prior to or following the activity. 4-Supervision or Touching Assistance-helper provides verbal cues and/or touching/steadying and/or contact guard assistance as patient completes activity. Assistance may be provided throughout the activity or intermittently. 3-Partial/Moderate Assistance-helper does LESS THAN HALF the effort. [place] lifts, holds or supports trunk or limbs, but provides less than half the effort. 2-Substantial/Maximal Assistance-helper does MORE THAN HALF the effort. [place] lifts or holds trunk or limbs and provides more than half the effort. 7-Qqolnpdsh-ofjfkx does ALL the effort. Patient does none of the effort to co mplete the activity. Or, the assistance of 2 or more helpers is required for the patient to complete the activity. If activity was not attempted, code reason: 7-Patient Refused. 9-Not Applicable-not attempted and the patient did not perform the activity before the current illness, exacerbation or injury. 10-Not Attempted due to Environmental Limitations-(lack of equipment, weather restraints, etc.). 88-Not Attempted due to Medical Conditions or Safety Concerns. Sit to Stand (QC): 4 Weight Bearing Right Lower Extremity: Right Full Weight Bearing Left Lower Extremity: Left Full Weight Bearing Gait Training Distance: 10' x 2 Walk 10 feet (QC): 4 Gait Assistive Device: FWW shuffle gait sequence with on foot clearance due to right LE pain. Exercises Seated Therapy Exercises: Ankle pumps, Long arc quads Seated Reps: 15 Assessment Patient tolerated treatment and remains up in recliner with needs met. Per patient, she is going to [place] for continued care. PT to continue to address goals and treatment plan. PT Half-Way Goals Half-Way Goals PT Order Analyst Goals Time Frame: Sep 14, 2022 Roll Left & Right (QC): 6 Sit to Lying (QC): 6 Lying-Sitting on Side/Bed(QC): 6 Sit to Stand (QC): 6 Chair/Fus-fi-Ehpfp Xfer(QC): 6 Does the Patient Walk: Yes Walk 10 feet (QC): 6 Walk 50ft with 2 Turns (QC): 6 Walk 150 ft (QC): 6 PT Plan Treatment/Plan Treatment Plan: Continue Plan of Care Treatment Plan: Bed Mobility, Education, Functional Activity Que, Functional Strength, Group Therapy, Gait, Safety, Therapeutic Exercise, Transfers Treatment Duration: Sep 14, 2022 Frequency: 6 times per week Estimated Hrs Per Day: .25 hour per day Patient and/or Family Agrees t: Yes Time Time In: 900 Time Out: 910 DATE: Aug 23, 2022 Total Billed Treatment Time: 10 Total Billed Treatment 1 visit FA 10 min FIOR BAILEY PT Aug 23, 2022 09:51
--- NOTE | 2022-08-23 11:25 | Occupational Ther Daily Note ---
OT Current Status-Daily Note Subjective OT arrived for scheduled shower w/ Patient, staff supplied all hygiene items. Mental Status/Objective Patient Orientation: Normal For Age ADL-Treatment Therapy Code Descriptions/Definitions Functional [place] Measure: 0=Not Assessed/NA 4=Minimal Assistance 1=Total Assistance 5=Supervision or Setup 2=Maximal Assistance 6=Modified [place] 3=Moderate Assistance 7=Complete IndependenceSCALE: Activities may be completed with or without assistive devices. 4-Agazdlrzuy-ufypkus completes the activity by him/herself with no assistance from a helper. 5-Set-up or Clean-up Assistance-helper sets up or cleans up; patient completes activity. [place] assists only prior to or following the activity. 4-Supervision or Touching Assistance-helper provides verbal cues and/or touching/steadying and/or contact guard assistance as patient completes activity. Assistance may be provided throughout the activity or intermittently. 3-Partial/Moderate Assistance-helper does LESS THAN HALF the effort. [place] lifts, holds or supports trunk or limbs, but provides less than half the effort. 2-Substantial/Maximal Assistance-helper does MORE THAN HALF the effort. [place] lifts or holds trunk or limbs and provides more than half the effort. 4-Bqpdsmemf-qlbsjq does ALL the effort. Patient does none of the effort to complete the activity. Or, the assistance of 2 or more helpers is required for the patient to complete the activity. If activity was not attempted, code reason: 7-Patient Refused. 9-Not Applicable-not attempted and the patient did not perform the activity before the current illness, exacerbation or injury. 10-Not Attempted due to Environmental Limitations-(lack of equipment, weather restraints, etc.). 88-Not Attempted due to Medical Conditions or Safety Concerns. Eating (QC): 6 Oral Hygiene (QC): 5 (sittng in recliner w/ set up at bed tray table) Bathing Location: L Arm, R Arm (IV port wrapped for water protection), L Upper Leg, R Upper Leg, L Lower Leg (including foot) (requied OT completion), R Lower Leg (including foot) (OT completion), Chest, Abdomen, Buttocks (OT completion), Perineal Area Shower/Bathe Self (QC): 3 Upper Body Dressing (QC): 5 Lower Body Dressing (QC): 3 On/Off Footwear: 1 Toileting Hygiene (QC): 3 Toilet Transfer (QC): 4 Recliner chair positioned close to bathroom doorway, patient unable to completed ambulation d/t pain. Transfer and ambulation required extensive amount of time, pivot on unstable foot d/t inability to FWB and lift LE Education OT Patient Education: Correct positioning, Exercise program, Modified ADL techniques, Progress toward Goal/Update tx plan, Purpose of tx/functional activities, Reviewed precautions, Rehab process, Safety issues, Transfer techniques, Use of adapted equipment Teaching Recipient: Patient Teaching Methods: Demonstration, Discussion Response to Teaching: Return Demonstration, Reinforcement Needed OT Foot Setter Goals Foot Setter Goals Eating (QC): 6 Oral Hygiene (QC): 6 Toileting Hygiene (QC): 6 Shower/Bathe Self (QC): 6 Upper Body Dressing (QC): 6 Lower Body Dressing (QC): 6 On/Off Footwear (QC): 6 1=Demonstrate adherence to instructed precautions during ADL tasks. 2=Patient will verbalize/demonstrate understanding of assistive devices/modifications for ADL. 3=Patient will improve strength/tolerance for activity to enable patient to perform ADL's. OT Education/Plan Problem List/Assessment Assessment: Decreased Activ Tolerance, Decreased UE Strength, Impaired Coordin ation, Impaired Funct Balance, Impaired Self-Care Skills Discharge Recommendations Plan/Recommendations: Continue POC Treatment Plan/Plan of Care Treatment,Training & Education: Yes Patient would benefit from OT for education, treatment and training to promote independence in ADL's, mobility, safety and/or upper extremity function for ADL's. Plan of Care: ADL Retraining, Functional Mobility, Group Exercise/Act as Ind, UE Funct Exercise/Act Treatment Duration: Sep 01, 2022 Frequency: 3 times per week (3-5 times per week) Estimated Hrs Per Day: .25 hour per day Agreement: Yes Rehab Potential: Good Time Start Time: 09:30 Stop Time: 10:25 DATE: Aug 23, 2022 Total Time Billed (hr/min): 55 Billed Treatment Time ADL 3 FA 1 55 min JORDAN SAM OT Aug 23, 2022 11:25
[2022-08-23] MEDS ORDERED: ACETAMINOPHEN 325 MG TABLET PO PRN (17:30)
[2022-08-23] MEDS: LATANOPROST 0.005% (XALATAN) OPHTH SOLN 2.5 ML OU SCH (20:29)
[2022-08-23] MEDS ORDERED: polyethylene glycoL POWDER 17 GM (MIRALAX) PACK PO SCH (21:00)
[2022-08-24 03:06] VITALS: BP 103/52
[2022-08-24 07:24] VITALS: BP 105/51
[2022-08-24] MEDS: VITAMIN D3 10 MCG (400 UNITS) TABLET PO SCH (07:30)
[2022-08-24] MEDS: DULoxetine 30 MG (CYMBALTA) CAP PO SCH (07:30)
[2022-08-24] MEDS: PANTOPRAZOLE 40 MG (PROTONIX) TAB PO SCH (07:30)
[2022-08-24] MEDS: ENOXAPARIN 40 MG/0.4 ML (LOVENOX) SYR SC SCH (07:30)
[2022-08-24] MEDS: CELECOXIB 100 MG (CeleBREX) CAP PO SCH (07:30)
[2022-08-24] MEDS: DOCUSATE SODIUM 100 MG (COLACE) CAP PO SCH (07:30)
[2022-08-24] MEDS: LOSARTAN 50 MG (COZAAR) TAB PO SCH (07:31)
[2022-08-24] MEDS: GABAPENTIN 300 MG (NEURONTIN) CAP PO SCH (07:31)
[2022-08-24] MEDS: busPIRone 10 MG (BUSPAR) TAB PO SCH ×2 (07:31→13:15)
--- NOTE | 2022-08-24 09:21 | Discharge Summary ---
ZOË LEAVITT 08/24/22 0921: Diagnosis/Chief Complaint Date of Admission Aug 21, 2022 at 16:15 Date of Discharge August 242022 Discharge Date: Aug 24, 2022 Admission Diagnosis Admission Diagnosis This is a 72 year old female with known multilevel degenerative disc disease who is directly admitted due to intractable right leg pain. Her pain has worsened to the point that she is unable to walk and has been bed bound for the past few days. She has taken oxycodone with no relief of her pain. She will be admitted for pain control and further treatment. Discharge Diagnosis Intractable pain secondary to lumbar radiculopathy Chronic hypertension Anxiety Constipation Discharge Summary Hospital Course Hospital Course 72yo female with known multilevel degenerative disc disease was directly admitted due to intractable right leg pain. Her pain had worsened to the point that she was unable to walk and had been bed bound for several days. Prior to admission she was taking oxycodone which provided her no relief of her pain. Upon admission, the patient was started on fentanyl, celebrex, percocet, and gabapentin for pain. This provided pain control when she was at rest. However, when she needed to get out of bed to use the restroom or work with PT her pain was a consistent 10/10. With her history of partial bowel resection and constipation when using oxycodone the decision was made to switch her pain control to a long acting fentanyl patch as well as tramadol, which provided comprable pain management. Her chronic hypertension was controlled with losartan and vital checks every four hours. On her first day of admission she was able to have a bowel movement. She began to feel constipated following that day so we provided miralax and colace. On discharge, it has been two days since she has had a BM but she does not feel uncomfortable. The patient also has a history of anxiety which we treated with duloxetine and buspirone. The patient will be discharged to nursing home and has an appointment with Dr. Arevalo next Saturday (08/27/22). Procedures None. Discharge Physical Examination Allergies: Coded Allergies: codeine (Verified Allergy, Unknown, Pt has had morphine & hydromorphone in the past, 08/07/18) hydrocodone (Verified Allergy, Unknown, 05/06/14) Vitals & I&Os Vital Signs Date Time Temp Pulse Resp B/P (MAP) Pulse Ox O2 Delivery O2 Flow Rate FiO2 3/10/23 07:45 Room Air 08/24/22 07:24 36.5 79 18 105/51 (69) 99 General Appearance: Alert, Oriented X3 HEENT: PERRLA, EOMI Respiratory: Clear to Auscultation, Normal Air Movement Cardiovascular: Regular Rate, Other (systolic murmur at 2nd ICS LSB) Abdominal: Soft, No Tenderness Extremities: No Cyanosis, Normal Pulses Skin: No Breakdown, No Significant Lesion Neuro: Sensation Intact, Other (weakness of right leg due to pain) Discharge Home Medications Reviewed and agree with Discharge Medication list on patient's Discharge Instruction sheet Instructions to Patient/Family Please see electronic discharge instructions given to patient. JESSIE STAPLES DO 08/24/22 1156: Discharge Summary Discharge Physical Examination Allergies: Coded Allergies: codeine (Verified Allergy, Unknown, Pt has had morphine & hydromorphone in the past, 08/07/18) hydrocodone (Verified Allergy, Unknown, 05/06/14) Supervisory-Addendum Brief Verification & Attestation Participated in pt care: history, physical Personally performed: exam, history, supervision of care Care discussed with: Medical Student Procedures: n/a Results interpretation: Verified all documentation Verification and Attestation of Medical Student E/M Service A medical student performed and documented this service in my presence. I reviewed and verified all information documented by the medical student and made modifications to such information, when appropriate. I personally performed the physical exam and medical decision making. Jessie Staples, Aug 24, 2022,11:54 To [facility] today. She sees Dr. Arevalo on 08/27/22 to discuss surgery since she has done all conservative measures. Will continue fentanyl patch at SNF as well as higher dose of gabapentin and increase celebrex to 200mg po BID. She has a pending fwup with me on 09/03/22 and we will keep that. ZOË LEAVITT Aug 24, 2022 09:21 JESSIE STAPLES DO Aug 24, 2022 11:56
[2022-08-24] MEDS ORDERED: SENN-272 PO (10:46)
[2022-08-24] MEDS ORDERED: DULO30CA3 PO (10:46)
[2022-08-24] MEDS ORDERED: FENT1PAT8 TD (10:46)
[2022-08-24] MEDS ORDERED: PANT40TA52 PO (10:46)
[2022-08-24] MEDS ORDERED: TRM50T PO (10:46)
[2022-08-24] MEDS ORDERED: CELE200C PO (10:46)
[2022-08-24] MEDS ORDERED: Gabapentin PO (10:46)
[2022-08-24 11:35] VITALS: BP 125/78
--- NOTE | 2022-08-24 11:46 | Discharge Inst-Skilled Nursing ---
Discharge Inst-Skilled NF Reconcile Patient Problems Problems Reviewed?: Yes Patient Instructions Patient Problems: Multilevel Degenerative Disc Disease with intractable pain Hypertension Anxiety Constipation Consult/Follow Up/Orders Follow Up Appt.: Dr. Arevalo on 08/27/[address] Flores--keep fwup on 09/03/22 Skilled NF Admit to: [facility] ([facility]) I certify that [facility] services are required to be given on an inpatient basis because of the above named patient's need for care home care on a continuing basis for the conditions(s) for which he/she was receiving inpatient hospital services prior to his/her transfer to the [facility]. Correction Facility Order: Visitor Services Coordinator-Evaluate & Treat, Physical Therapy-Evaluate & Treat Oxygen Delivery Method: Room Air Discharge Diet: Cardiac Diet Daily Activity as Tolerated: Yes Resuscitation Status: Full Code New & Resume Previous Orders Jessie Flores Aug 24, 2022 11:36 JESSIE FLORES DO Aug 24, 2022 11:41
--- NOTE | 2022-08-24 13:51 | Occupational Ther Daily Note ---
OT Current Status-Daily Note Subjective Patient reports discharge is possible after lunch today, request assist w/ toileting change of clothing and readiness Mental Status/Objective Patient Orientation: Situation, Normal For Age ADL-Treatment Therapy Code Descriptions/Definitions Functional [place] Measure: 0=Not Assessed/NA 4=Minimal Assistance 1=Total Assistance 5=Supervision or Setup 2=Maximal Assistance 6=Modified [place] 3=Moderate Assistance 7=Complete IndependenceSCALE: Activities may be completed with or without assistive devices. 3-Wmvtuibsie-ipblbrt completes the activity by him/herself with no assistance from a helper. 5-Set-up or Clean-up Assistance-helper sets up or cleans up; patient completes activity. [place] assists only prior to or following the activity. 4-Supervision or Touching Assistance-helper provides verbal cues and/or touching/steadying and/or contact guard assistance as patient completes activity. Assistance may be provided throughout the activity or intermittently. 3-Partial/Moderate Assistance-helper does LESS THAN HALF the effort. [place] lifts, holds or supports trunk or limbs, but provides less than half the effort. 2-Substantial/Maximal Assistance-helper does MORE THAN HALF the effort. [place] lifts or holds trunk or limbs and provides more than half the effort. 4-Fwqofmkfe-qzcxeu does ALL the effort. Patient does none of the effort to complete the activity. Or, the assistance of 2 or more helpers is required for the patient to complete the activity. If activity was not attempted, code reason: 7-Patient Refused. 9-Not Applicable-not attempted and the patient did not perform the activity before the current illness, exacerbation or injury. 10-Not Attempted due to Environmental Limitations-(lack of equipment, weather restraints, etc.). 88-Not Attempted due to Medical Conditions or Safety Concerns. Eating (QC): 6 Oral Hygiene (QC): 5 (sitting d/t increased pain with standing in RLE) Bathing Location: Buttocks, Perineal Area Shower/Bathe Self (QC): 3 (Patient uses hygiene tools at home for joanne care) Upper Body Dressing (QC): 5 Lower Body Dressing (QC): 3 On/Off Footwear: 5 (slip on crocs) Toileting Hygiene (QC): 3 Toilet Transfer (QC): 4 Left foot inversion with standing w/ ER, Patient drags LLE and pivots d/t pain extremes with FWB on RLE, FWW and UE offloading instruction provided to ambulate. Patietn holds breath frequently during mobility Education OT Patient Education: Home exercise program, Modified ADL techniques, Safety issues, Transfer techniques, Use of adapted equipment Teaching Methods: Demonstration Response to Teaching: Reinforcement Needed OT Skilled Nursing Goals Field Service Analyst Goals Eating (QC): 6 Oral Hygiene (QC): 6 Toileting Hygiene (QC): 6 Shower/Bathe Self (QC): 6 Upper Body Dressing (QC): 6 Lower Body Dressing (QC): 6 On/Off Footwear (QC): 6 1=Demonstrate adherence to instructed precautions during ADL tasks. 2=Patient will verbalize/demonstrate understanding of assistive devices/modifications for ADL. 3=Patient will improve strength/tolerance for activity to enable patient to perform ADL's. OT Education/Plan Problem List/Assessment Assessment: Decreased Activ Tolerance, Decreased UE Strength, Impaired Self- Care Skills Discharge Recommendations Plan/Recommendations: Continue POC (while in hospital) Therapy Discharge Recommendati: Post Acute OT Treatment Plan/Plan of Care Treatment,Training & Education: Yes Patient would benefit from OT for education, treatment and training to promote independence in ADL's, mobility, safety and/or upper extremity function for ADL's. Plan of Care: ADL Retraining, Functional Mobility, Group Exercise/Act as Ind, UE Funct Exercise/Act Treatment Duration: Sep 01, 2022 Frequency: 3 times per week (3-5 times per week) Estimated Hrs Per Day: .25 hour per day Agreement: Yes Rehab Potential: Good Patient is fully dressed and sitting in recliner, calling for family on phone Time Start Time: 10:26 Stop Time: 10:56 DATE: Aug 24, 2022 Total Time Billed (hr/min): 30 Billed Treatment Time ADL 30 min JORDAN SAM OT Aug 24, 2022 13:51
[2022-08-24 15:17] VITALS: BP 125/78
[2022-08-26] MEDS ORDERED: FENTANYL PATCH REMOVAL TP SCH (08:59)
== END 2022-08-24 15:34 | DRG 552 ==
LOC: 4TH 16:15
PROVIDERS: ADMIT Family Medicine; ATTEND Family Medicine
DX: M51.16 Intervertebral disc disorders with radiculopathy, lumbar region (principal); K59.00 Constipation, unspecified; I10 Essential (primary) hypertension; I25.10 Atherosclerotic heart disease of native coronary artery without angina pectoris; R47.9 Unspecified speech disturbances; F41.9 Anxiety disorder, unspecified; R53.1 Weakness; Z79.82 Long term (current) use of aspirin; Z79.52 Long term (current) use of systemic steroids; Z79.899 Other long term (current) drug therapy; Z88.5 Allergy status to narcotic agent

== ENCOUNTER → 2022-10-03 | Outpatient (CLI) | payer MEDICARE ==
[~2022-10-03] MED LIST changes: +ACET-2650 PO; +BUSP10TA95 PO; +CELE200C PO; +CYCL10TA25 PO; +DULO30CA49 PO; +FENT1PAT8 TD; +Gabapentin PO; +LATA2.5D19 OU; +METH850P3 PO; +PANT40TA52 PO; +SENN-271 PO; +SENN-272 PO; -SENN1TAB76 PO
[2022-10-03 16:55] LABS: BILIRUBIN,URINE NEGATIVE (NEGATIVE); CLARITY,URINE CLEAR; COLOR,URINE YELLOW; GLUCOSE, URINE (UA) NEGATIVE (NEGATIVE); KETONES,URINE NEGATIVE (NEGATIVE); LEUKOCYTE ESTERASE ,URINE 2+ (NEGATIVE); NITRITE,URINE NEGATIVE (NEGATIVE); PROTEIN,URINE NEGATIVE (NEGATIVE)
[2022-10-03 17:11] LABS: BACTERIA,URINE FEW /HPF; RBC,URINE 0-2 /HPF
[2022-10-03 17:12] LABS: SQUAMOUS EPITHELIAL CELL,UR 0-2 /HPF
== END ==
LOC: LABNPT 16:47
PROVIDERS: ATTEND Family Medicine
DX: Z01.89 Encounter for other specified special examinations (principal)
CPT/HCPCS: 81000; 87077; 87088; 87186

== ENCOUNTER → 2023-02-25 | Outpatient (CLI) | payer MEDICARE ==
--- NOTE | 2023-02-25 10:43 | Diagnostic Imaging Report ---
INDICATION: Routine screening. COMPARISON: 02/12/2022 and 01/31/2021. TECHNIQUE: 2D and 3D bilateral screening mammography was performed with CAD. FINDINGS: Scattered fibroglandular densities are identified bilaterally. The benign nodules in the upper outer left breast are stable. There are benign calcifications bilaterally. No spiculated mass or malignant-appearing microcalcifications are seen. The axillae are unremarkable. IMPRESSION: No mammographic features suspicious for malignancy are identified. ACR BI-RADS Category 2: Benign findings. Result letter will be mailed to the patient. Note: At least 10% of breast cancer is not imaged by mammography. Dictated by: Dictated on workstation # [id number]
== END ==
LOC: RAD 07:58
PROVIDERS: ATTEND Nurse Practitioner
DX: Z12.31 Encounter for screening mammogram for malignant neoplasm of breast (principal)
CPT/HCPCS: 77063; 77067

== ENCOUNTER → 2023-04-29 | Outpatient (CLI) | payer MEDICARE | LOC: CARD 09:03 | PROVIDERS: ATTEND Nurse Practitioner Family | DX: I51.7 Cardiomegaly (principal); I35.0 Nonrheumatic aortic (valve) stenosis | CPT/HCPCS: 93306 ==